=== PATIENT | male | born 2000 | race Two or more races ===

== ENCOUNTER 2024-02-06 09:24 | Emergency (ER) | payer MEDICAID, SELFPAY ==
--- NOTE | 2024-02-06 09:40 | PD.EDRME ---
Rapid Medical Screening Exam RME Arrival date/time: 02/06/24 09:24 Chief Complaint: Abdominal Pain Time Seen by Provider: 02/06/24 09:28 Vital signs: Vital Signs Temperature 98.2 F 02/06/24 09:46 Pulse Rate 97 02/06/24 09:46 Respiratory Rate 19 02/06/24 09:46 Blood Pressure 138/86 H 02/06/24 09:46 Pulse Oximetry (%) 100 02/06/24 09:46 Oxygen Delivery Method Room Air 02/06/24 09:46 E Narrative: n/v/d and epigastric pain initiated this morning
[2024-02-06 09:46] VITALS: BP 138/86; PULSE 97; RESP 19; TEMP 36.8; O2SAT 100; BMI 22.8
[2024-02-06 09:57] LABS: Basophils % (Auto) 0 % (0-2.5); Eosinophils # (Auto) 0.1 Thou/mm3 (0.0-0.5); Eosinophils % (Auto) 1 % (0-10); Hematocrit 33.8 % (41.0-53.0); Hemoglobin 10.2 g/dL (13.5-16.0); Immature Granulocytes % (Auto) 0 % (0-0); Immature Granulocytes Auto 0.02 Thou/mm3 (0.00-0.00); Lymphocytes # (Auto) 0.6 Thou/mm3 (1.0-4.8); Lymphocytes % (Auto) 7 % (10-50); Mean Corpuscular HGB Conc 30.2 g/dl (31.0-37.0); Mean Corpuscular Hemoglobin 22.6 pg (25.0-35.0); Mean Corpuscular Volume 75 fL (80-100); Monocytes # (Auto) 0.2 Thou/mm3 (0.0-0.8); Monocytes % (Auto) 2 % (0-12); Neutrophils # (Auto) 6.9 Thou/mm3 (1.8-7.7); Neutrophils % (Auto) 88 % (37-80); Nucleated Red Blood Cell % 0 /100 WBC (0); Platelet Count 131 Thou/mm3 (140-440); RDW Standard Deviation 46.9 fL (35.1-43.9); Red Blood Count 4.52 Miln/mm3 (4.50-5.90); White Blood Count 7.9 Thou/mm3 (3.8-10.6)
--- NOTE | 2024-02-06 10:00 | PD.EDABDPN ---
ED Abdominal Pain RME/HPI General Chief Complaint: Abdominal Pain Stated complaint: n/v 0600 today, ab pain Time seen by provider: 02/06/24 09:28 Arrival date/time: 02/06/24 09:24 RME / HPI RME / HPI narrative: n/v/d and epigastric pain initiated this morning This section includes all my notes and documentations, including HPI, PE, and ED course.? Mariano Hobson MD HPI: 23 year old male with history of unknown liver disease s/p stent placement, GI bleed, given blood transfusion, esophageal varices that were banded presents to the ED for complaint of epigastric and right upper quadrant abdominal pain beginning at 06:00 am today. Described as aching in sensation and rating 10/10 in severity. Accompanied by nausea and nonbloody vomiting. Reports history of abdominal pain but not to this severity. Denies fevers, chills, sweats, chest pain, cough, shortness of breath, diarrhea, constipation, or urinary symptoms. ROS: All negative except as documented in HPI. Physical Exam: General:? Alert and oriented.?Appears to be in severe pain Eyes:? Conjunctivae and lids clear.?? ENT:? No nasal congestion.?? Neck:? Supple.?? Lungs:? No respiratory distress.?? Abdomen:? Soft.? Tenderness diffusely, difficult to localize. Normal bowel sounds. No distention. No rebound or guarding. Skin:? Warm and dry.?? Neuro:? Alert and oriented X 3.?? I reviewed all diagnostic test results. My review of the abdominal CT report is?cirrhosis. My review of the GB ultrasound report is distended gallbladder. Blood tests and urine tests?unremarkable. At this point, diagnoses include?gastritis. Treatment here included?Zofran and Toradol and morphine and famotidine and Protonix and two Tylenol #3. Significant improvement noted. Recommended more outpatient workup. Based on my best medical judgment, made decision no further evaluation or treatment indicated at this time.? Patient understands and agrees to the discharge instructions customized and printed, see below. Discharge Instructions from Dr. Hobson printed for you: 1. After extensive evaluation, exact cause of your abdominal pain was not determined. But there is no emergency needing urgent surgery or other urgent intervention. 2. Possibilities include liver cirrhosis and chronic pancreatitis and gastritis (stomach ulcer). 3. Zofran for nausea/vomiting. 4. Take omeprazole every morning and famotidine every night for 7 days and as needed. For possible gastritis. 5. Clear liquid diet for 24 hours. Then advance slowly as tolerated. Avoid fatty and spicy and acidic food and beverages. 6. See a private doctor on 02/09/2024 for recheck and further care. Ask to review all test results and official radiology reports, to make sure you receive all necessary follow-ups and monitoring. To make sure there is no other serious intra-abdominal condition, ask for help with more investigation not available here in the ER. Such as EGD or scoping the stomach, colonoscopy or scoping the colon, and referral to see delicatessen store manager. Call [facility] where you had your previous care and let them know what happened and ask for an appointment. 7. Seek immediate medical care with worsening, fever, throwing up blood, or with any concerns. Mariano Hobson MD Related Data Previous Rx's ?Medication ?Instructions ?Recorded ferrous sulfate 325 mg (65 mg 325 mg PO QDAY #30 tabs 11/12/23 iron) tablet pantoprazole 40 mg tablet,delayed 40 mg PO QDAY #30 tabs 11/12/23 release famotidine 40 mg tablet 40 mg PO QDAY #30 tabs 02/06/24 omeprazole 40 mg capsule,delayed 40 mg PO QDAY #30 caps 02/06/24 release ondansetron 4 mg disintegrating 4 mg PO TID PRN nausea and 02/06/24 tablet vomiting 5 days #10 tabs Allergies Allergy/AdvReac Type Severity Reaction Status Date / Time No Known Allergies Allergy Verified 02/06/24 09:25 Review of Systems Review of Systems Systems Reviewed: All systems reviewed, normal except as documented Past Medical History Past Medical History GASTROINTESTINAL: Positive Gastrointestinal Disorders and Cirrhosis (reports hx of liver problems now resolved) GENITOURINARY: Positive Kidney Stones HEMATOLOGIC: Positive Anemia OTHER HISTORY: Positive Blood Transfusions Social History SMOKING STATUS: Never smoker ED Exam Narrative Physical exam: As noted in HPI Course Quality Measures none Orders Category Date Time Status CT abdomen pelvis wo con Stat Exams 02/06/24 10:08 Completed US gall bladder Stat Exams 02/06/24 10:09 Completed Amylase Stat Lab 02/06/24 09:48 Completed CBC Stat Lab 02/06/24 09:48 Completed CMP [Comprehensive Metabolic Panel] Stat Lab 02/06/24 09:48 Completed Drug Screen,Urine Stat Lab 02/06/24 11:00 Completed Lipase Stat Lab 02/06/24 09:48 Completed Magnesium Stat Lab 02/06/24 09:48 Completed UA [Urinalysis] Stat Lab 02/06/24 11:00 Completed ACETAMINOPHEN w/COD 300-30 [Tylenol w/Cod #3] Med 02/06/24 10:25 Discontinued 2 tab PO X1 ONE Famotidine [Pepcid] Med 02/06/24 10:25 Discontinued 20 mg PO X1 ONE Ketorolac Inj [Toradol Inj] Med 02/06/24 09:40 Discontinued 30 mg IM X1 ONE Morphine Inj Med 02/06/24 13:21 Discontinued 4 mg IM X1 ONE Ondansetron Odt [Zofran Odt] Med 02/06/24 09:40 Discontinued 4 mg PO X1 ONE Pantoprazole [Protonix] Med 02/06/24 10:25 Discontinued 40 mg PO X1 ONE Vital Signs Vital signs: Vital Signs Temperature 98.2 F 02/06/24 09:46 Pulse Rate 97 02/06/24 09:46 Respiratory Rate 19 02/06/24 09:46 Blood Pressure 138/86 H 02/06/24 09:46 Pulse Oximetry (%) 100 02/06/24 09:46 Oxygen Delivery Method Room Air 02/06/24 09:46 Pulse ox is 100% on room air which is adequate. Abdominal Pain MDM MDM Narrative MDM Narrative:: Aylin Mckeon am scribing for and in the presence of Dr. Hobson. Patient data External records reviewed:: [facility] previous records (I reviewed ED visit 11/19/2023 for abdominal pain ) Clinical information provided by:: patient Social determinants that could affect healthcare access:: none Patient has the following chronic illnesses:: History of liver cirrhosis s/p stent placement, GI bleed, esophageal varices How is presenting disease/condition affected by chronic disease/condition?: exacerbated by Evaluation data The following diagnostics were reviewed and interpreted by me:: lab results and radiology exam(s) Lab and/or radiology exams considered but not ordered:: None Interpretation Summary: Gastritis Medications / Prescriptions Medications or Prescriptions considered but not ordered:: None Medication administrations:: Medication Administration History Discontinued Medications Acetaminophen/Codeine Phosphate (Acetaminophen W/Cod 300-30 Tablet) 2 tab PO X1 ONE Stop: 02/06/24 10:26 Last Admin: 02/06/24 10:40 Dose: 2 tab Documented By: RAMIRO Famotidine (Famotidine 20 Mg Tablet) 20 mg PO X1 ONE Stop: 02/06/24 10:26 Last Admin: 02/06/24 10:39 Dose: 20 mg Documented By: RAMIRO Ketorolac Tromethamine (Ketorolac Inj 60 Mg/2 Ml Vial) 30 mg IM X1 ONE Stop: 02/06/24 09:41 Last Admin: 02/06/24 10:30 Dose: Not Given Documented By: RAMIRO Non-Admin Reason: Cancelled by Provider Morphine Sulfate (Morphine Sulf Inj 10 Mg/Ml Vial) 4 mg IM X1 ONE Stop: 02/06/24 13:22 Last Admin: 02/06/24 13:27 Dose: 4 mg Documented By: RAMIRO Ondansetron HCl (Ondansetron Odt 4 Mg Tabrap) 4 mg PO X1 ONE; Protocol Stop: 02/06/24 09:41 Last Admin: 02/06/24 10:39 Dose: 4 mg Documented By: RAMIRO Pantoprazole Sodium (Pantoprazole 40 Mg Tablet) 40 mg PO X1 ONE Stop: 02/06/24 10:26 Last Admin: 02/06/24 10:39 Dose: 40 mg Documented By: RAMIRO See chart Consultations Consultation(s) initiated? (list below): No Diagnosis Differential diagnosis abdominal pain: abdominal pain, acute appendicitis, calculus of kidney, constipation, diverticulitis, gastroenteritis, pancreatitis, small bowel obstruction and other (Gastritis) Most likely diagnosis given after review of the tests above:: Gastritis Admission Indicated Admission indicated?: not indicated Explain why admission is indicated or not indicated:: Admission criteria not met. Admission Request Was there a request for admission?: No Disposition Plan Disposition Plan: Discharge Discharge Attestation Discharge Attestation: The patient and all family members were given an opportunity to ask questions and understood the discharge instructions. Discharge instructions specifically effects, indications for sooner follow up or return to the emergency department, and the expected course of current diagnosis. Patient condition: Stable Discharge Plan Plan Patient Disposition: HOME (Self Care) Prescriptions/Referrals Prescriptions/Med Rec: New famotidine 40 mg tablet 40 mg PO QDAY Qty: 30 0RF omeprazole 40 mg capsule,delayed release(DR/EC) 40 mg PO QDAY Qty: 30 0RF ondansetron 4 mg tablet,disintegrating 4 mg PO TID PRN (Reason: nausea and vomiting) 5 Days Qty: 10 0RF No Action pantoprazole 40 mg tablet,delayed release (DR/EC) 40 mg PO QDAY Qty: 30 0RF ferrous sulfate 325 mg (65 mg iron) tablet 325 mg PO QDAY Qty: 30 0RF Referrals: No Primary/Family,Physician [Primary Care Provider] - In 1 week Problem List Clinical Impression: Abdominal pain Patient/Caregiver Discharge Instructions Discharge Activity: activity as tolerated Education Materials: ED Cirrhosis, ED Gastritis (Adult), ED Pancreatitis, ED Abdominal Pain Unknown Cause ... Additional Instructions: Discharge Instructions from Dr. Hobson printed for you: 1. After extensive evaluation, exact cause of your abdominal pain was not determined. But there is no emergency needing urgent surgery or other urgent intervention. 2. Possibilities include liver cirrhosis and chronic pancreatitis and gastritis (stomach ulcer). 3. Zofran for nausea/vomiting. 4. Take omeprazole every morning and famotidine every night for 7 days and as needed. For possible gastritis. 5. Clear liquid diet for 24 hours. Then advance slowly as tolerated. Avoid fatty and spicy and acidic food and beverages. 6. See a private doctor on 02/09/2024 for recheck and further care. Ask to review all test results and official radiology reports, to make sure you receive all necessary follow-ups and monitoring. To make sure there is no other serious intra-abdominal condition, ask for help with more investigation not available here in the ER. Such as EGD or scoping the stomach, colonoscopy or scoping the colon, and referral to see delicatessen store manager. Call [facility] where you had your previous care and let them know what happened and ask for an appointment. 7. Seek immediate medical care with worsening, fever, throwing up blood, or with any concerns. Print Language: Greenlandic Stand Alone Forms: [employer] Award Info., Patient Portal Info Letter
--- NOTE | 2024-02-06 10:08 | XR_ITS ---
Examination: CT abdomen and pelvis without contrast. Coronal 3-D reconstructions. Sagittal 2-D reconstructions. Date and time of exam:February 06, 2024 1017 hours Comparison 11/19/2023 INDICATIONS: Onset right-sided flank pain with nausea vomiting beginning 6:00 AM this morning CTDI: vol (mGy): 5.74 DLP: (mGycm): 339 Technique: Axial images of the abdomen have been obtained, 3 mm slice thickness Intravenous contrast material has not been administered. Low dose protocols were performed. One or more of the following dose reduction techniques were used; automated exposure control, adjustment of the mA and/or KV according to patient size, use of iterative reconstruction technique. Findings: Liver is irregular in contour with multiple low-density areas which may represent intrahepatic biliary tract dilatation Abnormal distention of the gallbladder with mild pericholecystic inflammatory change Marked splenomegaly Mild edema around the pancreas Portosystemic collateral vessels medial to the spleen Perigastric varices No hydronephrosis Normal appendix No bowel obstruction Contracted urinary bladder IMPRESSION: Cirrhosis Prominent splenomegaly Perigastric varices Abnormally distended gallbladder, suspicious for pancreatitis Recommend MRCP follow-up to confirm cholecystitis, assess the extrahepatic biliary tree and confirm pancreatitis
--- NOTE | 2024-02-06 10:09 | XR_ITS ---
Examination: Abdomen sonogram, Limited Date and time of exam: February 06, 2024 1130 hours INDICATIONS: Right upper abdominal pain with nausea vomiting beginning 6:00 AM this morning Technique: Real-time lr scale transabdominal sonographic images of the upper abdomen obtained. Findings: Distended gallbladder 16.4 cm No gallstones Gallbladder wall 0.2 cm Common bile duct is abnormally enlarged 0.7 cm Pancreatic head 3.1 cm Liver 16.4 cm lobular contour fatty infiltration no focal liver lesions Normal hepatopedal portal venous flow Patent IVC IMPRESSION: Distended gallbladder with abnormally enlarged common bile duct 0.7 cm Recommend MRCP follow-up to exclude impacted stones in the distal common bile duct
[2024-02-06 10:21] LABS: Alanine Aminotransferase 27 U/L (10-49); Albumin, Serum 5.4 gm/dL (3.5-5.0); Albumin/Globulin Ratio 1.4 (1.2-2.2); Alkaline Phosphatase 111 U/L (46-116); Anion Gap 11 (7-16); Aspartate Amino Transferase 27 U/L (0-34); BUN/Creatinine Ratio 15 Ratio (12-20); Bilirubin,Total 0.9 mg/dL (0.3-1.2); Blood Urea Nitrogen 12 mg/dL (9-23); Calcium 10.2 mg/dL (8.3-10.6); Calcium (Corrected) 10.2 mg/dL (8.5-10.1); Chloride 106 mMol/L (98-107); Creatinine (Component) 0.8 mg/dL (0.6-1.3); Estimated Creatinine Clearance 114.6 mL/min (>60); Globulin 3.8 gm/dL (2.3-3.5); Glucose 131 mg/dL (74-106); Lipase 34 U/L (12-53); Osmolality,Calculated 275 (275-295); Potassium 3.9 mMol/L (3.4-5.1); Sodium 137 mMol/L (136-145); Total Protein 9.2 gm/dL (5.7-8.2); eGFR > 60 See Note
[2024-02-06] MEDS: PANTOPRAZOLE 40 MG TABLET PO (10:39)
[2024-02-06] MEDS: FAMOTIDINE 20 MG TABLET PO (10:39)
[2024-02-06] MEDS: ONDANSETRON ODT 4 MG TABRAP PO (10:39)
[2024-02-06] MEDS: ACETAMINOPHEN w/COD 300-30 TABLET 2 TAB PO (10:40)
--- NOTE | 2024-02-06 10:45 | PC.NURSE ---
Patient presents to thr ER with complaint of abd pain, vomiting, diarrhea x 0600. States woke up feeling full and took two Pepto pink pills priorr to symptoms starting. States smoked marijuana last night with no prior medical hx. GCS 15
[2024-02-06 11:14] LABS: Collection Type, Urine Clean Catch
[2024-02-06 11:27] LABS: Amphetamine/Methamp Scrn,U Negative (Negative); Barbiturate Screen,Urine Negative (Negative); Benzodiazepines Screen,Urine Negative (Negative); Benzoylecgonine Screen, Ur Negative (Negative); Fentanyl Screen,Urine Negative (Negative); Opiate Screen,Urine Negative (Negative); THC Screen,Urine Positive (Negative)
[2024-02-06 11:28] LABS: Bacteria,Urine Rare; Bilirubin,Urine Negative (Negative); Blood,Urine Negative (Negative); Color,Urine Yellow (Lt Yel-Yel); Glucose, Urine Negative (Negative); Granular Casts,Urine < 1 /hpf (0-1); Hyaline Casts,Urine < 1 /hpf (0-1); Ketones,Urine Negative (Negative); Leukocyte Esterase,Urine Negative (Negative); Nitrite,Urine Negative (Negative); Protein,Urine 1+ (Neg - Trace); RBC,Urine 13 /hpf (0-3); Specific Gravity,Urine 1.026 (1.001-1.035); Squamous Epithelial Cell,Urine < 1 /hpf (0-5); Urobilinogen,Urine Negative mg/dL (0.0-1.0); WBC,Urine 2 /hpf (0-5)
[2024-02-06 11:33] LABS: Clarity,Urine Hazy (Clear/Hazy)
[2024-02-06 11:54] LABS: Amylase 130 U/L (30-118)
[2024-02-06 12:04] VITALS: BP 131/74; PULSE 67; RESP 18; TEMP 36.8; O2SAT 99
--- NOTE | 2024-02-06 13:20 | PC.NURSE ---
Patient states pain 9/10 and informed ER provider. Received verbal order for 4 mg morphine IM.
[2024-02-06] MEDS: MORPHINE SULF INJ 10 MG/ML VIAL 4 MG IM (13:27)
== END 2024-02-06 13:38 | disposition home or self-care (01) ==
PROVIDERS: Physician Assistant; Emergency Provider Emergency Medicine
DX: K29.70 Gastritis, unspecified, without bleeding (principal); K74.60 Unspecified cirrhosis of liver; K82.8 Other specified diseases of gallbladder
CPT/HCPCS: 36415; 74176; 76705; 80053; 80307; 81001; 82150; 83690; 83735; 85025; 96372; 99284; J2270; Q0162; A9270

== ENCOUNTER 2024-03-06 10:24 | Inpatient (IN) | payer MEDICAID, SELFPAY ==
[2024-03-06] VITALS (13 sets, daily range): BP systolic 97–123; BP diastolic 49–78; PULSE 59–87; RESP 7–18; TEMP 36.6–37.1; O2SAT 99–100; BMI 24.5; BMI 23.8
--- NOTE | 2024-03-06 | XR_ITS ---
MRI abdomen, without contrast. MRCP Date and time of exam: March 06, 2024 1518 hr Indications: Vomiting blood today nausea abdominal pain, distended gallbladder Technique: Multiple axial and coronal images of the abdomen have been obtained with the Siemens 1.5T MRI scanner. Images obtained included T1 weighted transverse images, T2-weighted transverse images, T2-weighted transverse images fat-suppressed, T2 weighted haste fat suppressed transverse images, T1 weighted images, in and out of phase images, T2-weighted coronal images, breath hold, T2 weighted haze coronal images as well as T2 weighted coronal thick slab images, MRCP. Findings: Intrahepatic biliary tract dilatation Markedly distended gallbladder with mild gallbladder wall thickening and mild edema Common hepatic duct 10 mm Fairly abrupt termination distal common bile duct, coronal image 13 Liver is irregular in contour with prominent splenomegaly There is minimal fluid around the pancreas No hydronephrosis No bowel obstruction Aorta normal size Impression: Markedly distended gallbladder with mild gallbladder wall thickening and mild edema around the gallbladder Extrahepatic biliary tract obstruction, common hepatic duct 10 mm, fairly abrupt termination of the distal common bile duct although no definite stones Recommend ERCP follow-up, also consider HIDA scan follow-up to confirm cystic duct obstruction Suspicious for mild pancreatitis
--- NOTE | 2024-03-06 10:36 | XR_ITS ---
Examination: CT abdomen and pelvis without contrast. Coronal 3-D reconstructions. Sagittal 2-D reconstructions. Date and time of exam:March 06, 2024 1113 hrs. Comparison February 06, 2024 Indications: Right upper abdominal pain beginning 3 days ago CTDI: vol (mGy): 5.55 DLP: (mGycm): 355 Technique: Axial images of the abdomen have been obtained, 3 mm slice thickness Intravenous contrast material has not been administered. Low dose protocols were performed. One or more of the following dose reduction techniques were used; automated exposure control, adjustment of the mA and/or KV according to patient size, use of iterative reconstruction technique. Findings: Liver irregular in contour with intrahepatic biliary tract dilatation Distended gallbladder Prominent splenomegaly No focal pancreatic lesion Common hepatic duct 8 mm Aorta normal size Portosystemic collateral vessels medial to the spleen No hydronephrosis No bowel obstruction Normal appendix Trace ascites No bladder mass No prostatomegaly Impression: Cirrhosis Prominent splenomegaly Markedly abnormal distended gallbladder with enlarged common bile duct 8 mm, recommend MRCP follow-up Trace ascites Normal appendix No bowel obstruction
[2024-03-06] MEDS: ACETAMINOPHEN w/COD 300-30 TABLET 2 TAB PO (10:54)
[2024-03-06] MEDS: ONDANSETRON ODT 4 MG TABRAP PO (10:54)
[2024-03-06 11:37] LABS: Basophils % (Auto) 1 % (0-2.5); Eosinophils # (Auto) 0.1 Thou/mm3 (0.0-0.5); Eosinophils % (Auto) 2 % (0-10); Immature Granulocytes % (Auto) 0 % (0-0); Immature Granulocytes Auto 0.02 Thou/mm3 (0.00-0.00); Lymphocytes # (Auto) 0.7 Thou/mm3 (1.0-4.8); Lymphocytes % (Auto) 16 % (10-50); Mean Corpuscular HGB Conc 29.6 g/dl (31.0-37.0); Mean Corpuscular Hemoglobin 20.1 pg (25.0-35.0); Mean Corpuscular Volume 68 fL (80-100); Monocytes # (Auto) 0.3 Thou/mm3 (0.0-0.8); Monocytes % (Auto) 6 % (0-12); Neutrophils # (Auto) 3.4 Thou/mm3 (1.8-7.7); Neutrophils % (Auto) 75 % (37-80); Nucleated Red Blood Cell % 0 /100 WBC (0); Platelet Count 125 Thou/mm3 (140-440); RDW Standard Deviation 43.1 fL (35.1-43.9); Red Blood Count 2.73 Miln/mm3 (4.50-5.90); White Blood Count 4.5 Thou/mm3 (3.8-10.6)
[2024-03-06 11:41] LABS: Alanine Aminotransferase 17 U/L (10-49); Albumin, Serum 4.4 gm/dL (3.5-5.0); Albumin/Globulin Ratio 1.5 (1.2-2.2); Alkaline Phosphatase 72 U/L (46-116); Amylase 81 U/L (30-118); Anion Gap 7 (7-16); Aspartate Amino Transferase 17 U/L (0-34); BUN/Creatinine Ratio 28 Ratio (12-20); Bilirubin,Total 0.9 mg/dL (0.3-1.2); Blood Urea Nitrogen 17 mg/dL (9-23); Carbon Dioxide 25.2 mMol/L (20.0-31.0); Chloride 107 mMol/L (98-107); Creatinine (Component) 0.6 mg/dL (0.6-1.3); Estimated Creatinine Clearance 146.6 mL/min (>60); Glucose 110 mg/dL (74-106); Lipase 41 U/L (12-53); Osmolality,Calculated 280 (275-295); Sodium 139 mMol/L (136-145); Total Protein 7.4 gm/dL (5.7-8.2); eGFR > 60 See Note
[2024-03-06 11:43] LABS: INR 1.4 (0.9-1.3); Partial Thromboplastin Time 26.5 Seconds (22.0-36.0); Prothrombin Time 15.1 Seconds (9.0-12.2)
[2024-03-06 11:45] LABS: Hematocrit 18.6 % (41.0-53.0); Hemoglobin 5.5 g/dL (13.5-16.0)
--- NOTE | 2024-03-06 12:45 | EDNOTE_ITS ---
ED GI Bleed RME/HPI General Chief complaint: Nausea/Vomiting/Diarrhea Stated complaint: VOMITING BLOOD SINCE YESTERDAY Time Seen by Provider: 03/06/24 10:28 Arrival date/time: 03/06/24 10:24 RME / HPI RME / HPI Narrative: This section includes all my notes and documentations, including HPI, PE, and ED course. Mariano Hobson MD HPI: 23-year-old male here with about 24-hour history of vomiting coffee-ground emesis and abdominal pain and tarry stools. No obvious fever. Reports fatigue and malaise. No chest pain or shortness of breath. No other complaints ROS: All negative except as documented in HPI. Physical Exam: General: Alert and oriented. In obvious pain. Eyes: Conjunctivae and lids clear. ENT: No nasal congestion. Neck: Supple. Heart: RRR. Lungs: No respiratory distress. Good air movement. No rhonchi, wheezing, rales. Abdomen: Soft with severe tenderness, difficult to localize. Decreased bowel sounds. No distension. No rebound or guarding. Back: No CVA tenderness. Skin: Warm and dry. Neuro: Alert and oriented X 3. I reviewed all diagnostic test results. My review of the abdominal CT report is Cirrhosis and Prominent splenomegaly and markedly abnormal distended gallbladder with enlarged common bile duct 8 mm, My review of the GB ultrasound report is markedly distended gallbladder and enlarged common bile duct 10 mm. My review of the MRCP is severely distended gallbladder with wall thickening and edema AND extrahepatic biliary tract obstruction with no obvious definite stones. Blood tests remarkable for Hgb 5.5, INR 1.4. At this point, diagnoses include GI bleeding and severe anemia and cholecystitis and biliary obstruction. Treatment here included blood transfusion and Zosyn and Zofran and famotidine and Protonix and octreotide and morphine. I discussed the case with our member of the legislative assembly, Dr. Johnson. About the presentation and exam and diagnostics and treatments here. And possible need of further care in the hospital. Recommended transfer because he needs ERCP. At 6 PM on 03/06/2024, the care of the patient was transferred to Dr Moses. Mariano Hobson MD Related Data Previous Rx's ?Medication ?Instructions ?Recorded ferrous sulfate 325 mg (65 mg 325 mg PO QDAY #30 tabs 11/12/23 iron) tablet pantoprazole 40 mg tablet,delayed 40 mg PO QDAY #30 tabs 11/12/23 release famotidine 40 mg tablet 40 mg PO QDAY #30 tabs 02/06/24 omeprazole 40 mg capsule,delayed 40 mg PO QDAY #30 caps 02/06/24 release Allergies Allergy/AdvReac Type Severity Reaction Status Date / Time No Known Allergies Allergy Verified 03/06/24 10:26 Course Quality Measures none Orders Category Date Time Status MRI Screening NOW Care 03/06/24 12:45 Active Saline [Insert IV] NOW Care 03/06/24 11:59 Active Transfuse,blood/blood products NOW Care 03/06/24 12:00 Active Referral - Manager Photography Stat Cons 03/06/24 16:[address] abdomen pelvis wo con Stat Exams 03/06/24 10:36 Completed MR MRCP Stat Exams 03/06/24 Completed US gall bladder Stat Exams 03/06/24 13:15 Completed Amylase Stat Lab 03/06/24 10:52 Completed CBC Stat Lab 03/06/24 10:52 Completed CMP [Comprehensive Metabolic Panel] Stat Lab 03/06/24 10:52 Completed Lipase Stat Lab 03/06/24 10:52 Completed Magnesium Stat Lab 03/06/24 10:52 Completed PT [Prothrombin Time with INR] Stat Lab 03/06/24 10:52 Completed PTT [Partial Thromboplastin Time] Stat Lab 03/06/24 10:52 [address]pleted Path Review Blood Smear Stat Lab 03/06/24 10:52 Completed Type and Screen Stat Lab 03/06/24 12:24 Results prbc [Red Blood Cells] Stat Lab 03/06/24 12:24 Results ACETAMINOPHEN w/COD 300-30 [Tylenol w/Cod #3] Med 03/06/24 10:36 Discontinued 2 tab PO X1 ONE Famotidine Inj [Pepcid Inj] Med 03/06/24 12:00 Discontinued 40 mg IVP X1 ONE Morphine Inj Med 03/06/24 12:00 Discontinued 4 mg IVP X1 ONE Octreotide Acet Inj [SandoSTATIN Inj] Med 03/06/24 12:01 Discontinued 50 mcg IV X1 ONE Ondansetron Inj [Zofran Inj] Med 03/06/24 12:00 Discontinued 4 mg IV X1 ONE Ondansetron Inj [Zofran Inj] Med 03/06/24 16:52 Discontinued 4 mg IV X1 ONE Ondansetron Odt [Zofran Odt] Med 03/06/24 10:36 Discontinued 4 mg PO X1 ONE Pantoprazole Inj [Protonix Inj] Med 03/06/24 12:00 Discontinued 80 mg IV X1 ONE Piper/Tazo Inj [Zosyn Inj] 3.375 gm Med 03/06/24 16:52 Discontinued Sodium Chloride 0.9% (P) [Ns 0.9% (P)] 50 ml IV X1 Sodium Chloride 0.9% [Ns] 100 ml Med 03/06/24 12:02 Pending Octreotide Acet Inj [SandoSTATIN Inj] 1,000 mcg IV 50 mcg/hr Sodium Chloride 0.9% [Ns] 100 ml Med 03/06/24 12:15 Active Octreotide Acet Inj [SandoSTATIN Inj] 1,000 mcg IV 50 mcg/hr Vital Signs Vital signs: Vital Signs Temperature 98.4 F 03/06/24 10:35 Pulse Rate 87 03/06/24 10:35 Respiratory Rate 18 03/06/24 10:35 Blood Pressure 122/77 03/06/24 10:35 Pulse Oximetry (%) 100 03/06/24 10:35 Oxygen Delivery Method Room Air 03/06/24 10:35 GI Bleed Patient data External records reviewed:: [facility] previous records Clinical information provided by:: patient Social determinants that could affect healthcare access:: none Patient has the following chronic illnesses:: Cirrhosis and history of extrahepatic biliary obstruction with stent How is presenting disease/condition affected by chronic disease/condition?: exacerbated by Evaluation data The following diagnostics were reviewed and interpreted by me:: lab results and radiology exam(s) Lab and/or radiology exams considered but not ordered:: None Interpretation Summary: GI bleeding and anemia and cholecystitis and biliary obstruction Medications / Prescriptions Medications or Prescriptions considered but not ordered:: None Medication administrations:: Medication Administration History Octreotide Acetate 1,000 mcg/ (Sodium Chloride) 102 mls @ 5.1 mls/hr IV .Q20H MAYTE; Protocol Stop: 03/11/24 12:02 Octreotide Acetate 1,000 mcg/ (Sodium Chloride) 102 mls @ 5.1 mls/hr IV .Q20H ONE; Protocol Stop: 03/07/24 08:14 Last Admin: 03/06/24 14:18 Dose: 50 mcg/hr, 5.1 mls/hr Documented By: DORINDA Discontinued Medications Acetaminophen/Codeine Phosphate (Acetaminophen W/Cod 300-30 Tablet) 2 tab PO X1 ONE Stop: 03/06/24 10:37 Last Admin: 03/06/24 10:54 Dose: 2 tab Documented By: RAMIRO Famotidine (Famotidine Inj 10 Mg/Ml Vial 2 Ml) 40 mg IVP X1 ONE Stop: 03/06/24 12:01 Last Admin: 03/06/24 14:15 Dose: 40 mg Documented By: DORINDA Piperacillin Sod/Tazobactam (Sod 3.375 gm/ Sodium Chloride) 50 mls @ 100 mls/hr IV X1 ONE Stop: 03/06/24 17:21 Morphine Sulfate (Morphine Sulf Inj 10 Mg/Ml Vial) 4 mg IVP X1 ONE Stop: 03/06/24 12:01 Last Admin: 03/06/24 14:03 Dose: 4 mg Documented By: DORINDA Octreotide Acetate (Octreotide Acet Inj 50 Mcg/Ml Vial) 50 mcg IV X1 ONE Stop: 03/06/24 12:02 Last Admin: 03/06/24 14:06 Dose: 50 mcg Documented By: DORINDA Ondansetron HCl (Ondansetron Odt 4 Mg Tabrap) 4 mg PO X1 ONE; Protocol Stop: 03/06/24 10:37 Last Admin: 03/06/24 10:54 Dose: 4 mg Documented By: RAMIRO Ondansetron HCl (Ondansetron Inj 2 Mg/Ml Inj 2 Ml) 4 mg IV X1 ONE; Protocol Stop: 03/06/24 12:01 Last Admin: 03/06/24 14:04 Dose: 4 mg Documented By: DORINDA Ondansetron HCl (Ondansetron Inj 2 Mg/Ml Inj 2 Ml) 4 mg IV X1 ONE; Protocol Stop: 03/06/24 16:53 Pantoprazole Sodium (Pantoprazole Inj 40 Mg Vial) 80 mg IV X1 ONE Stop: 03/06/24 12:01 Last Admin: 03/06/24 14:05 Dose: 80 mg Documented By: DORINDA See chart Consultations Consultation(s) initiated? (list below): Yes Consultation #1 (Physician, Specialty, Details): Gastroenterology, Dr. Johnson, recommended transfer because patient needs ERCP Diagnosis GI bleed differential diagnosis: esophageal varices, gastritis, Upper gastrointestinal hemorrhage, Lower gastrointestinal hemorrhage and other (Cholecystitis, cholangitis, biliary obstruction) Most likely diagnosis given after review of the tests above:: GI bleed and severe anemia and cholecystitis and biliary obstruction Admission Indicated Admission indicated?: not indicated Explain why admission is indicated or not indicated:: Patient needs ERCP which is not available here Admission Request Was there a request for admission?: No Disposition Plan Disposition Plan: Transfer Critical Care Time Critical Care Time Critical Care Time: Yes Total Critical Care Time (min.): 36 Attestation: Due to a high probability of clinically significant, life threatening deterioration, the patient required my highest level of preparedness to intervene emergently and I personally spent this critical care time directly and personally managing the patient. This critical care time included obtaining a history; examining the patient; ordering and review of studies; arranging urgent treatment with development of a management plan; evaluation of patient's response to treatment; frequent reassessment; and discussions with family and other providers. It was exclusive of separately billable procedures and treating other patients and teaching time. Mariano Hobson MD Discharge Plan Prescriptions/Referrals Prescriptions/Med Rec: No Action pantoprazole 40 mg tablet,delayed release (DR/EC) 40 mg PO QDAY Qty: 30 0RF ferrous sulfate 325 mg (65 mg iron) tablet 325 mg PO QDAY Qty: 30 0RF famotidine 40 mg tablet 40 mg PO QDAY Qty: 30 0RF omeprazole 40 mg capsule,delayed release(DR/EC) 40 mg PO QDAY Qty: 30 0RF Referrals: Jose Enrique Pena MD [Primary Care Provider] - In 1 week Problem List Clinical Impression: Acute GI bleeding, Biliary obstruction, Severe anemia, Acute cholecystitis Patient/Caregiver Discharge Instructions Print Language: Pakistani
[2024-03-06 12:55] LABS: Path Review Blood Smear Sent to Pathologist
--- NOTE | 2024-03-06 13:15 | XR_ITS ---
Examination: Abdomen sonogram, Limited Date and time of exam: March 06, 2024 at 1331 hrs. Indications: Right upper abdominal pain beginning 2 weeks ago, onset vomiting blood beginning 2 days ago, diagnosis cirrhosis, markedly distended gallbladder on CT abdomen study today Technique: Real-time lr scale transabdominal sonographic images of the upper abdomen obtained. Findings: Distended gallbladder No stones Gallbladder wall 0.3 cm no edema Common bile duct is enlarged 10 mm No definite stones in the common duct Pancreatic head 2.6 cm Liver 13.8 cm fatty infiltration no focal liver lesions Normal hepatopedal portal venous flow Patent IVC Impression: Markedly distended gallbladder Abnormally enlarged common bile duct 10 mm, recommend MRCP follow-up to exclude impacted stones in the common bile duct or stricture of the distal common bile duct
[2024-03-06] MEDS: MORPHINE SULF INJ 10 MG/ML VIAL 4 MG IVP (14:03)
[2024-03-06] MEDS: ONDANSETRON INJ 2 MG/ML INJ 2 ML 4 MG IV ×3 (14:04→22:59)
[2024-03-06] MEDS: PANTOPRAZOLE INJ 40 MG VIAL 80 MG IV (14:05)
[2024-03-06] MEDS: OCTREOTIDE ACET INJ 50 mCg/ML VIAL IV (14:06)
[2024-03-06] MEDS: FAMOTIDINE INJ 10 MG/ML VIAL 2 ML 40 MG IVP (14:15)
[2024-03-06] MEDS: OCTREOTIDE ACET INJ 1,000 MCG in SODIUM CHLORIDE 0.9% 100 ML 5.1 MCG IV (14:18)
--- NOTE | 2024-03-06 14:28 | PC.NURSE ---
Patient presents to ED with c/o nausea, vomiting blood and gen upper abd pain for past couple of days. Patient is alert, oriented and responsive. Patient ambulatory without assistance. Patient is pale and warm to touch. Per patient has hx of liver disease and vomiting blood. Patient updated with plan of care, placed on compliance monitor, call light placed within reach.
--- NOTE | 2024-03-06 14:44 | PC.NURSE ---
Patient is pending MRCP procedure will wait for procedure to be completed prior to initiation of blood transfusion with blood products
--- NOTE | 2024-03-06 15:45 | PD.HHCONS ---
HPI Consultation - Hospitalist Data of Consult Primary Care Provider: Jose Enrique Pena MD Consult Narrative Reason for consult: Common bile duct dilation History of present illness: Patient is a 23-year-old male with history of cirrhosis, reported due to an obstructive disease as per patient, who presented with a chief complaint of right upper quadrant pain, hematemesis and dark stools. Symptoms started on the day prior to presentation to the ED. His pain is right upper quadrant and radiates to the epigastric area and right flank/back. He also reported vomiting of bloody blood as well as dark stools. He denied any shortness of breath. Patient denied taking any medications or allergies. He denied any previous surgeries. He denied drinking alcohol. He smokes marijuana. Patient's vital signs upon presentation are within normal range. Labs are pertinent for acute anemia with hemoglobin at 5.5 which is a significant drop compared to 10.2 on 02/06/2024. He has no transaminitis however CT scan of the abdomen/pelvis as well as gallbladder ultrasound showed significant common bile duct dilation. Past medical history as above No past surgical history Reported no family history of liver disease Reported not being on medications No known drug allergies Reported no tobacco use or alcohol use but reported marijuana use cc:: cc: Meds Home Medications and Allergies Allergies Allergy/AdvReac Type Severity Reaction Status Date / Time No Known Allergies Allergy Verified 03/06/24 10:26 Exam Vital Signs Temp Pulse Resp BP Pulse Ox O2 Del Method 98.3 F 62 9 L 118/64 99 Room Air 03/06/24 14:36 03/06/24 14:36 03/06/24 14:36 03/06/24 14:36 03/06/24 14:36 03/06/24 14:36 Narrative General: Alert and oriented x3. In no acute distress. Eyes: Pupils are equal and reactive to light bilaterally. HEENT: Atraumatic, normocephalic. No JVD noted. Cardiovascular: Normal S1 and S2. Normal rate and regular rhythm. No murmurs appreciated. No peripheral pitting edema noted. No JVD noted. Respiratory: No respiratory distress. Lungs are clear to auscultation bilaterally. No wheezing or crackles heard. Abdomen: Soft, right upper quadrant/epigastric tenderness noted, nondistended. Skin: No rash. Warm to touch Musculoskeletal: No gross injuries. Able to move all 4 extremities. Neuro: Alert and oriented x3. Sensation is intact throughout. Strength is 5/5 and symmetric. No focal neuro deficits. Psych: Normal affect and mood. Results - Hospitalist Labs Diagrams: 03/06/24 10:52 03/06/24 10:52 Labs: Short CBC 03/06/24 Range/Units 10:52 WBC 4.5 (3.8-10.6) Thou/mm3 Hgb 5.5 L* (13.5-16.0) g/dL Hct 18.6 L* (41.0-53.0) % Plt Count 125 L (140-440) Thou/mm3 BMP 03/06/24 10:52 Sodium 139 Potassium 4.0 Chloride 107 Carbon Dioxide 25.2 BUN 17 Creatinine 0.6 Glucose 110 H Calcium 9.0 Liver Function 03/06/24 Range/Units 10:52 Total Bilirubin 0.9 (0.3-1.2) mg/dL AST 17 (0-34) U/L ALT 17 (10-49) U/L Alkaline Phosphatase 72 (46-116) U/L Albumin 4.4 (3.5-5.0) gm/dL Assessment & Plan -Hospitalist Additional Assessment 23-year-old male with history of liver cirrhosis who presented with right upper quadrant abdominal pain and hematemesis. Acute blood loss anemia Upper GI bleed He has significant blood loss with typical upper GI bleed symptoms Given the liver cirrhosis, concern for esophageal varices which were seen on CT scan Plan: Recommend starting the patient on Protonix IV twice daily and octreotide drip Patient will need urgent EGD Monitor PT/INR Monitor H&H Transfuse the patient at least 2 PRBC with need for more units in case of persistence of bleed, symptomatic anemia, and/or signs of hemodynamic instability Right upper quadrant abdominal pain Common bile duct dilation Seen on CT scan. Although the patient has no transaminitis however given the young age he may not develop any symptoms of cholangitis until very late. 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
--- NOTE | 2024-03-06 16:21 | PC.NURSE ---
Patient return from [facility] pending results, PRBC's started infusing at 75ml/hr, hx of previous transfusions and no reactions per patient.
--- NOTE | 2024-03-06 17:18 | PC.NURSE ---
CLINICALS FAXEF TO [facility], [facility] AND [facility] IN [place]. CALLED FOR XRAY DISC
--- NOTE | 2024-03-06 17:25 | PC.NURSE ---
CALLED [facility], SPOKE WITH CHARISSE WHO STATES WILL CALLED BACK WHEN HAS TIME (WORKING LN TRAUMA TRANSFER)
--- NOTE | 2024-03-06 17:30 | PC.NURSE ---
CALLED [facility] AND SPOKE WITH MILAD. WILL LOOK AT CLINICALS AND CALL BACK
--- NOTE | 2024-03-06 17:44 | PC.NURSE ---
CALLED [facility] [place], SPOKE WITH APRYL WHO STATES WILL PRESENT CASE TO NURSES AND HAVE SOMEONE CALL BACK TOI.
[2024-03-06] MEDS: PIPER/TAZO INJ 3.375 GM in SODIUM CHLORIDE 0.9% (P) 50 ML IV (17:50)
--- NOTE | 2024-03-06 17:55 | PC.NURSE ---
alessandra from [facility] called back and requested md noted and lab, and then wanted to speak to myles barroso. phone transferred. labs and MD notes faxxed to [facility]
--- NOTE | 2024-03-06 17:57 | PC.NURSE ---
TRANSFER CENTER FROM [facility] CALLED BACK AND STATES DECLINING PT DUE TO CAPACITY AND THAT THEY ARE ONLY TAKING STEMI, STROKE, AND TRAUMA TRANSFERS AT THIS TIME.
--- NOTE | 2024-03-06 18:32 | PC.NURSE ---
[facility] transfer center nurses that states patient need authorization from insurance to be transfer to their facility
--- NOTE | 2024-03-06 19:06 | PD.EDADDENDU ---
Emergency Room Addendum Addendum Narrative: 1800 care assumed by previous shift provider. Past medical, surgical, social and family history reviewed. Vitals and home medications reviewed. Results and treatment plan discussed. I will assume the care of the patient at this time and will follow the patient, pending final disposition. 23-year-old male with known liver cirrhosis, portal hypertension, esophageal varices diagnosed at the age of 16 at [facility]. He describes workup concerning for stones and blockages of his biliary system where he required ERCP and stent placement at that time. Stent was removed at an appropriate interval afterwards, however he was told that the damage was significant and was transferred to [facility] where he remained on the transplant list until the age of 19. During this time he was medically managed with evidence of improvement in his liver function therefore he was taken off the transplant list at the age of 19. They also advised him at that time to stop smoking marijuana. Since 19 he has been lost to follow-up with specialists. He reports last EGD was admission here 4 months ago during active hematemesis at that time where he required banding . He has not followed up with GI since, he was advised to reinitiate follow-up with [facility] as a told him that his liver function was getting worse. He has not followed up with [facility] since and returns to the emergency department today with active hematemesis and melena. On my exam patient has finished 2 units of blood, IV Sandostatin and Protonix has been infused, and he is resting well comfortable, without abnormal physical exam. 193: Consult, gastroenterology, Dr. Johnson, case discussed at length, including laboratory testing results significant for a hemoglobin of 5.5 with known esophageal varices. Feels needs admitted for definitive management and endoscopy as a primary issue today. Given he has normal liver function test, termination without obvious stone obstruction on his ERCP can be managed as an outpatient once bleeding is controlled. Patient does not require transfer can be admitted here in the emergency department for critical upper GI bleeding with a history of esophageal varices. 1999: Case discussed at length with hospitalist, Dr. Abarca, and agrees to admit.
--- NOTE | 2024-03-06 19:53 | PC.NURSE ---
FAXED INFORMATION AND CALLED [facility], AT THIS TIME THEY ONLY ACCEPTING [facility],STROKE, AND [place].
--- NOTE | 2024-03-06 20:07 | PD.EVENT ---
Documentation for date of: 03/06/24 Event Note Event Note: Per Dr. Moses, Dr. Johnson was consulted and identified the primary issue as a GI bleed. The patient's bilirubin levels are normal, so the ERCP can be scheduled as an outpatient procedure. Dr. Johnson plans to perform an endoscopy on the patient tomorrow.
--- NOTE | 2024-03-06 20:13 | PC.NURSE ---
Per Dr. Abarca, NPO but ice chips are okay.
[2024-03-06] MEDS: SODIUM CHLORIDE 0.9% 1000 ML 1,000 ML 75 ML IV (20:47)
[2024-03-06] MEDS: PANTOPRAZOLE/NS 80MG IV PREMIX 80 MG/100 ML BAG 10 MG IV (20:47)
--- NOTE | 2024-03-06 21:46 | ESHP_ITS ---
Documentation for date of: 03/06/24 HPI History of Present Illness Chief complaint: UGI bleed History of present illness: A 23-year-old male with past medical history of liver cirrhosis, biliary stones status post stenting, variceal bleed presented to the hospital with chief complaints of bloody emesis since 2 days. Patient was apparently normal 2 days ago, on the day before admission patient had 2 episodes of bloody vomitings, approximately 250 mL each but did not seek any medical care as he thought the vomitings would subside. But on the day of admission he again developed 2 episodes of vomiting, approximately having 50 - 100 mL of bloody emesis. Endorsed that he is having right upper quadrant abdominal pain only while he is vomiting, not associated with radiation, no pain present during rest of the time. Also noticed blackish discoloration of stools since yesterday. Denies fever, abdominal distention, yellowish discoloration of urine, burning micturition. Last episode of bloody emesis was in October 2023 where he underwent EGD and got blood transfusions. Patient was initially diagnosed with biliary calculi at the age of 16 when he presented to the hospital with a chief complaints of abdominal pain, later patient was transferred out and eventually ended up in [facility] where he got stone extraction and stent was placed at that time. Patient was diagnosed as having this problem since childhood and patient was kept on liver transplant list at the age of 17. Patient had continues follow-up till the age of 19 and as patient is doing well, they took him off the transplant list and after that patient stopped following with the [facility]. Also endorsed that he missed all the appointments since 2019 and eventually he got a message from [facility] stating that he no longer can follow-up with them. For almost 2 years patient did not have any complaints. Since patient started to have recurrent episodes of similar abdominal pain and bloody emesis for which patient used to blood transfusions and medications. Also endorsed that he started drinking alcohol at the age of 18 and drinks mostly on weekends, drinks beer/liquor and reported that he drinks a lot and does not track the number of drinks. Patient noticed that every time he is drinking more, he is having bloody emesis and last bloody emesis was in October 2023 during which he had last alcohol intake as it was his birthday constitution party and since then he stopped drinking alcohol ED Course: - Initial vitals were blood pressure 132/77 mmHg, pulse rate 87 bpm, respiratory rate 18/min, temperature 98.4, SpO2 100% with room air - Labs significant for Hb 5.5, MCV 68, MCH 20.1, MCHC 29.6, platelets 125, INR 1.4, renal function is within normal limits, liver functions is within normal limits. MRCP showed markedly distended gallbladder with mild gallbladder wall thickening and mild edema around the gallbladder. Extrahepatic biliary tract obstruction, common hepatic duct 10 mm, fairly abrupt termination of the distal common bile duct although no definite stones. - Abdomen/pelvis CT showed cirrhosis. Prominent splenomegaly. - Gallbladder ultrasound showed markedly abnormal distended gallbladder with enlarged common bile duct 8 mm, Markedly distended gallbladder. Abnormally enlarged common bile duct 10 mm - In the ED, patient was given morphine, octreotide, ondansetron, famotidine - Patient was admitted for upper GI bleed secondary to varices due to liver cirrhosis Past medical history: Liver cirrhosis, biliary stones status post stenting, variceal bleed Past surgical history: Biliary stenting Social history: Alcohol abuse since the age of 18 and stopped in October 2023, smokes marijuana 1-2 times in a day, denies smoking tobacco and other illicit drug abuse. Review of Systems Review of Systems Narrative Review of Systems: Constitutional: No Weight Change, No Fever, No Chills, No Night Sweats, No Fatigue, No Malaise ENT/Mouth: No Hearing Changes, No Ear Pain, No Nasal Congestion, No Sinus Pain, No Hoarseness, No sore throat, No Rhinorrhea, No Swallowing Difficulty Eyes: No Eye Pain, No Swelling, No Redness, No Foreign Body, No Discharge, No Vision Changes Cardiovascular: No Chest Pain, No SOB, No PND, No Dyspnea on Exertion, No Orthopnea, No Edema, No Palpitations Respiratory: No Cough, No Sputum, No Wheezing, No Dyspnea Gastrointestinal: No Nausea,Vomiting, Hematemesis, No Diarrhea, No Constipation, RUQ Pain, No Heartburn, No Anorexia, No Dysphagia, No Hematochezia, Melena, No Flatulence, No Jaundice Genitourinary: No Dysuria, No Urinary Frequency, No Hematuria, No Urinary Incontinence, No Urgency, No Flank Pain, No Urinary Flow Changes, No Hesitancy Musculoskeletal: No Arthralgias, No Myalgias, No Joint Swelling, No Joint Stiffness, No Back Pain, No Neck Pain, No Injury History Skin: No Skin Lesions, No Pruritis Neuro: No Weakness, No Numbness, No Paresthesias, No Loss of Consciousness, No Syncope, No Dizziness, No Headache, No Coordination Changes, No Recent Falls Exam Vital Signs Temp Pulse Resp BP Pulse Ox O2 Del Method 98.2 F 62 16 98/49 L 100 Room Air 03/06/24 20:46 03/06/24 20:46 03/06/24 20:46 03/06/24 20:46 03/06/24 20:46 03/06/24 20:46 Narrative Exam General: Awake. HEENT: Normocephalic, atraumatic, mucous membranes moist. Heart: Regular rate and rhythm, no murmurs. Lungs: Clear to auscultation with no wheezing or crackles. Abdomen: Soft, nondistended, nontender, positive bowel sounds. ?No guarding or rebound tenderness. Neurologic: Alert and oriented x3, no gross neurological deficit, and patient able to move all 4 extremities. Extremities: No edema. Skin: No rash or ecchymoses. Results: Labs 03/07/24 00:00 03/06/24 10:52 Labs: Short CBC 03/06/24 Range/Units 10:52 WBC 4.5 (3.8-10.6) Thou/mm3 Hgb 5.5 L* (13.5-16.0) g/dL Hct 18.6 L* (41.0-53.0) % Plt Count 125 L (140-440) Thou/mm3 BMP 03/06/24 10:52 Sodium 139 Potassium 4.0 Chloride 107 Carbon Dioxide 25.2 BUN 17 Creatinine 0.6 Glucose 110 H Calcium 9.0 Liver Function 03/06/24 Range/Units 10:52 Total Bilirubin 0.9 (0.3-1.2) mg/dL AST 17 (0-34) U/L ALT 17 (10-49) U/L Alkaline Phosphatase 72 (46-116) U/L Albumin 4.4 (3.5-5.0) gm/dL Quality Measures Quality Measures none Medications Home Medications and Allergies Allergies Allergy/AdvReac Type Severity Reaction Status Date / Time No Known Allergies Allergy Verified 03/06/24 10:26 Visit Medications Octreotide Acetate 1,000 mcg/ (Sodium Chloride) 102 mls @ 5.1 mls/hr IV .Q20H MAYTE; Protocol Stop: 04/06/24 08:14 Octreotide Acetate 1,000 mcg/ (Sodium Chloride) 102 mls @ 5.1 mls/hr IV .Q20H ONE; Protocol Stop: 03/07/24 08:14 Last Admin: 03/06/24 14:18 Dose: 50 mcg/hr, 5.1 mls/hr Pantoprazole Sodium (Protonix/Ns 80mg Iv Premix) 80 mg in 100 mls @ 10 mls/hr IV Q10H MAYTE Stop: 03/09/24 18:00 Last Admin: 03/06/24 20:47 Dose: 10 mls/hr Sodium Chloride (Ns) 1,000 mls @ 75 mls/hr IV .[id number] [facility] Stop: 04/05/24 20:14 Last Admin: 03/06/24 20:47 Dose: 75 mls/hr Discontinued Medications Acetaminophen/Codeine Phosphate (Acetaminophen W/Cod 300-30 Tablet) 2 tab PO X1 ONE Stop: 03/06/24 10:37 Last Admin: 03/06/24 10:54 Dose: 2 tab Famotidine (Famotidine Inj 10 Mg/Ml Vial 2 Ml) 40 mg IVP X1 ONE Stop: 03/06/24 12:01 Last Admin: 03/06/24 14:15 Dose: 40 mg Piperacillin Sod/Tazobactam (Sod 3.375 gm/ Sodium Chloride) 50 mls @ 100 mls/hr IV X1 ONE Stop: 03/06/24 17:21 Last Infusion: 03/06/24 18:20 Dose: Infused Morphine Sulfate (Morphine Sulf Inj 10 Mg/Ml Vial) 4 mg IVP X1 ONE Stop: 03/06/24 12:01 Last Admin: 03/06/24 14:03 Dose: 4 mg Octreotide Acetate (Octreotide Acet Inj 50 Mcg/Ml Vial) 50 mcg IV X1 ONE Stop: 03/06/24 12:02 Last Admin: 03/06/24 14:06 Dose: 50 mcg Ondansetron HCl (Ondansetron Odt 4 Mg Tabrap) 4 mg PO X1 ONE; Protocol Stop: 03/06/24 10:37 Last Admin: 03/06/24 10:54 Dose: 4 mg Ondansetron HCl (Ondansetron Inj 2 Mg/Ml Inj 2 Ml) 4 mg IV X1 ONE; Protocol Stop: 03/06/24 12:01 Last Admin: 03/06/24 14:04 Dose: 4 mg Ondansetron HCl (Ondansetron Inj 2 Mg/Ml Inj 2 Ml) 4 mg IV X1 ONE; Protocol Stop: 03/06/24 16:53 Last Admin: 03/06/24 17:50 Dose: 4 mg Pantoprazole Sodium (Pantoprazole Inj 40 Mg Vial) 80 mg IV X1 ONE Stop: 03/06/24 12:01 Last Admin: 03/06/24 14:05 Dose: 80 mg Assessment & Plan Plan A 23-year-old male with past medical history of liver cirrhosis, biliary stones status post stenting, variceal bleed presented to the hospital with chief complaints of bloody emesis since 2 days and UGI Bleed likely due to varices from liver cirrhosis # Hematemesis # Upper GI bleed # Variceal bleed # Liver cirrhosis # Secondary to biliary duct obstruction from stones, s/p stenting - Patient had a history of biliary duct obstruction from stones and stenting done at the age of 16 and diagnosed to have liver disease in [facility] at the time. - Patient had previous history of variceal bleed and underwent endoscopy for that in October 2023 - Patient presented with complaints of bloody emesis since 2 days. - Associated with right upper quadrant abdominal only at the time of emesis, denies fever, abdominal distention. - Last alcohol drink was in 2023 - Vitals are stable at the time of admission. Physical examination remains unremarkable except for pallor - Labs showed hemoglobin of 5.5, MCV 68, MCH 20.1, MCHC 29.6, platelets 125, INR 1.4. Liver functions are within normal limits - Gallbladder ultrasound and MRCP showed distended gallbladder with CBD of 10 mm without CBD stones. - Abdomen/pelvis CT showed cirrhosis and splenomegaly Plan - PRBC transfusion - N.p.o. - Dr. Johnson was consulted and recommended upper GI endoscopy tomorrow and ERCP later as patient does not have any elevation in bilirubin or does not show any signs of choledocholithiasis - Started on octreotide drip and pantoprazole drip - Iron profile is ordered Hospital Maintenance: Dispo: Tele DVT ppx: Admitted for bleeding, so not given GI ppx: Pantoprazole drip Diet: N.p.o for endoscopy IV lines: Peripheral Code status: Full Patient plan of care was discussed with the attending physician, Dr. Tevin Perez, PGY1 Attending Provider Attestation/Addendum Pt was evaluated and plan formulated together with the housestaff team. I have reviewed the residents note above and agree with most of its content. Please refer to the residents note for additional details.
[2024-03-07] VITALS (7 sets, daily range): BP systolic 97–132; BP diastolic 50–64; PULSE 42–74; RESP 12–18; TEMP 36.1–36.6; O2SAT 94–100; BMI 23.8
[2024-03-07 00:41] LABS: Hematocrit 26.3 % (41.0-53.0)
[2024-03-07 00:43] LABS: Hemoglobin 7.8 g/dL (13.5-16.0)
[2024-03-07 01:11] LABS: Ferritin 3 ng/mL (10.5-307.3); Total Iron Binding Capacity 365 mcg/dL (250-425)
[2024-03-07 01:21] LABS: Iron 16 mcg/dL (65-175); Percent Iron Saturation 4 % (20-55); Unsaturated Iron Binding 349 (225-295)
[2024-03-07] MEDS: PANTOPRAZOLE/NS 80MG IV PREMIX 80 MG/100 ML BAG 10 MG IV ×2 (04:44→16:04)
[2024-03-07 06:02] LABS: Basophils % (Auto) 1 % (0-2.5); Eosinophils # (Auto) 0.1 Thou/mm3 (0.0-0.5); Eosinophils % (Auto) 2 % (0-10); Hematocrit 24.8 % (41.0-53.0); Immature Granulocytes % (Auto) 1 % (0-0); Immature Granulocytes Auto 0.02 Thou/mm3 (0.00-0.00); Lymphocytes # (Auto) 0.9 Thou/mm3 (1.0-4.8); Lymphocytes % (Auto) 23 % (10-50); Mean Corpuscular HGB Conc 30.6 g/dl (31.0-37.0); Mean Corpuscular Hemoglobin 22.9 pg (25.0-35.0); Mean Corpuscular Volume 75 fL (80-100); Monocytes # (Auto) 0.2 Thou/mm3 (0.0-0.8); Monocytes % (Auto) 6 % (0-12); Neutrophils # (Auto) 2.6 Thou/mm3 (1.8-7.7); Neutrophils % (Auto) 68 % (37-80); Nucleated Red Blood Cell % 0 /100 WBC (0); Platelet Count 96 Thou/mm3 (140-440); RDW Standard Deviation 52.7 fL (35.1-43.9); Red Blood Count 3.32 Miln/mm3 (4.50-5.90); White Blood Count 3.9 Thou/mm3 (3.8-10.6)
[2024-03-07 06:08] LABS: Hemoglobin 7.6 g/dL (13.5-16.0)
[2024-03-07 06:17] LABS: Anion Gap 9 (7-16); BUN/Creatinine Ratio 23 Ratio (12-20); Blood Urea Nitrogen 18 mg/dL (9-23); Calcium 8.5 mg/dL (8.3-10.6); Carbon Dioxide 23.8 mMol/L (20.0-31.0); Chloride 107 mMol/L (98-107); Creatinine (Component) 0.8 mg/dL (0.6-1.3); Glucose 97 mg/dL (74-106); Osmolality,Calculated 281 (275-295); Potassium 3.8 mMol/L (3.4-5.1); Sodium 140 mMol/L (136-145); eGFR > 60 See Note
--- NOTE | 2024-03-07 07:23 | ESPR_ITS ---
Documentation for date of: 03/07/24 Subjective Subjective Interval history: No overnight events. Currently n.p.o. for EGD later today. No new complaints. Denies fever, chills, headaches, chest pain, sob, cough, GI or urinary symptoms. Exam Vital Signs Temp Pulse Resp BP Pulse Ox O2 Del Method 97.0 F 42 L 12 108/63 100 Room Air 03/07/24 04:00 03/07/24 05:30 03/07/24 04:00 03/07/24 04:00 03/07/24 04:00 03/07/24 04:00 Narrative Exam GENERAL * Normal-appearing adult male, no apparent distress. HEENT * NCAT.?YUE. Oral mucosa is moist. Patent Nares NECK * Supple, nontender, no thyromegaly, no meningismus, no JVD, no step offs CHEST * RRR, no m/g/r * CTAB, no w/r/r. Symmetrical chest rise. No intercostal subcostal retraction * Atraumatic, nontender, no crepitus, symmetrical expansion. ABDOMEN * Soft, flat, nontender. No guarding/rebound tenderness/masses. * Bowel sounds presents EXTREMITIES * Nontender, no cyanosis, no edema * No edema/cyanosis.? SKIN * Warm and dry, no jaundice/rashes. NEUROMUSCULAR * No lumbar or midline, no CVA, no paraspinal muscle spasm or tenderness. * Moves all 4 extremities well, with full ROM and good CSM. * No focal neurologic deficits. PSYCHIATRY * Normal mood and affect, cooperative, no SI or HI or hallucinations. Objective Labs 03/08/24 05:10 03/08/24 05:10 Labs: Laboratory Results - last 24 hr 03/06/24 03/06/24 03/06/24 10:52 12:24 23:55 WBC 4.5 RBC 2.73 L Hgb 5.5 L* Hct 18.6 L* MCV 68 L MCH 20.1 L MCHC 29.6 L RDW Std Deviation 43.1 Plt Count 125 L Neut % (Auto) 75 Lymph % (Auto) 16 Thayer % (Auto) 6 Eos % (Auto) 2 Baso % (Auto) 1 Neut # (Auto) 3.4 Lymph # (Auto) 0.7 L Thayer # (Auto) 0.3 Eos # (Auto) 0.1 Baso # (Auto) 0.0 Immature Gran # (Auto) 0.02 H Absolute Nucleated RBC 0.00 Immature Gran % 0 Nucleated RBC % 0 Smear Path Review Sent to Pathologist PT 15.1 H INR 1.4 H APTT 26.5 Sodium 139 Potassium 4.0 Chloride 107 Carbon Dioxide 25.2 Anion Gap 7 BUN 17 Creatinine 0.6 Estim Creat Clear Calc 146.6 eGFR > 60 BUN/Creatinine Ratio 28 H Glucose 110 H Calculated Osmolality 280 Calcium 9.0 Corrected Calcium 9.0 Magnesium 2.0 Iron 16 L TIBC 365 Iron Saturation 4 L Unsat Iron Binding 349 H Ferritin 3 L Total Bilirubin 0.9 AST 17 ALT 17 Alkaline Phosphatase 72 Total Protein 7.4 Albumin 4.4 Globulin 3.0 Albumin/Globulin Ratio 1.5 Amylase 81 Lipase 41 Blood Type O Positive Antibody Screen NEGATIVE Crossmatch See Detail Blood Bank Wristband ID Yes 03/07/24 03/07/24 00:00 04:53 WBC 3.9 RBC 3.32 L Hgb 7.8 L D 7.6 L Hct 26.3 L 24.8 L MCV 75 L MCH 22.9 L MCHC 30.6 L RDW Std Deviation 52.7 H Plt Count 96 L D Neut % (Auto) 68 Lymph % (Auto) 23 Thayer % (Auto) 6 Eos % (Auto) 2 Baso % (Auto) 1 Neut # (Auto) 2.6 Lymph # (Auto) 0.9 L Thayer # (Auto) 0.2 Eos # (Auto) 0.1 Baso # (Auto) 0.0 Immature Gran # (Auto) 0.02 H Absolute Nucleated RBC 0.00 Immature Gran % 1 H Nucleated RBC % 0 Smear Path Review PT INR APTT Sodium 140 Potassium 3.8 Chloride 107 Carbon Dioxide 23.8 Anion Gap 9 BUN 18 Creatinine 0.8 Estim Creat Clear Calc 110.0 eGFR > 60 BUN/Creatinine Ratio 23 H Glucose 97 Calculated Osmolality 281 Calcium 8.5 Corrected Calcium Magnesium Iron TIBC Iron Saturation Unsat Iron Binding Ferritin Total Bilirubin AST ALT Alkaline Phosphatase Total Protein Albumin Globulin Albumin/Globulin Ratio Amylase Lipase Blood Type Antibody Screen Crossmatch Blood Bank Wristband ID Quality Measures Quality Measures none Assessment & Plan Assessment Current Active Medications: Generic Name Dose Route Start Last Admin Trade Name Freq PRN Reason Stop Dose Admin Octreotide Acetate 1,000 mcg/ 102 mls @ 5.1 mls/hr 03/07/24 08:15 Sodium Chloride IV 04/06/24 08:14 .Q20H MAYTE Protocol 50 MCG/HR Octreotide Acetate 1,000 mcg/ 102 mls @ 5.1 mls/hr 03/06/24 12:15 03/06/24 14:18 Sodium Chloride IV 03/07/24 08:14 50 mcg/hr .Q20H ONE 5.1 mls/hr Administration Protocol 50 MCG/HR Pantoprazole Sodium 80 mg in 100 mls @ 10 mls/hr 03/06/24 20:01 03/07/24 04:44 Protonix/Ns 80mg Iv Premix IV 03/09/24 18:00 10 mls/hr Q10H MAYTE Administration Sodium Chloride 1,000 mls @ 75 mls/hr 03/06/24 20:15 03/06/24 20:47 Ns IV 04/05/24 20:14 75 mls/hr .[id number] MAYTE Administration Ondansetron HCl 4 mg 03/06/24 22:47 03/06/24 22:59 Ondansetron Inj 2 Mg/Ml Inj 2 Ml IV 04/05/24 22:46 4 mg Q6HR PRN Administration NAUSEA OR VOMITING Protocol Plan In summary: 23-year-old male with PMHx of liver cirrhosis, biliary stone at age 16 status post stenting, variceal bleed, presenting with emesis x 2 days. Admitted for upper GI bleed. N.p.o. for EGD today. Hematemesis Variceal bleed Liver cirrhosis Hx of biliary duct obstruction from stones, s/p stenting Presenting with ward hematemesis x 2 days and RUQ pain. He had gallstones leading to biliary obstruction at the age of 16 with stenting at [place]. Had variceal bleed in 2023 where underwent endoscopy done. Admission Hgb 5.5 then 7.8 > 7.6 after 2 units RBCs. Radiographical findings as described in next section, mainly showed cirrhosis, splenomegaly, and findings of acute cholecystitis. Last alcohol drink in October 2023. No hepatitis panel on file. INR 1.4. Normal T. bili, LFTs, ALBUMIN. Maddrey score 14.7 indicating good prognosis. Continued on OCTREOTIDE and PROTONIX. N.p.o. for EGD. ? Continue OCTREOTIDE (03/07 to [present]) ? Continue PROTONIX BID ? Continue CEFTRIAXONE 1 mg daily ? Pending hepatitis panel ? Pending EGD with GI A[facility]culus Choleycyst possibly chronic Presenting with right upper quadrant.. Has history of bili tract obstruction at the age of 16 with [address]ing. CT abdomen showed cirrhosis and splenomegaly. US ultrasound distended gallbladder and dilated CBD, MRCP showed distended gallbladder with gallbladder thickening, extrahepatic. True obstruction, dilated hepatic duct but no stones. No significant tenderness on exam. No jaundice or scleral icterus. LFTs normal. ? Pending GI recommendations Acute UGIB Anemia Iron Deficiency Anemia Low iron storage. On home IRON. Likely related to current UGIB. ? Transfuse for hemoglobin <7 ? Consider iron infusions Health maintenance Diet: NPO GI prophylaxis: PROTONIX DVT prophylaxis: SCD Antibiotics: CEFTRIAXONE CODE STATUS: Full code Disposition: Pending EGD Patient case was discussed with attending, Oswaldo Lemos MD and senior resident Dr. Burrell. Parveen Arias DO PGYI Attending Provider Attestation/Addendum I have examined the patient, reviewed labs and imaging findings, discussed the case with the resident(s), and reviewed entered orders. I agree with the plan of care as outlined in this note, with these additional summaries/recommendations: Patient seen at bedside. No acute overnight events. Patient denies any abdominal pain, nausea/vomiting, or diarrhea at this time. Patient admitted for symptomatic anemia secondary to GI bleed. Gastroenterology consulted. N.p.o., IV Rocephin, octreotide gtt, pantoprazole gtt, and IV maintenance fluids. Hemoglobin found to be 5.5 on admission and received 2 units PRBCs with improvement of hemoglobin to 7.8. Thrombocytopenia also present. Iron panel obtained which revealed severe iron deficiency anemia with iron 16 and ferritin 3. We will start patient on iron supplementation pending EGD. MRCP on admission showed markedly distended gallbladder relatively unchanged from MRCP on 03/14/2022. CT scan of abdomen showed cirrhosis and prominent splenomegaly. Patient reportedly was diagnosed with cirrhosis secondary to gallstones although interestingly patient has not had a cholecystectomy. Patient was encouraged to reestablish care with his liver specialist once medically cleared for discharge. 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 Acute hepatitis panel ordered. Continue to monitor hemoglobin. Repeat hematology and chemistry panel in AM. Dr. Lemos
[2024-03-07] MEDS: OCTREOTIDE ACET INJ 1,000 MCG in SODIUM CHLORIDE 0.9% 100 ML 5.1 MCG IV (09:28)
[2024-03-07] MEDS: SODIUM CHLORIDE 0.9% 1000 ML 1,000 ML 75 ML IV ×2 (09:43→23:19)
[2024-03-07] MEDS: cefTRIAXone/D5w 1gm IV premix 50 ML IV (09:56)
--- NOTE | 2024-03-07 10:23 | EKG_ITS ---
[facility] Test Date: 2024-03-07 Pat Name: CESAR OLIVEIRA Department: Room: S265A Gender: Male Lard [employer]her: GINNY : 2000 Requested By: Lorrie Burrell Order Number: [id number] Reading MD: Lorrie Burrell Measurements Intervals [place] Rate: 49 P: 6 MT: 155 QRS: 94 QRSD: 117 T: 47 QT: 482 QTc: 436 Interpretive Statements SINUS BRADYCARDIA WITH SINUS ARRHYTHMIA BORDERLINE RIGHT AXIS DEVIATION MODERATE INTRAVENTRICULAR CONDUCTION DELAY Compared to ECG 11/07/2023 23:52:30 Intraventricular conduction delay now present Supraventricular rhythm no longer present Myocardial infarct finding no longer present /store/S0/[id number].pdf
--- NOTE | 2024-03-07 10:51 | ESCONSULT_ITS ---
HPI Data of Consult Requesting Physician: Jose Angel Abarca MD Primary Care Provider: Jose Enrique Pena MD Consult Narrative Reason for consult: Hematemesis History of present illness: 43 years old male who was diagnosed at age 16 with cirrhosis of the liver with biliary duct obstruction requiring ERCP possible sphincterotomy and placement of a biliary stent It was followed at that time at [facility] and had been a patient at [facility] on the liver transplant list and he was taken off the list I believe at age 18 or 19 Age 19 he started drinking heavily he drinks beer and heavy liquor on the weekends he cannot return home and she drinks I did see him 4 months ago open hematemesis requiring dilatation of the esophageal varices Patient presented with hematemesis and was subsequently admitted and currently on octreotide and Protonix cc:: cc: Jose Angel Abarca MD Review of Systems Review of Systems Systems Reviewed: All systems reviewed, normal except as documented Meds Home Medications and Allergies Allergies Allergy/AdvReac Type Severity Reaction Status Date / Time No Known Allergies Allergy Verified 03/06/24 10:26 Exam Vital Signs Temp Pulse Resp BP Pulse Ox O2 Del Method 97.9 F 52 L 18 97/61 94 L Room Air 03/07/24 08:00 03/07/24 08:00 03/07/24 08:00 03/07/24 08:00 03/07/24 08:00 03/07/24 08:00 Constitutional Comments: Alert oriented Routine Respiratory Exam Comments: Normal to auscultation Routine Abdominal Exam Comments: Soft nontender Results Labs 03/08/24 05:10 03/08/24 05:10 Labs: Short CBC 03/06/24 03/07/24 03/07/24 Range/Units 10:52 00:00 04:53 WBC 4.5 3.9 (3.8-10.6) Thou/mm3 Hgb 5.5 L* 7.8 L D 7.6 L (13.5-16.0) g/dL Hct 18.6 L* 26.3 L 24.8 L (41.0-53.0) % Plt Count 125 L 96 L D (140-440) Thou/mm3 BMP 03/06/24 03/07/24 10:52 04:53 Sodium 139 140 Potassium 4.0 3.8 Chloride 107 107 Carbon Dioxide 25.2 23.8 BUN 17 18 Creatinine 0.6 0.8 Glucose 110 H 97 Calcium 9.0 8.5 Liver Function 03/06/24 Range/Units 10:52 Total Bilirubin 0.9 (0.3-1.2) mg/dL AST 17 (0-34) U/L ALT 17 (10-49) U/L Alkaline Phosphatase 72 (46-116) U/L Albumin 4.4 (3.5-5.0) gm/dL Assessment and Plan Additional Assessment & Plan Additional Plan: # Hematemesis most likely esophageal variceal bleeding or 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 # Cirrhotic liver disease currently due to alcohol and previous history of biliary duct obstruction etiology of that time is uncertain as I do not have the records # Acute posthemorrhagic anemia Plan Octreotide 50 mcg/h to continue IV Protonix Serial CBC Transfuse as necessary Consent obtained for fiberoptic esophagogastroduodenoscopy with possible band ligation possible therapeutic intervention under intravenous moderate sedation Counseled the patient about absolute abstinence from alcohol if he wants to get back on the liver transplant list Thank you for the opportunity to participate in the care of this patient
[2024-03-08] VITALS (16 sets, daily range): BP systolic 99–159; BP diastolic 50–104; PULSE 5–79; RESP 10–20; TEMP 36.1–36.6; O2SAT 95–100; BMI 23.8
[2024-03-08] MEDS: PANTOPRAZOLE/NS 80MG IV PREMIX 80 MG/100 ML BAG 10 MG IV ×3 (02:37→23:19)
[2024-03-08 06:09] LABS: Basophils % (Auto) 1 % (0-2.5); Eosinophils # (Auto) 0.1 Thou/mm3 (0.0-0.5); Eosinophils % (Auto) 2 % (0-10); Immature Granulocytes % (Auto) 0 % (0-0); Lymphocytes % (Auto) 30 % (10-50); Mean Corpuscular HGB Conc 30.8 g/dl (31.0-37.0); Mean Corpuscular Hemoglobin 22.6 pg (25.0-35.0); Mean Corpuscular Volume 73 fL (80-100); Monocytes # (Auto) 0.2 Thou/mm3 (0.0-0.8); Monocytes % (Auto) 7 % (0-12); Neutrophils % (Auto) 60 % (37-80); Nucleated Red Blood Cell % 0 /100 WBC (0); Platelet Count 78 Thou/mm3 (140-440); RDW Standard Deviation 51.5 fL (35.1-43.9); Red Blood Count 3.27 Miln/mm3 (4.50-5.90); White Blood Count 3.3 Thou/mm3 (3.8-10.6)
[2024-03-08 06:11] LABS: Hemoglobin 7.4 g/dL (13.5-16.0); Slide Review Platelets confirmed
[2024-03-08 06:36] LABS: Anion Gap 8 (7-16); BUN/Creatinine Ratio 20 Ratio (12-20); Blood Urea Nitrogen 14 mg/dL (9-23); Calcium 8.2 mg/dL (8.3-10.6); Carbon Dioxide 23.6 mMol/L (20.0-31.0); Chloride 109 mMol/L (98-107); Creatinine (Component) 0.7 mg/dL (0.6-1.3); Estimated Creatinine Clearance 125.7 mL/min (>60); Glucose 102 mg/dL (74-106); Osmolality,Calculated 281 (275-295); Potassium 3.9 mMol/L (3.4-5.1); Sodium 141 mMol/L (136-145); eGFR > 60 See Note
--- NOTE | 2024-03-08 07:22 | ESPR_ITS ---
Documentation for date of: 03/08/24 Subjective Subjective Interval history: No overnight events. Patient was NPO yesterday but EGD didnt get done. He was given meal at 10PM. Continued NPO for EGD today. Doing well this morning. No new complaints. Denies fever, chills, headaches, chest pain, sob, cough, GI or urinary symptoms. Exam Vital Signs Temp Pulse Resp BP Pulse Ox O2 Del Method 97.6 F 5 L 14 111/56 L 99 Room Air 03/08/24 04:00 03/08/24 04:00 03/08/24 04:00 03/08/24 04:00 03/08/24 04:00 03/08/24 04:00 Narrative Exam GENERAL * Normal-appearing adult male, no apparent distress. HEENT * NCAT.?YUE. Oral mucosa is moist. Patent Nares NECK * Supple, nontender, no thyromegaly, no meningismus, no JVD, no step offs CHEST * RRR, no m/g/r * CTAB, no w/r/r. Symmetrical chest rise. No intercostal subcostal retraction * Atraumatic, nontender, no crepitus, symmetrical expansion. ABDOMEN * Soft, flat, nontender. No guarding/rebound tenderness/masses. * Bowel sounds presents EXTREMITIES * Nontender, no cyanosis, no edema * No edema/cyanosis.? SKIN * Warm and dry, no jaundice/rashes. NEUROMUSCULAR * No lumbar or midline, no CVA, no paraspinal muscle spasm or tenderness. * Moves all 4 extremities well, with full ROM and good CSM. * No focal neurologic deficits. PSYCHIATRY * Normal mood and affect, cooperative, no SI or HI or hallucinations. Objective Labs 03/09/24 05:12 03/09/24 05:12 Labs: Laboratory Results - last 24 hr 03/08/24 05:10 WBC 3.3 L RBC 3.27 L Hgb 7.4 L Hct 24.0 L MCV 73 L MCH 22.6 L MCHC 30.8 L RDW Std Deviation 51.5 H Plt Count 78 L Neut % (Auto) 60 Lymph % (Auto) 30 [place] % (Auto) 7 Eos % (Auto) 2 Baso % (Auto) 1 Neut # (Auto) 2.0 Lymph # (Auto) 1.0 [place] # (Auto) 0.2 Eos # (Auto) 0.1 Baso # (Auto) 0.0 Immature Gran # (Auto) 0.00 Absolute Nucleated RBC 0.00 Immature Gran % 0 Nucleated RBC % 0 Sodium 141 Potassium 3.9 Chloride 109 H Carbon Dioxide 23.6 Anion Gap 8 BUN 14 Creatinine 0.7 Estim Creat Clear Calc 125.7 eGFR > 60 BUN/Creatinine Ratio 20 Glucose 102 Calculated Osmolality 281 Calcium 8.2 L Misc Test Result Platelets confirmed Quality Measures Quality Measures none Assessment & Plan Assessment Current Active Medications: Generic Name Dose Route Start Last Admin Trade Name Freq PRN Reason Stop Dose Admin Pantoprazole Sodium 80 mg in 100 mls @ 10 mls/hr 03/06/24 20:01 03/08/24 02:37 Protonix/Ns 80mg Iv Premix IV 03/09/24 18:00 10 mls/hr Q10H MAYTE Administration Sodium Chloride 1,000 mls @ 75 mls/hr 03/06/24 20:15 03/07/24 23:19 Ns IV 04/05/24 20:14 75 mls/hr .[id number] MAYTE Administration Octreotide Acetate 1,000 mcg/ 102 mls @ 5.1 mls/hr 03/07/24 08:23 03/07/24 09:28 Sodium Chloride IV 03/12/24 08:23 50 mcg/hr .Q20H MAYTE 5.1 mls/hr Administration Protocol 50 MCG/HR Ceftriaxone Sodium/Dextrose 50 mls @ 100 mls/hr 03/07/24 09:41 03/07/24 09:56 Rocephin/D5w 1gm Iv Premix IV 03/14/24 09:40 100 mls/hr QDAY MAYTE Administration Ondansetron HCl 4 mg 03/06/24 22:47 03/06/24 22:59 Ondansetron Inj 2 Mg/Ml Inj 2 Ml IV 04/05/24 22:46 4 mg Q6HR PRN Administration NAUSEA OR VOMITING Protocol Plan In summary: 23-year-old male with PMHx of liver cirrhosis, biliary stone at age 16 status post stenting, variceal bleed, presenting with emesis x 2 days. Admitted for upper GI bleed. N.p.o. for EGD today. Vitals okay, pulse in 50s Hgb down 7.4, PLT 78 down WBC down to 3.3, likely dilutional EGD today Hematemesis Variceal bleed Liver cirrhosis Hx of biliary duct obstruction from stones, s/p stenting Presenting with ward hematemesis x 2 days and RUQ pain. He had gallstones leading to biliary obstruction at the age of 16 with stenting at [place]. Had variceal bleed in 2023 where underwent endoscopy done. Admission Hgb 5.5 then 7.8 > 7.6 after 2 units RBCs. Radiographical findings as described in next section, mainly showed cirrhosis, splenomegaly, and findings of acute cholecystitis. Last alcohol drink in October 2023. No hepatitis panel on file. INR 1.4. Normal T. bili, LFTs, ALBUMIN. Maddrey score 14.7 indicating good prognosis. Hgb 7.4 today. ? Continue OCTREOTIDE (03/07 to [present]) ? Continue PROTONIX BID ? Continue CEFTRIAXONE 1 mg daily ? Pending hepatitis panel ? Pending EGD with GI Acute UGIB Anemia Iron Deficiency Anemia Low iron storage. On home IRON. Likely related to current UGIB. ? Transfuse for hemoglobin <7 ? Consider iron infusions if HEP panel negative Incidental finding: CT abdomen showed cirrhosis and splenomegaly. US ultrasound distended gallbladder and dilated CBD, MRCP showed distended gallbladder with gallbladder thickening, extrahepatic. True obstruction, dilated hepatic duct but no stones. No significant tenderness on exam. No jaundice or scleral icterus. LFTs normal. Likely related to history of biliary obstruction. ? Recommended outpatient follow-up. Health maintenance Diet: NPO GI prophylaxis: PROTONIX DVT prophylaxis: SCD Antibiotics: CEFTRIAXONE CODE STATUS: Full code Disposition: Pending EGD Patient case was discussed with attending, Oswaldo Lemos MD and senior resident Dr. Burrell. Parveen Arias, PGYI Senior Resident Attestation: The patient was interviewed and examined out of bed. He denied any fever or chills, nausea or vomiting, any lightheadedness, sore throat or chest pain. He is supposed to undergo. Depending upon that. We are also awaiting hepatitis panel he will be started on IV iron for iron deficiency anemia. Will continue with the current medical management. I discussed with and supervised the engineer internship physician involved in the care of this patient. I personally saw and examined the patient and discussed the assessment and plan with the entire medicine team, including my attending. I agree with the assessment and plan as documented above. Carlos Alberto Rojo MD PGY2 Internal Medicine Attending Provider Attestation/Addendum I have examined the patient, reviewed labs and imaging findings, discussed the case with the resident(s), and reviewed entered orders. I agree with the plan of care as outlined in this note, with these additional summaries/recommendations: Patient seen at bedside. No acute overnight events. Patient denies any abdominal pain, nausea/vomiting, or diarrhea at this time. Patient admitted for symptomatic anemia secondary to GI bleed. Gastroenterology consulted. N.p.o., IV Rocephin, octreotide gtt, pantoprazole gtt, and IV maintenance fluids. Hemoglobin found to be 5.5 on admission and received 2 units PRBCs with improvement of hemoglobin to 7.8. Today hemoglobin down to 7.4. Thrombocytopenia also present. Iron panel obtained which revealed severe iron deficiency anemia with iron 16 and ferritin 3. We will start patient on iron supplementation pending EGD. MRCP on admission showed markedly distended gallbladder relatively unchanged from MRCP on 03/14/2022. CT scan of abdomen showed cirrhosis and prominent splenomegaly. Patient reportedly was diagnosed with cirrhosis secondary to gallstones although interestingly patient has not had a cholecystectomy. Patient was encouraged to reestablish care with his liver specialist once medically cleared for discharge. 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 Acute hepatitis panel pending. Continue to monitor hemoglobin. Repeat hematology and chemistry panel in AM. Dr. Lemos
[2024-03-08] MEDS: OCTREOTIDE ACET INJ 1,000 MCG in SODIUM CHLORIDE 0.9% 100 ML 5.1 MCG IV (07:58)
[2024-03-08] MEDS: cefTRIAXone/D5w 1gm IV premix 50 ML IV (08:38)
[2024-03-08] MEDS: SODIUM CHLORIDE 0.9% 1000 ML 1,000 ML 75 ML IV (12:23)
--- NOTE | 2024-03-08 14:33 | SUR.PHASEI ---
1438 Patient arrived to recovery, report received from Sarah DAVIS
--- NOTE | 2024-03-08 15:04 | SUR.PHASEI ---
1500 Report given to Zain DAVIS, patient meets discharge criteria from recovery, awake and talking with staff, breathing unlabored, vital signs stable, states his stomach is sore, Dr. Johnson made aware, MD came beside and assessed patient told patient he need to burp, patient drinking water; denies nausea. 1504 Patient transported via rney to room 265, patient sitting up in [facility] burping, patient able to ambulate from gurney to bed with standby assist patient sitting on his bed with EBD SPECIAL EDUCATION TEACHER present when this publications writer left patients room
[2024-03-08] MEDS: ONDANSETRON INJ 2 MG/ML INJ 2 ML 4 MG IV (16:46)
[2024-03-08] MEDS: HYDROmorphone INJ 2 MG/ML VIAL 0.5 MG IVP (16:55)
[2024-03-08 18:56] LABS: Hepatitis A Antibody IgM Non Reactive (Non React); Hepatitis B Core Antibody IgM Non Reactive (Non React); Hepatitis B Surface Antigen Non Reactive (Non React); Hepatitis C Antibody Non Reactive (Non React)
[2024-03-08] MEDS: MG HYD/AL HYD/SIME (Maalox Reg) SUSP 30 ML UDC PO (20:12)
--- NOTE | 2024-03-08 21:52 | XR_ITS ---
Examination: Abdomen AP single view Technique: AP portable supine abdomen, single view Exam date and time: March 08, 2024 2153 hrs. Indications: Onset abdominal pain today. Findings: Administered is air distended small bowel loops in the central pelvis Mild to moderate air in the colon including rectum No free air Impression: Small bowel ileus pattern If pain persists, consider 3 way abdominal series follow-up
[2024-03-08] MEDS: DICYCLOMINE 10 MG CAPSULE PO (23:23)
[2024-03-09] VITALS: BP 130/76; PULSE 49; PULSE 70; RESP 16; TEMP 36.3; O2SAT 98
[2024-03-09 04:00] VITALS: BP 126/59; PULSE 47; PULSE 52; RESP 14; TEMP 36.2; O2SAT 98
[2024-03-09] MEDS: OCTREOTIDE ACET INJ 1,000 MCG in SODIUM CHLORIDE 0.9% 100 ML 5.1 MCG IV (05:17)
[2024-03-09 05:47] LABS: Basophils % (Auto) 1 % (0-2.5); Eosinophils # (Auto) 0.1 Thou/mm3 (0.0-0.5); Eosinophils % (Auto) 2 % (0-10); Hematocrit 27.6 % (41.0-53.0); Immature Granulocytes % (Auto) 1 % (0-0); Immature Granulocytes Auto 0.02 Thou/mm3 (0.00-0.00); Lymphocytes # (Auto) 1.1 Thou/mm3 (1.0-4.8); Lymphocytes % (Auto) 29 % (10-50); Mean Corpuscular HGB Conc 30.1 g/dl (31.0-37.0); Mean Corpuscular Hemoglobin 22.1 pg (25.0-35.0); Mean Corpuscular Volume 73 fL (80-100); Monocytes # (Auto) 0.2 Thou/mm3 (0.0-0.8); Monocytes % (Auto) 5 % (0-12); Neutrophils # (Auto) 2.5 Thou/mm3 (1.8-7.7); Neutrophils % (Auto) 63 % (37-80); Nucleated Red Blood Cell % 0 /100 WBC (0); Platelet Count 90 Thou/mm3 (140-440); RDW Standard Deviation 52.2 fL (35.1-43.9); Red Blood Count 3.76 Miln/mm3 (4.50-5.90); White Blood Count 3.9 Thou/mm3 (3.8-10.6)
[2024-03-09 05:52] LABS: Hemoglobin 8.3 g/dL (13.5-16.0)
[2024-03-09 06:26] LABS: Alanine Aminotransferase 16 U/L (10-49); Albumin, Serum 4.4 gm/dL (3.5-5.0); Albumin/Globulin Ratio 1.5 (1.2-2.2); Alkaline Phosphatase 70 U/L (46-116); Anion Gap 10 (7-16); Aspartate Amino Transferase 16 U/L (0-34); BUN/Creatinine Ratio 13 Ratio (12-20); Blood Urea Nitrogen 10 mg/dL (9-23); Calcium 8.9 mg/dL (8.3-10.6); Calcium (Corrected) 8.9 mg/dL (8.5-10.1); Carbon Dioxide 26.5 mMol/L (20.0-31.0); Chloride 104 mMol/L (98-107); Creatinine (Component) 0.8 mg/dL (0.6-1.3); Globulin 2.9 gm/dL (2.3-3.5); Glucose 147 mg/dL (74-106); Osmolality,Calculated 281 (275-295); Phosphorous 3.8 mg/dL (2.4-5.1); Potassium 3.5 mMol/L (3.4-5.1); Sodium 140 mMol/L (136-145); Total Protein 7.3 gm/dL (5.7-8.2); eGFR > 60 See Note
--- NOTE | 2024-03-09 06:59 | ESPR_ITS ---
Documentation for date of: 03/09/24 Subjective Subjective Interval history: Overnight continued to have abdominal pain after EGD, improved with DILAUDID and CYCLOBENZOPRINE X1. Abdominal XR showed mild elius, had BM this morning, pain resolved. Tolerating clear liquid diet well. Denies fever, chills, headaches, chest pain, sob, cough, GI or urinary symptoms. Exam Vital Signs Temp Pulse Resp BP Pulse Ox O2 Del Method O2 Flow Rate 97.1 F 52 L 14 126/59 L 98 Room Air 3 03/09/24 04:00 03/09/24 04:00 03/09/24 04:00 03/09/24 04:00 03/09/24 04:00 03/09/24 04:00 03/08/24 14:20 Narrative Exam GENERAL * Normal-appearing adult male, no apparent distress. HEENT * NCAT.?YUE. Oral mucosa is moist. Patent Nares NECK * Supple, nontender, no thyromegaly, no meningismus, no JVD, no step offs CHEST * RRR, no m/g/r * CTAB, no w/r/r. Symmetrical chest rise. No intercostal subcostal retraction * Atraumatic, nontender, no crepitus, symmetrical expansion. ABDOMEN * Soft, flat, nontender. No guarding/rebound tenderness/masses. * Bowel sounds presents EXTREMITIES * Nontender, no cyanosis, no edema * No edema/cyanosis.? SKIN * Warm and dry, no jaundice/rashes. NEUROMUSCULAR * No lumbar or midline, no CVA, no paraspinal muscle spasm or tenderness. * Moves all 4 extremities well, with full ROM and good CSM. * No focal neurologic deficits. PSYCHIATRY * Normal mood and affect, cooperative, no SI or HI or hallucinations. Objective Labs 03/11/24 05:42 03/11/24 05:42 Labs: Laboratory Results - last 24 hr 03/07/24 03/09/24 04:53 05:12 WBC 3.9 RBC 3.76 L Hgb 8.3 L Hct 27.6 L MCV 73 L MCH 22.1 L MCHC 30.1 L RDW Std Deviation 52.2 H Plt Count 90 L Neut % (Auto) 63 Lymph % (Auto) 29 [place] % (Auto) 5 Eos % (Auto) 2 Baso % (Auto) 1 Neut # (Auto) 2.5 Lymph # (Auto) 1.1 [place] # (Auto) 0.2 Eos # (Auto) 0.1 Baso # (Auto) 0.0 Immature Gran # (Auto) 0.02 H Absolute Nucleated RBC 0.00 Immature Gran % 1 H Nucleated RBC % 0 Sodium 140 Potassium 3.5 Chloride 104 Carbon Dioxide 26.5 Anion Gap 10 BUN 10 Creatinine 0.8 Estim Creat Clear Calc 110.0 eGFR > 60 BUN/Creatinine Ratio 13 Glucose 147 H Calculated Osmolality 281 Calcium 8.9 Corrected Calcium 8.9 Phosphorus 3.8 Magnesium 2.0 Total Bilirubin 1.0 AST 16 ALT 16 Alkaline Phosphatase 70 Total Protein 7.3 Albumin 4.4 Globulin 2.9 Albumin/Globulin Ratio 1.5 Hepatitis A IgM Ab Non Reactive Hep Bs Antigen Non Reactive Hep B Core IgM Ab Non Reactive Hepatitis C Antibody Non Reactive Quality Measures Quality Measures none Assessment & Plan Assessment Current Active Medications: Generic Name Dose Route Start Last Admin Trade Name Freq PRN Reason Stop Dose Admin Pantoprazole Sodium 80 mg in 100 mls @ 10 mls/hr 03/06/24 20:01 03/08/24 23:19 Protonix/Ns 80mg Iv Premix IV 03/09/24 18:00 10 mls/hr Q10H MAYTE Administration Octreotide Acetate 1,000 mcg/ 102 mls @ 5.1 mls/hr 03/07/24 08:23 03/09/24 05:17 Sodium Chloride IV 03/12/24 08:23 50 mcg/hr .Q20H MAYTE 5.1 mls/hr Administration Protocol 50 MCG/HR Ceftriaxone Sodium/Dextrose 50 mls @ 100 mls/hr 03/07/24 09:41 03/08/24 08:38 Rocephin/D5w 1gm Iv Premix IV 03/14/24 09:40 100 mls/hr QDAY MAYTE Administration Ondansetron HCl 4 mg 03/06/24 22:47 03/08/24 16:46 Ondansetron Inj 2 Mg/Ml Inj 2 Ml IV 04/05/24 22:46 4 mg Q6HR PRN Administration NAUSEA OR VOMITING Protocol Plan In summary: 23-year-old male with PMHx of liver cirrhosis, biliary stone at age 16 status post stenting, variceal bleed, presenting with emesis x 2 days. Had EGD done with variceal bandings. Continue on tonics BID, and OCTREOTIDE until 03/12/2024. Hemoglobin stable. 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 He multiple interventions done at [place] for this. Patient has not been follow-up with [facility] since last intervention. 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 He had gallstones leading to biliary obstruction at the age of 16 with stenting at [place]. Had variceal bleed in 2023 where underwent endoscopy done. Admission Hgb 5.5 then 7.8 > 7.6 after 2 units RBCs. Radiographical findings as described in next section, mainly showed cirrhosis, splenomegaly, and findings of acute cholecystitis. Last alcohol drink in October 2023. Repeat hep panel negative this visit. Hgb stable and improving. Completed EGD with variceal banding x6, erosive gastritis with hemorrhage. IG reccommended 5 days OCTRIOTIDE and repeat banding in 4-6 weeks. Discontinue CEFTRIAXONE as patient afebrile, no leukocytosis. ? Continue OCTREOTIDE (03/07 to [present]) ? Continue PROTONIX BID Acute UGIB Anemia Iron Deficiency Anemia Low iron storage. On home IRON. Likely related to recurrent UGIB. ? Transfuse for hemoglobin <7 ? Given FERAHEME X1 Incidental finding: CT abdomen showed cirrhosis and splenomegaly. US ultrasound distended gallbladder and dilated CBD, MRCP showed distended gallbladder with gallbladder thickening, extrahepatic. True obstruction, dilated hepatic duct but no stones. No significant tenderness on exam. No jaundice or scleral icterus. LFTs normal. Likely related to history of biliary obstruction. ? Recommended outpatient follow-up. Health maintenance Diet: Clear liquids GI prophylaxis: PROTONIX DVT prophylaxis: SCD Antibiotics: None CODE STATUS: Full code Disposition: Pending OCTREOTIDE completion on 03/12 Patient case was discussed with attending, Oswaldo Lemos MD and senior resident Dr. Burrell. Parveen Arias, DO PGYI Senior Resident Attestation: The patient reported improvement in his abdominal pain this morning. He denied any hematemesis, nausea or vomiting, lightheadedness, dizziness, chest pain, SOB, any leg swelling, fever or chills. His vitals were stable, and heart rate ranging from 40s to 60s but asymptomatic. Labs revealed hemoglobin 8.3, mildly improved from yesterday, was given 1 dose of Feraheme 510 Mg IV x 1. Chemistry panel WNL. Will continue the patient on octreotide drip until 03/11/2023. I discussed with and supervised the legal summer intern physician involved in the care of this patient. I personally saw and examined the patient and discussed the assessment and plan with the entire medicine team, including my attending. I agree with the assessment and plan as documented above. Carlos Alberto Rojo MD PGY2 Internal Medicine Attending Provider Attestation/Addendum I have examined the patient, reviewed labs and imaging findings, discussed the case with the resident(s), and reviewed entered orders. I agree with the plan of care as outlined in this note, with these additional summaries/recommendations: Patient seen at bedside. No acute overnight events. Patient was endorsing severe abdominal pain yesterday that required IV diluadid and today he reports resolution of abdominal pain. Patient admitted for symptomatic anemia secondary to GI bleed. Patient is status post EGD that revealed grade 3 varices with 6 band ligator's put on although incompletely eradicated, erosive gastritis with hemorrhage, and normal second portion of duodenum. Per GI recommendations continue clear liquid diet and advance as tolerated, continue octreotide for total of 5 days, and will need repeat banding in 4 to 6 weeks. Hemoglobin stable at 8.3 today from 7.4 yesterday. Patient was also found to have severe iron deficiency anemia and will start oral ferrous sulfate in the coming days. On admission patient completed MRCP which showed markedly distended gallbladder relatively unchanged from MRCP on 03/14/2022. CT scan of abdomen showed cirrhosis and prominent splenomegaly. 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 Patient was encouraged to reestablish care with his liver specialist once medically cleared for discharge. 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 Acute hepatitis panel negative. Continue to monitor hemoglobin. Repeat hematology and chemistry panel in AM. Dr. Lemos
[2024-03-09] MEDS: PANTOPRAZOLE/NS 80MG IV PREMIX 80 MG/100 ML BAG 10 MG IV (07:05)
[2024-03-09 08:00] VITALS: BP 124/84; PULSE 57; PULSE 65; RESP 21; TEMP 36.2; O2SAT 99
[2024-03-09] MEDS: ferumoxytoL (NON-ESRD) 510 MG in SODIUM CHLORIDE 0.9% 100 ML 234 MG IV (09:29)
[2024-03-09] MEDS: cefTRIAXone/D5w 1gm IV premix 50 ML IV (09:34)
[2024-03-09] MEDS: PANTOPRAZOLE INJ 40 MG VIAL IV ×2 (09:34→20:12)
[2024-03-09 12:00] VITALS: BP 124/81; PULSE 56; PULSE 60; RESP 15; TEMP 36.4; O2SAT 98
[2024-03-09 16:00] VITALS: BP 115/69; PULSE 53; PULSE 67; RESP 15; TEMP 36.7; O2SAT 100
[2024-03-09 16:05] VITALS: BMI 24.1
[2024-03-09] MEDS: SUCRALFATE SUSP 1 GM/10 ML UDC PO ×2 (16:58→20:12)
[2024-03-09 19:55] VITALS: BP 125/77; PULSE 63; RESP 17; TEMP 36.6; O2SAT 100
--- NOTE | 2024-03-09 21:31 | ESPR_ITS ---
Documentation for date of: 03/09/24 Subjective Subjective Interval history: Hemoglobin hematocrit 8.3 and 27.6 On octreotide infusion Exam Vital Signs Temp Pulse Resp BP Pulse Ox O2 Del Method O2 Flow Rate 97.9 F 63 17 125/77 100 Room Air 3 03/09/24 19:55 03/09/24 19:55 03/09/24 19:55 03/09/24 19:55 03/09/24 19:55 03/09/24 19:55 03/08/24 14:20 Objective Labs 03/09/24 05:12 03/09/24 05:12 Labs: Laboratory Results - last 24 hr 03/09/24 05:12 WBC 3.9 RBC 3.76 L Hgb 8.3 L Hct 27.6 L MCV 73 L MCH 22.1 L MCHC 30.1 L RDW Std Deviation 52.2 H Plt Count 90 L Neut % (Auto) 63 Lymph % (Auto) 29 [place] % (Auto) 5 Eos % (Auto) 2 Baso % (Auto) 1 Neut # (Auto) 2.5 Lymph # (Auto) 1.1 [place] # (Auto) 0.2 Eos # (Auto) 0.1 Baso # (Auto) 0.0 Immature Gran # (Auto) 0.02 H Absolute Nucleated RBC 0.00 Immature Gran % 1 H Nucleated RBC % 0 Sodium 140 Potassium 3.5 Chloride 104 Carbon Dioxide 26.5 Anion Gap 10 BUN 10 Creatinine 0.8 Estim Creat Clear Calc 110.0 eGFR > 60 BUN/Creatinine Ratio 13 Glucose 147 H Calculated Osmolality 281 Calcium 8.9 Corrected Calcium 8.9 Phosphorus 3.8 Magnesium 2.0 Total Bilirubin 1.0 AST 16 ALT 16 Alkaline Phosphatase 70 Total Protein 7.3 Albumin 4.4 Globulin 2.9 Albumin/Globulin Ratio 1.5 Impressions Impression: # Esophageal variceal bleeding status post band ligation 6 band ligator's were put on Continue current management Assessment & Plan A&P Narrative # Hematemesis most likely esophageal variceal bleeding or 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 # Cirrhotic liver disease currently due to alcohol and previous history of biliary duct obstruction etiology of that time is uncertain as I do not have the records # Acute posthemorrhagic anemia Plan Octreotide 50 mcg/h to continue IV Protonix Serial CBC Transfuse as necessary Consent obtained for fiberoptic esophagogastroduodenoscopy with possible band ligation possible therapeutic intervention under intravenous moderate sedation Counseled the patient about absolute abstinence from alcohol if he wants to get back on the liver transplant list Thank you for the opportunity to participate in the care of this patient Time Spent With Patient Time: Total time spent is greater than 50% in coordination of care (as documented) at patient's floor/unit and/or counseling patient:
[2024-03-10] VITALS (7 sets, daily range): BP systolic 98–119; BP diastolic 49–66; PULSE 54–64; RESP 10–18; TEMP 36.2–36.9; O2SAT 97–100
[2024-03-10] MEDS: OCTREOTIDE ACET INJ 1,000 MCG in SODIUM CHLORIDE 0.9% 100 ML 5.1 MCG IV (05:16)
[2024-03-10] MEDS: SUCRALFATE SUSP 1 GM/10 ML UDC PO ×4 (05:17→20:15)
[2024-03-10 06:23] LABS: Basophils % (Auto) 1 % (0-2.5); Eosinophils # (Auto) 0.1 Thou/mm3 (0.0-0.5); Eosinophils % (Auto) 2 % (0-10); Hematocrit 24.4 % (41.0-53.0); Immature Granulocytes % (Auto) 1 % (0-0); Immature Granulocytes Auto 0.02 Thou/mm3 (0.00-0.00); Lymphocytes # (Auto) 0.7 Thou/mm3 (1.0-4.8); Lymphocytes % (Auto) 17 % (10-50); Mean Corpuscular HGB Conc 31.6 g/dl (31.0-37.0); Mean Corpuscular Hemoglobin 22.5 pg (25.0-35.0); Mean Corpuscular Volume 71 fL (80-100); Monocytes # (Auto) 0.3 Thou/mm3 (0.0-0.8); Monocytes % (Auto) 8 % (0-12); Neutrophils % (Auto) 72 % (37-80); Nucleated Red Blood Cell % 0 /100 WBC (0); Platelet Count 89 Thou/mm3 (140-440); RDW Standard Deviation 50.8 fL (35.1-43.9); Red Blood Count 3.42 Miln/mm3 (4.50-5.90); White Blood Count 4.1 Thou/mm3 (3.8-10.6)
[2024-03-10 06:31] LABS: Hemoglobin 7.7 g/dL (13.5-16.0)
[2024-03-10 06:49] LABS: Alanine Aminotransferase 15 U/L (10-49); Albumin, Serum 4.1 gm/dL (3.5-5.0); Albumin/Globulin Ratio 1.5 (1.2-2.2); Alkaline Phosphatase 75 U/L (46-116); Anion Gap 8 (7-16); Aspartate Amino Transferase 11 U/L (0-34); BUN/Creatinine Ratio 10 Ratio (12-20); Bilirubin,Total 0.7 mg/dL (0.3-1.2); Blood Urea Nitrogen 8 mg/dL (9-23); Carbon Dioxide 27.5 mMol/L (20.0-31.0); Chloride 105 mMol/L (98-107); Creatinine (Component) 0.8 mg/dL (0.6-1.3); Estimated Creatinine Clearance 105.3 mL/min (>60); Globulin 2.8 gm/dL (2.3-3.5); Glucose 103 mg/dL (74-106); Osmolality,Calculated 277 (275-295); Phosphorous 3.1 mg/dL (2.4-5.1); Potassium 3.8 mMol/L (3.4-5.1); Sodium 140 mMol/L (136-145); Total Protein 6.9 gm/dL (5.7-8.2); eGFR > 60 See Note
[2024-03-10] MEDS: PANTOPRAZOLE INJ 40 MG VIAL IV ×2 (08:21→20:16)
--- NOTE | 2024-03-10 15:34 | ESPR_ITS ---
Documentation for date of: 03/10/24 Subjective Subjective Interval history: Downward trending hemoglobin dropping to 7.7 and hematocrit 24.4 Patient on octreotide infusion Patient has not drank alcohol according to him in the last 3 to 4 months ever since his last drink which was about 3 months ago He needs a liver cancer evaluation that can be done as an outpatient He must complete 5 days of octreotide therapy And he should be given a small dose of propranolol if the blood pressure at home Exam Vital Signs Temp Pulse Resp BP Pulse Ox O2 Del Method O2 Flow Rate 97.7 F 56 L 11 L 112/49 L 99 Room Air 3 03/10/24 12:00 03/10/24 12:00 03/10/24 12:00 03/10/24 12:00 03/10/24 12:00 03/10/24 12:00 03/08/24 14:20 Constitutional Comments: Chronically ill-appearing Routine Abdominal Exam Comments: Soft nontender Objective Labs 03/10/24 05:16 03/10/24 05:16 Labs: Laboratory Results - last 24 hr 03/10/24 05:16 WBC 4.1 RBC 3.42 L Hgb 7.7 L Hct 24.4 L MCV 71 L MCH 22.5 L MCHC 31.6 RDW Std Deviation 50.8 H Plt Count 89 L Neut % (Auto) 72 Lymph % (Auto) 17 [place] % (Auto) 8 Eos % (Auto) 2 Baso % (Auto) 1 Neut # (Auto) 3.0 Lymph # (Auto) 0.7 L [place] # (Auto) 0.3 Eos # (Auto) 0.1 Baso # (Auto) 0.0 Immature Gran # (Auto) 0.02 H Absolute Nucleated RBC 0.00 Immature Gran % 1 H Nucleated RBC % 0 Sodium 140 Potassium 3.8 Chloride 105 Carbon Dioxide 27.5 Anion Gap 8 BUN 8 L Creatinine 0.8 Estim Creat Clear Calc 105.3 eGFR > 60 BUN/Creatinine Ratio 10 L Glucose 103 Calculated Osmolality 277 Calcium 9.0 Corrected Calcium 9.0 Phosphorus 3.1 Magnesium 2.0 Total Bilirubin 0.7 AST 11 ALT 15 Alkaline Phosphatase 75 Total Protein 6.9 Albumin 4.1 Globulin 2.8 Albumin/Globulin Ratio 1.5 Impressions Impression: # Upper GI bleed secondary to esophageal variceal bleeding and hypertensive portal gastropathy Continue current treatment Assessment & Plan A&P Narrative # Hematemesis most likely esophageal variceal bleeding or 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 # Cirrhotic liver disease currently due to alcohol and previous history of biliary duct obstruction etiology of that time is uncertain as I do not have the records # Acute posthemorrhagic anemia Plan Octreotide 50 mcg/h to continue IV Protonix Serial CBC Transfuse as necessary Consent obtained for fiberoptic esophagogastroduodenoscopy with possible band ligation possible therapeutic intervention under intravenous moderate sedation Counseled the patient about absolute abstinence from alcohol if he wants to get back on the liver transplant list Thank you for the opportunity to participate in the care of this patient Time Spent With Patient Time: Total time spent is greater than 50% in coordination of care (as documented) at patient's floor/unit and/or counseling patient:
--- NOTE | 2024-03-10 16:47 | ESPR_ITS ---
<Statement entered by Alexia Mckay MD - 03/16/24 12:08> I reviewed above note and agree with findings and plans. I have also personally examined the patient with medicine team and went over assessment and plan with medical team including fashion intern and resident physician. Documentation for date of: 03/10/24 Subjective Subjective Interval history: No acute overnight events. Tolerating oral intake without nausea or vomiting. Has mild gastric pain with swallowing. Having regular bowel movements without blood in stool. Continued on OCTREOTIDE for 2 more days. Denies fever, chills, headaches, chest pain, sob, cough, GI or urinary symptoms. Exam Vital Signs Temp Pulse Resp BP Pulse Ox O2 Del Method O2 Flow Rate 97.7 F 56 L 11 L 112/49 L 99 Room Air 3 03/10/24 12:00 03/10/24 16:00 03/10/24 12:00 03/10/24 12:00 03/10/24 12:00 03/10/24 12:00 03/08/24 14:20 Narrative Exam GENERAL * Normal-appearing adult male, no apparent distress. HEENT * NCAT.?YUE. Oral mucosa is moist. Patent Nares NECK * Supple, nontender, no thyromegaly, no meningismus, no JVD, no step offs CHEST * RRR, no m/g/r * CTAB, no w/r/r. Symmetrical chest rise. No intercostal subcostal retraction * Atraumatic, nontender, no crepitus, symmetrical expansion. ABDOMEN * Soft, flat, nontender. No guarding/rebound tenderness/masses. * Bowel sounds presents EXTREMITIES * Nontender, no cyanosis, no edema * No edema/cyanosis.? SKIN * Warm and dry, no jaundice/rashes. NEUROMUSCULAR * No lumbar or midline, no CVA, no paraspinal muscle spasm or tenderness. * Moves all 4 extremities well, with full ROM and good CSM. * No focal neurologic deficits. PSYCHIATRY * Normal mood and affect, cooperative, no SI or HI or hallucinations. Objective Labs 03/10/24 05:16 03/10/24 05:16 Labs: Laboratory Results - last 24 hr 03/10/24 05:16 WBC 4.1 RBC 3.42 L Hgb 7.7 L Hct 24.4 L MCV 71 L MCH 22.5 L MCHC 31.6 RDW Std Deviation 50.8 H Plt Count 89 L Neut % (Auto) 72 Lymph % (Auto) 17 Randolph % (Auto) 8 Eos % (Auto) 2 Baso % (Auto) 1 Neut # (Auto) 3.0 Lymph # (Auto) 0.7 L Randolph # (Auto) 0.3 Eos # (Auto) 0.1 Baso # (Auto) 0.0 Immature Gran # (Auto) 0.02 H Absolute Nucleated RBC 0.00 Immature Gran % 1 H Nucleated RBC % 0 Sodium 140 Potassium 3.8 Chloride 105 Carbon Dioxide 27.5 Anion Gap 8 BUN 8 L Creatinine 0.8 Estim Creat Clear Calc 105.3 eGFR > 60 BUN/Creatinine Ratio 10 L Glucose 103 Calculated Osmolality 277 Calcium 9.0 Corrected Calcium 9.0 Phosphorus 3.1 Magnesium 2.0 Total Bilirubin 0.7 AST 11 ALT 15 Alkaline Phosphatase 75 Total Protein 6.9 Albumin 4.1 Globulin 2.8 Albumin/Globulin Ratio 1.5 Quality Measures Quality Measures none Assessment & Plan Assessment Current Active Medications: Generic Name Dose Route Start Last Admin Trade Name Freq PRN Reason Stop Dose Admin Octreotide Acetate 1,000 mcg/ 102 mls @ 5.1 mls/hr 03/07/24 08:23 03/10/24 05:16 Sodium Chloride IV 03/12/24 08:23 50 mcg/hr .Q20H MAYTE 5.1 mls/hr Administration Protocol 50 MCG/HR Ondansetron HCl 4 mg 03/06/24 22:47 03/08/24 16:46 Ondansetron Inj 2 Mg/Ml Inj 2 Ml IV 04/05/24 22:46 4 mg Q6HR PRN Administration NAUSEA OR VOMITING Protocol Pantoprazole Sodium 40 mg 03/09/24 09:00 03/10/24 08:21 Pantoprazole Inj 40 Mg Vial IV 04/08/24 08:59 40 mg BID MAYTE Administration Sucralfate 1 gm 03/09/24 17:00 03/10/24 11:11 Sucralfate Susp 1 Gm/10 Ml Udc PO 04/08/24 16:59 1 gm QID MAYTE Administration Plan In summary: 23-year-old male with PMHx of liver cirrhosis, biliary stone at age 16 status post stenting, variceal bleed, presenting with emesis x 2 days. Had EGD done with variceal bandings. Continue on tonics BID, and OCTREOTIDE until 03/12/2024. Hemoglobin stable. No changes in his symptoms. No new symptoms. Stable. Tolerating oral intake. 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 He multiple interventions done at [place] for this. Patient has not been follow-up with [facility] since last intervention. 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 He had gallstones leading to biliary obstruction at the age of 16 with stenting at [place]. Had variceal bleed in 2023 where underwent endoscopy done. Admission Hgb 5.5 then 7.8 > 7.6 after 2 units RBCs. Radiographical findings as described in next section, mainly showed cirrhosis, splenomegaly, and findings of acute cholecystitis. Last alcohol drink in October 2023. Repeat hep panel negative this visit. Hgb stable and improving. Completed EGD with variceal banding x6, erosive gastritis with hemorrhage. IG reccommended 5 days OCTRIOTIDE and repeat banding in 4-6 weeks. Discontinue CEFTRIAXONE as patient afebrile, no leukocytosis. ? Continue OCTREOTIDE (03/07 to 03/12) ? Continue PROTONIX BID Chronic iron Deficiency Anemia Low iron storage. On home IRON. Likely related to recurrent UGIB. ? Transfuse for hemoglobin <7 ? Given FERAHEME X1 Incidental finding: CT abdomen showed cirrhosis and splenomegaly. US ultrasound distended gallbladder and dilated CBD, MRCP showed distended gallbladder with gallbladder thickening, extrahepatic. True obstruction, dilated hepatic duct but no stones. No significant tenderness on exam. No jaundice or scleral icterus. LFTs normal. Likely related to history of biliary obstruction. ? Recommended outpatient follow-up. Health maintenance Diet: Clear liquids GI prophylaxis: PROTONIX DVT prophylaxis: SCD Antibiotics: None CODE STATUS: Full code Disposition: Pending OCTREOTIDE completion on 03/12 Patient case was discussed with attending, Dr. Alexia Mckay MD and senior residents Dr. Burrell and Dr. Rojo. Parveen Arias, DO [facility] Senior Resident Attestation: Patient reported doing well this morning. He denied any nausea or vomiting, any hematemesis or any black stool. Vitals were stable. Physical exam was unremarkable. Hemoglobin was stable and today it was 7.7. We will continue the patient on octreotide drip until tomorrow, 03/11/2024 for grade 3 esophageal varices with possible bleeding in the setting of Caroli's disease, and continue with pantoprazole 40 Mg IV twice daily for hemorrhagic gastritis. We will discharge patient tomorrow home after completion of octreotide drip. I discussed with and supervised the fashion intern physician involved in the care of this patient. I personally saw and examined the patient and discussed the assessment and plan with the entire medicine team, including my attending. I agree with the assessment and plan as documented above. Carlos Alberto Rojo MD PGY2 Internal Medicine
[2024-03-11] VITALS: BP 115/84; PULSE 59; PULSE 65; RESP 22; TEMP 36.7; O2SAT 100
[2024-03-11] MEDS: OCTREOTIDE ACET INJ 1,000 MCG in SODIUM CHLORIDE 0.9% 100 ML 5.1 MCG IV (00:36)
[2024-03-11 04:00] VITALS: BP 114/59; PULSE 55; PULSE 57; RESP 14; TEMP 36.5; O2SAT 100
[2024-03-11] MEDS: SUCRALFATE SUSP 1 GM/10 ML UDC PO (05:07)
[2024-03-11 06:00] VITALS: BMI 23.4
[2024-03-11 06:15] LABS: Basophils % (Auto) 1 % (0-2.5); Eosinophils # (Auto) 0.2 Thou/mm3 (0.0-0.5); Eosinophils % (Auto) 5 % (0-10); Hematocrit 26.2 % (41.0-53.0); Immature Granulocytes % (Auto) 0 % (0-0); Immature Granulocytes Auto 0.01 Thou/mm3 (0.00-0.00); Lymphocytes % (Auto) 26 % (10-50); Mean Corpuscular HGB Conc 29.8 g/dl (31.0-37.0); Mean Corpuscular Hemoglobin 22.3 pg (25.0-35.0); Mean Corpuscular Volume 75 fL (80-100); Monocytes # (Auto) 0.3 Thou/mm3 (0.0-0.8); Monocytes % (Auto) 7 % (0-12); Neutrophils # (Auto) 2.4 Thou/mm3 (1.8-7.7); Neutrophils % (Auto) 60 % (37-80); Nucleated Red Blood Cell % 0 /100 WBC (0); RDW Standard Deviation 53.1 fL (35.1-43.9); White Blood Count 3.9 Thou/mm3 (3.8-10.6)
[2024-03-11 06:25] LABS: Hemoglobin 7.8 g/dL (13.5-16.0); Platelet Count 74 Thou/mm3 (140-440)
[2024-03-11 06:41] LABS: Slide Review Platelets confirmed
[2024-03-11 06:50] LABS: Alanine Aminotransferase 14 U/L (10-49); Albumin, Serum 4.2 gm/dL (3.5-5.0); Albumin/Globulin Ratio 1.5 (1.2-2.2); Alkaline Phosphatase 76 U/L (46-116); Anion Gap 9 (7-16); Aspartate Amino Transferase 18 U/L (0-34); BUN/Creatinine Ratio 11 Ratio (12-20); Bilirubin,Total 0.6 mg/dL (0.3-1.2); Blood Urea Nitrogen 8 mg/dL (9-23); Carbon Dioxide 24.7 mMol/L (20.0-31.0); Chloride 106 mMol/L (98-107); Creatinine (Component) 0.7 mg/dL (0.6-1.3); Estimated Creatinine Clearance 120.4 mL/min (>60); Globulin 2.8 gm/dL (2.3-3.5); Glucose 92 mg/dL (74-106); Magnesium 1.8 mg/dL (1.6-2.6); Osmolality,Calculated 277 (275-295); Sodium 140 mMol/L (136-145); eGFR > 60 See Note
[2024-03-11 08:00] VITALS: BP 115/69; PULSE 53; PULSE 54; RESP 12; TEMP 36.1; O2SAT 96
[2024-03-11] MEDS: PANTOPRAZOLE INJ 40 MG VIAL IV (09:42)
[2024-03-11 12:00] VITALS: BP 111/54; PULSE 53; PULSE 58; RESP 13; TEMP 36.2; O2SAT 97
--- NOTE | 2024-03-11 12:18 | ESDS_ITS ---
<Statement entered by Alexia Mckay MD - 03/16/24 12:10> I reviewed above note and agree with findings and plans. I have also personally examined the patient with medicine team and went over assessment and plan with medical team including automotive internet sales consultant and resident physician. Planned Discharge Date 03/11/24 DS: Providers Provider Date of admission: 03/06/24 20:09 Primary care physician: Jose Enrique Pena MD Admitting Provider: Jose Angel Abarca MD Attending Provider on Admission: Alexia Mckay MD Consults: 03/06/24 16:53 Referral - Mobility Architect Manager Stat Service Needed for Transfer: Gastroenterology Addl Comments:: Patient needs ERCP due to cholecystitis and extrahepatic biliary obstruction 03/06/24 20:04 Consult to Gastroenterology Stat Comment: Consulting Provider: Herber Johnson Attending Provider on DC: Dr. Alexia Mckay MD Discharging Provider: Dr. Alexia Mckay MD DS: Diagnosis Problem List Completed Was Problem List Reviewed/Reconciled?: Yes Hospital Course Hospital Course Hospital course: This is a 23-year-old male with PMHx of liver cirrhosis (likely alcohol- induced), Caroli Disease leading to biliary stone at age 16 status post stenting, variceal bleed, presenting with hematemesis x 2 days and acute anemia of blood clots with hemoglobin 5.5 for which he received 2 units RBCs. He was started on CEFTRIAXONE, OCTREOTIDE and PROTONIX. Underwent EGD with variceal banding x 6. EGD also erosive gastritis. He completed OCTREOTIDE therapy. Hemoglobin was stable at discharge. No signs of active bleeding including GI bleed at the time of discharge. He was tolerating oral intake without nausea, vomiting or constipation or diarrhea. Patient has been previously treated for Caroli disease at the age of 18 with [facility]. He had surgical of graphical findings of extrahepatic biliary obstruction and gallbladder distention. Although he was asymptomatic at this time. We highly recommended follow-up with hepatology at [facility] to continue management of Caroli disease. Radiographical findings: * MRCP: Close distended gallbladder, mild gallbladder wall thickening, mild edema around gallbladder. Extrahepatic biliary tract obstruction, common hepatic duct 10 mm, fairly abrupt termination of the distal common bile duct although no definite stones, and suspicious for mild pancreatitis (normal lipase, asymptomatic) * CT abdominal pelvis: Cirrhosis, prominent splenomegaly, distended gallbladder, enlarged common bile duct, trace ascites, normal appendix, normal bowel obstruction. * Bowel bladder ultrasounds: Recently gallbladder, abnormal common bile duct 10 mm. * Abdominal x-ray post-EGD showed small bowel ileus pattern which have resolved with conservative treatment. PATIENT INSTRUCTIONS: Please follow-up with your PCP within 1 week of discharge. Please follow-up with GI Dr. Johnson in 2 week of discharge. Please follow-up with GI Dr. Johnson within 4-6 week of discharge for repeat esophageal variceal banding. Please follow-up with your stenciler at [place]. Continue taking the following medications as prescribed: - Pantoprazole 40 Mg twice daily - Lactulose 15ml daily as needed to maintain 2-3 bowel movement per day - Sucralfate 1 g 3 times daily 15 to 30 minutes before meals High recommended and advised against alcohol consumption given your underlying liver disease. Alcohol will cause further liver damage along with other organs, and potentially . Please ask your PCP for help on alcohol sessation. Avoid spicy foods, acidic drinks, NSAID and carbonated beverages which can worsen gastritis. Recommended to return back to emergency department if your symptoms persist or does not improve. ADMISSION DIAGNOSES: Acute blood loss anemia 2/2 Esophageal varices Erosive gastritis Variceal bleed Liver cirrhosis Hx of biliary duct obstruction from stones, s/p stenting 2/2 Caroli's disease Chronic iron Deficiency Anemia Incidental finding: CT abdomen showed cirrhosis and splenomegaly. US ultrasound distended gallbladder and dilated CBD, MRCP showed distended gallbladder with gallbladder thickening, extrahepatic. True obstruction, dilated hepatic duct but no stones. No significant tenderness on exam. No jaundice or scleral icterus. LFTs normal. Likely related to history of biliary obstruction. ? Recommended outpatient follow-up Patient case was discussed with attending, Dr. Alexia Mckay MD and senior residents Dr. Burrell and Dr. Rojo. Parveen Arias, DO PGYI Senior Resident Attestation: I discussed with and supervised the automotive internet sales consultant physician involved in the care of this patient. I personally saw and examined the patient and discussed the assessment and plan with the entire medicine team, including my attending. I agree with the discharge plan as documented above. Carlos Alberto Rojo MD PGY2 Internal Medicine Time Spent with Patient Time attestation: Total time spent providing and/or coordinating discharge services: Greater than 35 minutes. Exam Vital Signs Temp Pulse Resp BP Pulse Ox O2 Del Method O2 Flow Rate 97.0 F 53 L 12 115/69 96 Room Air 3 03/11/24 08:00 03/11/24 08:00 03/11/24 08:00 03/11/24 08:00 03/11/24 08:00 03/11/24 08:00 03/10/24 16:00 Narrative Exam GENERAL * Normal-appearing adult male, no apparent distress. HEENT * NCAT.?YUE. Oral mucosa is moist. Patent Nares NECK * Supple, nontender, no thyromegaly, no meningismus, no JVD, no step offs CHEST * RRR, no m/g/r * CTAB, no w/r/r. Symmetrical chest rise. No intercostal subcostal retraction * Atraumatic, nontender, no crepitus, symmetrical expansion. ABDOMEN * Soft, flat, nontender. No guarding/rebound tenderness/masses. * Bowel sounds presents EXTREMITIES * Nontender, no cyanosis, no edema * No edema/cyanosis.? SKIN * Warm and dry, no jaundice/rashes. NEUROMUSCULAR * No lumbar or midline, no CVA, no paraspinal muscle spasm or tenderness. * Moves all 4 extremities well, with full ROM and good CSM. * No focal neurologic deficits. PSYCHIATRY * Normal mood and affect, cooperative, no SI or HI or hallucinations. Discharge Plan Plan Patient Disposition: HOME (Self Care) Care Plan Goals: Please follow-up with your PCP within 1 week of discharge. Please follow-up with GI Dr. Johnson within 4-6 week of discharge for repeat esophageal variceal banding. Please follow-up with your stenciler at [place]. Continue taking the following medications as prescribed: - Pantoprazole 40 Mg twice daily - Lactulose 15ml daily as needed to maintain 2-3 bowel movement per day - Sucralfate 1 g 3 times daily 15 to 30 minutes before meals High recommended and advised against alcohol consumption given your underlying liver disease. Alcohol will cause further liver damage along with other organs, and potentially . Please ask your PCP for help on alcohol sessation. Avoid spicy foods, acidic drinks, NSAID and carbonated beverages which can worsen gastritis. Recommended to return back to emergency department if your symptoms persist or does not improve. Prescriptions/Referrals Prescriptions/Med Rec: New sucralfate 1 gram tablet 1 g PO TID Qty: 90 0RF pantoprazole 40 mg tablet,delayed release (DR/EC) 40 mg PO BID 30 Days Qty: 60 0RF lactulose 10 gram/15 mL solution 10 g PO QDAY PRN (Reason: constipation) Qty: 473 2RF Discontinued pantoprazole 40 mg tablet,delayed release (DR/EC) 40 mg PO QDAY Qty: 30 0RF ferrous sulfate 325 mg (65 mg iron) tablet 325 mg PO QDAY Qty: 30 0RF famotidine 40 mg tablet 40 mg PO QDAY Qty: 30 0RF omeprazole 40 mg capsule,delayed release(DR/EC) 40 mg PO QDAY Qty: 30 0RF Referrals: Jose Enrique Pean MD [Primary Care Provider] - Herber Johnson MD [Physician] - Patient/Caregiver Discharge Instructions Discharge Activity: activity as tolerated Other Discharge Activity Instructions:: Follow up with PCP within 1 week of discharge. Follow up with GI, Dr. Johnson within 1 weeks of discharge. It's important that you follow-up with [facility], Dr. Johnson within 4-6 weeks for repeat EGD and variceal banding. AVOID drinking alcohol, spicy food, NSAID including aspiring/ibuprofen, as it can worsen your GI bleed and liver cirrhosis. Return to ED if symptoms persist, worsen, or new symptoms develop. Continue taking medications as prescribed below: Education Materials: Bleeding Gastrointestinal, Iron Supplements Print Language: Vincentian Stand Alone Forms: Анна Award Info., Patient Portal Info Letter Discharge Order Discharge Orders: Discharge (Routine); Ordered 03/11/24 Ordered By: Parveen Arias Quality Discharge Quality Measures VTE prophylaxis
== END 2024-03-11 14:04 | disposition home or self-care (01) | DRG 241 ==
LOC: SERX 19:03 → SERHOLD 20:19 → S2NX 22:01
PROVIDERS: Emergency Medicine; Specialist; Admitting Provider Internal Medicine; Emergency Provider Emergency Medicine; PCP Family Medicine; Visit Provider Internal Medicine
PROC: 06L38CZ Occlusion of Esophageal Vein with Extraluminal Device, Via Natural or Artificial Opening Endoscopic (ICD-10-PCS; CPT 43239; principal; 2024-03-08 14:30)
DX: K29.61 Other gastritis with bleeding (principal); K70.30 Alcoholic cirrhosis of liver without ascites; D62 Acute posthemorrhagic anemia; K82.8 Other specified diseases of gallbladder; I85.11 Secondary esophageal varices with bleeding; R16.1 Splenomegaly, not elsewhere classified; D68.9 Coagulation defect, unspecified; D69.6 Thrombocytopenia, unspecified; F10.11 Alcohol abuse, in remission
CPT/HCPCS: 36415; 36430; 74018; 74176; 76705; 80048; 80053; 80074; 82150; 82728; 83540; 83550; 83690; 83735; 84100; 85014; 85018; 85025; 85610; 85730; 86850; 86900; 86901; 86923; 93005; 96365; 96375; 99291; A4649; J0696; J1200; J2175; J2250; J2270; J2354; J2405; J2470; J2543; J3010; J3490; J7030; J7050; P9016; Q0138; Q0162; S8037; 74181; A9270

== ENCOUNTER 2024-05-26 14:07 | Inpatient (IN) | payer MEDICAID, SELFPAY ==
[2024-05-26 14:07] VITALS: BP 114/81; PULSE 109; RESP 18; TEMP 36.6; O2SAT 99
[2024-05-26 14:20] VITALS: BMI 24.1
--- NOTE | 2024-05-26 14:50 | EKG_ITS ---
[facility] Test Date: 2024-05-26 Pat Name: CESAR OLIVEIRA Department: Room: - Gender: Male Polysomnography Technologist: : 2000 Requested By: Jono Omalley Order Number: [id number] Reading MD: Jono Omalley Measurements Intervals [place] Rate: 101 P: 29 OR: 129 QRS: 104 QRSD: 101 T: 50 QT: 368 QTc: 478 Interpretive Statements SINUS TACHYCARDIA RIGHT AXIS DEVIATION [QRS AXIS > 100] Compared to ECG 03/07/2024 10:30:31 Sinus bradycardia no longer present Sinus arrhythmia no longer present Intraventricular conduction delay no longer present /store/S0/[id number]
--- NOTE | 2024-05-26 14:52 | PD.EDADULT ---
ED General RME/HPI General Chief complaint: Abdominal Pain Stated complaint: ABD PAIN AFTER GOING TO COURT Time Seen by Provider: 05/26/24 14:50 Arrival date/time: 05/26/24 14:07 CC: Vomiting blood pooping blood HPI onset 1 AM this morning. Patient presents to the ER via officer from the senior care. Patient is handcuffed. Patient is pale, diaphoretic. Complaining of abdominal pain. Patient states last alcohol drink was October 2023 used to smoke marijuana no longer does not take any street drugs. Reassessment of this patient at 1558, the patient had a very large black tarry stool with ward blood. Related Data Previous Rx's ?Medication ?Instructions ?Recorded sucralfate 1 gram tablet 1 g PO TID #90 tabs 03/08/24 lactulose 10 gram/15 mL oral 10 g (15 mL) PO QDAY PRN 03/11/24 solution constipation #473 mL Allergies Allergy/AdvReac Type Severity Reaction Status Date / Time No Known Allergies Allergy Verified 03/06/24 10:26 Review of Systems Review of Systems Narrative Review of Systems: GEN: No fever, no chills, no weight loss EYES: No discharge, no visual changes, no pain HEENT: No ear pain, no congestion, no sore throat PULM: No shortness of breath, no cough, no congestion CV: No chest pain, no dyspnea on exertion, no palpitations GI: No nausea, no vomiting, no diarrhea, no pain, no constipation : No frequency, no urgency, no dysuria MUSC/SKEL: No joint pain, no back pain SKIN: No rash PSYCH: No hallucinations, no depression HEME/LYMPH: No easy bleeding or bruising tendencies NEURO: No weakness, no headache ED Exam Narrative Physical exam: [General: Pale and significantly cut discomfort not in any acute distress Head normocephalic HEENT: Within acceptable limits Neck is supple nontender Chest equal chest rise nontender to palpation Respiratory: Clear to auscultation no wheezes crackles or rubs CV: Rate rhythm is regular, tachycardic, no murmurs rubs or clicks Abdomen is soft nontender no masses positive bowel sounds all 4 quadrants Back: No CVA tenderness no spinous process tenderness from cervical spine thoracic and lumbar spine Skin: Pale intact no petechiae rash induration ulceration or crepitus Extremities: Moving all extremity against resistance cap refill less than 2 seconds neurosensory intact Neuro: Awake alert oriented x3 Glascow coma 15 no focal deficits] Course Course Course Narrative: Was advised by Dr. Manuel, Dr Gonzáles is requesting a CT of the abdomen as well as a gallbladder ultrasound as there is some question as to whether the patient has a history of choledocholithiasis Quality Measures none Orders Category Date Time Status Admit to Inpatient Status Routine Admission 05/26/24 20:03 Active Patient Condition Routine Admission 05/26/24 20:02 Ordered EKG (ED ONLY) *Do not use* NOW Care 05/26/24 14:50 Completed Miscellaneous Nursing Order NOW Care 05/26/24 20:08 Active Miscellaneous Nursing Order NOW Care 05/26/24 20:08 Active NPO NOW Care 05/26/24 20:03 Active NPO after Midnight ONCE Care 05/26/24 16:03 Active Notify provider NEEDED Care 05/26/24 20:02 Active Obtain weight daily Care 05/26/24 20:03 Active Saline [Insert IV] NOW Care 05/26/24 16:02 Active Sequential Compression Device QSHIFT Care 05/26/24 20:02 Active Consult to Gastroenterology Stat Cons 05/26/24 20:11 Ordered Diet NPO (NOW) Diet 05/26/24 20:[address] abdomen pelvis wo con Stat Exams 05/26/24 16:12 Completed EKG (ED Only) Stat Exams 05/26/24 14:50 Draft US gall bladder Stat Exams 05/26/24 16:48 Completed Alcohol, Blood Medical Stat Lab 05/26/24 15:28 Completed B-Type Natriuretic Peptide Stat Lab 05/26/24 15:28 Completed CBC AM DRAW Lab 05/27/24 04:38 Completed CBC AM DRAW Lab 05/28/24 04:42 Completed CBC AM DRAW Lab 05/29/24 05:00 Ordered CBC Stat Lab 05/26/24 15:28 Completed Comprehensive Metabolic Panel AM DRAW Lab 05/27/24 04:38 Completed Comprehensive Metabolic Panel AM DRAW Lab 05/28/24 04:42 Completed Comprehensive Metabolic Panel AM DRAW Lab 05/29/24 05:00 Ordered Comprehensive Metabolic Panel Stat Lab 05/26/24 15:28 Completed Drug Screen,Urine Stat Lab 05/27/24 03:52 Completed Lipase Stat Lab 05/26/24 15:28 Completed Lipid Panel AM DRAW Lab 05/27/24 04:38 Completed Magnesium AM DRAW Lab 05/27/24 04:38 Completed Magnesium AM DRAW Lab 05/28/24 04:42 Completed Magnesium AM DRAW Lab 05/29/24 05:00 Ordered Magnesium Stat Lab 05/26/24 15:28 Completed Partial Thromboplastin Time Stat Lab 05/26/24 15:28 Completed Phosphorous AM DRAW Lab 05/27/24 04:38 Completed Phosphorous AM DRAW Lab 05/28/24 04:42 Completed Phosphorous AM DRAW Lab 05/29/24 05:00 Ordered Prothrombin Time with INR AM DRAW Lab 05/27/24 04:38 Completed Prothrombin Time with INR AM DRAW Lab 05/28/24 04:42 Completed Prothrombin Time with INR AM DRAW Lab 05/29/24 05:00 Ordered Prothrombin Time with INR Stat Lab 05/26/24 15:28 Completed Thyroid Stimulating Hormone AM DRAW Lab 05/27/24 04:38 Completed Type and Screen Stat Lab 05/26/24 15:28 Completed Urinalysis Stat Lab 05/27/24 03:52 Completed Acetaminophen Tab [Tylenol Tab] Med 05/26/24 20:02 Active 650 mg PO Q6H PRN HYDROmorphone INJ [Dilaudid Inj] Med 05/26/24 20:02 Discontinued 0.25 mg IVP Q2H PRN Octreotide Acet Inj [SandoSTATIN Inj] Med 05/26/24 16:07 Discontinued 50 mcg IV X1 ONE Ondansetron Inj [Zofran Inj] Med 05/26/24 16:31 Discontinued 4 mg IV X1 ONE Pantoprazole Inj [Protonix Inj] Med 05/26/24 15:57 Discontinued 40 mg IVP X1 ONE Pantoprazole/Ns 80Mg IV Premix [Protonix/NS 80mg IV Med 05/26/24 15:57 Discontinued Premix] 80 mg in 100 ml IV Q10H Sodium Chloride 0.9% 1000 ml [Ns] 1,000 ml Med 05/26/24 16:03 Discontinued IV 999 mls/hr Sodium Chloride 0.9% [Ns] 100 ml Med 05/26/24 16:07 Discontinued Octreotide Acet Inj [SandoSTATIN Inj] 1,000 mcg IV 50 mcg/hr cefTRIAXone/D5w 1gm IV premix [Rocephin/D5w 1gm IV Med 05/26/24 21:00 Active premix] 1 gm in 50 ml IV HS Code Status Routine Oth 05/26/24 20:02 Ordered Oxygen Delivery NEEDED RT 05/26/24 20:04 Active Vital Signs Vital signs: Vital Signs Temperature 97.9 F 05/26/24 14:07 Pulse Rate 109 H 05/26/24 14:07 Respiratory Rate 18 05/26/24 14:07 Blood Pressure 114/81 05/26/24 14:07 Pulse Oximetry (%) 99 05/26/24 14:07 Oxygen Delivery Method Room Air 05/26/24 14:07 [facility] Patient data External records reviewed:: [facility] previous records Clinical information provided by:: patient and law enforcement Social determinants that could affect healthcare access:: none Patient has the following chronic illnesses:: None How is presenting disease/condition affected by chronic disease/condition?: uneffected by Evaluation data The following diagnostics were reviewed and interpreted by me:: lab results, radiology exam(s) and EKG tracing(s) Lab and/or radiology exams considered but not ordered:: CBC shows leukocytosis of 16.4 H&H of 8 and 25 respectively platelets at 307. Coags show PT of 16.9 INR 1.6 PTT of 27.1 CMP shows chloride of 108 BUN of 28 no other electrolyte imbalances no renal impairment glucose of 123. T. bili at 1.4 AST at 467 ALT of 111 BNP is negative Lipase is within acceptable limits Alcohol level is negative. Interpretation Summary: GI bleed patient's case discussed with Dr. Johnson who agrees to accept the patient for consultation and scope. He is wanting a octreotide drip in addition to Protonix. Patient's case presented to the resident for Dr. Garcia, who agrees to accept the patient for admission. Medications Medications considered but not ordered:: None Medication administrations:: Medication Administration History Acetaminophen (Acetaminophen 325 Mg Tablet) 650 mg PO Q6H PRN PRN Reason: TEMP > 100.4 Stop: 06/25/24 20:01 Hydromorphone HCl (Hydromorphone Inj 2 Mg/Ml Vial) 0.25 mg IVP Q6H PRN PRN Reason: Pain 4-10 Stop: 05/31/24 20:01 Last Admin: 05/28/24 20:27 Dose: 0.25 mg Documented By: Admin: 05/27/24 23:25 Dose: 0.25 mg Documented By: FREDA Ceftriaxone Sodium/Dextrose (Rocephin/D5w 1gm Iv Premix) 1 gm in 50 mls @ 100 mls/hr IV HS MAYTE Stop: 06/02/24 20:59 Last Admin: 05/28/24 20:21 Dose: 100 mls/hr Documented By: Infusion: 05/27/24 22:35 Dose: Infused Documented By: Admin: 05/27/24 22:05 Dose: 100 mls/hr Documented By: Infusion: 05/26/24 23:23 Dose: Infused Documented By: Admin: 05/26/24 22:53 Dose: 100 mls/hr Documented By: SASCHA Octreotide Acetate 1,000 mcg/ (Sodium Chloride) 102 mls @ 5.1 mls/hr IV .Q20H MAYTE; Protocol Stop: 06/27/24 08:14 Last Admin: 05/28/24 09:04 Dose: 50 mcg/hr, 5.1 mls/hr Documented By: BENJI Ondansetron HCl (Ondansetron Inj 2 Mg/Ml Inj 2 Ml) 4 mg IV Q6HR PRN; Protocol PRN Reason: NAUSEA OR VOMITING Stop: 06/25/24 22:53 Last Admin: 05/27/24 23:25 Dose: 4 mg Documented By: FREDA Pantoprazole Sodium (Pantoprazole Inj 40 Mg Vial) 40 mg IVP BID [facility] Stop: 06/27/24 10:29 Last Admin: 05/28/24 20:21 Dose: 40 mg Documented By: Admin: 05/28/24 11:37 Dose: 40 mg Documented By: BENJI Discontinued Medications Diphenhydramine HCl (Diphenhydramine Inj 50 Mg/Ml Vial) Confirm Administered Dose 50 mg .ROUTE .STK-MED ONE Stop: 05/27/24 20:31 Diphenhydramine HCl (Diphenhydramine Inj 50 Mg/Ml Vial) 25 mg IV [id number] PRN PRN Reason: MODERATE SEDATION Stop: 05/27/24 22:34 Fentanyl Citrate (Fentanyl Cit Inj 50 Mcg/Ml Amp 2ml) Confirm Administered Dose 100 mcg .ROUTE .STK-MED ONE Stop: 05/27/24 20:31 Fentanyl Citrate (Fentanyl Cit Inj 50 Mcg/Ml Amp 2ml) 50 mcg IV Q2M PRN PRN Reason: MODERATE SEDATION Stop: 05/27/24 22:34 Hydromorphone HCl (Hydromorphone Inj 2 Mg/Ml Vial) 0.25 mg IVP Q2H PRN PRN Reason: Pain 4-10 Stop: 05/31/24 20:01 Last Admin: 05/26/24 22:08 Dose: 0.25 mg Documented By: LEONARD Pantoprazole Sodium (Protonix/Ns 80mg Iv Premix) 80 mg in 100 mls @ 10 mls/hr IV Q10H [facility] Stop: 05/29/24 13:56 Last Admin: 05/28/24 09:18 Dose: Not Given Documented By: BENJI Non-Admin Reason: Discontinued Admin: 05/27/24 20:14 Dose: 10 mls/hr Documented By: Infusion: 05/27/24 19:58 Dose: Infused Documented By: Admin: 05/27/24 09:58 Dose: 10 mls/hr Documented By: Infusion: 05/27/24 08:53 Dose: Infused Documented By: Admin: 05/26/24 22:53 Dose: 10 mls/hr Documented By: Infusion: 05/26/24 22:53 Dose: Infused Documented By: Admin: 05/26/24 17:16 Dose: 10 mls/hr Documented By: LEONARD Sodium Chloride (Ns) 1,000 mls @ 999 mls/hr IV .Q1H1M ONE Stop: 05/26/24 17:03 Last Infusion: 05/26/24 19:37 Dose: Infused Documented By: Admin: 05/26/24 17:13 Dose: 999 mls/hr Documented By: LEONARD Octreotide Acetate 1,000 mcg/ (Sodium Chloride) 102 mls @ 5.1 mls/hr IV .Q20H ONE; Protocol Stop: 05/27/24 12:06 Last Admin: 05/27/24 09:58 Dose: 50 mcg/hr, 5.1 mls/hr Documented By: Infusion: 05/27/24 09:58 Dose: Infused Documented By: Admin: 05/26/24 17:13 Dose: 50 mcg/hr, 5.1 mls/hr Documented By: LEONARD Octreotide Acetate 1,000 mcg/ (Sodium Chloride) 102 mls @ 5.1 mls/hr IV .Q20H MAYTE; Protocol Stop: 06/02/24 00:00 Last Admin: 05/28/24 00:55 Dose: Not Given Documented By: FREDA Non-Admin Reason: using previous bag Meperidine HCl (Meperidine Inj 50 Mg/Ml Vial) 25 mg IV Q2M PRN PRN Reason: MODERATE SEDATION Stop: 05/27/24 22:34 Midazolam HCl (Midazolam Inj 1 Mg/Ml Vial 2 Ml) Confirm Administered Dose 6 mg .ROUTE .STK-MED ONE Stop: 05/27/24 20:31 Midazolam HCl (Midazolam Inj 1 Mg/Ml Vial 2 Ml) 2 mg IV Q2M PRN PRN Reason: Moderate Sedation Stop: 05/27/24 22:34 Octreotide Acetate (Octreotide Acet Inj 50 Mcg/Ml Vial) 50 mcg IV X1 ONE Stop: 05/26/24 16:08 Last Admin: 05/26/24 17:10 Dose: 50 mcg Documented By: LEONARD Ondansetron HCl (Ondansetron Inj 2 Mg/Ml Inj 2 Ml) 4 mg IV X1 ONE; Protocol Stop: 05/26/24 16:32 Last Admin: 05/26/24 17:10 Dose: 4 mg Documented By: LEONARD Pantoprazole Sodium (Pantoprazole Inj 40 Mg Vial) 40 mg IVP X1 ONE Stop: 05/26/24 15:58 Last Admin: 05/26/24 17:12 Dose: 40 mg Documented By: LEONARD Pantoprazole Sodium (Pantoprazole Inj 40 Mg Vial) 40 mg IVP QDAY MAYTE Stop: 06/28/24 08:59 None Consultations Consultation(s) initiated? (list below): Yes Consultation #1 (Physician, Specialty, Details): Alex Time: 16:05 Diagnosis Differential Diagnosis ED Complaint MDM: Upper GI bleed lower GI bleed hemorrhoids Most likely diagnosis given after review of the tests above:: GI bleed Admission Indicated Admission indicated?: indicated Explain why admission is indicated or not indicated:: Requires further medical management Admission Request Was there a request for admission?: No Disposition Plan Disposition Plan: Admit Medical Decision Making Differential Diagnosis Differential Diagnosis: Upper GI bleed lower GI bleed hemorrhoids Lab Data 05/28/24 04:42 05/28/24 04:42 Labs: Lab Results 05/26/24 Range/Units 15:28 WBC 16.4 H (3.8-10.6) Thou/mm3 RBC 3.84 L (4.50-5.90) Miln/mm3 Hgb 8.0 L (13.5-16.0) g/dL Hct 25.4 L (41.0-53.0) % MCV 66 L (80-100) fL MCH 20.8 L (25.0-35.0) pg MCHC 31.5 (31.0-37.0) g/dl RDW Std Deviation 42.5 (35.1-43.9) fL Plt Count 307 (140-440) Thou/mm3 Neut % (Auto) 82 H (37-80) % Lymph % (Auto) 11 (10-50) % [place] % (Auto) 5 (0-12) % Eos % (Auto) 0 (0-10) % Baso % (Auto) 1 (0-2.5) % Neut # (Auto) 13.5 H (1.8-7.7) Thou/mm3 Lymph # (Auto) 1.8 (1.0-4.8) Thou/mm3 [place] # (Auto) 0.9 H (0.0-0.8) Thou/mm3 Eos # (Auto) 0.0 (0.0-0.5) Thou/mm3 Baso # (Auto) 0.1 (0.0-0.2) Thou/mm3 Immature Gran # (Auto) 0.13 H (0.00-0.00) Thou/mm3 Absolute Nucleated RBC 0.00 (0.00-0.00) Thou/mm3 Immature Gran % 1 H (0-0) % Nucleated RBC % 0 (0) /100 WBC PT 16.9 H (9.0-12.2) Seconds INR 1.6 H (0.9-1.3) APTT 27.1 (22.0-36.0) Seconds Sodium 139 (136-145) mMol/L Potassium 3.8 (3.4-5.1) mMol/L Chloride 108 H (98-107) mMol/L Carbon Dioxide 20.4 (20.0-31.0) mMol/L Anion Gap 11 (7-16) BUN 28 H (9-23) mg/dL Creatinine 0.8 (0.6-1.3) mg/dL Estim Creat Clear Calc 105.3 (>60) mL/min eGFR > 60 (60 - ) See Note BUN/Creatinine Ratio 35 H (12-20) Ratio Glucose 123 H (74-106) mg/dL Calculated Osmolality 284 (275-295) Calcium 8.8 (8.3-10.6) mg/dL Corrected Calcium 8.8 (8.5-10.1) mg/dL Magnesium 1.9 (1.6-2.6) mg/dL Total Bilirubin 1.4 H (0.3-1.2) mg/dL AST 467 H (0-34) U/L ALT 111 H (10-49) U/L Alkaline Phosphatase 75 (46-116) U/L B-Natriuretic Peptide < 20 (0-100) pg/mL Total Protein 7.2 (5.7-8.2) gm/dL Albumin 4.1 (3.5-5.0) gm/dL Globulin 3.1 (2.3-3.5) gm/dL Albumin/Globulin Ratio 1.3 (1.2-2.2) Lipase 25 (12-53) U/L Ethyl Alcohol < 3.0 (0-10.0) mg/dL Blood Type O Positive Antibody Screen NEGATIVE Crossmatch See Detail Blood Bank Wristband ID Yes Discharge Plan Plan Patient Disposition: Admit Acute Care w/in Hospital Patient condition on transfer: Stable Problem List Clinical Impression: GI bleed, Anemia 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
[2024-05-26 15:42] LABS: Basophils # (Auto) 0.1 Thou/mm3 (0.0-0.2); Basophils % (Auto) 1 % (0-2.5); Eosinophils % (Auto) 0 % (0-10); Hematocrit 25.4 % (41.0-53.0); Immature Granulocytes % (Auto) 1 % (0-0); Immature Granulocytes Auto 0.13 Thou/mm3 (0.00-0.00); Lymphocytes # (Auto) 1.8 Thou/mm3 (1.0-4.8); Lymphocytes % (Auto) 11 % (10-50); Mean Corpuscular HGB Conc 31.5 g/dl (31.0-37.0); Mean Corpuscular Hemoglobin 20.8 pg (25.0-35.0); Mean Corpuscular Volume 66 fL (80-100); Monocytes # (Auto) 0.9 Thou/mm3 (0.0-0.8); Monocytes % (Auto) 5 % (0-12); Neutrophils # (Auto) 13.5 Thou/mm3 (1.8-7.7); Neutrophils % (Auto) 82 % (37-80); Nucleated Red Blood Cell % 0 /100 WBC (0); Platelet Count 307 Thou/mm3 (140-440); RDW Standard Deviation 42.5 fL (35.1-43.9); Red Blood Count 3.84 Miln/mm3 (4.50-5.90); White Blood Count 16.4 Thou/mm3 (3.8-10.6)
[2024-05-26 15:58] LABS: INR 1.6 (0.9-1.3); Partial Thromboplastin Time 27.1 Seconds (22.0-36.0); Prothrombin Time 16.9 Seconds (9.0-12.2)
[2024-05-26 16:12] LABS: Alanine Aminotransferase 111 U/L (10-49); Albumin, Serum 4.1 gm/dL (3.5-5.0); Albumin/Globulin Ratio 1.3 (1.2-2.2); Alcohol, Blood Medical < 3.0 mg/dL (0-10.0); Alkaline Phosphatase 75 U/L (46-116); Anion Gap 11 (7-16); Aspartate Amino Transferase 467 U/L (0-34); B-Type Natriuretic Peptide < 20 pg/mL (0-100); BUN/Creatinine Ratio 35 Ratio (12-20); Bilirubin,Total 1.4 mg/dL (0.3-1.2); Blood Urea Nitrogen 28 mg/dL (9-23); Calcium 8.8 mg/dL (8.3-10.6); Calcium (Corrected) 8.8 mg/dL (8.5-10.1); Carbon Dioxide 20.4 mMol/L (20.0-31.0); Chloride 108 mMol/L (98-107); Creatinine (Component) 0.8 mg/dL (0.6-1.3); Estimated Creatinine Clearance 105.3 mL/min (>60); Globulin 3.1 gm/dL (2.3-3.5); Glucose 123 mg/dL (74-106); Lipase 25 U/L (12-53); Magnesium 1.9 mg/dL (1.6-2.6); Osmolality,Calculated 284 (275-295); Potassium 3.8 mMol/L (3.4-5.1); Sodium 139 mMol/L (136-145); Total Protein 7.2 gm/dL (5.7-8.2); eGFR > 60 See Note
--- NOTE | 2024-05-26 16:12 | XR_ITS ---
Examination: CT abdomen and pelvis without contrast. Coronal 3-D reconstructions. Sagittal 2-D reconstructions. Date and time of exam:May 26, 2024 1659 hours Comparison March 06, 2024 INDICATIONS: Right-sided abdominal pain with bloody stools today CTDI: vol (mGy): 5.33 DLP: (mGycm): 311 Technique: Axial images of the abdomen have been obtained, 3 mm slice thickness Intravenous contrast material has not been administered. Low dose protocols were performed. One or more of the following dose reduction techniques were used; automated exposure control, adjustment of the mA and/or KV according to patient size, use of iterative reconstruction technique. Findings: Liver is irregular in contour with intrahepatic biliary tract dilatation stable compared to the prior study Markedly distended gallbladder No definite gallstones Splenomegaly 14.5 cm No renal or ureteral calculi No pancreatic mass Normal appendix No bowel obstruction Urinary bladder intact IMPRESSION: Cirrhosis Prominent splenomegaly Markedly distended gallbladder, recommend repeat MRCP to assess the cystic duct and extrahepatic biliary system
[2024-05-26 16:26] VITALS: BP 118/78; PULSE 104; RESP 18; TEMP 36.6; O2SAT 100
--- NOTE | 2024-05-26 16:40 | ESCONSULT_ITS ---
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 Patient is presenting from retirement and explains that around 1 AM on 05/26 he started developing some nausea associated with hematemesis, right upper quadrant pain followed by episode of melanotic stool. Patient has prior admission for upper GI bleed status post endoscopy on 03/08/24 with banding x6 of Grade III esophageal varices. History limited secondary to patient's knowledge regarding his medical conditions and the fact that the patient is actively in pain. Patient states that he has been treated in the past for his liver condition at [facility] [place] and [facility] (unknown at this time which one). Patient also seen at [facility] at the transplant center; however, was not put on the list as his condition apparently improved. Medical history: As listed above Surgical history: Biliary stent placement Allergies: NKDA Medications: Denies any prescribed medications, herbal supplements, vitamins Family history: Patient denies any family history of liver disease Social history: Patient is incarcerated, unknown reason at this time. Patient states that he has history of heavy alcohol use in the past; last drink was sometime in early October (around patient's birthday, 2024), patient apparently used to drink several cans of beer along with multiple shots of liquor but has been sober since being incarcerated. Patient also states that he smokes marijuana but denies any other illicit drug use and denies smoking tobacco. ROS: All 12 systems assessed and the patient denies unless otherwise stated in HPI cc:: cc: Exam Vital Signs Temp Pulse Resp BP Pulse Ox O2 Del Method 98 F 104 H 18 118/78 100 Room Air 05/26/24 16:26 05/26/24 16:26 05/26/24 16:26 05/26/24 16:26 05/26/24 16:05/26/24 16:26 Narrative Exam Physical Exam: GENERAL: Awake, answering questions appropriately, in mild/moderate discomfort secondary to abdominal pain, appears stated age HEENT: NC/AT. Moist mucosa. PERRLA/EOMI. no conjunctival pallor noted. CARDIO: Heart RRR, no obvious murmurs, no JVD. PULM: No coughing or visible SOB. Lungs CTA B/L. GI: Abdomen mildly rigid, tenderness to palpation especially in the right upper quadrant, guarding noted, no palpable masses noted. Negative for caput medusae SKIN/MSK/EXT: No spider angiomas noted. No wounds/discoloration/rashes/edema/amputations noted. +Pedal pulses present B/L. NEURO: Oriented x3, Moves extremities x4,, no focal neurologic deficits noted. Results Labs 05/28/24 04:42 05/28/24 04:42 Labs: Short CBC 05/26/24 Range/Units 15:28 WBC 16.4 H (3.8-10.6) Thou/mm3 Hgb 8.0 L (13.5-16.0) g/dL Hct 25.4 L (41.0-53.0) % Plt Count 307 (140-440) Thou/mm3 BMP 05/26/24 15:28 Sodium 139 Potassium 3.8 Chloride 108 H Carbon Dioxide 20.4 BUN 28 H Creatinine 0.8 Glucose 123 H Calcium 8.8 Liver Function 05/26/24 Range/Units 15:28 Total Bilirubin 1.4 H (0.3-1.2) mg/dL AST 467 H (0-34) U/L ALT 111 H (10-49) U/L Alkaline Phosphatase 75 (46-116) U/L Albumin 4.1 (3.5-5.0) gm/dL Quality Measures Quality Measures none Medications Home Medications and Allergies Allergies Allergy/AdvReac Type Severity Reaction Status Date / Time No Known Allergies Allergy Verified 03/06/24 10:26 Visit Medications Pantoprazole Sodium (Protonix/Ns 80mg Iv Premix) 80 mg in 100 mls @ 10 mls/hr IV Q10H MAYTE Stop: 05/29/24 13:56 Sodium Chloride (Ns) 1,000 mls @ 999 mls/hr IV .Q1H1M ONE Stop: 05/26/24 17:03 Octreotide Acetate 1,000 mcg/ (Sodium Chloride) 102 mls @ 5.1 mls/hr IV .Q20H ONE; Protocol Stop: 05/27/24 12:06 Discontinued Medications Octreotide Acetate (Octreotide Acet Inj 50 Mcg/Ml Vial) 50 mcg IV X1 ONE Stop: 05/26/24 16:08 Ondansetron HCl (Ondansetron Inj 2 Mg/Ml Inj 2 Ml) 4 mg IV X1 ONE; Protocol Stop: 05/26/24 16:32 Pantoprazole Sodium (Pantoprazole Inj 40 Mg Vial) 40 mg IVP X1 ONE Stop: 05/26/24 15:58 Assessment & Plan Assessment #Upper GI bleed #Acute blood loss anemia #Cirrhosis secondary to alcohol use disorder vs. other etiology #Esophageal varices Differentials for cirrhosis include: alcoholic hepatitis, autoimmune hepatitis, primary sclerosing cholangitis, primary biliary cholangitis, alpha-1 antitrypsin; less likely hereditary hemochromatosis, viral hepatitis Per HPI above, patient presenting from retirement with episode of hematemesis and melena which started sometime around 1 AM on 05/26/2024 Has history of excessive alcohol consumption but he's too young age to develop alcohol-induced hepatitis Patient has history of esophageal varices as noted from past EGD on 03/08 - grade 3 esophageal varices which were banded but incompletely eradicated Vitals stable with BP holding (systolic 110s/diastolic 70s) with tachycardia HR of low 100's - not in hemorrhagic shock at this time On rectal examination, patient has melanotic stool in the rectal vault without any ward blood noted Hemoglobin of 8.0 with MCV of 66, hematocrit 25.4% Hepatitis panel negative in the past; Iron panels are low from previous studies Plan: Octreotide 50 mcg/h to continue IV Protonix Serial CBC Transfuse as necessary Consent obtained for fiberoptic esophagogastroduodenoscopy with possible band ligation possible therapeutic intervention under intravenous moderate sedation Counseled the patient about absolute abstinence from alcohol if he wants to get back on the liver transplant list #Elevated liver enzymes #History of biliary duct obstruction AST:ALT ratio >2; AST 467 and ALT of 111, alk phosphatase 75, albumin 4.1, globulin 3.1, lipase 25 Coagulation panel shows PT of 16.9 seconds and INR 1.6 Per patient, last drink was sometime in October 2023 - denies any other source of alcohol recently On examination, patient has tenderness to palpation in the right upper quadrant with guarding and mild rigidity Plan: Ultrasound of the abdomen CT abdomen chest without contrast Monitor with serial LFTs #Erosive gastritis Plan: Protonix as above should provide adequate coverage All other medical problems to be managed by the primary team. Thank you for the opportunity to participate in the care of this patient. Attending Provider Attestation/Addendum Patient evaluated with the internal medicine resident Treatment plan ultralight I fully concur with the evaluation And we will proceed with fiberoptic esophagogastroduodenoscopy with possible therapeutic intervention under intravenous moderate sedation
--- NOTE | 2024-05-26 16:44 | PD.RESEVENT ---
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 Patient reported that he was apparently normal till yesterday and later this morning he had nausea and right upper quadrant pain following which he developed 5 episodes of hematemesis, each episode patient vomited approximately around 50 - 100 mL of blood and also complaining of blackish discoloration of stools since then. Patient had similar episodes in the past and last episode was in February during which he was found to have 6 large is a facial varices and underwent banding. Patient was diagnosed to have biliary calculi at the age of 16 and had stenting done at that time later the stent was extracted. At one point of time patient was scheduled to get a liver transplant but as patient became stable later and also not able to follow-up with the [place] appointments, he was taken off the transplant list. Last alcohol drink was in October 2023, per patient Vitals are stable except for mild tachycardia with heart rate 100-1 10. On physical examination, severe right upper quadrant tenderness noted. Labs at the time of admission showed hemoglobin 8, WBC 16.4, platelets 307, sodium 139, potassium 3.8, total bilirubin 1.4, AST 467, ALT 111, INR 1.6 Got a call from the ED regarding patient admission but initially CMP was not done later patient was found to have elevated bilirubin, liver enzymes could be due to CBD obstruction due to stones likely as patient had previous history of biliary stones. Recommended to do CT abdomen/pelvis, ultrasound to rule out CBD stones as patient may need transfer if patient has CBD stones as we do not have ERCP in our hospital as of now Patient plan of care was discussed with the attending physician, Dr. Gonzáles and senior resident Dr. Antonio Perez, PGY1
--- NOTE | 2024-05-26 16:48 | XR_ITS ---
Examination: Abdomen sonogram, Limited Date and time of exam: May 26, 2024 at 1736 hours Comparison March 06, 2024 INDICATIONS: Right upper abdominal pain today, history markedly distended gallbladder and abnormally enlarged common bile duct 10 mm on gallbladder sonogram March 06, 2024, extrahepatic biliary tract obstruction also an MR abdomen March 06, 2024 Technique: Real-time lr scale transabdominal sonographic images of the upper abdomen obtained. Findings: Significantly distended gallbladder No gallstones Gallbladder wall 0.29 cm no edema Common bile duct is abnormally enlarged, 11 mm, no definite stones Liver 14.3 cm fatty infiltration lobular contour Normal hepatopedal portal venous flow Patent IVC IMPRESSION: Abnormally distended gallbladder with extrahepatic biliary tract dilatation, suggest repeat MRCP to assess for stricture or stones in the distal common bile duct Primary hepatocellular disease
[2024-05-26] MEDS: ONDANSETRON INJ 2 MG/ML INJ 2 ML 4 MG IV (17:10)
[2024-05-26] MEDS: OCTREOTIDE ACET INJ 50 mCg/ML VIAL IV (17:10)
[2024-05-26] MEDS: PANTOPRAZOLE INJ 40 MG VIAL IVP (17:12)
[2024-05-26] MEDS: SODIUM CHLORIDE 0.9% 1000 ML 1,000 ML 999 ML IV (17:13)
[2024-05-26] MEDS: OCTREOTIDE ACET INJ 1,000 MCG in SODIUM CHLORIDE 0.9% 100 ML 5.1 MCG IV (17:13)
[2024-05-26] MEDS: PANTOPRAZOLE/NS 80MG IV PREMIX 80 MG/100 ML BAG 10 MG IV ×2 (17:16→22:53)
[2024-05-26 18:17] VITALS: BP 118/78; PULSE 103; RESP 18; TEMP 36.8; O2SAT 100
--- NOTE | 2024-05-26 20:36 | ESHP_ITS ---
Documentation for date of: 05/26/24 HPI History of Present Illness History of present illness: The patient is a 23-year-old male with significant past medical history of alcoholic liver cirrhosis, CBD stones, variceal bleed [facility] with chief complaint of hematemesis that started at 1 AM this morning. The patient's last vomiting episode was around 2 PM in the ED, his hematemesis was around 100 cc. The patient has been having melena for past couple of days, and in the ED at 1558 he had a large black tarry stool with ward blood. He denies any abdominal pain, headache, chest pain or SOB, any leg swelling, fever or chills. The patient was supposed to follow-up at [facility] for possible ERCP in his last admission on February 2024, but he has not been able to follow- up. GI Dr. Johnson was consulted, who reported that he knows the patient well, and due to low bilirubin of 1.4, it would be appropriate to admit the patient for further management of acute upper GI bleed which could be life-threatening, and also recommended not to proceed with MRCP as it would be not beneficial for this patient at the given time. Of note, patient was being considered for hepatic transplant in 2019 at [place] but was denied due to his high consumption of mariuana. Miscellaneous order placed for retrieving [place] documents. In the ED his vitals were stable with pulse rate of 109. White count 16.4, hemoglobin 8.0, hematocrit 25.4, MCV 66, PT 16.9, INR 1.6, BUN 28, blood sugar 123, total bilirubin 1.4, AST 467 and ALT 111. EKG revealed sinus tachycardia, abdomen/pelvis revealed cirrhosis, prominent splenomegaly, markedly distended gallbladder, recommended repeat MRCP, and US gallbladder revealed abnormally distended gallbladder with extrahepatic biliary tract dilation. PMH: As mentioned above Social Hx: Alcohol abuse since the age of 18 and stopped in October 2023, smokes marijuana 1-2 times in a day, denies smoking tobacco and other illicit drug abuse. Medications: None Allergies: NKA The patient was started on protonix drip, octreotide drip, NS 1L bolus and admitted to telemetry unit. Review of Systems Review of Systems Systems Reviewed: All systems reviewed, normal except as documented Exam Vital Signs Temp Pulse Resp BP Pulse Ox O2 Del Method 98.2 F 103 H 18 118/78 100 Room Air 05/26/24 18:17 05/26/24 18:17 05/26/24 18:17 05/26/24 18:17 05/26/24 18:17 05/26/24 18:17 Narrative Exam General: Young, cooperative gentleman, no acute distress, Alert and Oriented x 3 HEENT: Moist mucous membranes, oropharynx clear Neck: Supple, No masses, No JVD CVS: S1S2 Regular rate and rhythm, No murmurs, rubs or gallops Lungs: Clear to auscultation with no accessory use, no wheeze no rhonchi Abd: Soft, tenderness throughout the abdomen, more over right upper quadrant/no distention, +BS, no organomegaly Ext: No edema, warm and well perfused Skin: No rash Psych: Appropriate mood and affect Results: Labs 05/26/24 15:28 05/26/24 15:28 Labs: Short CBC 05/26/24 Range/Units 15:28 WBC 16.4 H (3.8-10.6) Thou/mm3 Hgb 8.0 L (13.5-16.0) g/dL Hct 25.4 L (41.0-53.0) % Plt Count 307 (140-440) Thou/mm3 BMP 05/26/24 15:28 Sodium 139 Potassium 3.8 Chloride 108 H Carbon Dioxide 20.4 BUN 28 H Creatinine 0.8 Glucose 123 H Calcium 8.8 Liver Function 05/26/24 Range/Units 15:28 Total Bilirubin 1.4 H (0.3-1.2) mg/dL AST 467 H (0-34) U/L ALT 111 H (10-49) U/L Alkaline Phosphatase 75 (46-116) U/L Albumin 4.1 (3.5-5.0) gm/dL Quality Measures Quality Measures none Medications Home Medications and Allergies Allergies Allergy/AdvReac Type Severity Reaction Status Date / Time No Known Allergies Allergy Verified 03/06/24 10:26 Visit Medications Acetaminophen (Acetaminophen 325 Mg Tablet) 650 mg PO Q6H PRN PRN Reason: TEMP > 100.4 Stop: 06/25/24 20:01 Hydromorphone HCl (Hydromorphone Inj 2 Mg/Ml Vial) 0.25 mg IVP Q2H PRN PRN Reason: Pain 4-10 Stop: 05/31/24 20:01 Pantoprazole Sodium (Protonix/Ns 80mg Iv Premix) 80 mg in 100 mls @ 10 mls/hr IV Q10H MAYTE Stop: 05/29/24 13:56 Last Admin: 05/26/24 17:16 Dose: 10 mls/hr Octreotide Acetate 1,000 mcg/ (Sodium Chloride) 102 mls @ 5.1 mls/hr IV .Q20H ONE; Protocol Stop: 05/27/24 12:06 Last Admin: 05/26/24 17:13 Dose: 50 mcg/hr, 5.1 mls/hr Ceftriaxone Sodium/Dextrose (Rocephin/D5w 1gm Iv Premix) 1 gm in 50 mls @ 100 mls/hr IV HS MAYTE Stop: 06/02/24 20:59 Discontinued Medications Sodium Chloride (Ns) 1,000 mls @ 999 mls/hr IV .Q1H1M ONE Stop: 05/26/24 17:03 Last Infusion: 05/26/24 19:37 Dose: Infused Octreotide Acetate (Octreotide Acet Inj 50 Mcg/Ml Vial) 50 mcg IV X1 ONE Stop: 05/26/24 16:08 Last Admin: 05/26/24 17:10 Dose: 50 mcg Ondansetron HCl (Ondansetron Inj 2 Mg/Ml Inj 2 Ml) 4 mg IV X1 ONE; Protocol Stop: 05/26/24 16:32 Last Admin: 05/26/24 17:10 Dose: 4 mg Pantoprazole Sodium (Pantoprazole Inj 40 Mg Vial) 40 mg IVP X1 ONE Stop: 05/26/24 15:58 Last Admin: 05/26/24 17:12 Dose: 40 mg Assessment & Plan Plan The patient is a 23-year-old male with significant past medical history of alcoholic liver cirrhosis, CBD stones, variceal bleed [facility] with chief complaint of hematemesis that started at 1 AM this morning is is admitted to telemetry unit for further management of acute GI bleed likely secondary to variceal bleed in the setting of known case of alcoholic cirrhosis. #Acute blood loss anemia 2/2 #Upper GI bleed More likely secondary to variceal bleed in the setting of known liver cirrhosis Case Pulse rate of 109 during presentation, globin 8.0, hematocrit 25.4, MCV 66, PT 16.9, INR 1.6 CT abdomen/pelvis revealed cirrhosis, prominent splenomegaly, markedly distended gallbladder, recommended repeat MRCP, and US gallbladder revealed abnormally distended gallbladder with extrahepatic biliary tract dilation. -Continue on octreotide and pantoprazole drip -GI Dr. Johnson consulted, will possibly proceed with EGD and possible band ligation tomorrow morning -N.p.o. -Zofran 4mg IV prn for nausea or vomiting -Monitor H&H and transfuse if hemoglobin less than 7 -Ceftriaxone IV 1 g daily at night -Daily a.m. labs for CBC, CMP and electrolytes #Hyperbilirubinemia Likely secondary to choledocholithiasis, CT abdomen/pelvis and US gallbladder findings mentioned above -Dr. Johnson recommended that the patient should be admitted, as choledocholithiasis is not an acute finding, has been going on for a while, and patient needs to get treatment for upper GI bleed. He recommended that MRCP would not be beneficial at this point of time -Continue to monitor liver function test #Mild transaminitis #Alcoholic cirrhosis Presented with AST 467 and ALT 111, PT 16.9 and INR 1.6 -Continue to monitor liver function test #Leucocytosis Likely reactive, with level of 16.4 -Continue to monitor daily am labs for CBC Health maintenance: Dispo: Patient admitted to telemetry unit for further management of acute upper GI bleed likely secondary to variceal bleed in the setting of known cirrhosis Diet: N.p.o. for now DVT prophylaxis: SCDs CODE STATUS: Full code The patient's management plan was discussed with my attending physician MD Carlos Alberto Abraham MD, PGY2 Attending Provider Attestation/Addendum I attest that I was physically present for the evaluation, physical examination, lab and imaging review of the patient with the residents. I discussed the case with the residents and agree with the findings and plans of care as documented above. Patient is a 23 years old male with past medical history of alcoholic liver cirrhosis, CBD stones and variceal bleed who presented from prison with complaint of hematemesis. He is also having melena along with hematemesis since yesterday. Denies any abdominal pain, fever or chills. On his last visit, patient was discharged with advised to get ERCP, which he has not been able to follow-up with. In the ED, he was noted to have pulse of 109, WBC 16.4, hemoglobin/hematocrit 8.0/25.4, PT/INR 16.9/1.6, total bilirubin 1.4, AST 467, ALT 111. Abdomen/pelvis CT was done, which showed cirrhosis, prominent splenomegaly, marked distended gallbladder. Ultrasound gallbladder also revealed abnormally distended gallbladder with extrahepatic biliary tract dilation. Discussed with GI, stated that patient is well-known to him and his biliary problems are chronic, recommended admission in the hospital for management of acute blood loss anemia secondary to GI bleeding. We will admit the patient for management of acute blood loss anemia secondary to upper GI bleeding, start him on octreotide, Protonix, antiemetics, Rocephin, bowel rest. Gastroenterology following, appreciate recommendations. Magali Esteves MD
[2024-05-26 20:58] VITALS: BP 159/89; PULSE 90; RESP 18; O2SAT 100
[2024-05-26 21:21] VITALS: PULSE 83; RESP 18; RESP 99
[2024-05-26] MEDS: HYDROmorphone INJ 2 MG/ML VIAL 0.25 MG IVP (22:08)
[2024-05-26] MEDS: cefTRIAXone/D5w 1gm IV premix 1 GM/50 ML BAG IV (22:53)
[2024-05-26 23:56] VITALS: BP 146/83; PULSE 90; RESP 18; TEMP 36.6; O2SAT 100
[2024-05-27] VITALS (30 sets, daily range): BP systolic 99–152; BP diastolic 55–104; PULSE 56–91; RESP 12–100; TEMP 36.2–37.1; O2SAT 94–100; BMI 24.2
[2024-05-27 05:26] LABS: Collection Type, Urine Clean Catch; RBC,Urine 0 /hpf (0-3); Squamous Epithelial Cell,Urine 0 /hpf (0-5)
[2024-05-27 05:55] LABS: Basophils % (Auto) 0 % (0-2.5); Eosinophils # (Auto) 0.1 Thou/mm3 (0.0-0.5); Eosinophils % (Auto) 2 % (0-10); Immature Granulocytes % (Auto) 0 % (0-0); Immature Granulocytes Auto 0.03 Thou/mm3 (0.00-0.00); Lymphocytes # (Auto) 1.9 Thou/mm3 (1.0-4.8); Lymphocytes % (Auto) 27 % (10-50); Mean Corpuscular HGB Conc 31.3 g/dl (31.0-37.0); Mean Corpuscular Hemoglobin 20.7 pg (25.0-35.0); Mean Corpuscular Volume 66 fL (80-100); Monocytes # (Auto) 0.6 Thou/mm3 (0.0-0.8); Monocytes % (Auto) 8 % (0-12); Neutrophils # (Auto) 4.6 Thou/mm3 (1.8-7.7); Neutrophils % (Auto) 63 % (37-80); Nucleated Red Blood Cell % 0 /100 WBC (0); Platelet Count 91 Thou/mm3 (140-440); RDW Standard Deviation 41.8 fL (35.1-43.9); Red Blood Count 3.05 Miln/mm3 (4.50-5.90); White Blood Count 7.2 Thou/mm3 (3.8-10.6)
[2024-05-27 05:58] LABS: Bilirubin,Urine Negative (Negative); Blood,Urine 3+ (Negative); Clarity,Urine Clear (Clear/Hazy); Color,Urine Yellow (Lt Yel-Yel); Glucose, Urine Negative (Negative); Ketones,Urine 1+ (Negative); Leukocyte Esterase,Urine Negative (Negative); Nitrite,Urine Negative (Negative); Protein,Urine 1+ (Neg - Trace); Specific Gravity,Urine 1.031 (1.001-1.035); Urobilinogen,Urine Negative mg/dL (0.0-1.0); WBC,Urine 1 /hpf (0-5)
[2024-05-27 06:03] LABS: Hematocrit 20.1 % (41.0-53.0); Hemoglobin 6.3 g/dL (13.5-16.0)
[2024-05-27 06:04] LABS: INR 1.4 (0.9-1.3); Prothrombin Time 14.9 Seconds (9.0-12.2)
[2024-05-27 06:36] LABS: Alanine Aminotransferase 117 U/L (10-49); Albumin, Serum 3.7 gm/dL (3.5-5.0); Albumin/Globulin Ratio 1.4 (1.2-2.2); Alkaline Phosphatase 63 U/L (46-116); Anion Gap 7 (7-16); Aspartate Amino Transferase 420 U/L (0-34); BUN/Creatinine Ratio 29 Ratio (12-20); Bilirubin,Total 0.8 mg/dL (0.3-1.2); Blood Urea Nitrogen 23 mg/dL (9-23); Calcium 8.1 mg/dL (8.3-10.6); Calcium (Corrected) 8.3 mg/dL (8.5-10.1); Chloride 109 mMol/L (98-107); Cholesterol 64 mg/dL (132-200); Creatinine (Component) 0.8 mg/dL (0.6-1.3); Estimated Creatinine Clearance 105.3 mL/min (>60); Globulin 2.7 gm/dL (2.3-3.5); Glucose 116 mg/dL (74-106); HDL Cholesterol 21 mg/dL (40-60); LDL Cholesterol,Calculated 28 mg/dL (0-130); Osmolality,Calculated 280 (275-295); Phosphorous 4.5 mg/dL (2.4-5.1); Sodium 138 mMol/L (136-145); Thyroid Stimulating Hormone 0.31 uIU/mL (0.55-4.78); Total Protein 6.4 gm/dL (5.7-8.2); Triglycerides 75 mg/dL (30-150); eGFR > 60 See Note
[2024-05-27 06:36] LABS: Amphetamine/Methamp Scrn,U Negative (Negative); Barbiturate Screen,Urine Negative (Negative); Benzodiazepines Screen,Urine Negative (Negative); Benzoylecgonine Screen, Ur Negative (Negative); Fentanyl Screen,Urine Negative (Negative); Opiate Screen,Urine Positive (Negative); THC Screen,Urine Positive (Negative)
[2024-05-27 08:33] LABS: Free T4 (Free Thyroxine) 1.17 ng/dL (0.89-1.76)
[2024-05-27 08:44] LABS: Hematocrit 20.5 % (41.0-53.0)
[2024-05-27 08:55] LABS: Hemoglobin 6.5 g/dL (13.5-16.0)
[2024-05-27] MEDS: OCTREOTIDE ACET INJ 1,000 MCG in SODIUM CHLORIDE 0.9% 100 ML 5.1 MCG IV (09:58)
[2024-05-27] MEDS: PANTOPRAZOLE/NS 80MG IV PREMIX 80 MG/100 ML BAG 10 MG IV ×2 (09:58→20:14)
--- NOTE | 2024-05-27 14:56 | ESPR_ITS ---
<Statement entered by Benjamín Alvarez MD - 05/28/24 09:10> Senior Resident Attestation: I supervised/discussed management plan with improvement intern physician Dr. Perez, and was involved in the care of this patient. I personally saw and examined the patient and discussed the assessment and plan with the entire medicine team, including my attending. I agree with the assessment and plan as documented. Patient's care was discussed with attending physician, Dr. Lama. Benjamín Alvarez MD PGY-2. Documentation for date of: 05/27/24 Subjective Subjective Interval history: Patient is seen and examined at bedside No acute overnight events. Reported that his abdominal pain subsided and no further episodes of bloody vomitings Patient is kept n.p.o. since midnight as he is pending for upper GI endoscopy today by Dr. Johnson Vitals are stable. Physical examination remains unremarkable Labs showed WBCs 1.2, Hb 6.5, platelets 91, INR 1.4, AST 420, ALT 117 will continue octreotide infusions and pantoprazole Exam Vital Signs Temp Pulse Resp BP Pulse Ox O2 Del Method 98.8 F 62 16 118/71 98 Room Air 05/27/24 14:08 05/27/24 14:08 05/27/24 14:08 05/27/24 14:08 05/27/24 14:08 05/27/24 11:20 Narrative Exam General: Awake. HEENT: Normocephalic, atraumatic, mucous membranes moist. Heart: Regular rate and rhythm, no murmurs. Lungs: Clear to auscultation with no wheezing or crackles. Abdomen: Soft, nondistended, minimal tenderness in the right upper quadrant, positive bowel sounds. ?No guarding or rebound tenderness. Neurologic: Alert and oriented x3, no gross neurological deficit, and patient able to move all 4 extremities. Extremities: No edema. Skin: No rash or ecchymoses. Objective Labs 05/29/24 04:10 05/29/24 04:10 Labs: Laboratory Results - last 24 hr 05/26/24 05/27/24 05/27/24 15:28 03:52 04:38 WBC 16.4 H 7.2 D RBC 3.84 L 3.05 L Hgb 8.0 L 6.3 L* D Hct 25.4 L 20.1 L* MCV 66 L 66 L MCH 20.8 L 20.7 L MCHC 31.5 31.3 RDW Std Deviation 42.5 41.8 Plt Count 307 91 L D Neut % (Auto) 82 H 63 Lymph % (Auto) 11 27 [place] % (Auto) 5 8 Eos % (Auto) 0 2 Baso % (Auto) 1 0 Neut # (Auto) 13.5 H 4.6 Lymph # (Auto) 1.8 1.9 [place] # (Auto) 0.9 H 0.6 Eos # (Auto) 0.0 0.1 Baso # (Auto) 0.1 0.0 Immature Gran # (Auto) 0.13 H 0.03 H Absolute Nucleated RBC 0.00 0.00 Immature Gran % 1 H 0 Nucleated RBC % 0 0 PT 16.9 H 14.9 H INR 1.6 H 1.4 H APTT 27.1 Sodium 139 138 Potassium 3.8 4.0 Chloride 108 H 109 H Carbon Dioxide 20.4 22.0 Anion Gap 11 7 BUN 28 H 23 Creatinine 0.8 0.8 Estim Creat Clear Calc 105.3 105.3 eGFR > 60 > 60 BUN/Creatinine Ratio 35 H 29 H Glucose 123 H 116 H Calculated Osmolality 284 280 Calcium 8.8 8.1 L Corrected Calcium 8.8 8.3 L Phosphorus 4.5 Magnesium 1.9 2.0 Total Bilirubin 1.4 H 0.8 D AST 467 H 420 H ALT 111 H 117 H Alkaline Phosphatase 75 63 B-Natriuretic Peptide < 20 Total Protein 7.2 6.4 Albumin 4.1 3.7 Globulin 3.1 2.7 Albumin/Globulin Ratio 1.3 1.4 Triglycerides 75 Cholesterol 64 L LDL Cholesterol, Calc 28 HDL Cholesterol 21 L Cholesterol/HDL Ratio 3.0 L Lipase 25 TSH 0.31 L Free T4 1.17 Ur Collection Type Clean Catch Urine Color Yellow Urine Clarity Clear Urine pH 6.0 Ur Specific [place] 1.031 Urine Protein 1+ A Urine Glucose (UA) Negative Urine Ketones 1+ A Urine Blood 3+ A Urine Nitrite Negative Urine Bilirubin Negative Urine Urobilinogen (Auto) Negative Ur Leukocyte Esterase Negative Urine RBC 0 Urine WBC 1 Ur Squamous Epith Cells 0 Urine Bacteria None Urine Opiates Screen Positive A Urine Fentanyl Screen Negative Ur Barbiturates Screen Negative U Amphetamin/Meth Scrn Negative U Benzodiazepines Scrn Negative U Cocaine Metab Screen Negative U Marijuana (THC) Screen Positive A Ethyl Alcohol < 3.0 Blood Type O Positive Antibody Screen NEGATIVE Crossmatch See Detail Blood Bank Wristband ID Yes 05/27/24 08:30 WBC RBC Hgb 6.5 L* Hct 20.5 L* MCV MCH MCHC RDW Std Deviation Plt Count Neut % (Auto) Lymph % (Auto) [place] % (Auto) Eos % (Auto) Baso % (Auto) Neut # (Auto) Lymph # (Auto) [place] # (Auto) Eos # (Auto) Baso # (Auto) Immature Gran # (Auto) Absolute Nucleated RBC Immature Gran % Nucleated RBC % PT INR APTT Sodium Potassium Chloride Carbon Dioxide Anion Gap BUN Creatinine Estim Creat Clear Calc eGFR BUN/Creatinine Ratio Glucose Calculated Osmolality Calcium Corrected Calcium Phosphorus Magnesium Total Bilirubin AST ALT Alkaline Phosphatase B-Natriuretic Peptide Total Protein Albumin Globulin Albumin/Globulin Ratio Triglycerides Cholesterol LDL Cholesterol, Calc HDL Cholesterol Cholesterol/HDL Ratio Lipase TSH Free T4 Ur Collection Type Urine Color Urine Clarity Urine pH Ur Specific [place] Urine Protein Urine Glucose (UA) Urine Ketones Urine Blood Urine Nitrite Urine Bilirubin Urine Urobilinogen (Auto) Ur Leukocyte Esterase Urine RBC Urine WBC Ur Squamous Epith Cells Urine Bacteria Urine Opiates Screen Urine Fentanyl Screen Ur Barbiturates Screen U Amphetamin/Meth Scrn U Benzodiazepines Scrn U Cocaine Metab Screen U Marijuana (THC) Screen Ethyl Alcohol Blood Type Antibody Screen Crossmatch Blood Bank Wristband ID Quality Measures Quality Measures none Assessment & Plan Assessment Current Active Medications: Generic Name Dose Route Start Last Admin Trade Name Freq PRN Reason Stop Dose Admin Acetaminophen 650 mg 05/26/24 20:02 Acetaminophen 325 Mg Tablet PO 06/25/24 20:01 Q6H PRN TEMP > 100.4 Hydromorphone HCl 0.25 mg 05/26/24 22:31 Hydromorphone Inj 2 Mg/Ml Vial IVP 05/31/24 20:01 Q6H PRN Pain 4-10 Pantoprazole Sodium 80 mg in 100 mls @ 10 mls/hr 05/26/24 15:57 05/27/24 09:58 Protonix/Ns 80mg Iv Premix IV 05/29/24 13:56 10 mls/hr Q10H MAYTE Administration Ceftriaxone Sodium/Dextrose 1 gm in 50 mls @ 100 mls/hr 05/26/24 21:00 05/26/24 22:53 Rocephin/D5w 1gm Iv Premix IV 06/02/24 20:59 100 mls/hr HS MAYTE Administration Ondansetron HCl 4 mg 05/26/24 22:54 Ondansetron Inj 2 Mg/Ml Inj 2 Ml IV 06/25/24 22:53 Q6HR PRN NAUSEA OR VOMITING Protocol Plan A 23-year-old male with past medical history of liver cirrhosis, biliary stones status post stenting, variceal bleed presented to the hospital with chief complaints of bloody emesis since 2 days and UGI Bleed likely due to varices from liver cirrhosis # Hematemesis # Upper GI bleed # Variceal bleed 2/ Liver cirrhosis # Secondary to biliary duct obstruction from stones, s/p stenting - Patient had a history of biliary duct obstruction from stones and stenting done at the age of 16 and diagnosed to have liver disease in [place] at the time. - Patient had previous history of variceal bleed and underwent endoscopy for that in October 2023, February 2024 and underwent variceal ligation - Patient presented with complaints of bloody emesis since 1 day - Associated with right upper quadrant abdominal pain. - Last alcohol drink was in 2023 - Vitals are stable at the time of admission. On physical examination, tenderness in right upper quadrant noted - Abdomen/pelvis CT showed cirrhosis and splenomegaly Plan - PRBC transfusion done today in view of hemoglobin of 6.5, will repeat posttransfusion H&H - N.p.o. - Dr. Johnson was consulted and recommended upper GI endoscopy today - Started on octreotide drip and pantoprazole drip -Ceftriaxone 1 g IV daily for prophylaxis in view of GI bleed #Hyperbilirubinemia #Mild transaminitis # Secondary to liver cirrhosis Presented with T. bili 1.4, AST 467 and ALT 111, PT 16.9 and INR 1.6 -Will monitor transaminase levels #Leucocytosis, resolved WBC count is 16.4 at the time of admission -WBC count on 05/27/2024 is 7.2 -Will follow-up with [facility] Hospital Maintenance: Dispo: Tele DVT ppx: Admitted for bleeding, so not given GI ppx: Pantoprazole drip Diet: N.p.o for endoscopy IV lines: Peripheral Code status: Full Patient plan of care was discussed with the attending physician, Dr. Lama and senior resident Dr. Antonio Perez, PGY1 Attending Provider Attestation/Addendum Face to face evaluation was performed by me. I have personally seen and examined the patient. I discussed the assessment and plan with the entire medicine team. I reviewed available medical records, imaging studies, laboratory results. I agree with the above subjective data, objective findings, assessment and plan except as corrected by me or noted below Acute blood loss anemia requiring PRBC transfusion Upper GI bleed Hx of alcohol abuse Hyperbilirubinemia - Continue with octreotide drip, pantoprazole IV, GI consult, NPO. Monitor hemoglobin and transfuse to keep hemoglobin above 7 from medicine standpoint More than > 30 minutes spent on the encounter
--- NOTE | 2024-05-27 15:33 | PC.SS ---
Addendum entered by Leonor Valdez 05/27/24 15:36: SS rounding note: Patient staying 5 days for octreotide. Original Note: SS met with patient at bedside to complete initial assessment, verbal consent provided by patient to allow his girlfriend Yin to be present. Patient confirmed demographic information. Patient stated he was released from longterm and resides with his parents. Patient confirmed his mother Arielle Rascon [phone] is the primary medical surrogate decision maker. Patient stated he requires assistance with ADL completion due to pain. [facility]acy: [facility]. PCP: None, declined [facility]. Discharge plan: Home, Girlfriend Yin to transport Next of kin: Parent Arielle Rascon [phone]
[2024-05-27 17:55] LABS: Hematocrit 28.9 % (41.0-53.0); Hemoglobin 9.3 g/dL (13.5-16.0)
--- NOTE | 2024-05-27 21:04 | SUR.PHASEI ---
Pt. arrived to recovery via [facility] l[facility], no c/o pain or nausea at this time, pt. is resting with eyes closed, responds to verbal commands, report received from Karissa DAVIS.
--- NOTE | 2024-05-27 21:28 | SUR.PHASEI ---
Called and gave report on pt. s/p procedure to Cindy DAVIS on M/S unit.
--- NOTE | 2024-05-27 21:35 | SUR.PHASEI ---
Addendum entered by Sissy Akbar RN 05/27/24 21:58: Viri DAVIS not Tatyana DAVIS Original Note: Pt. transferred to room 379 via gurney, VSS, no c/o pain or nausea, pt. allowed to rest, IVs flushed and patent, Tatyana DAVIS assumed care of pt.
[2024-05-27] MEDS: cefTRIAXone/D5w 1gm IV premix 1 GM/50 ML BAG IV (22:05)
[2024-05-27] MEDS: ONDANSETRON INJ 2 MG/ML INJ 2 ML 4 MG IV (23:25)
[2024-05-27] MEDS: HYDROmorphone INJ 2 MG/ML VIAL 0.25 MG IVP (23:25)
[2024-05-28] VITALS (12 sets, daily range): BP systolic 118–139; BP diastolic 68–92; PULSE 47–88; RESP 16–98; TEMP 36.1–36.9; O2SAT 93–100; BMI 25.2
[2024-05-28 05:33] LABS: Basophils % (Auto) 1 % (0-2.5); Eosinophils # (Auto) 0.1 Thou/mm3 (0.0-0.5); Eosinophils % (Auto) 3 % (0-10); Hematocrit 28.9 % (41.0-53.0); Hemoglobin 9.1 g/dL (13.5-16.0); Immature Granulocytes % (Auto) 1 % (0-0); Immature Granulocytes Auto 0.02 Thou/mm3 (0.00-0.00); Lymphocytes # (Auto) 1.1 Thou/mm3 (1.0-4.8); Lymphocytes % (Auto) 26 % (10-50); Mean Corpuscular HGB Conc 31.5 g/dl (31.0-37.0); Mean Corpuscular Hemoglobin 23.2 pg (25.0-35.0); Mean Corpuscular Volume 74 fL (80-100); Monocytes # (Auto) 0.4 Thou/mm3 (0.0-0.8); Monocytes % (Auto) 8 % (0-12); Neutrophils # (Auto) 2.7 Thou/mm3 (1.8-7.7); Neutrophils % (Auto) 62 % (37-80); Nucleated Red Blood Cell % 0 /100 WBC (0); RDW Standard Deviation 49.8 fL (35.1-43.9); Red Blood Count 3.92 Miln/mm3 (4.50-5.90); White Blood Count 4.3 Thou/mm3 (3.8-10.6)
[2024-05-28 05:36] LABS: Platelet Count 67 Thou/mm3 (140-440)
[2024-05-28 05:43] LABS: Slide Review Platelets confirmed
[2024-05-28 05:51] LABS: INR 1.3 (0.9-1.3); Prothrombin Time 14.4 Seconds (9.0-12.2)
[2024-05-28 06:25] LABS: Alanine Aminotransferase 159 U/L (10-49); Albumin, Serum 3.7 gm/dL (3.5-5.0); Albumin/Globulin Ratio 1.3 (1.2-2.2); Alkaline Phosphatase 65 U/L (46-116); Anion Gap 10 (7-16); Aspartate Amino Transferase 520 U/L (0-34); BUN/Creatinine Ratio 26 Ratio (12-20); Blood Urea Nitrogen 21 mg/dL (9-23); Calcium 8.5 mg/dL (8.3-10.6); Calcium (Corrected) 8.7 mg/dL (8.5-10.1); Carbon Dioxide 23.1 mMol/L (20.0-31.0); Chloride 107 mMol/L (98-107); Creatinine (Component) 0.8 mg/dL (0.6-1.3); Estimated Creatinine Clearance 116.7 mL/min (>60); Globulin 2.9 gm/dL (2.3-3.5); Glucose 136 mg/dL (74-106); Osmolality,Calculated 284 (275-295); Phosphorous 4.8 mg/dL (2.4-5.1); Potassium 4.2 mMol/L (3.4-5.1); Sodium 140 mMol/L (136-145); Total Protein 6.6 gm/dL (5.7-8.2); eGFR > 60 See Note
[2024-05-28 08:15] LABS: Glucose Estimated Average 97 mg/dL (80-131)
[2024-05-28] MEDS: OCTREOTIDE ACET INJ 1,000 MCG in SODIUM CHLORIDE 0.9% 100 ML 5.1 MCG IV (09:04)
[2024-05-28] MEDS: PANTOPRAZOLE INJ 40 MG VIAL IVP ×2 (11:37→20:21)
--- NOTE | 2024-05-28 13:53 | PC.SS ---
SS follow up note; Patient will discharge home within 2-3 days.
--- NOTE | 2024-05-28 14:59 | ESPR_ITS ---
<Statement entered by Benjamín Alvarez MD - 05/29/24 07:18> Senior Resident Attestation: I supervised/discussed management plan with internal combustion engine inspector physician Dr. Perez, and was involved in the care of this patient. I personally saw and examined the patient and discussed the assessment and plan with the entire medicine team, including my attending. I agree with the assessment and plan as documented. Patient's care was discussed with attending physician, Dr. Lama. Benjamín Alvarez MD PGY-2. Documentation for date of: 05/28/24 Subjective Subjective Interval history: Patient is seen and examined at the bedside No acute overnight events. Denies any other complaints and no further episodes of bleeding or blackish discoloration of stools noted Tolerating liquid diet well. Yesterday, patient was noted to have esophageal varices which were ligated Will continue octreotide 05/31/2024 at 4:10 PM Exam Vital Signs Temp Pulse Resp BP Pulse Ox O2 Del Method O2 Flow Rate 97.3 F 56 L 16 128/74 99 Room Air 3 05/28/24 11:52 05/28/24 12:00 05/28/24 11:52 05/28/24 11:52 05/28/24 11:52 05/28/24 11:52 05/27/24 20:55 Narrative Exam General: Awake. HEENT: Normocephalic, atraumatic, mucous membranes moist. Heart: Regular rate and rhythm, no murmurs. Lungs: Clear to auscultation with no wheezing or crackles. Abdomen: Soft, nondistended, minimal tenderness in the right upper quadrant, positive bowel sounds. ?No guarding or rebound tenderness. Neurologic: Alert and oriented x3, no gross neurological deficit, and patient able to move all 4 extremities. Extremities: No edema. Skin: No rash or ecchymoses. Objective Labs 05/29/24 04:10 05/29/24 04:10 Labs: Laboratory Results - last 24 hr 05/26/24 05/27/24 05/28/24 15:28 17:38 04:42 WBC 4.3 D RBC 3.92 L Hgb 9.3 L D 9.1 L Hct 28.9 L 28.9 L MCV 74 L MCH 23.2 L MCHC 31.5 RDW Std Deviation 49.8 H Plt Count 67 L D Neut % (Auto) 62 Lymph % (Auto) 26 [place] % (Auto) 8 Eos % (Auto) 3 Baso % (Auto) 1 Neut # (Auto) 2.7 Lymph # (Auto) 1.1 [place] # (Auto) 0.4 Eos # (Auto) 0.1 Baso # (Auto) 0.0 Immature Gran # (Auto) 0.02 H Absolute Nucleated RBC 0.00 Immature Gran % 1 H Nucleated RBC % 0 PT 14.4 H INR 1.3 Sodium 140 Potassium 4.2 Chloride 107 Carbon Dioxide 23.1 Anion Gap 10 BUN 21 Creatinine 0.8 Estim Creat Clear Calc 116.7 eGFR > 60 BUN/Creatinine Ratio 26 H Glucose [address] Glu mg/dL 97 Hemoglobin A1c 5.0 Calculated Osmolality 284 Calcium 8.5 Corrected Calcium 8.7 Phosphorus 4.8 Magnesium 2.0 Total Bilirubin 1.0 AST 520 H* ALT 159 H Alkaline Phosphatase 65 Total Protein 6.6 Albumin 3.7 Globulin 2.9 Albumin/Globulin Ratio 1.3 Misc Test Result Platelets confirmed Crossmatch See Detail Quality Measures Quality Measures none Assessment & Plan Assessment Current Active Medications: Generic Name Dose Route Start Last Admin Trade Name Freq PRN Reason Stop Dose Admin Acetaminophen 650 mg 05/26/24 20:02 Acetaminophen 325 Mg Tablet PO 06/25/24 20:01 Q6H PRN TEMP > 100.4 Hydromorphone HCl 0.25 mg 05/26/24 22:31 05/27/24 23:25 Hydromorphone Inj 2 Mg/Ml Vial IVP 05/31/24 20:01 0.25 mg Q6H PRN Administration Pain 4-10 Ceftriaxone Sodium/Dextrose 1 gm in 50 mls @ 100 mls/hr 05/26/24 21:00 05/27/24 22:05 Rocephin/D5w 1gm Iv Premix IV 06/02/24 20:59 100 mls/hr HS MAYTE Administration Octreotide Acetate 1,000 mcg/ 102 mls @ 5.1 mls/hr 05/28/24 08:15 05/28/24 09:04 Sodium Chloride IV 06/27/24 08:14 50 mcg/hr .Q20H MAYTE 5.1 mls/hr Administration Protocol 50 MCG/HR Ondansetron HCl 4 mg 05/26/24 22:54 05/27/24 23:25 Ondansetron Inj 2 Mg/Ml Inj 2 Ml IV 06/25/24 22:53 4 mg Q6HR PRN Administration NAUSEA OR VOMITING Protocol Pantoprazole Sodium 40 mg 05/28/24 10:30 05/28/24 11:37 Pantoprazole Inj 40 Mg Vial IVP 06/27/24 10:29 40 mg BID MAYTE Administration Plan A 23-year-old male with past medical history of liver cirrhosis, biliary stones status post stenting, variceal bleed presented to the hospital with chief complaints of bloody emesis since 2 days and UGI Bleed likely due to varices from liver cirrhosis # Hematemesis # Upper GI bleed # Variceal bleed 03/28 Liver cirrhosis # Secondary to biliary duct obstruction from stones, s/p stenting - Patient had a history of biliary duct obstruction from stones and stenting done at the age of 16 and diagnosed to have liver disease in [place] at the time. - Patient had previous history of variceal bleed and underwent endoscopy for that in October 2023, February 2024 and underwent variceal ligation - Patient presented with complaints of bloody emesis since 1 day - Associated with right upper quadrant abdominal pain. - Last alcohol drink was in 2023 - Vitals are stable at the time of admission. On physical examination, tenderness in right upper quadrant noted - Abdomen/pelvis CT showed cirrhosis and splenomegaly - Child-Vanegas class A and MELD-Na score 9 Plan - PRBC transfusion done today in view of hemoglobin of 6.5, and later hb improved to 9.1 - Dr. Johnson was consulted and underwent upper GI endoscopy - Found to have esophageal varices on endoscopy - Banding done - Continue on octreotide drip and pantoprazole IV push - Ceftriaxone 1 g IV daily for prophylaxis in view of GI bleed #Hyperbilirubinemia, resolved #Mild transaminitis # Secondary to liver cirrhosis Presented with T. bili 1.4, AST 467 and ALT 111, PT 16.9 and INR 1.6 -Will monitor transaminase levels #Leucocytosis, resolved WBC count is 16.4 at the time of admission -WBC count on 05/27/2024 is 7.2 -Will follow-up with [facility] Hospital Maintenance: Dispo: Tele DVT ppx: Admitted for bleeding, so not given GI ppx: Pantoprazole Diet: Clear liquid diet IV lines: Peripheral Code status: Full Patient plan of care was discussed with the attending physician, Dr. Lama and senior resident Dr. Antonio Perez, PGY1 Attending Provider Attestation/Addendum Face to face evaluation was performed by me. I have personally seen and examined the patient. I discussed the assessment and plan with the entire medicine team. I reviewed available medical records, imaging studies, laboratory results. I agree with the above subjective data, objective findings, assessment and plan except as corrected by me or noted below Acute blood loss anemia requiring PRBC transfusion Upper GI bleed Hx of alcohol abuse Hyperbilirubinemia - Status post EGD?continue Total of 5 days, IV PPI. GI was consulted?EGD done appreciate recommendations. Status post 1 unit PRBC transfusion on 05/27/2024. Monitor hemoglobin and transfuse to keep hemoglobin above 7 from medicine standpoint More than > 30 minutes spent on the encounter
--- NOTE | 2024-05-28 19:19 | PD.IMPROG ---
Documentation for date of: 05/28/24 Subjective Subjective Interval history: Patient evaluated hemoglobin hematocrit 9.1 and 28.9 Patient on octreotide Exam Vital Signs Temp Pulse Resp BP Pulse Ox O2 Del Method O2 Flow Rate 97.8 F 65 17 118/68 100 Room Air 3 05/28/24 15:56 05/28/24 16:00 05/28/24 15:56 05/28/24 15:56 05/28/24 15:56 05/28/24 11:52 05/27/24 20:55 Objective Labs 05/28/24 04:42 05/28/24 04:42 Labs: Laboratory Results - last 24 hr 05/28/24 04:42 WBC 4.3 D RBC 3.92 L Hgb 9.1 L Hct 28.9 L MCV 74 L MCH 23.2 L MCHC 31.5 RDW Std Deviation 49.8 H Plt Count 67 L D Neut % (Auto) 62 Lymph % (Auto) 26 [place] % (Auto) 8 Eos % (Auto) 3 Baso % (Auto) 1 Neut # (Auto) 2.7 Lymph # (Auto) 1.1 [place] # (Auto) 0.4 Eos # (Auto) 0.1 Baso # (Auto) 0.0 Immature Gran # (Auto) 0.02 H Absolute Nucleated RBC 0.00 Immature Gran % 1 H Nucleated RBC % 0 PT 14.4 H INR 1.3 Sodium 140 Potassium 4.2 Chloride 107 Carbon Dioxide 23.1 Anion Gap 10 BUN 21 Creatinine 0.8 Estim Creat Clear Calc 116.7 eGFR > 60 BUN/Creatinine Ratio 26 H Glucose [address] Glu mg/dL 97 Hemoglobin A1c 5.0 Calculated Osmolality 284 Calcium 8.5 Corrected Calcium 8.7 Phosphorus 4.8 Magnesium 2.0 Total Bilirubin 1.0 AST 520 H* ALT 159 H Alkaline Phosphatase 65 Total Protein 6.6 Albumin 3.7 Globulin 2.9 Albumin/Globulin Ratio 1.3 Misc Test Result Platelets confirmed Impressions Impression: Upper GI bleeding secondary to esophageal variceal bleeding and hypertensive portal gastropathy Continue present treatment Assessment & Plan Time Spent With Patient Time: Total time spent is greater than 50% in coordination of care (as documented) at patient's floor/unit and/or counseling patient:
[2024-05-28] MEDS: cefTRIAXone/D5w 1gm IV premix 1 GM/50 ML BAG IV (20:21)
[2024-05-28] MEDS: HYDROmorphone INJ 2 MG/ML VIAL 0.25 MG IVP (20:27)
[2024-05-29] VITALS (11 sets, daily range): BP systolic 108–130; BP diastolic 61–80; PULSE 60–82; RESP 9–99; TEMP 36.2–37.2; O2SAT 97–100; BMI 25.7
[2024-05-29] MEDS: OCTREOTIDE ACET INJ 1,000 MCG in SODIUM CHLORIDE 0.9% 100 ML 5.1 MCG IV (03:52)
[2024-05-29 05:27] LABS: Basophils % (Auto) 0 % (0-2.5); Eosinophils # (Auto) 0.2 Thou/mm3 (0.0-0.5); Eosinophils % (Auto) 4 % (0-10); Hematocrit 28.5 % (41.0-53.0); Immature Granulocytes % (Auto) 1 % (0-0); Immature Granulocytes Auto 0.02 Thou/mm3 (0.00-0.00); Lymphocytes # (Auto) 0.9 Thou/mm3 (1.0-4.8); Lymphocytes % (Auto) 23 % (10-50); Mean Corpuscular HGB Conc 31.6 g/dl (31.0-37.0); Mean Corpuscular Hemoglobin 23.3 pg (25.0-35.0); Mean Corpuscular Volume 74 fL (80-100); Monocytes # (Auto) 0.3 Thou/mm3 (0.0-0.8); Monocytes % (Auto) 8 % (0-12); Neutrophils # (Auto) 2.6 Thou/mm3 (1.8-7.7); Neutrophils % (Auto) 64 % (37-80); Nucleated Red Blood Cell % 0 /100 WBC (0); RDW Standard Deviation 50.3 fL (35.1-43.9); Red Blood Count 3.87 Miln/mm3 (4.50-5.90); White Blood Count 4.1 Thou/mm3 (3.8-10.6)
[2024-05-29 05:28] LABS: Platelet Count 70 Thou/mm3 (140-440)
[2024-05-29 05:37] LABS: Slide Review Platelets confirmed
[2024-05-29 05:40] LABS: INR 1.4 (0.9-1.3); Prothrombin Time 14.5 Seconds (9.0-12.2)
[2024-05-29 05:57] LABS: Alanine Aminotransferase 167 U/L (10-49); Albumin, Serum 3.5 gm/dL (3.5-5.0); Albumin/Globulin Ratio 1.3 (1.2-2.2); Alkaline Phosphatase 63 U/L (46-116); Anion Gap 9 (7-16); Aspartate Amino Transferase 476 U/L (0-34); BUN/Creatinine Ratio 20 Ratio (12-20); Bilirubin,Total 0.6 mg/dL (0.3-1.2); Blood Urea Nitrogen 12 mg/dL (9-23); Calcium 8.1 mg/dL (8.3-10.6); Calcium (Corrected) 8.5 mg/dL (8.5-10.1); Carbon Dioxide 23.9 mMol/L (20.0-31.0); Chloride 105 mMol/L (98-107); Creatinine (Component) 0.6 mg/dL (0.6-1.3); Estimated Creatinine Clearance 140.4 mL/min (>60); Globulin 2.8 gm/dL (2.3-3.5); Glucose 104 mg/dL (74-106); Magnesium 1.9 mg/dL (1.6-2.6); Osmolality,Calculated 275 (275-295); Sodium 138 mMol/L (136-145); Total Protein 6.3 gm/dL (5.7-8.2); eGFR > 60 See Note
[2024-05-29] MEDS: PANTOPRAZOLE INJ 40 MG VIAL IVP ×2 (08:08→20:22)
--- NOTE | 2024-05-29 12:01 | ESPR_ITS ---
Documentation for date of: 05/29/24 Subjective Subjective Interval history: Patient was seen and examined at bedside. No acute overnight events. He does not have any complaints. He denies any bloody bowel movements or melena. Will continue current management to complete octreotide drip for 5 days total. Exam Vital Signs Temp Pulse Resp BP Pulse Ox O2 Del Method O2 Flow Rate 97.2 F 82 18 108/61 97 Room Air 3 05/29/24 07:30 05/29/24 08:00 05/29/24 07:30 05/29/24 07:30 05/29/24 07:30 05/29/24 07:30 05/27/24 20:55 Narrative Exam Gen: Well-developed and well-nourished. HEENT: NCAT, PERRLA, EOMI, MMM, anicteric conjunctivae. CVS: normal S1 and S2. RRR. No M/R/G. Resp: CTA B/L. No rhonchi, rales, crackles or wheezing. Abd: soft, non-tender, non-distended. BS+ in all 4 quadrants. MSK: Good ROM in BUE & BLE. No edema or rash. Neuro: CN II-XII grossly intact. Strength 5/5 in BUE & BLE. Alert and oriented x3. Psych: appropriate mood and affect. Objective Labs 05/29/24 04:10 05/29/24 04:10 Labs: Laboratory Results - last 24 hr 05/29/24 04:10 WBC 4.1 RBC 3.87 L Hgb 9.0 L Hct 28.5 L MCV 74 L MCH 23.3 L MCHC 31.6 RDW Std Deviation 50.3 H Plt Count 70 L Neut % (Auto) 64 Lymph % (Auto) 23 [place] % (Auto) 8 Eos % (Auto) 4 Baso % (Auto) 0 Neut # (Auto) 2.6 Lymph # (Auto) 0.9 L [place] # (Auto) 0.3 Eos # (Auto) 0.2 Baso # (Auto) 0.0 Immature Gran # (Auto) 0.02 H Absolute Nucleated RBC 0.00 Immature Gran % 1 H Nucleated RBC % 0 PT 14.5 H INR 1.4 H Sodium 138 Potassium 4.0 Chloride 105 Carbon Dioxide 23.9 Anion Gap 9 BUN 12 Creatinine 0.6 Estim Creat Clear Calc 140.4 eGFR > 60 BUN/Creatinine Ratio 20 Glucose 104 Calculated Osmolality 275 Calcium 8.1 L Corrected Calcium 8.5 Phosphorus 4.0 Magnesium 1.9 Total Bilirubin 0.6 AST 476 H ALT 167 H Alkaline Phosphatase 63 Total Protein 6.3 Albumin 3.5 Globulin 2.8 Albumin/Globulin Ratio 1.3 Misc Test Result Platelets confirmed Quality Measures Quality Measures none Assessment & Plan Assessment Current Active Medications: Generic Name Dose Route Start Last Admin Trade Name Freq PRN Reason Stop Dose Admin Acetaminophen 650 mg 05/26/24 20:02 Acetaminophen 325 Mg Tablet PO 06/25/24 20:01 Q6H PRN TEMP > 100.4 Hydromorphone HCl 0.25 mg 05/26/24 22:31 05/28/24 20:27 Hydromorphone Inj 2 Mg/Ml Vial IVP 05/31/24 20:01 0.25 mg Q6H PRN Administration Pain 4-10 Ceftriaxone Sodium/Dextrose 1 gm in 50 mls @ 100 mls/hr 05/26/24 21:00 05/28/24 20:21 Rocephin/D5w 1gm Iv Premix IV 06/02/24 20:59 100 mls/hr HS MAYTE Administration Octreotide Acetate 1,000 mcg/ 102 mls @ 5.1 mls/hr 05/28/24 08:15 05/29/24 03:52 Sodium Chloride IV 06/27/24 08:14 50 mcg/hr .Q20H MYATE 5.1 mls/hr Administration Protocol 50 MCG/HR Ondansetron HCl 4 mg 05/26/24 22:54 05/27/24 23:25 Ondansetron Inj 2 Mg/Ml Inj 2 Ml IV 06/25/24 22:53 4 mg Q6HR PRN Administration NAUSEA OR VOMITING Protocol Pantoprazole Sodium 40 mg 05/28/24 10:30 05/29/24 08:08 Pantoprazole Inj 40 Mg Vial IVP 06/27/24 10:29 40 mg BID MAYTE Administration Plan A 23-year-old male with past medical history of liver cirrhosis, biliary stones status post stenting, variceal bleed presented to the hospital with chief complaints of bloody emesis since 2 days and UGI Bleed likely due to varices from liver cirrhosis. #Melena, resolved. #Hematemesis, resolved. #Upper GI bleed, resolved. #Acute on chronic blood loss anemia, improved. #Variceal bleed 2/2 Liver cirrhosis. - Patient had previous history of variceal bleed and underwent endoscopy for that in October 2023, February 2024 and underwent variceal ligation. - Patient presented with complaints of bloody emesis since 1 day. - Associated with right upper quadrant abdominal pain. - Last alcohol drink was in 2023. - Vitals are stable at the time of admission. On physical examination, tenderness in right upper quadrant noted. - Abdomen/pelvis CT showed cirrhosis and splenomegaly. - Child-Vanegas class A and MELD-Na score 9. - Dr. Johnson was consulted and underwent upper GI endoscopy. - Found to have esophageal varices on endoscopy - Banding done. - PRBC transfusion done on admission in view of hemoglobin of 6.5, and later hb improved to 9.1 after 2 units. Plan: - Continue on octreotide drip and pantoprazole IV push. - Ceftriaxone 1 g IV daily for prophylaxis in view of GI bleed. - monitor for GI bleeding. - transfuse if Hgb below 7. #Hyperbilirubinemia, resolved. #Transaminitis. #Liver cirrhosis. #Biliary duct obstruction from stones, s/p stenting. Patient had a history of biliary duct obstruction from stones and stenting done at the age of 16 and diagnosed to have liver disease in [place] at the time. Presented with T. bili 1.4, AST 467 and ALT 111, PT 16.9 and INR 1.6. Abdomen/pelvis CT showed cirrhosis and splenomegaly. Plan: -Will monitor LFTs. -will need to follow up with hepatology for liver transplant. #Leucocytosis, resolved. WBC count is 16.4 at the time of admission. -WBC count on 05/27/2024 is 7.2. Hospital Maintenance: Dispo: Tele. DVT ppx: Admitted for bleeding, so not given/not required. GI ppx: Pantoprazole. Diet: Clear liquid diet. IV lines: Peripheral. Code status: Full. Plan of care discussed with attending Dr. Lama. Benjamín Alvarez MD, PGY 2. Disclaimer: This note was dictated by speech recognition. Minor errors in rn military may be present due to voice recognition software. Attending Provider Attestation/Addendum Face to face evaluation was performed by me. I have personally seen and examined the patient. I discussed the assessment and plan with the entire medicine team. I reviewed available medical records, imaging studies, laboratory results. I agree with the above subjective data, objective findings, assessment and plan except as corrected by me or noted below Acute blood loss anemia requiring PRBC transfusion Upper GI bleed Hx of alcohol abuse Hyperbilirubinemia - Patient stable in bed. Status post EGD/3, continue octreotide drip for total of 5 days. Continue IV PPI twice daily, GI was consulted appreciate help. Hemoglobin seems to be stable. Continue to avoid blood thinners. Monitor mental status and liver panel closely More than > 30 minutes spent on the encounter
--- NOTE | 2024-05-29 13:58 | ESPR_ITS ---
Documentation for date of: 05/29/24 Subjective Subjective Interval history: Patient evaluated Hemoglobin hematocrit 9.0 28.6 Exam Vital Signs Temp Pulse Resp BP Pulse Ox O2 Del Method O2 Flow Rate 97.2 F 67 18 128/73 97 Room Air 3 05/29/24 12:00 05/29/24 13:34 05/29/24 13:34 05/29/24 12:00 05/29/24 12:00 05/29/24 12:00 05/27/24 20:55 Objective Labs 05/29/24 04:10 05/29/24 04:10 Labs: Laboratory Results - last 24 hr 05/29/24 04:10 WBC 4.1 RBC 3.87 L Hgb 9.0 L Hct 28.5 L MCV 74 L MCH 23.3 L MCHC 31.6 RDW Std Deviation 50.3 H Plt Count 70 L Neut % (Auto) 64 Lymph % (Auto) 23 [place] % (Auto) 8 Eos % (Auto) 4 Baso % (Auto) 0 Neut # (Auto) 2.6 Lymph # (Auto) 0.9 L [place] # (Auto) 0.3 Eos # (Auto) 0.2 Baso # (Auto) 0.0 Immature Gran # (Auto) 0.02 H Absolute Nucleated RBC 0.00 Immature Gran % 1 H Nucleated RBC % 0 PT 14.5 H INR 1.4 H Sodium 138 Potassium 4.0 Chloride 105 Carbon Dioxide 23.9 Anion Gap 9 BUN 12 Creatinine 0.6 Estim Creat Clear Calc 140.4 eGFR > 60 BUN/Creatinine Ratio 20 Glucose 104 Calculated Osmolality 275 Calcium 8.1 L Corrected Calcium 8.5 Phosphorus 4.0 Magnesium 1.9 Total Bilirubin 0.6 AST 476 H ALT 167 H Alkaline Phosphatase 63 Total Protein 6.3 Albumin 3.5 Globulin 2.8 Albumin/Globulin Ratio 1.3 Misc Test Result Platelets confirmed Impressions Impression: # Esophageal variceal bleeding requiring band ligation # gastric mucosal bleeding Continue octreotide Diet advance to 2 g sodium diet Assessment & Plan Time Spent With Patient Time: Total time spent is greater than 50% in coordination of care (as documented) at patient's floor/unit and/or counseling patient:
[2024-05-29] MEDS: cefTRIAXone/D5w 1gm IV premix 1 GM/50 ML BAG IV (20:23)
[2024-05-29] MEDS: HYDROmorphone INJ 2 MG/ML VIAL 0.25 MG IVP (21:04)
[2024-05-30] VITALS (8 sets, daily range): BP systolic 97–132; BP diastolic 56–78; PULSE 56–87; RESP 16–20; TEMP 36.2–36.6; O2SAT 99–100; BMI 25.5
[2024-05-30] MEDS: OCTREOTIDE ACET INJ 1,000 MCG in SODIUM CHLORIDE 0.9% 100 ML 5.1 MCG IV ×2 (00:15→19:21)
[2024-05-30 05:23] LABS: Basophils % (Auto) 0 % (0-2.5); Eosinophils # (Auto) 0.2 Thou/mm3 (0.0-0.5); Eosinophils % (Auto) 4 % (0-10); Hematocrit 26.7 % (41.0-53.0); Immature Granulocytes % (Auto) 0 % (0-0); Immature Granulocytes Auto 0.01 Thou/mm3 (0.00-0.00); Lymphocytes # (Auto) 0.9 Thou/mm3 (1.0-4.8); Lymphocytes % (Auto) 25 % (10-50); Mean Corpuscular HGB Conc 31.8 g/dl (31.0-37.0); Mean Corpuscular Volume 72 fL (80-100); Monocytes # (Auto) 0.3 Thou/mm3 (0.0-0.8); Monocytes % (Auto) 8 % (0-12); Neutrophils # (Auto) 2.3 Thou/mm3 (1.8-7.7); Neutrophils % (Auto) 62 % (37-80); Nucleated Red Blood Cell % 0 /100 WBC (0); RDW Standard Deviation 50.1 fL (35.1-43.9); Red Blood Count 3.69 Miln/mm3 (4.50-5.90); White Blood Count 3.6 Thou/mm3 (3.8-10.6)
[2024-05-30 05:27] LABS: Hemoglobin 8.5 g/dL (13.5-16.0); Platelet Count 67 Thou/mm3 (140-440); Slide Review Platelets confirmed
[2024-05-30 06:06] LABS: Alanine Aminotransferase 162 U/L (10-49); Albumin, Serum 3.5 gm/dL (3.5-5.0); Albumin/Globulin Ratio 1.3 (1.2-2.2); Alkaline Phosphatase 69 U/L (46-116); Anion Gap 8 (7-16); Aspartate Amino Transferase 373 U/L (0-34); BUN/Creatinine Ratio 16 Ratio (12-20); Bilirubin,Total 0.6 mg/dL (0.3-1.2); Blood Urea Nitrogen 11 mg/dL (9-23); Calcium 8.1 mg/dL (8.3-10.6); Calcium (Corrected) 8.5 mg/dL (8.5-10.1); Carbon Dioxide 25.4 mMol/L (20.0-31.0); Chloride 105 mMol/L (98-107); Creatinine (Component) 0.7 mg/dL (0.6-1.3); Estimated Creatinine Clearance 120.4 mL/min (>60); Globulin 2.7 gm/dL (2.3-3.5); Glucose 119 mg/dL (74-106); Osmolality,Calculated 276 (275-295); Potassium 3.8 mMol/L (3.4-5.1); Sodium 138 mMol/L (136-145); Total Protein 6.2 gm/dL (5.7-8.2); eGFR > 60 See Note
[2024-05-30] MEDS: PANTOPRAZOLE INJ 40 MG VIAL IVP ×2 (08:04→21:37)
--- NOTE | 2024-05-30 15:11 | PC.SS ---
Rounding: One more day of Octreotide, DC tomorrow 05/31
--- NOTE | 2024-05-30 15:19 | ESPR_ITS ---
<Statement entered by Benjamín Alvarez MD - 05/31/24 07:29> Senior Resident Attestation: I supervised/discussed management plan with video editing intern physician Dr. Perez, and was involved in the care of this patient. I personally saw and examined the patient and discussed the assessment and plan with the entire medicine team, including my attending. I agree with the assessment and plan as documented. Patient's care was discussed with attending physician, Dr. Carcamo. Benjamín Alvarez MD PGY-2. Documentation for date of: 05/30/24 Subjective Subjective Interval history: Patient is seen and examined at bedside. No acute overnight events. Denies any other complaints Last bowel movement is yesterday and denies any blackish discoloration or blood in the stools Vitals are stable. Physical examination remains unremarkable Labs showed WBC 3.6, Hb 8.5, platelets 67. AST 373, ALT 162 Will continue octreotide drip till tomorrow. Will discharge patient and recommended to follow-up on the outpatient basis for the liver cirrhosis Exam Vital Signs Temp Pulse Resp BP Pulse Ox O2 Del Method O2 Flow Rate 97.2 F 74 16 101/58 L 99 Room Air 3 05/30/24 11:47 05/30/24 11:47 05/30/24 11:47 05/30/24 11:47 05/30/24 11:47 05/30/24 11:47 05/29/24 15:33 Narrative Exam General: Awake. HEENT: Normocephalic, atraumatic, mucous membranes moist. Heart: Regular rate and rhythm, no murmurs. Lungs: Clear to auscultation with no wheezing or crackles. Abdomen: Soft, nondistended, nontender, positive bowel sounds. ?No guarding or rebound tenderness. Neurologic: Alert and oriented x3, no gross neurological deficit, and patient able to move all 4 extremities. Extremities: No edema. Skin: No rash or ecchymoses. Objective Labs 05/31/24 04:10 05/31/24 04:10 Labs: Laboratory Results - last 24 hr 05/30/24 04:55 WBC 3.6 L RBC 3.69 L Hgb 8.5 L Hct 26.7 L MCV 72 L MCH 23.0 L MCHC 31.8 RDW Std Deviation 50.1 H Plt Count 67 L Neut % (Auto) 62 Lymph % (Auto) 25 [place] % (Auto) 8 Eos % (Auto) 4 Baso % (Auto) 0 Neut # (Auto) 2.3 Lymph # (Auto) 0.9 L [place] # (Auto) 0.3 Eos # (Auto) 0.2 Baso # (Auto) 0.0 Immature Gran # (Auto) 0.01 H Absolute Nucleated RBC 0.00 Immature Gran % 0 Nucleated RBC % 0 Sodium 138 Potassium 3.8 Chloride 105 Carbon Dioxide 25.4 Anion Gap 8 BUN 11 Creatinine 0.7 Estim Creat Clear Calc 120.4 eGFR > 60 BUN/Creatinine Ratio 16 Glucose 119 H Calculated Osmolality 276 Calcium 8.1 L Corrected Calcium 8.5 Total Bilirubin 0.6 AST 373 H ALT 162 H Alkaline Phosphatase 69 Total Protein 6.2 Albumin 3.5 Globulin 2.7 Albumin/Globulin Ratio 1.3 Misc Test Result Platelets confirmed Quality Measures Quality Measures none Assessment & Plan Assessment Current Active Medications: Generic Name Dose Route Start Last Admin Trade Name Freq PRN Reason Stop Dose Admin Acetaminophen 650 mg 05/26/24 20:02 Acetaminophen 325 Mg Tablet PO 06/25/24 20:01 Q6H PRN TEMP > 100.4 Hydromorphone HCl 0.25 mg 05/26/24 22:31 05/29/24 21:04 Hydromorphone Inj 2 Mg/Ml Vial IVP 05/31/24 20:01 0.25 mg Q6H PRN Administration Pain 4-10 Ceftriaxone Sodium/Dextrose 1 gm in 50 mls @ 100 mls/hr 05/26/24 21:00 05/29/24 20:53 Rocephin/D5w 1gm Iv Premix IV 06/02/24 20:59 Infused HS MAYTE Infusion Octreotide Acetate 1,000 mcg/ 102 mls @ 5.1 mls/hr 05/28/24 08:15 05/30/24 00:15 Sodium Chloride IV 06/27/24 08:14 50 mcg/hr .Q20H MAYTE 5.1 mls/hr Administration Protocol 50 MCG/HR Ondansetron HCl 4 mg 05/26/24 22:54 05/27/24 23:25 Ondansetron Inj 2 Mg/Ml Inj 2 Ml IV 06/25/24 22:53 4 mg Q6HR PRN Administration NAUSEA OR VOMITING Protocol Pantoprazole Sodium 40 mg 04/04/25 10:30 05/30/24 08:04 Pantoprazole Inj 40 Mg Vial IVP 06/27/24 10:29 40 mg BID MAYTE Administration Plan A 23-year-old male with past medical history of liver cirrhosis, biliary stones status post stenting, variceal bleed presented to the hospital with chief complaints of bloody emesis since 2 days and UGI Bleed likely due to varices from liver cirrhosis # Hematemesis # Upper GI bleed # Variceal bleed 2/ Liver cirrhosis # Secondary to biliary duct obstruction from stones, s/p stenting - Patient had a history of biliary duct obstruction from stones and stenting done at the age of 16 and diagnosed to have liver disease in [place] at the time. - Patient had previous history of variceal bleed and underwent endoscopy for that in October 2023, February 2024 and underwent variceal ligation - Patient presented with complaints of bloody emesis since 1 day - Associated with right upper quadrant abdominal pain. - Last alcohol drink was in 2023 - Vitals are stable at the time of admission. On physical examination, tenderness in right upper quadrant noted - Abdomen/pelvis CT showed cirrhosis and splenomegaly - Child-Vanegas class A and MELD-Na score 9 Plan - PRBC transfusion done on 05/28/2024 in view of hemoglobin of 6.5, and later hb improved to 9.1 - Dr. Johnson was consulted and underwent upper GI endoscopy - Found to have esophageal varices on endoscopy - Banding done - Continue on octreotide drip till 05/31/2024 and pantoprazole IV push - Ceftriaxone 1 g IV daily for prophylaxis in view of GI bleed #Hyperbilirubinemia, resolved #Mild transaminitis # Secondary to liver cirrhosis Presented with T. bili 1.4, AST 467 and ALT 111, PT 16.9 and INR 1.6 -Will monitor transaminase levels #Leucocytosis, resolved WBC count is 16.4 at the time of admission -WBC count on 05/27/2024 is 7.2 -Will follow-up with [facility] Hospital Maintenance: Dispo: Tele DVT ppx: Admitted for bleeding, so not given GI ppx: Pantoprazole Diet: Regular IV lines: Peripheral Code status: Full Patient plan of care was discussed with the attending physician, Dr. Carcamo and senior resident Dr. Antnoio Perez, PGY1 Attending Provider Attestation/Addendum Patient seen and examined at bedside with resident. I have reviewed all relevant imaging, labs, medications and agree with assessment and plan as dictated above. Patient still on octreotide drip otherwise stable. Anticipate discharge in next 48 hours, on completion of octreotide. Jose Angel Carcamo MD
[2024-05-30] MEDS: HYDROmorphone INJ 2 MG/ML VIAL 0.25 MG IVP ×2 (16:46→23:40)
--- NOTE | 2024-05-30 20:27 | PD.IMPROG ---
Documentation for date of: 05/30/24 Subjective Subjective Interval history: Patient evaluated Hemoglobin hematocrit 8.5 and 26.7 On octreotide infusion Exam Vital Signs Temp Pulse Resp BP Pulse Ox O2 Del Method O2 Flow Rate 97.2 F 84 16 121/76 99 Room Air 3 05/30/24 16:00 05/30/24 16:00 05/30/24 16:00 05/30/24 16:00 05/30/24 16:00 05/30/24 16:00 05/29/24 15:33 Objective Labs 05/30/24 04:55 05/30/24 04:55 Labs: Laboratory Results - last 24 hr 05/30/24 04:55 WBC 3.6 L RBC 3.69 L Hgb 8.5 L Hct 26.7 L MCV 72 L MCH 23.0 L MCHC 31.8 RDW Std Deviation 50.1 H Plt Count 67 L Neut % (Auto) 62 Lymph % (Auto) 25 [place] % (Auto) 8 Eos % (Auto) 4 Baso % (Auto) 0 Neut # (Auto) 2.3 Lymph # (Auto) 0.9 L [place] # (Auto) 0.3 Eos # (Auto) 0.2 Baso # (Auto) 0.0 Immature Gran # (Auto) 0.01 H Absolute Nucleated RBC 0.00 Immature Gran % 0 Nucleated RBC % 0 Sodium 138 Potassium 3.8 Chloride 105 Carbon Dioxide 25.4 Anion Gap 8 BUN 11 Creatinine 0.7 Estim Creat Clear Calc 120.4 eGFR > 60 BUN/Creatinine Ratio 16 Glucose 119 H Calculated Osmolality 276 Calcium 8.1 L Corrected Calcium 8.5 Total Bilirubin 0.6 AST 373 H ALT 162 H Alkaline Phosphatase 69 Total Protein 6.2 Albumin 3.5 Globulin 2.7 Albumin/Globulin Ratio 1.3 Misc Test Result Platelets confirmed Impressions Impression: Esophageal variceal bleeding requiring band ligation Hypertensive portal gastropathy with mucosal oozing of blood Continue octreotide infusion Assessment & Plan Time Spent With Patient Time: Total time spent is greater than 50% in coordination of care (as documented) at patient's floor/unit and/or counseling patient:
[2024-05-30] MEDS: cefTRIAXone/D5w 1gm IV premix 1 GM/50 ML BAG IV (21:37)
[2024-05-31] VITALS (8 sets, daily range): BP systolic 107–132; BP diastolic 58–73; PULSE 57–67; RESP 14–18; TEMP 36.1–37; O2SAT 98–100; BMI 25.4
[2024-05-31 05:52] LABS: Basophils % (Auto) 0 % (0-2.5); Eosinophils # (Auto) 0.1 Thou/mm3 (0.0-0.5); Eosinophils % (Auto) 3 % (0-10); Hematocrit 25.9 % (41.0-53.0); Immature Granulocytes % (Auto) 0 % (0-0); Immature Granulocytes Auto 0.01 Thou/mm3 (0.00-0.00); Lymphocytes % (Auto) 26 % (10-50); Mean Corpuscular HGB Conc 31.7 g/dl (31.0-37.0); Mean Corpuscular Hemoglobin 23.2 pg (25.0-35.0); Mean Corpuscular Volume 73 fL (80-100); Monocytes # (Auto) 0.2 Thou/mm3 (0.0-0.8); Monocytes % (Auto) 6 % (0-12); Neutrophils # (Auto) 2.4 Thou/mm3 (1.8-7.7); Neutrophils % (Auto) 64 % (37-80); Nucleated Red Blood Cell % 0 /100 WBC (0); RDW Standard Deviation 51.7 fL (35.1-43.9); Red Blood Count 3.53 Miln/mm3 (4.50-5.90); White Blood Count 3.7 Thou/mm3 (3.8-10.6)
[2024-05-31 06:10] LABS: Alanine Aminotransferase 149 U/L (10-49); Albumin, Serum 3.4 gm/dL (3.5-5.0); Albumin/Globulin Ratio 1.2 (1.2-2.2); Alkaline Phosphatase 70 U/L (46-116); Anion Gap 5 (7-16); Aspartate Amino Transferase 268 U/L (0-34); BUN/Creatinine Ratio 18 Ratio (12-20); Bilirubin,Total 0.6 mg/dL (0.3-1.2); Blood Urea Nitrogen 11 mg/dL (9-23); Calcium (Corrected) 8.5 mg/dL (8.5-10.1); Carbon Dioxide 26.6 mMol/L (20.0-31.0); Chloride 106 mMol/L (98-107); Creatinine (Component) 0.6 mg/dL (0.6-1.3); Estimated Creatinine Clearance 140.4 mL/min (>60); Globulin 2.8 gm/dL (2.3-3.5); Glucose 104 mg/dL (74-106); Osmolality,Calculated 275 (275-295); Potassium 3.9 mMol/L (3.4-5.1); Sodium 138 mMol/L (136-145); Total Protein 6.2 gm/dL (5.7-8.2); eGFR > 60 See Note
[2024-05-31 06:15] LABS: Hemoglobin 8.2 g/dL (13.5-16.0); Platelet Count 71 Thou/mm3 (140-440)
[2024-05-31 08:10] LABS: Slide Review Platelets confirmed
[2024-05-31] MEDS: PANTOPRAZOLE INJ 40 MG VIAL IVP (08:29)
--- NOTE | 2024-05-31 09:53 | PC.SS ---
SS follow up note; Patient will discharge home today.
[2024-05-31] MEDS: HYDROmorphone INJ 2 MG/ML VIAL 0.25 MG IVP (14:09)
--- NOTE | 2024-05-31 16:12 | ESDS_ITS ---
Planned Discharge Date 05/31/24 DS: Providers Provider Date of admission: 05/26/24 20:18 Primary care physician: Physician No Primary/Family Admitting Provider: Magali Esteves MD Attending Provider on Admission: Magali Esteves MD Consults: 05/26/24 20:11 Consult to Gastroenterology Stat Comment: UGI bleed Consulting Provider: Herber Johnson Attending Provider on DC: Rome Perez MD Discharging Provider: Rome Perez MD DS: Diagnosis Problem List Completed Was Problem List Reviewed/Reconciled?: Yes Hospital Course Hospital Course Hospital course: A 23-year-old male with significant past medical history of alcoholic liver cirrhosis, CBD stones, variceal bleed presented to the hospital with chief complaints of hematemesis and admitted for variceal bleed secondary to liver cirrhosis. Labs at the time of admission showed WBC 16.4, hemoglobin 8.0, hematocrit 25.4, MCV 66, PT 16.9, INR 1.6, BUN 28, blood sugar 123, total bilirubin 1.4, AST 467 and ALT 111. EKG revealed sinus tachycardia, abdomen/pelvis revealed cirrhosis, prominent splenomegaly, markedly distended gallbladder, recommended repeat MRCP, and US gallbladder revealed abnormally distended gallbladder with extrahepatic biliary tract dilation. Dr. Johnson was consulted. Upper GI endoscopy done during this admission showed grade 3 esophageal varices in the lower third of the esophagus. 4 bands were successfully placed. Continued octreotide drip for 5 days. Patient was given 1 unit of PRBC transfusion on in view of low hemoglobin 6.5 Patient is discharged to home with following medications and recommendations -Follow-up with PCP within 1 week of discharge. If you do not have appointment, please follow-up with the [facility] with Dr. Perez. Call [phone] to make an appointment. -Start propranolol 10mg p.o. BID -Take lactulose as needed -Return to ED if symptoms persist or return # Hematemesis # Upper GI bleed # Variceal bleed 2/2 Liver cirrhosis # Secondary to biliary duct obstruction from stones, s/p stenting #Hyperbilirubinemia, resolved #Mild transaminitis # Secondary to liver cirrhosis #Leucocytosis, resolved Patient plan of care was discussed with the attending physician, Dr. Esteves and senior resident Dr. Antonio Perez, PGY1 Time Spent with Patient Time attestation: Total time spent providing and/or coordinating discharge services: Time spent: Less than 30 minutes Exam Vital Signs Temp Pulse Resp BP Pulse Ox O2 Del Method O2 Flow Rate 97.8 F 63 17 132/73 H 98 Room Air 3 05/31/24 12:00 05/31/24 15:25 05/31/24 12:00 05/31/24 12:00 05/31/24 12:00 05/31/24 12:00 05/29/24 15:33 Narrative Exam General: Awake. HEENT: Normocephalic, atraumatic, mucous membranes moist. Heart: Regular rate and rhythm, no murmurs. Lungs: Clear to auscultation with no wheezing or crackles. Abdomen: Soft, nondistended, nontender, positive bowel sounds. ?No guarding or rebound tenderness. Neurologic: Alert and oriented x3, no gross neurological deficit, and patient able to move all 4 extremities. Extremities: No edema. Skin: No rash or ecchymoses. Discharge Plan Plan Patient Disposition: HOME (Self Care) Patient condition on transfer: Stable Care Plan Goals: -Follow-up with PCP within 1 week of discharge. If you do not have appointment, please follow-up with the [facility] with Dr. Perez. Call [phone] to make an appointment. -Start propranolol 10mg p.o. BID -Take lactulose as needed -Return to ED if symptoms persist or return Prescriptions/Referrals Prescriptions/Med Rec: New propranolol 10 mg tablet 10 mg PO BID Qty: 60 2RF Continued lactulose 10 gram/15 mL solution 10 g PO QDAY PRN (Reason: constipation) Qty: 473 2RF No Action sucralfate 1 gram tablet 1 g PO TID Qty: 90 0RF Referrals: No Primary/Family,Physician [Primary Care Provider] - Patient/Caregiver Discharge Instructions Education Materials: Bleeding Gastrointestinal, Upper GI Endoscopy Print Language: Kosovan Stand Alone Forms: Анна Award Info., Patient Portal Info Letter Discharge Order Discharge Orders: Discharge (Routine); Ordered 05/31/24 Ordered By: Rome Perez Quality Discharge Quality Measures none MD Attestestation MD Attestation I attest that I was physically present for the evaluation, physical examination, lab and imaging review of the patient with the residents. I discussed the case with the residents and agree with the findings and plans of care as documented above. Magali Esteves MD
--- NOTE | 2024-05-31 19:54 | PD.IMPROG ---
Documentation for date of: 05/31/24 Subjective Subjective Interval history: Late entry for the note . Case discussed with the internal medicine team hemoglobin hematocrit 8.2 and 25.9 Patient will be followed in the resident clinic Eventually will need a liver transplant evaluation Exam Vital Signs Temp Pulse Resp BP Pulse Ox O2 Del Method O2 Flow Rate 98.6 F 64 17 126/68 100 Room Air 3 05/31/24 16:00 05/31/24 16:00 05/31/24 16:00 05/31/24 16:00 05/31/24 16:00 05/31/24 16:00 05/29/24 15:33 Objective Labs 05/31/24 04:10 05/31/24 04:10 Labs: Laboratory Results - last 24 hr 05/31/24 04:10 WBC 3.7 L RBC 3.53 L Hgb 8.2 L Hct 25.9 L MCV 73 L MCH 23.2 L MCHC 31.7 RDW Std Deviation 51.7 H Plt Count 71 L Neut % (Auto) 64 Lymph % (Auto) 26 [place] % (Auto) 6 Eos % (Auto) 3 Baso % (Auto) 0 Neut # (Auto) 2.4 Lymph # (Auto) 1.0 [place] # (Auto) 0.2 Eos # (Auto) 0.1 Baso # (Auto) 0.0 Immature Gran # (Auto) 0.01 H Absolute Nucleated RBC 0.00 Immature Gran % 0 Nucleated RBC % 0 Sodium 138 Potassium 3.9 Chloride 106 Carbon Dioxide 26.6 Anion Gap 5 L BUN 11 Creatinine 0.6 Estim Creat Clear Calc 140.4 eGFR > 60 BUN/Creatinine Ratio 18 Glucose 104 Calculated Osmolality 275 Calcium 8.0 L Corrected Calcium 8.5 Total Bilirubin 0.6 AST 268 H ALT 149 H Alkaline Phosphatase 70 Total Protein 6.2 Albumin 3.4 L Globulin 2.8 Albumin/Globulin Ratio 1.2 Misc Test Result Platelets confirmed Impressions Impression: Esophageal variceal bleeding Stable after band ligation Outpatient follow-up at the resident clinic Outpatient liver transplant evaluation Assessment & Plan Time Spent With Patient Time: Total time spent is greater than 50% in coordination of care (as documented) at patient's floor/unit and/or counseling patient:
== END 2024-05-31 16:25 | disposition home or self-care (01) | DRG 280 ==
LOC: SERX 17:37 → SERHOLD 20:25 → S3NX 05-27 06:26
PROVIDERS: Registered Nurse General Practice; Specialist; Student in an Organized Health Care Education/Training Program; Admitting Provider Student in an Organized Health Care Education/Training Program; Emergency Provider Family Medicine; Visit Provider Student in an Organized Health Care Education/Training Program
PROC: 06L38CZ Occlusion of Esophageal Vein with Extraluminal Device, Via Natural or Artificial Opening Endoscopic (ICD-10-PCS; CPT 43239; principal; 2024-05-27 19:30)
DX: K70.30 Alcoholic cirrhosis of liver without ascites (principal); I85.11 Secondary esophageal varices with bleeding; R16.1 Splenomegaly, not elsewhere classified; K82.8 Other specified diseases of gallbladder; D62 Acute posthemorrhagic anemia; D72.829 Elevated white blood cell count, unspecified; F10.10 Alcohol abuse, uncomplicated; K31.89 Other diseases of stomach and duodenum; K80.50 Calculus of bile duct without cholangitis or cholecystitis without obstruction; K76.6 Portal hypertension; Z76.82 Awaiting organ transplant status
CPT/HCPCS: 36415; 74176; 76705; 80053; 80061; 80307; 80320; 81001; 83036; 83690; 83735; 83880; 84100; 84439; 84443; 85014; 85018; 85025; 85610; 85730; 86850; 86900; 86901; 86923; 87040; 93005; 93225; 96361; 96374; 96375; 99285; A4649; J0696; J1200; J2250; J2354; J2405; J2470; J3010; J3490; J7030; J7050; P9016; G0480

== ENCOUNTER 2024-06-11 14:19 | Outpatient (AMB) | payer MEDICAID, SELFPAY ==
[2024-06-11 14:42] VITALS: BP 119/69; PULSE 68; RESP 18; TEMP 36.8; O2SAT 100
--- NOTE | 2024-06-11 14:42 | ACNOTE_ITS ---
Vital Signs 06/11/24 14:42 Weight 62.142 kg Weight Measurement Method Standing Scale BP 119/69 Blood Pressure Source Automatic Cuff Blood Pressure Location Left Upper Arm Position Sitting Respiration 18 Pulse 68 Pulse Source Monitor Temp 98.3 F Temp Source Temporal Artery Scan Pulse Oximetry (%) 100 Oxygen Delivery Method Room Air Allergies/Meds Allergies & Medications Allergies No Known Allergies Allergy (Verified 06/11/24 14:47) Medication Reconciliation sucralfate 1 gram tablet 1 g PO TID #90 tabs 03/08/24 [Rx Confirmed 06/11/24] lactulose 10 gram/15 mL oral solution 10 g (15 mL) PO QDAY PRN constipation #473 mL 03/11/24 [Rx Confirmed 06/11/24] propranolol 10 mg tablet 10 mg PO BID #60 tabs 06/11/24 [Rx] MA Intake Visit Data Collection New Patient or Established: Established Patient (seen at [facility] within 3 years) Seen by Clinical Staff ONLY (RN/MA): No Pain Present Currently: No Pain scale:: 0 Pain Scale Used: Ng-[employer] Required: No PCP or OBGYN visit in last 3 months: No Hx Now: No Do You Feel Safe at Home: Yes Authorities Contacted: N/A Smoking Status Smoking Status: Never smoker Immunization / Flu Flu Vaccine in the Last 12 Months: No Flu Vaccine Exclusion Criteria: No Exclusion Criteria Past Medical History Past Medical History NEUROLOGIC: Negative Seizures CARDIAC: Negative Cardiac Disorders or Congestive Heart Failure RESPIRATORY: Negative Chronic Obstructive Pulmonary Disease (COPD) or Asthma GASTROINTESTINAL: Positive Gastrointestinal Disorders (varices with multiple banding), Cirrhosis and Gall Bladder Disease (biliary calculi with stents) GENITOURINARY: Positive Kidney Stones; Negative Renal Disease ENDOCRINE: Negative Diabetes Mellitus Type 1 or Diabetes Mellitus Type 2 HEMATOLOGIC: Positive Anemia; Negative Sickle Cell Disease OTHER HISTORY: Positive Blood Transfusions; Negative Blood Transfusion Reaction or Anesthesia Reactions Social History SMOKING STATUS: Smoking status: Never smoker ALCOHOL: Alcohol Intake: Former ALCOHOL FREQUENCY: Alcohol Intake Frequency: holidays/special occasions only HOUSING: Housing: [employer] LIVES WITH: Lives With: Family Patient Portal Questionaires Social History Living Situation History Housing: [employer] Tobacco History Smoking Status: Never smoker Alcohol History Alcohol Intake: Former Alcohol Intake Frequency: holidays/special occasions only Substance Use History Substance Use: marijauna use per pt Domestic Abuse History Do You Feel Safe at Home: Yes Review of Systems Report any current symptoms Only answer those that you have currently: Past Medical History Past Medical History Have you ever been diagnosed with any of the following: Neurological Problems Seizures: No Cardiology Problems Congestive Heart Failure: No Respiratory Problems Chronic Obstructive Pulmonary Disease (COPD): No Asthma: No Stomache/Intestinal Problems Cirrhosis: Yes Gall Bladder Disease: Yes (biliary calculi with stents) Genital/Urinary Problems Renal Disease: No Kidney Stones: Yes Endocrine Problems Diabetes Mellitus Type 1: No Diabetes Mellitus Type 2: No Blood Problems Anemia: Yes Sickle Cell Disease: No Other Problems Blood Transfusions: Yes Blood Transfusion Reaction: No Anesthesia Reactions: No History of Present Illness HPI Narrative A 23-year-old male with significant past medical history of alcoholic liver cirrhosis, CBD stones s/p stenting and removal later, Recurrent episodes of variceal bleed presented to the hospital with chief complaints of hematemesis and admitted on 05/26/2024 for variceal bleed secondary to liver cirrhosis. Labs at the time of admission showed hemoglobin 8.0, total bilirubin 1.4, AST 467 and ALT 111. EKG revealed sinus tachycardia. CT abdomen/pelvis revealed cirrhosis, prominent splenomegaly, markedly distended gallbladder. US gallbladder revealed abnormally distended gallbladder with extrahepatic biliary tract dilation. Dr. Johnson was consulted. Upper GI endoscopy done during that admission showed grade 3 esophageal varices in the lower third of the esophagus. 4 bands were successfully placed. Continued octreotide drip for 5 days. Patient was given 1 unit of PRBC transfusion on 05/28/2024 in view of low hemoglobin 6.5 06/11/2024 Patient came for folllow up visit from the hospital. Denies any other complaints. No further episodes of Abdominal pain, bloody emesis, blood in stools, blackish discoloration of stools, yeloowish discoloration of skin or urine. Last alcohol drink is in 10/2023. Denies further alcohol use. Smokes marijuana. Not following up with any [facility] as of now. Previously used to follow up with a doctor in [place] few years ago and at some point of time, patient is kept on the list for liver transplantation but later as the patient doing good and lost follow up with [facility], he was taken off of the list. Wants to get the disability benefits as patient is not able to go to work as of now in the view of recurrent variceal bleeding Review of Systems Review of Systems Systems Reviewed: All systems reviewed, normal except as documented Objective/Exam Narrative Physical exam: General: Awake. HEENT: Normocephalic, atraumatic, mucous membranes moist. Heart: Regular rate and rhythm, no murmurs. Lungs: Clear to auscultation with no wheezing or crackles. Abdomen: Soft, nondistended, nontender, positive bowel sounds. ?No guarding or rebound tenderness. Neurologic: Alert and oriented x3, no gross neurological deficit, and patient able to move all 4 extremities. Extremities: No edema. Skin: No rash or ecchymoses. Assessment & Plan Diagnosis / Problem List (1) Esophageal varices determined by endoscopy: Status: Acute Assessment & Plan: Patient is admitted in the [facility] in 11/17, 03/20, 06/18 for upper GI Bleed and found to esophageal varices Grade III during all the three admissions and underwent Banding done by Dr. Johnson, [facility]. Treated with octreotide drips and blood transfusions during the hospital admissions Plan: - Recommended to start on Propranolol 10mg BID, will titrate the dose during the follow up visits - Avoid alcohol and NSAID intake - Recommended to come to the ED if there is any bloody emesis or blackish discoloration of stools - Will refer to [facility] for futher management to evaluate the cause of cirrhosis (2) Cirrhosis, biliary: Status: Acute Assessment & Plan: Patient was initially diagnosed with biliary calculi at the age of 16 when he presented to the hospital with chief complaints of abdominal pain, later patient was transferred out to [facility] where he got stone extraction and stent was placed at that time and eventually ended up in [place]. Initially patient was placed on the liver transplant list but later as patient is non compliant with the visits, he fell off the transplant list and did not follow up with [facility] later from 2019 Patient had history of alcohol abuse almost for 2years but reported that all his symptoms started before that Last alcohol drink is in 10/2023 - MRCP in 2022 showed Liver sagittal dimension 16 cm, no focal liver lesions, Mild intrahepatic biliary tract dilatation, Distended gallbladder although no definite gallbladder wall thickening Common hepatic duct 8 mm, bile duct 4 mm, No extrahepatic biliary stones noted, Splenomegaly 14.4 cm - MRCP in 02/2024 showed Markedly distended gallbladder with mild gallbladder wall thickening and mild edema around the gallbladder. Extrahepatic biliary tract obstruction, common hepatic duct 10 mm, fairly abrupt termination of the distal common bile duct although no definite stones - ALP, Total bilirubin levels are within normal limits Plan: - Will order ASHISH, ANCA, Anti Mitochondrial antibody and Anti SMA - Will follow up with LFT (3) Anemia: Status: Acute Assessment & Plan: secondary to variceal bleed Last transfusion is on 05/28/2024 Plan: Recommended to watch for bleeding manifestations will do follow up on CBC Office Procedures [facility] Level of Care Nursing/Assessment Patient Status: Established Patient Nursing Assessment/Reassessment: Medication Reconciliation, Update PMH in EMR and Vital Signs Coordination of Care: Complex Care and Chronic Disease 1-5, Consent,records obtained, informed consent, Education Simp Pt/Fam and Lab and Imaging orders Established Patient Charge Established Patient Point Assignment: 90 Established Patient Point Charge: Level 3 (80-115)
== END 2024-06-11 15:09 | disposition home or self-care (01) ==
LOC: HODAHC 14:19
PROVIDERS: Supervising Provider Internal Medicine
DX: K70.30 Alcoholic cirrhosis of liver without ascites (principal); D63.8 Anemia in other chronic diseases classified elsewhere; I85.11 Secondary esophageal varices with bleeding; Z76.82 Awaiting organ transplant status
CPT/HCPCS: 99213; G0463

== ENCOUNTER 2024-07-01 09:48 | Inpatient (IN) | payer MEDICAID, SELFPAY ==
[2024-07-01] VITALS (12 sets, daily range): BP systolic 91–134; BP diastolic 44–91; PULSE 66–97; RESP 14–100; TEMP 35.9–37; O2SAT 97–100; BMI 24.5
--- NOTE | 2024-07-01 10:10 | XR_ITS ---
Examination: Abdomen sonogram, Limited Date and time of exam: July 01, 2024 1111 hours INDICATIONS: Vomiting blood with right upper abdominal pain this morning Technique: Real-time lr scale transabdominal sonographic images of the upper abdomen obtained. Findings: Negative for gallstones Gallbladder wall 0.5 cm with edema Common bile duct 0.6 cm Pancreatic head 3.2 cm Liver 16.5 cm no focal liver lesions Splenomegaly 17.3 cm Minimal pericardial fluid IMPRESSION: Recommend MRCP scan or HIDA scan follow-up to confirm acute cholecystitis
--- NOTE | 2024-07-01 10:10 | PD.EDRME ---
Rapid Medical Screening Exam RME Arrival date/time: 07/01/24 09:48 23-year-old male with a history of cirrhosis, GI bleeds, anemia presents to the emergency room with a chief complaint of right upper quadrant and epigastric 8 out of 10 abdominal pain and vomiting x 2 days I have greeted and performed a focused initial assessment of this patient. A comprehensive ED assessment and evaluation of the patient, analysis of all test results, and completion of the medical decision making process will be conducted by additional ED providers. Chief Complaint: Abdominal Pain Time Seen by Provider: 07/01/24 10:01 Vital signs: Vital Signs Temperature 98.6 F 07/01/24 10:07 Pulse Rate 87 07/01/24 10:07 Respiratory Rate 18 07/01/24 10:07 Blood Pressure 129/86 H 07/01/24 10:07 Pulse Oximetry (%) 100 07/01/24 10:07 Oxygen Delivery Method Room Air 07/01/24 10:07 Vital signs reviewed by provider: Yes
[2024-07-01] MEDS: ONDANSETRON ODT 4 MG TABRAP PO (10:26)
--- NOTE | 2024-07-01 10:31 | EDNOTE_ITS ---
ED Abdominal Pain RME/HPI General Chief Complaint: Abdominal Pain Stated complaint: ABD PAIN; VOMITING BLOOD X AM Time seen by provider: 07/01/24 10:01 Arrival date/time: 07/01/24 09:48 Limitations: no limitations RME / HPI RME / HPI narrative: 07/01/24 09:48 23-year-old male with a history of cirrhosis, GI bleeds, anemia presents to the emergency room with a chief complaint of right upper quadrant and epigastric 8 out of 10 abdominal pain and vomiting x 2 days I have greeted and performed a focused initial assessment of this patient. A comprehensive ED assessment and evaluation of the patient, analysis of all test results, and completion of the medical decision making process will be conducted by additional ED providers. DR. GRACIA MAIN ED EVALUATION: 23 year old male with a history of liver cirrhosis, esophageal varices (status post banding), and CBD stones presents to the ED with abdominal pain that began 2 days ago. He describes the pain as a constant, aching sensation localized to the right upper to mid-abdomen, without radiation. Rating 8/10. The pain is accompanied by nausea and two episodes of vomiting today. He reports experiencing similar episodes in the past, which he attributes to his liver disease. The patient was previously followed at [facility] for liver transplant evaluation but states he was removed from the transplant list due to marijuana use and has not taken his prescribed medications for the past 2 years. Currently, he reports only taking Inderal 10 mg twice daily. Denies fevers, chills, chest pain, cough, diarrhea, or urinary symptoms. Related Data Previous Rx's ?Medication ?Instructions ?Recorded sucralfate 1 gram tablet 1 g PO TID #90 tabs 03/08/24 lactulose 10 gram/15 mL oral 10 g (15 mL) PO QDAY PRN 03/11/24 solution constipation #473 mL propranolol 10 mg tablet 10 mg PO BID #60 tabs Allergies Allergy/AdvReac Type Severity Reaction Status Date / Time No Known Allergies Allergy Verified 07/01/24 09:50 Review of Systems Review of Systems Narrative Review of Systems: GEN: No fever, no chills, no weight loss EYES: No discharge, no visual changes, no pain HEENT: No ear pain, no congestion, no sore throat PULM: No shortness of breath, no cough, no congestion CV: No chest pain, no dyspnea on exertion, no palpitations GI: +N/V, +pain, no diarrhea, no constipation : No frequency, no urgency, no dysuria MUSC/SKEL: No joint pain, no back pain SKIN: No rash NEURO: No weakness, no headache Past Medical History Past Medical History GASTROINTESTINAL: Positive Gastrointestinal Disorders (varices with multiple banding), Cirrhosis and Gall Bladder Disease (biliary calculi with stents) GENITOURINARY: Positive Kidney Stones HEMATOLOGIC: Positive Anemia OTHER HISTORY: Positive Blood Transfusions Social History SMOKING STATUS: Never smoker ED Exam General Limitations: Present no limitations General appearance: Present alert and in no apparent distress Head Head exam: Present atraumatic Eye Eye exam: Present normal appearance, PERRL and EOMI ENT ENT exam: Present normal exam, normal oropharynx and mucous membranes moist Neck Neck exam: Present normal inspection, full ROM and trachea midline Chest Chest inspection: Present normal inspection and symmetric chest wall rise Respiratory Respiratory exam: Present normal lung sounds bilaterally Cardiovascular Cardiovascular exam: Present regular rate, normal rhythm and normal heart sounds Abdominal Exam Abdominal exam: Present soft, tenderness (RUQ tenderness ) and normal bowel sounds Extremities Exam Extremities exam: Present normal inspection and full ROM Back Exam Back exam: Present normal inspection and full ROM Neurological Exam Neurological exam: Present alert, oriented X3 and CN II-XII intact Psychiatric Psychiatric exam: Present normal affect and normal mood Skin Skin exam: Present warm, dry, intact and normal color Course Quality Measures none Orders Category Date Time Status COVID-19 Screening Questionnaire NOW Care 07/01/24 15:39 Active Decision to Admit X1 Care 07/01/24 15:38 Active Insert IV NOW Care 07/01/24 15:48 Active Consult to Gastroenterology Stat Cons 07/01/24 15:49 Ordered US gall bladder Stat Exams 07/01/24 10:10 Completed Amylase Stat Lab 07/01/24 10:37 Completed CBC Stat Lab 07/01/24 10:37 Completed CMP [Comprehensive Metabolic Panel] Stat Lab 07/01/24 10:37 Completed Lipase Stat Lab 07/01/24 10:37 Completed Path Review Blood Smear Stat Lab 07/01/24 10:37 Completed UA [Urinalysis] Stat Lab 07/01/24 11:00 Completed Urine Culture Stat Lab 07/01/24 11:00 Received Metoprolol Tartrate Inj [Lopressor Inj] Med 07/01/24 14:00 Active 2.5 mg IVP Q8HR Ondansetron Odt [Zofran Odt] Med 07/01/24 10:11 Discontinued 4 mg PO X1 ONE Pantoprazole Inj [Protonix Inj] Med 07/01/24 10:52 Discontinued 40 mg IV X1 ONE Sodium Chloride 0.9% 1000 ml [Ns] 1,000 ml Med 07/01/24 11:00 Active IV 75 mls/hr Sodium Chloride 0.9% [Ns] 100 ml Med 07/01/24 10:55 Active Octreotide Acet Inj [SandoSTATIN Inj] 1,000 mcg IV 50 mcg/hr cefTRIAXone/D5w 1gm IV premix [Rocephin/D5w 1gm IV Med 07/01/24 10:54 Discontinued premix] 1 gm in 50 ml IV X1 Vital Signs Vital signs: Vital Signs Temperature 98.6 F 07/01/24 10:07 Pulse Rate 87 07/01/24 10:07 Respiratory Rate 18 07/01/24 10:07 Blood Pressure 129/86 H 07/01/24 10:07 Pulse Oximetry (%) 100 07/01/24 10:07 Oxygen Delivery Method Room Air 07/01/24 10:07 Pulse ox is 100% on room air which is adequate. Abdominal Pain MDM MDM Narrative MDM Narrative:: Aylin Mckeon am scribing for and in the presence of Dr. Gracia. Patient data External records reviewed:: [facility] previous records (I reviewed admission from 05/26/2024 through 05/31/2024 for anemia ) Clinical information provided by:: patient Social determinants that could affect healthcare access:: substance use ( Marijuana ) Patient has the following chronic illnesses:: liver cirrhosis, CBD stones, variceal bleed How is presenting disease/condition affected by chronic disease/condition?: exacerbated by Evaluation data The following diagnostics were reviewed and interpreted by me:: lab results and radiology exam(s) Lab and/or radiology exams considered but not ordered:: None Interpretation Summary: Ordering Physician: Frankie Monteiro Date of Service: 07/01/24 Procedure(s): US gall bladder Accession Number(s): [id number] cc: Frankie Monteiro; Cooper Gould MD; NO [facility]/FAMILY,PHYSICIAN~ Examination: Abdomen sonogram, Limited Date and time of exam: July 01, 2024 1111 hours INDICATIONS: Vomiting blood with right upper abdominal pain this morning Technique: Real-time lr scale transabdominal sonographic images of the upper abdomen obtained. Findings: Negative for gallstones Gallbladder wall 0.5 cm with edema Common bile duct 0.6 cm Pancreatic head 3.2 cm Liver 16.5 cm no focal liver lesions Splenomegaly 17.3 cm Minimal pericardial fluid IMPRESSION: Recommend MRCP scan or HIDA scan follow-up to confirm acute cholecystitis Dictated By: Cooper Gould MD Signed By: <Electronically signed by Cooper Gould MD in OV> 07/01/24 1159 Medications / Prescriptions Medications or Prescriptions considered but not ordered:: None Medication administrations:: Medication Administration History Sodium Chloride (Ns) 1,000 mls @ 75 mls/hr IV .[id number] MAYTE Stop: 07/31/24 10:59 Octreotide Acetate 1,000 mcg/ (Sodium Chloride) 102 mls @ 5.1 mls/hr IV .Q20H MAYTE; Protocol Stop: 07/06/24 10:55 Metoprolol Tartrate (Metoprolol Tartrate Inj 1 Mg/Ml Amp 5 Ml) 2.5 mg IVP Q8HR MAYTE Stop: 07/31/24 13:59 Discontinued Medications Ceftriaxone Sodium/Dextrose (Rocephin/D5w 1gm Iv Premix) 1 gm in 50 mls @ 100 mls/hr IV X1 ONE Stop: 07/01/24 11:23 Ondansetron HCl (Ondansetron Odt 4 Mg Tabrap) 4 mg PO X1 ONE; Protocol Stop: 07/01/24 10:12 Last Admin: 07/01/24 10:26 Dose: 4 mg Documented By: OA Pantoprazole Sodium (Pantoprazole Inj 40 Mg Vial) 40 mg IV X1 ONE Stop: 07/01/24 10:53 See above Consultations Consultation(s) initiated? (list below): Yes Consultation #1 (Physician, Specialty, Details): I spoke with resident working with Dr. Abraham regarding admission. Discussed patients PMHx, HPI, ED course, exam findings, labs, and radiology results. The hospitalist will come evaluate the patient in the ED. Time: 15:45 Consultation #2 (Physician, Specialty, Details): I spoke with GI Dr. Johnson. He was made aware of the patient?s HPI, PMHx, lab and radiology results. Treatment plan was discussed. Agrees to consult. Time: 15:50 Diagnosis Differential diagnosis abdominal pain: abdominal pain, pancreatitis and other (GI bleed, esophageal varices, liver cirrhosis ) Most likely diagnosis given after review of the tests above:: Upper GI bleed Liver cirrhosis Right upper quadrant pain Anemia Admission Indicated Admission indicated?: indicated Admission Request Was there a request for admission?: Yes Admission Attestation Admission request attestation: Discussed case with [] from Hospitalist service regarding admission. Discussed patients ED course, exam findings, labs, and radiology results. The Hospitalist [agrees,declines] to accept the patient for admission. Disposition Plan Disposition Plan: Admit Discharge Plan Plan Patient Disposition: Admit Acute Care w/in Hospital Prescriptions/Referrals Prescriptions/Med Rec: No Action propranolol 10 mg tablet 10 mg PO BID Qty: 60 2RF sucralfate 1 gram tablet 1 g PO TID Qty: 90 0RF lactulose 10 gram/15 mL solution 10 g PO QDAY PRN (Reason: constipation) Qty: 473 2RF Referrals: No Primary/Family,Physician [Primary Care Provider] - In 1 week Problem List Clinical Impression: GI bleed, Liver cirrhosis, Anemia, Right upper quadrant abdominal pain Patient/Caregiver Discharge Instructions Print Language: Portuguese Stand Alone Forms: Анна Award Info., Patient Portal Info Letter
[2024-07-01 10:45] LABS: Basophils % (Auto) 1 % (0-2.5); Eosinophils # (Auto) 0.2 Thou/mm3 (0.0-0.5); Eosinophils % (Auto) 4 % (0-10); Hematocrit 25.6 % (41.0-53.0); Immature Granulocytes % (Auto) 0 % (0-0); Immature Granulocytes Auto 0.01 Thou/mm3 (0.00-0.00); Lymphocytes # (Auto) 0.8 Thou/mm3 (1.0-4.8); Lymphocytes % (Auto) 15 % (10-50); Mean Corpuscular HGB Conc 30.1 g/dl (31.0-37.0); Mean Corpuscular Hemoglobin 20.9 pg (25.0-35.0); Mean Corpuscular Volume 69 fL (80-100); Monocytes # (Auto) 0.3 Thou/mm3 (0.0-0.8); Monocytes % (Auto) 6 % (0-12); Neutrophils # (Auto) 3.9 Thou/mm3 (1.8-7.7); Neutrophils % (Auto) 74 % (37-80); Nucleated Red Blood Cell % 0 /100 WBC (0); Platelet Count 88 Thou/mm3 (140-440); RDW Standard Deviation 45.1 fL (35.1-43.9); Red Blood Count 3.69 Miln/mm3 (4.50-5.90); White Blood Count 5.2 Thou/mm3 (3.8-10.6)
[2024-07-01 11:33] LABS: Hemoglobin 7.7 g/dL (13.5-16.0)
[2024-07-01 11:34] LABS: Collection Type, Urine Clean Catch
[2024-07-01 11:47] LABS: Bilirubin,Urine Negative (Negative); Blood,Urine Negative (Negative); Clarity,Urine Clear (Clear/Hazy); Color,Urine Yellow (Lt Yel-Yel); Glucose, Urine Negative (Negative); Ketones,Urine Negative (Negative); Leukocyte Esterase,Urine Negative (Negative); Nitrite,Urine Negative (Negative); Protein,Urine Trace (Neg - Trace); RBC,Urine 5 /hpf (0-3); Specific Gravity,Urine 1.027 (1.001-1.035); Squamous Epithelial Cell,Urine < 1 /hpf (0-5); Urobilinogen,Urine Negative mg/dL (0.0-1.0); WBC,Urine 1 /hpf (0-5)
[2024-07-01 13:19] LABS: Path Review Blood Smear Sent to Pathologist
[2024-07-01 15:13] LABS: Alanine Aminotransferase 24 U/L (10-49); Albumin, Serum 4.3 gm/dL (3.5-5.0); Albumin/Globulin Ratio 1.3 (1.2-2.2); Alkaline Phosphatase 107 U/L (46-116); Anion Gap 5 (7-16); Aspartate Amino Transferase 29 U/L (0-34); BUN/Creatinine Ratio 23 Ratio (12-20); Bilirubin,Total 0.6 mg/dL (0.3-1.2); Blood Urea Nitrogen 14 mg/dL (9-23); Carbon Dioxide 26.2 mMol/L (20.0-31.0); Chloride 107 mMol/L (98-107); Creatinine (Component) 0.6 mg/dL (0.6-1.3); Estimated Creatinine Clearance 140.4 mL/min (>60); Globulin 3.2 gm/dL (2.3-3.5); Glucose 98 mg/dL (74-106); Lipase 43 U/L (12-53); Osmolality,Calculated 276 (275-295); Potassium 4.3 mMol/L (3.4-5.1); Sodium 138 mMol/L (136-145); Total Protein 7.5 gm/dL (5.7-8.2); eGFR > 60 See Note
[2024-07-01 15:25] LABS: Amylase 76 U/L (30-118)
--- NOTE | 2024-07-01 16:22 | XR_ITS ---
Examination: Nuclear medicine hepatobiliary scan, static HIDA scan Date of exam: July 02, 2024 0812 hours INDICATIONS: Right upper abdominal pain and hematemesis this week, history elevated total bilirubin with biliary stent placement Technique And Findings: 5.8 mCi 99m Hepatolite administered intravenously. Serial imaging obtained immediately through 60 minutes. Homogenous uptake in the liver. No common bile duct or small bowel activity noted Impression: No common bile duct or small bowel activity noted, consider repeat MRCP
[2024-07-01] MEDS: cefTRIAXone/D5w 1gm IV premix 1 GM/50 ML BAG IV (16:33)
--- NOTE | 2024-07-01 16:44 | EKG_ITS ---
[facility] Test Date: 2024-07-01 Pat Name: CESAR OLIVEIRA Department: Room: - Gender: Male [employer]: : 2000 Requested By: Zafar Pedraza Order Number: [id number] Reading MD: Zafar Pedraza Measurements Intervals [place] Rate: 76 P: 31 WV: 132 QRS: 90 QRSD: 100 T: 52 QT: 404 QTc: 457 Interpretive Statements SINUS RHYTHM Compared to ECG 05/26/2024 15:32:07 Sinus tachycardia no longer present Right-axis deviation no longer present /store/S0/[id number]/[id number].pdf
--- NOTE | 2024-07-01 16:45 | ESHP_ITS ---
Documentation for date of: 07/01/24 HPI History of Present Illness Chief complaint: Abdominal pain and bloody vomit History of present illness: 23-year-old male with past medical history of variceal bleeds status post banding (3 times), alcoholic liver cirrhosis, and choledocholithiasis s/p stent was admitted to the hospital on 07/01/2024 after coming to the ED with complaints of abdominal pain along with bloody vomiting. On assessment patient stated that he started feeling weak around 2 days ago, but that today he had severe abdominal pain mostly on his right upper quadrant and that he started having bloody vomiting episodes since this morning. He was at work during this time and stated that when he noticed the vomiting and the abdominal pain he decided to come to the ED as he had these symptoms before and wanted to make sure he did not lose too much blood. Patient stated that he has not drank alcohol since October 2023 and that has been cutting down on his marijuana use as well only smoking about twice in the evenings. He mentioned he has not done any other illicit drugs and that as of recently he has not had any other issues other than the ones mentioned from today. Patient rated his abdominal pain a 10 out of 10. He stated that he has not follow-up with liver specialist and that has been following up with his primary care physician at [facility]. He also mentioned that he has been compliant with his medications. In the ED patient said he filled around 3 bags of bloody vomiting. ED course Initially patient came in afebrile and normotensive. Initial labs were remarkable for low hemoglobin (7.7) and thrombocytopenia (88). Initial imaging included gallbladder ultrasound which showed some gallbladder wall edema which was not seen previously. In the ED patient received 8 milligrams of Zofran. PMH: As above Social Hx: Admits smoking marijuana, denies smoking cigarettes, denies any use of alcohol as in October 2023, denies any illicit drugs Allergies: NKDA Medications: Propranolol 10 mg twice daily Review of Systems Review of Systems Narrative Review of Systems: Constitutional: Denies sweats, Denies weight loss/gain, Denies fever, Denies chills, Admits feeling tired. HEENT: Denies hearing loss, Denies ear pain, Denies postnasal drip, Denies double vision, Denies blurry vision. Respiratory: Denies shortness of breath, Denies cough, Denies wheezing. Cardiovascular: Denies chest pain, Denies palpitations, Denies sudden loss of consciousness. GI: Denies blood in stool, Denies constipation, Admits abdominal pain, Denies difficulty swallowing, Admits nausea and bloody vomit. : Denies urinary incontinence, Denies pain while urinating, Denies increased urinary frequency. MSK: Denies joint pain, Denies joint swelling, Denies numbness. Skin: Denies rash, Denies itching, Denies easy bruising. Neuro: Denies headaches, Denies dizziness, Denies seizures. Past Medical History Past Medical History GASTROINTESTINAL: Positive Gastrointestinal Disorders (varices with multiple banding), Cirrhosis and Gall Bladder Disease (biliary calculi with stents) GENITOURINARY: Positive Kidney Stones HEMATOLOGIC: Positive Anemia OTHER HISTORY: Positive Blood Transfusions Social History SMOKING STATUS: Never smoker Exam Vital Signs Temp Pulse Resp BP Pulse Ox O2 Del Method 98.5 F 81 16 117/64 100 Room Air 07/01/24 16:06 07/01/24 16:06 07/01/24 16:06 07/01/24 16:06 07/01/24 16:06 07/01/24 16:06 Narrative Exam General: A/O x3, mild distress Eyes: PERRL, EOMI. Anicteric, vision grossly intact. Ears: No ear pain, no ear discharge, Hearing grossly intact. Nose: No nasal discharge. Mouth/Throat: Dry mucous membranes, no redness, no lesions. Neck: Neck supple, non-tender, no cervical lymphadenopathy. Lungs: Clear [place] to auscultation and percussion, No accessory muscle use. Cardio: Normal S1/S2, regular rhythm, no murmurs, no JVD Abdomen: Soft, tenderness in RUQ and epigastric region no palpable masses, peristalsis present, no guarding or rebound. Extremities: Symmetrical, no significant deformities, no peripheral edema , non-tender, peripheral pulses presents. Skin: No rashes, no lesions, warm to touch. Neuro: No focal neurological deficits. motor and sensory intact Psych: Cooperative, appropriate mood and effect. Results: Labs 07/02/24 06:05 07/02/24 06:05 Labs: Short CBC 07/01/24 Range/Units 10:37 WBC 5.2 (3.8-10.6) Thou/mm3 Hgb 7.7 L (13.5-16.0) g/dL Hct 25.6 L (41.0-53.0) % Plt Count 88 L D (140-440) Thou/mm3 BMP 07/01/24 10:37 Sodium 138 Potassium 4.3 Chloride 107 Carbon Dioxide 26.2 BUN 14 Creatinine 0.6 Glucose 98 Calcium 9.0 Liver Function 07/01/24 Range/Units 10:37 Total Bilirubin 0.6 (0.3-1.2) mg/dL AST 29 (0-34) U/L ALT 24 (10-49) U/L Alkaline Phosphatase 107 (46-116) U/L Albumin 4.3 (3.5-5.0) gm/dL Urine 07/01/24 Range/Units 11:00 Urine Color Yellow (Lt Yel-Yel) Urine Clarity Clear (Clear/Hazy) Urine pH 6.0 (5.0-7.0) Ur Specific [place] 1.027 (1.001-1.035) Urine Protein Trace (Neg - Trace) Urine Glucose (UA) Negative (Negative) Quality Measures Quality Measures none Medications Home Medications and Allergies Allergies Allergy/AdvReac Type Severity Reaction Status Date / Time No Known Allergies Allergy Verified 07/01/24 09:50 Visit Medications Acetaminophen (Acetaminophen 325 Mg Tablet) 650 mg PO Q6H PRN PRN Reason: pain and Fever >100.4 Stop: 07/31/24 16:40 Sodium Chloride (Ns) 1,000 mls @ 75 mls/hr IV .[id number] MAYTE Stop: 07/31/24 10:59 Octreotide Acetate 1,000 mcg/ (Sodium Chloride) 102 mls @ 5.1 mls/hr IV .Q20H [facility]; Protocol Stop: 07/02/24 12:14 Octreotide Acetate 1,000 mcg/ (Sodium Chloride) 102 mls @ 5.1 mls/hr IV .Q20H MAYTE; Protocol Stop: 07/06/24 10:55 Ceftriaxone Sodium/Dextrose (Rocephin/D5w 1gm Iv Premix) 1 gm in 50 mls @ 100 mls/hr IV QDAY MAYTE Stop: 07/09/24 08:59 Metoprolol Tartrate (Metoprolol Tartrate Inj 1 Mg/Ml Amp 5 Ml) 2.5 mg IVP Q8HR MAYTE Stop: 07/31/24 13:59 Last Admin: 07/01/24 16:36 Dose: Not Given Morphine Sulfate (Morphine Sulf Inj 10 Mg/Ml Vial) 1 mg IVP Q2H PRN PRN Reason: PAIN SCALE 4-10(Mod-Sev Stop: 07/06/24 16:40 Ondansetron HCl (Ondansetron Inj 2 Mg/Ml Inj 2 Ml) 4 mg IV Q4HR PRN; Protocol PRN Reason: Nausea Stop: 07/31/24 16:22 Pantoprazole Sodium (Pantoprazole Inj 40 Mg Vial) 40 mg IV BID MAYTE Stop: 07/31/24 20:59 Discontinued Medications Ceftriaxone Sodium/Dextrose (Rocephin/D5w 1gm Iv Premix) 1 gm in 50 mls @ 100 mls/hr IV X1 ONE Stop: 07/01/24 11:23 Last Admin: 07/01/24 16:33 Dose: 100 mls/hr Morphine Sulfate (Morphine Sulf Inj 10 Mg/Ml Vial) 4 mg IVP X1 ONE Stop: 07/01/24 16:13 Ondansetron HCl (Ondansetron Odt 4 Mg Tabrap) 4 mg PO X1 ONE; Protocol Stop: 07/01/24 10:12 Last Admin: 07/01/24 10:26 Dose: 4 mg Ondansetron HCl (Ondansetron Inj 2 Mg/Ml Inj 2 Ml) 4 mg IV X1 ONE; Protocol Stop: 07/01/24 16:13 Pantoprazole Sodium (Pantoprazole Inj 40 Mg Vial) 40 mg IV X1 ONE Stop: 07/01/24 10:53 Last Admin: 07/01/24 16:37 Dose: Not Given Assessment & Plan Plan 23-year-old male with past medical history of 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 #Acute blood loss anemia #Hematemesis #Intractable nausea and vomiting #Hx of variceal bleeding s/p bands (3 times) #Hx of liver cirrhosis Patient came in with complaints of abdominal pain and bloody vomiting since this morning Patient does have a history of esophageal variceal bleed with the most recent being on 05/2024 requiring 4 bands Patient's hemoglobin today was 7.7, but since then patient has been having multiple bouts of bloody emesis Patient stated that he has not drank any alcohol since October 2023 MELD-Na score of 13 points indicating less than 2% mortality in 90 days Child- Vanegas score of 5 points, Child A Plan: Ordered 2 units of PRBCs to be transfused type and screen ordered Started patient on ceftriaxone 1 g daily for SBP prophylaxis Start patient on octreotide drip Start patient on pantoprazole 40 twice daily Zofran 4 mg Q4 as needed EKG ordered to assess patient's QTc as he would likely require multiple doses of Zofran Repeat H&H N.p.o. for possible procedure today GI consulted, pursue recommendations #Abdominal pain #Possible acute cholecystitis #Hx of choledocholithiasis s/p stent Patient has been complaining of right upper quadrant pain and on his epigastric region as well Patient's gallbladder ultrasound today did show some gallbladder wall edema No LFT elevations or bilirubin Plan: HIDA scan ordered Morphine 1 mg every 2 as needed for pain Will follow-up on the results and decide if patient will require surgery or not. Disposition: Patient admitted to [facility] for possible variceal bleeding and acute cholecystitis. Diet: NPO GI prophylaxis: protonix DVT prophylaxis: SCDs Code: Full Case disclosed with Attending Dr. Leigh Pedraza PGY1 Attending Provider Attestation/Addendum I have discussed and was present for the essential components of the history, physical examination, diagnosis, and treatment plan with the resident. I agree with the patient's care as documented by the resident and amended herein by me. Mao Abraham DO. Although this document has been carefully reviewed, there may still be some phonetic and other typographical errors. These errors are purely grammatical due to imperfections in the software program and should not be construed in any way to compromise the substance of the patient's medical care during this visit.
[2024-07-01] MEDS: MORPHINE SULF INJ 10 MG/ML VIAL 4 MG IVP (16:51)
[2024-07-01] MEDS: ONDANSETRON INJ 2 MG/ML INJ 2 ML 4 MG IV (16:53)
[2024-07-01] MEDS: SODIUM CHLORIDE 0.9% 1000 ML 1,000 ML 75 ML IV (16:56)
[2024-07-01] MEDS: OCTREOTIDE ACET INJ 1,000 MCG in SODIUM CHLORIDE 0.9% 100 ML 5.1 MCG IV (17:00)
[2024-07-01] MEDS: PANTOPRAZOLE INJ 40 MG VIAL IVP (17:49)
[2024-07-01 17:57] LABS: Hematocrit 23.5 % (41.0-53.0)
[2024-07-01 18:08] LABS: Hemoglobin 7.1 g/dL (13.5-16.0)
[2024-07-01 18:14] LABS: INR 1.6 (0.9-1.3); Partial Thromboplastin Time 21.3 Seconds (22.0-36.0); Prothrombin Time 16.7 Seconds (9.0-12.2)
--- NOTE | 2024-07-01 22:42 | ESCONSULT_ITS ---
HPI Data of Consult Requesting Physician: Neil Abraham DO Primary Care Provider: Physician No Primary/Family Consult Narrative Reason for consult: Hematemesis, pain abdomen History of present illness: 23 years old male who presented to the hospital with right upper quadrant abdominal pain and hematemesis Presenting hemoglobin hematocrit 7.7 and 25.6 and went down to 7.1 and 23.5 Ultrasound abdomen shows no gallstones CBD 6 mm Patient does have a history of choledocholithiasis requiring placement of a biliary stent LFTs today are normal At 1 point he was evaluated at [place] for possible liver transplant as he has a history of cirrhotic liver disease due to alcohol but he was taken off the list because of drug screen showing THC Only medication was taking at home his propranolol cc:: cc: Neil Abraham DO Review of Systems Review of Systems Systems Reviewed: All systems reviewed, normal except as documented Past Medical History Surgical History OTHER SURGICAL HX: As in the history of present illness Meds Home Medications and Allergies Allergies Allergy/AdvReac Type Severity Reaction Status Date / Time No Known Allergies Allergy Verified 07/01/24 09:50 Exam Vital Signs Temp Pulse Resp BP Pulse Ox O2 Del Method 97.9 F 70 17 103/61 100 Room Air 07/01/24 21:28 07/01/24 21:28 07/01/24 21:28 07/01/24 21:28 07/01/24 21:28 07/01/24 18:06 Constitutional Comments: Chronically ill-appearing Routine Respiratory Exam Comments: Normal to auscultation Routine Abdominal Exam Comments: Midepigastric tenderness Results Labs 07/03/24 05:06 07/03/24 05:06 Labs: Short CBC 07/01/24 07/01/24 Range/Units 10:37 17:33 WBC 5.2 (3.8-10.6) Thou/mm3 Hgb 7.7 L 7.1 L (13.5-16.0) g/dL Hct 25.6 L 23.5 L (41.0-53.0) % Plt Count 88 L D (140-440) Thou/mm3 BMP 07/01/24 10:37 Sodium 138 Potassium 4.3 Chloride 107 Carbon Dioxide 26.2 BUN 14 Creatinine 0.6 Glucose 98 Calcium 9.0 Liver Function 07/01/24 Range/Units 10:37 Total Bilirubin 0.6 (0.3-1.2) mg/dL AST 29 (0-34) U/L ALT 24 (10-49) U/L Alkaline Phosphatase 107 (46-116) U/L Albumin 4.3 (3.5-5.0) gm/dL Urine 07/01/24 Range/Units 11:00 Urine Color Yellow (Lt Yel-Yel) Urine Clarity Clear (Clear/Hazy) Urine pH 6.0 (5.0-7.0) Ur Specific [place] 1.027 (1.001-1.035) Urine Protein Trace (Neg - Trace) Urine Glucose (UA) Negative (Negative) Assessment and Plan Additional Assessment & Plan Additional Plan: Hematemesis in the setting of cirrhotic liver disease due to alcohol Plan N.p.o. Octreotide infusion with 50 mcg IV push and then 50 mcg/h IV Protonix Serial CBC Transfuse if the hemoglobin drops below 7 g Consent obtained for fiberoptic esophagogastroduodenoscopy with possible therapeutic intervention possible biopsy under intravenous moderate sedation scheduled for a.m. N.p.o. Other medical problems include Chronic liver disease secondary to alcohol History of choledocholithiasis with placement of a CBD stent Right upper quadrant Jeffrey pain agree with obtaining CCK HIDA scan with ejection fraction Thank you for the opportunity to participate in the care of this patient
[2024-07-02] VITALS (25 sets, daily range): BP systolic 96–133; BP diastolic 50–92; PULSE 52–87; RESP 11–99; TEMP 35.9–37.1; O2SAT 96–100; BMI 23.8
[2024-07-02] MEDS: SODIUM CHLORIDE 0.9% 1000 ML 1,000 ML 75 ML IV ×2 (01:23→22:08)
[2024-07-02 06:24] LABS: Basophils % (Auto) 1 % (0-2.5); Eosinophils # (Auto) 0.2 Thou/mm3 (0.0-0.5); Eosinophils % (Auto) 4 % (0-10); Hematocrit 26.5 % (41.0-53.0); Immature Granulocytes % (Auto) 0 % (0-0); Immature Granulocytes Auto 0.01 Thou/mm3 (0.00-0.00); Lymphocytes % (Auto) 23 % (10-50); Mean Corpuscular HGB Conc 30.9 g/dl (31.0-37.0); Mean Corpuscular Volume 71 fL (80-100); Monocytes # (Auto) 0.3 Thou/mm3 (0.0-0.8); Monocytes % (Auto) 8 % (0-12); Neutrophils # (Auto) 2.7 Thou/mm3 (1.8-7.7); Neutrophils % (Auto) 65 % (37-80); Nucleated Red Blood Cell % 0 /100 WBC (0); Platelet Count 85 Thou/mm3 (140-440); RDW Standard Deviation 46.4 fL (35.1-43.9); Red Blood Count 3.72 Miln/mm3 (4.50-5.90); White Blood Count 4.2 Thou/mm3 (3.8-10.6)
[2024-07-02 06:32] LABS: Hemoglobin 8.2 g/dL (13.5-16.0)
[2024-07-02 06:54] LABS: Alanine Aminotransferase 19 U/L (10-49); Albumin, Serum 3.6 gm/dL (3.5-5.0); Albumin/Globulin Ratio 1.3 (1.2-2.2); Alkaline Phosphatase 80 U/L (46-116); Anion Gap 7 (7-16); Aspartate Amino Transferase 26 U/L (0-34); BUN/Creatinine Ratio 34 Ratio (12-20); Bilirubin,Total 1.8 mg/dL (0.3-1.2); Blood Urea Nitrogen 24 mg/dL (9-23); Calcium 7.9 mg/dL (8.3-10.6); Calcium (Corrected) 8.2 mg/dL (8.5-10.1); Carbon Dioxide 24.3 mMol/L (20.0-31.0); Chloride 111 mMol/L (98-107); Creatinine (Component) 0.7 mg/dL (0.6-1.3); Estimated Creatinine Clearance 120.4 mL/min (>60); Globulin 2.7 gm/dL (2.3-3.5); Glucose 113 mg/dL (74-106); Magnesium 1.9 mg/dL (1.6-2.6); Osmolality,Calculated 288 (275-295); Potassium 4.2 mMol/L (3.4-5.1); Sodium 142 mMol/L (136-145); Total Protein 6.3 gm/dL (5.7-8.2); eGFR > 60 See Note
--- NOTE | 2024-07-02 07:59 | ESPR_ITS ---
Documentation for date of: 07/02/24 Subjective - Hospitalist Subjective Interval history: No acute events overnight no acute events overnight, vital signs stable, patient afebrile, no specific complaints,. Blood pressure 105/50 mmHg, patient on room air, SpO2 99%. Significant labs include a hemoglobin of 8.2 which been stable., T. bili elevated to 1.8, INR 1.6. No significant signs of hemoptysis or any other bleeding this morning. Patient n.p.o. for EGD Exam Vital Signs Temp Pulse Resp BP Pulse Ox O2 Del Method 97.1 F 59 L 12 105/50 L 99 Room Air 07/02/24 04:00 07/02/24 07:20 07/02/24 04:00 07/02/24 07:20 07/02/24 04:00 07/02/24 04:00 Objective - Hospitalist Labs Diagram: 07/02/24 06:05 07/02/24 06:05 Labs: Laboratory Results - last 24 hr 07/01/24 07/01/24 07/01/24 10:37 11:00 17:33 WBC 5.2 RBC 3.69 L Hgb 7.7 L 7.1 L Hct 25.6 L 23.5 L MCV 69 L MCH 20.9 L MCHC 30.1 L RDW Std Deviation 45.1 H Plt Count 88 L D Neut % (Auto) 74 Lymph % (Auto) 15 [place] % (Auto) 6 Eos % (Auto) 4 Baso % (Auto) 1 Neut # (Auto) 3.9 Lymph # (Auto) 0.8 L [place] # (Auto) 0.3 Eos # (Auto) 0.2 Baso # (Auto) 0.0 Immature Gran # (Auto) 0.01 H Absolute Nucleated RBC 0.00 Immature Gran % 0 Nucleated RBC % 0 Smear Path Review Sent to Pathologist PT 16.7 H INR 1.6 H APTT 21.3 L Sodium 138 Potassium 4.3 Chloride 107 Carbon Dioxide 26.2 Anion Gap 5 L BUN 14 Creatinine 0.6 Estim Creat Clear Calc 140.4 eGFR > 60 BUN/Creatinine Ratio 23 H Glucose 98 Calculated Osmolality 276 Calcium 9.0 Corrected Calcium 9.0 Magnesium Total Bilirubin 0.6 AST 29 ALT 24 Alkaline Phosphatase 107 Total Protein 7.5 Albumin 4.3 Globulin 3.2 Albumin/Globulin Ratio 1.3 Amylase 76 Lipase 43 Ur Collection Type Clean Catch Urine Color Yellow Urine Clarity Clear Urine pH 6.0 Ur Specific [place] 1.027 Urine Protein Trace Urine Glucose (UA) Negative Urine Ketones Negative Urine Blood Negative Urine Nitrite Negative Urine Bilirubin Negative Urine Urobilinogen (Auto) Negative Ur Leukocyte Esterase Negative Urine RBC 5 H Urine WBC 1 Ur Squamous Epith Cells < 1 Urine Bacteria None Blood Type O Positive Antibody Screen NEGATIVE Crossmatch See Detail Blood Bank Wristband ID Yes 07/02/24 06:05 WBC 4.2 RBC 3.72 L Hgb 8.2 L Hct 26.5 L MCV 71 L MCH 22.0 L MCHC 30.9 L RDW Std Deviation 46.4 H Plt Count 85 L Neut % (Auto) 65 Lymph % (Auto) 23 [place] % (Auto) 8 Eos % (Auto) 4 Baso % (Auto) 1 Neut # (Auto) 2.7 Lymph # (Auto) 1.0 [place] # (Auto) 0.3 Eos # (Auto) 0.2 Baso # (Auto) 0.0 Immature Gran # (Auto) 0.01 H Absolute Nucleated RBC 0.00 Immature Gran % 0 Nucleated RBC % 0 Smear Path Review PT INR APTT Sodium 142 Potassium 4.2 Chloride 111 H Carbon Dioxide 24.3 Anion Gap 7 BUN 24 H Creatinine 0.7 Estim Creat Clear Calc 120.4 eGFR > 60 BUN/Creatinine Ratio 34 H Glucose 113 H Calculated Osmolality 288 Calcium 7.9 L Corrected Calcium 8.2 L Magnesium 1.9 Total Bilirubin 1.8 H D AST 26 ALT 19 Alkaline Phosphatase 80 D Total Protein 6.3 Albumin 3.6 D Globulin 2.7 Albumin/Globulin Ratio 1.3 Amylase Lipase Ur Collection Type Urine Color Urine Clarity Urine pH Ur Specific [place] Urine Protein Urine Glucose (UA) Urine Ketones Urine Blood Urine Nitrite Urine Bilirubin Urine Urobilinogen (Auto) Ur Leukocyte Esterase Urine RBC Urine WBC Ur Squamous Epith Cells Urine Bacteria Blood Type Antibody Screen Crossmatch Blood Bank Wristband ID Assessment & Plan Plan: 23-year-old male with past medical history of 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 #Acute blood loss anemia likely secondary to GI bleed #Hematemesis #Intractable nausea and vomiting?improved #Hx of variceal bleeding s/p bands (3 times) #Hx of liver cirrhosis Patient came in with complaints of abdominal pain and bloody vomiting since this morning Patient does have a history of esophageal variceal bleed with the most recent being on 05/2024 requiring 4 bands Patient's hemoglobin today was 7.7, but since then patient has been having multiple bouts of bloody emesis Patient stated that he has not drank any alcohol since October 2023 MELD-Na score of 13 points indicating less than 2% mortality in 90 days Child- Vanegas score of 5 points, Child A Plan: Gastroenterology consulted, plan for EGD later today Transfuse for hemoglobin less than 7 Continue octreotide drip, likely will need 5 days pending GI recommendations Continue pantoprazole 40 mg IV twice daily Zofran 4 mg Q4 as needed Replete electrolytes as needed #Abdominal pain #?acute cholecystitis #Hx of choledocholithiasis s/p stent Patient has been complaining of right upper quadrant pain and on his epigastric region as well Patient's gallbladder ultrasound today did show some gallbladder wall edema No LFT elevations or bilirubin Plan: HIDA scan demonstrating no gallbladder activity, will consider MRCP before discharge Morphine 1 mg every 2 as needed for pain Will follow-up on the results and decide if patient will require surgery or not. Disposition: Patient admitted to [facility] for possible variceal bleeding and acute cholecystitis. Diet: NPO GI prophylaxis: protonix DVT prophylaxis: SCDs Code: Kindergarten Aide Spent with Patient Time: Total time spent is greater than 50% in coordination of care (as documented) at patient's floor/unit and/or counseling patient: Time with patient: 25 - 35 minutes Reason for Continued Stay Reason for continued stay: surgical intervention Quality Measures Quality Measures none
[2024-07-02] MEDS: PANTOPRAZOLE INJ 40 MG VIAL IV ×2 (08:00→20:12)
[2024-07-02] MEDS: cefTRIAXone/D5w 1gm IV premix 1 GM/50 ML BAG IV (08:00)
[2024-07-02] MEDS: OCTREOTIDE ACET INJ 1,000 MCG in SODIUM CHLORIDE 0.9% 100 ML 5.1 MCG IV (09:30)
--- NOTE | 2024-07-02 10:15 | CHAP ---
Patient was visited by the Spiritual Care Volunteer who prayed for them. (Volunteer was in the hospital from 09:15-10:15).
--- NOTE | 2024-07-02 13:27 | PC.SS ---
SS follow up note; Patient will need 5 days of Octreotide drip. Patient will discharge back home when medically cleared.
--- NOTE | 2024-07-02 13:52 | PC.SS ---
Patient Bari Tse is a 23 Year old female admitted for ABD Pain. Patient confirmed demographic information. and reprots he does not utilize any source of DME to assist with ambulation. Patient confirmed his father, Bertin Tse is the primary medical surrogate decision maker [phone]. Patient stated he is able to complete all ADL's independently. [facility]. Discharge plan: Home Next of kin: Parent, Father, Kingsley Tse [phone]
[2024-07-02] MEDS: MORPHINE SULF INJ 10 MG/ML VIAL IVP (22:15)
[2024-07-03] VITALS (10 sets, daily range): BP systolic 99–116; BP diastolic 56–68; PULSE 56–87; RESP 14–98; TEMP 36.1–36.6; O2SAT 97–100
--- NOTE | 2024-07-03 | XR_ITS ---
MRI abdomen, without contrast. MRCP Date and time of exam: July 03, 2024 1201 hours INDICATIONS: Elevated bilirubin this week with abdominal pain and vomiting Technique: Multiple axial and coronal images of the abdomen have been obtained with the Siemens 1.5T MRI scanner. Images obtained included T1 weighted transverse images, T2-weighted transverse images, T2-weighted transverse images fat-suppressed, T2 weighted haste fat suppressed transverse images, T1 weighted images, in and out of phase images, T2-weighted coronal images, breath hold, T2 weighted haze coronal images as well as T2 weighted coronal thick slab images, MRCP. Findings: 25 mm anterior right lobe liver lesion Marked intrahepatic biliary tract dilatation Liver is irregular in contour Prominent splenomegaly Distended gallbladder with gallbladder wall thickening and edema Common hepatic duct enlarged up to 12 mm 4 mm common hepatic duct stone axial image 20 Ascites No hydronephrosis IMPRESSION: Distended gallbladder with findings most consistent with acute cholecystitis Extra hepatic biliary tract dilatation with 4 mm common hepatic duct stone, recommend ERCP follow-up Recommend MRI abdomen liver post intravenous contrast follow-up to assess 25 mm anterior right lobe liver lesion
[2024-07-03] MEDS: OCTREOTIDE ACET INJ 1,000 MCG in SODIUM CHLORIDE 0.9% 100 ML 5.1 MCG IV (05:21)
[2024-07-03 06:10] LABS: Basophils % (Auto) 1 % (0-2.5); Eosinophils # (Auto) 0.2 Thou/mm3 (0.0-0.5); Eosinophils % (Auto) 5 % (0-10); Hematocrit 25.3 % (41.0-53.0); Immature Granulocytes % (Auto) 0 % (0-0); Immature Granulocytes Auto 0.01 Thou/mm3 (0.00-0.00); Lymphocytes % (Auto) 26 % (10-50); Mean Corpuscular HGB Conc 31.6 g/dl (31.0-37.0); Mean Corpuscular Hemoglobin 22.2 pg (25.0-35.0); Mean Corpuscular Volume 70 fL (80-100); Monocytes # (Auto) 0.2 Thou/mm3 (0.0-0.8); Monocytes % (Auto) 7 % (0-12); Neutrophils # (Auto) 2.3 Thou/mm3 (1.8-7.7); Neutrophils % (Auto) 62 % (37-80); Nucleated Red Blood Cell % 0 /100 WBC (0); Platelet Count 75 Thou/mm3 (140-440); Red Blood Count 3.61 Miln/mm3 (4.50-5.90); White Blood Count 3.7 Thou/mm3 (3.8-10.6)
[2024-07-03 06:12] LABS: Slide Review Platelets confirmed
[2024-07-03 06:35] LABS: Alanine Aminotransferase 18 U/L (10-49); Albumin, Serum 3.7 gm/dL (3.5-5.0); Albumin/Globulin Ratio 1.4 (1.2-2.2); Alkaline Phosphatase 75 U/L (46-116); Anion Gap 7 (7-16); Aspartate Amino Transferase 21 U/L (0-34); BUN/Creatinine Ratio 29 Ratio (12-20); Blood Urea Nitrogen 20 mg/dL (9-23); Calcium 7.9 mg/dL (8.3-10.6); Calcium (Corrected) 8.1 mg/dL (8.5-10.1); Carbon Dioxide 23.7 mMol/L (20.0-31.0); Chloride 111 mMol/L (98-107); Creatinine (Component) 0.7 mg/dL (0.6-1.3); Estimated Creatinine Clearance 120.4 mL/min (>60); Globulin 2.6 gm/dL (2.3-3.5); Glucose 84 mg/dL (74-106); Osmolality,Calculated 284 (275-295); Potassium 3.7 mMol/L (3.4-5.1); Sodium 142 mMol/L (136-145); Total Protein 6.3 gm/dL (5.7-8.2); eGFR > 60 See Note
--- NOTE | 2024-07-03 07:29 | PD.RESPRO ---
Documentation for date of: 07/03/24 Subjective Subjective Interval history: No acute events reported overnight. EGD last night showed grade 3 esophageal varices that were completely eradicated, banded, total of 3, erythematous mucosa in stomach, no collections or biopsy taken. Patient has to be up until tomorrow morning. Patient will continue with total of 5 days of octreotide, currently day 3. Current vital signs are 99/68, heart rate 57, afebrile overnight on room air. Labs significant for slightly decreased WBC and low potassium. Bilirubin has come down to 1 hemoglobin stable at 8. Pending MRCP and HIDA scan showed no gallbladder activity. Stopped metoprolol tartrate 2.5 mg IV Q8, patient is still n.p.o. Exam Vital Signs Temp Pulse Resp BP Pulse Ox O2 Del Method O2 Flow Rate 96.9 F 57 L 14 99/68 97 Room Air 3 07/03/24 04:00 07/03/24 05:44 07/03/24 04:00 07/03/24 05:44 07/03/24 04:00 07/03/24 04:00 07/02/24 16:37 Narrative Exam GENERAL APPEARANCE: NAD, resting comfortably HEENT: Normocephalic, atraumatic, extraocular movements intact. NECK: Supple CARDIOVASULAR: NSR, S1, S2 heard without S3-S4 or murmur no rubs or gallops. LUNGS/CHEST: CTA bilaterally, no wheezing, rhonchi or rales heard ABDOMEN: Soft, nontender, with normal bowel sounds. NEURO: Alert, awake and oriented x3. PSYCHIATRIC: Mood and affect normal Objective Labs 07/03/24 05:06 07/03/24 05:06 Labs: Laboratory Results - last 24 hr 07/01/24 07/03/24 17:33 05:06 WBC 3.7 L RBC 3.61 L Hgb 8.0 L Hct 25.3 L MCV 70 L MCH 22.2 L MCHC 31.6 RDW Std Deviation 47.0 H Plt Count 75 L Neut % (Auto) 62 Lymph % (Auto) 26 [place] % (Auto) 7 Eos % (Auto) 5 Baso % (Auto) 1 Neut # (Auto) 2.3 Lymph # (Auto) 1.0 [place] # (Auto) 0.2 Eos # (Auto) 0.2 Baso # (Auto) 0.0 Immature Gran # (Auto) 0.01 H Absolute Nucleated RBC 0.00 Immature Gran % 0 Nucleated RBC % 0 Sodium 142 Potassium 3.7 D Chloride 111 H Carbon Dioxide 23.7 Anion Gap 7 BUN 20 Creatinine 0.7 Estim Creat Clear Calc 120.4 eGFR > 60 BUN/Creatinine Ratio 29 H Glucose 84 Calculated Osmolality 284 Calcium 7.9 L Corrected Calcium 8.1 L Magnesium 2.0 Total Bilirubin 1.0 D AST 21 ALT 18 Alkaline Phosphatase 75 Total Protein 6.3 Albumin 3.7 Globulin 2.6 Albumin/Globulin Ratio 1.4 Misc Test Result Platelets confirmed Crossmatch See Detail Quality Measures Quality Measures none (Patient can ambulate) Assessment & Plan Assessment Current Active Medications: Generic Name Dose Route Start Last Admin Trade Name Freq PRN Reason Stop Dose Admin Acetaminophen 650 mg 07/01/24 16:41 Acetaminophen 325 Mg Tablet PO 07/31/24 16:40 Q6H PRN pain 1-3 and Fever >100.4 Sodium Chloride 1,000 mls @ 75 mls/hr 07/01/24 11:00 07/02/24 22:08 Ns IV 07/31/24 10:59 75 mls/hr .[id number] MAYTE Administration Octreotide Acetate 1,000 mcg/ 102 mls @ 5.1 mls/hr 07/02/24 09:12 07/03/24 05:21 Sodium Chloride IV 07/06/24 10:55 50 mcg/hr .Q20H MAYTE 5.1 mls/hr Administration Protocol 50 MCG/HR Ceftriaxone Sodium/Dextrose 1 gm in 50 mls @ 100 mls/hr 07/02/24 09:00 07/02/24 08:00 Rocephin/D5w 1gm Iv Premix IV 07/09/24 08:59 100 mls/hr QDAY MAYTE Administration Morphine Sulfate 1 mg 07/01/24 16:41 07/02/24 22:15 Morphine Sulf Inj 10 Mg/Ml Vial IVP 07/06/24 16:40 1 mg Q2H PRN Administration PAIN SCALE 4-10(Mod-Sev Ondansetron HCl 4 mg 07/01/24 16:23 Ondansetron Inj 2 Mg/Ml Inj 2 Ml IV 07/31/24 16:22 Q4HR PRN Nausea Protocol Pantoprazole Sodium 40 mg 07/01/24 21:00 07/02/24 20:12 Pantoprazole Inj 40 Mg Vial IV 07/31/24 20:59 40 mg BID MAYTE Administration Plan 23-year-old male with past medical history of 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 # Variceal bleed?resolved, patient has history of variceal bleeds in the past due to alcohol induced liver cirrhosis # Blood loss anemia secondary to above?improved #Intractable nausea and vomiting?improved #Hx of liver cirrhosis Patient came in with complaints of abdominal pain and bloody vomiting since this morning Patient does have a history of esophageal variceal bleed with the most recent being on 05/2024 requiring 4 bands Patient's hemoglobin today was 7.7, but since then patient has been having multiple bouts of bloody emesis Patient stated that he has not drank any alcohol since October 2023 MELD-Na score of 13 points indicating less than 2% mortality in 90 days Child- Vanegas score of 5 points, Child A Plan: Continue octreotide drip for 5 days per gastroenterology recommendations Continue pantoprazole 40 mg IV twice daily Zofran 4 mg Q4 as needed Replete electrolytes as needed #Abdominal pain #?acute cholecystitis #Hx of choledocholithiasis s/p stent Patient has been complaining of right upper quadrant pain and on his epigastric region as well Patient's gallbladder ultrasound today did show some gallbladder wall edema No LFT elevations or bilirubin Plan: HIDA scan demonstrating no gallbladder activity MRCP ordered, results pending Morphine 1 mg every 2 as needed for pain Will follow-up on the results and decide if patient will require surgery or not. Disposition: Will be discharged home after a total 5-day course of octreotide Diet: Regular diet GI prophylaxis: protonix DVT prophylaxis: Ambulation Code: Full
[2024-07-03] MEDS: PANTOPRAZOLE INJ 40 MG VIAL IV ×2 (08:09→20:08)
[2024-07-03] MEDS: cefTRIAXone/D5w 1gm IV premix 1 GM/50 ML BAG IV (08:09)
[2024-07-03] MEDS: SODIUM CHLORIDE 0.9% 1000 ML 1,000 ML 75 ML IV (10:48)
[2024-07-03] MEDS: MORPHINE SULF INJ 10 MG/ML VIAL IVP ×2 (12:47→23:58)
--- NOTE | 2024-07-03 15:04 | PD.IMPROG ---
Documentation for date of: 07/03/24 Subjective Subjective Interval history: Hemoglobin [place] at 8.1 and 25.3 Continue octreotide for 5 days Advance diet as tolerated Exam Vital Signs Temp Pulse Resp BP Pulse Ox O2 Del Method O2 Flow Rate 98 F 60 17 116/64 100 Room Air 3 07/03/24 08:00 07/03/24 08:03 07/03/24 08:03 07/03/24 08:00 07/03/24 08:00 07/03/24 04:00 07/02/24 16:37 Objective Labs 07/03/24 05:06 07/03/24 05:06 Labs: Laboratory Results - last 24 hr 07/03/24 05:06 WBC 3.7 L RBC 3.61 L Hgb 8.0 L Hct 25.3 L MCV 70 L MCH 22.2 L MCHC 31.6 RDW Std Deviation 47.0 H Plt Count 75 L Neut % (Auto) 62 Lymph % (Auto) 26 [place] % (Auto) 7 Eos % (Auto) 5 Baso % (Auto) 1 Neut # (Auto) 2.3 Lymph # (Auto) 1.0 [place] # (Auto) 0.2 Eos # (Auto) 0.2 Baso # (Auto) 0.0 Immature Gran # (Auto) 0.01 H Absolute Nucleated RBC 0.00 Immature Gran % 0 Nucleated RBC % 0 Sodium 142 Potassium 3.7 D Chloride 111 H Carbon Dioxide 23.7 Anion Gap 7 BUN 20 Creatinine 0.7 Estim Creat Clear Calc 120.4 eGFR > 60 BUN/Creatinine Ratio 29 H Glucose 84 Calculated Osmolality 284 Calcium 7.9 L Corrected Calcium 8.1 L Magnesium 2.0 Total Bilirubin 1.0 D AST 21 ALT 18 Alkaline Phosphatase 75 Total Protein 6.3 Albumin 3.7 Globulin 2.6 Albumin/Globulin Ratio 1.4 Misc Test Result Platelets confirmed Impressions Impression: Esophageal variceal bleeding requiring esophageal variceal band ligation Hypertensive portal gastropathy with mucosal oozing of blood Continue octreotide infusion for 5 days Assessment & Plan A&P Narrative Hematemesis in the setting of cirrhotic liver disease due to alcohol Plan N.p.o. Octreotide infusion with 50 mcg IV push and then 50 mcg/h IV Protonix Serial CBC Transfuse if the hemoglobin drops below 7 g Consent obtained for fiberoptic esophagogastroduodenoscopy with possible therapeutic intervention possible biopsy under intravenous moderate sedation scheduled for a.m. N.p.o. Other medical problems include Chronic liver disease secondary to alcohol History of choledocholithiasis with placement of a CBD stent Right upper quadrant Jeffrey pain agree with obtaining CCK HIDA scan with ejection fraction Thank you for the opportunity to participate in the care of this patient Time Spent With Patient Time: Total time spent is greater than 50% in coordination of care (as documented) at patient's floor/unit and/or counseling patient:
[2024-07-04] VITALS (8 sets, daily range): BP systolic 98–132; BP diastolic 50–81; PULSE 59–76; RESP 12–98; TEMP 36.1–36.9; O2SAT 97–99
[2024-07-04] MEDS: OCTREOTIDE ACET INJ 1,000 MCG in SODIUM CHLORIDE 0.9% 100 ML 5.1 MCG IV ×2 (01:50→22:11)
[2024-07-04] MEDS: SODIUM CHLORIDE 0.9% 1000 ML 1,000 ML 75 ML IV ×3 (01:54→15:06)
[2024-07-04 06:11] LABS: Basophils % (Auto) 1 % (0-2.5); Eosinophils # (Auto) 0.1 Thou/mm3 (0.0-0.5); Eosinophils % (Auto) 4 % (0-10); Hematocrit 24.9 % (41.0-53.0); Immature Granulocytes % (Auto) 0 % (0-0); Lymphocytes # (Auto) 0.7 Thou/mm3 (1.0-4.8); Lymphocytes % (Auto) 21 % (10-50); Mean Corpuscular HGB Conc 30.9 g/dl (31.0-37.0); Mean Corpuscular Volume 71 fL (80-100); Monocytes # (Auto) 0.3 Thou/mm3 (0.0-0.8); Monocytes % (Auto) 8 % (0-12); Neutrophils # (Auto) 2.3 Thou/mm3 (1.8-7.7); Neutrophils % (Auto) 67 % (37-80); Nucleated Red Blood Cell % 0 /100 WBC (0); RDW Standard Deviation 48.4 fL (35.1-43.9); White Blood Count 3.5 Thou/mm3 (3.8-10.6)
[2024-07-04 06:12] LABS: Hemoglobin 7.7 g/dL (13.5-16.0); Platelet Count 74 Thou/mm3 (140-440)
[2024-07-04 06:30] LABS: Alanine Aminotransferase 14 U/L (10-49); Albumin, Serum 3.4 gm/dL (3.5-5.0); Albumin/Globulin Ratio 1.3 (1.2-2.2); Alkaline Phosphatase 75 U/L (46-116); Anion Gap 7 (7-16); Aspartate Amino Transferase 15 U/L (0-34); BUN/Creatinine Ratio 14 Ratio (12-20); Bilirubin,Total 0.5 mg/dL (0.3-1.2); Blood Urea Nitrogen 10 mg/dL (9-23); Calcium 7.7 mg/dL (8.3-10.6); Calcium (Corrected) 8.2 mg/dL (8.5-10.1); Carbon Dioxide 22.9 mMol/L (20.0-31.0); Chloride 111 mMol/L (98-107); Creatinine (Component) 0.7 mg/dL (0.6-1.3); Estimated Creatinine Clearance 120.4 mL/min (>60); Globulin 2.7 gm/dL (2.3-3.5); Glucose 121 mg/dL (74-106); Magnesium 1.7 mg/dL (1.6-2.6); Osmolality,Calculated 281 (275-295); Potassium 3.8 mMol/L (3.4-5.1); Sodium 141 mMol/L (136-145); Total Protein 6.1 gm/dL (5.7-8.2); eGFR > 60 See Note
[2024-07-04 06:56] LABS: Slide Review Platelets confirmed
[2024-07-04] MEDS: metroNIDAZOLE 250 MG TABLET 500 MG PO ×3 (09:58→21:26)
[2024-07-04] MEDS: PANTOPRAZOLE INJ 40 MG VIAL IV ×2 (09:58→21:26)
[2024-07-04] MEDS: cefTRIAXone/D5w 1gm IV premix 1 GM/50 ML BAG IV (09:59)
--- NOTE | 2024-07-04 12:26 | PD.SURCONS ---
HPI Consult details Consult date: 07/04/24 Reason for consultation narrative: Patient was seen in consultation because of abdominal pain and a diagnosis of acute cholecystitis History of present illness: History of present illness revealed that the patient has been admitted with a history of GI bleeding for the past 3 days. The problem started last Friday when he vomited blood. Patient has had these episodes frequently in the past. His hemoglobin has been as low as 3.5 g in October of last. At the present time he noticed some pain in the right upper quadrant. He is also mention to me that he has had stones in the common bile duct for which a stent was placed in [facility]. There is a history of cirrhosis of the liver but the cause is not clear. But there are documented esophageal varices which have been bleeding and has been banded few times by the gastroenterology. Past Medical History Past Medical History NEUROLOGIC: Negative Seizures CARDIAC: Negative Cardiac Disorders or Congestive Heart Failure RESPIRATORY: Negative Respiratory Disorders, Chronic Obstructive Pulmonary Disease (COPD) or Asthma GASTROINTESTINAL: Positive Gastrointestinal Disorders, Cirrhosis, Gall Bladder Disease and Gastrointestinal Bleed GENITOURINARY: Positive Kidney Stones; Negative Renal Disease ENDOCRINE: Negative Diabetes Mellitus Type 1 or Diabetes Mellitus Type 2 HEMATOLOGIC: Positive Anemia; Negative Sickle Cell Disease OTHER HISTORY: Negative Blood Transfusions, Blood Transfusion Reaction or Anesthesia Reactions Surgical History OTHER SURGICAL HX: As in the history of present illness Social History SMOKING STATUS: Never smoker Meds Home Medications and Allergies Allergies Allergy/AdvReac Type Severity Reaction Status Date / Time No Known Allergies Allergy Verified 07/01/24 09:50 Exam Vital Signs Temp Pulse Resp BP Pulse Ox O2 Del Method O2 Flow Rate 98.1 F 63 19 132/81 H 99 Room Air 3 07/04/24 12:00 07/04/24 12:07/04/24 12:07/04/24 12:07/04/24 12:07/04/24 12:07/02/24 16:37 Narrative Exam Physical examination revealed a thin built male who is 5 feet 1 inch tall weighing 127 with BMI of 25.9. His vital signs are normal Routine Abdominal Exam Comments: Examination of the abdomen showed no significant tenderness in the right upper pole sounds are normoactive. Patient has been eating a regular diet without any problem Routine Rectal Exam Comments: Deferred Results Results: Laboratory Laboratory Narrative: Laboratory workup showed anemia with a hemoglobin of around 7 g. Patient has been given blood as well as octreotide. Results: Imaging Imaging narrative: Patient had an ultrasound which showed no stones. The HIDA scan showed no excretion of the contrast into the gallbladder or the liver probably due to parenchymal disease. MRCP showed some edema of the gallbladder wall suggesting possible acute cholecystitis. There is intrahepatic biliary duct dilatation as well as 4 mm stone in the hepatic duct Assessment & Plan Additional Assessment Additional comments: Impression: Cirrhosis of the liver with recurrent GI bleeding Anemia due to #1 Possible common hepatic duct stone Plan Plan: The patient clinically does not seem to have acute cholecystitis. He is not tender over the right upper quadrant on there are no stones. The MRCP findings may be suggestive of acute cholecystitis but based on that finding he does not require surgery patient is eating a regular diet without any pain and removal of the gallbladder is not indicated at this time. As far as the stone in the common hepatic duct we will ask our pharmacovigilance scientist to see anything can be done. Thank you very much
--- NOTE | 2024-07-04 13:32 | PD.IMPROG ---
Documentation for date of: 07/04/24 Subjective Subjective Interval history: Patient evaluated Hemoglobin hematocrit 7.7 and 24.9 Exam Vital Signs Temp Pulse Resp BP Pulse Ox O2 Del Method O2 Flow Rate 98.1 F 63 19 132/81 H 99 Room Air 3 07/04/24 12:00 07/04/24 12:00 07/04/24 12:00 07/04/24 12:00 07/04/24 12:00 07/04/24 12:00 07/02/24 16:37 Objective Labs 07/04/24 04:33 07/04/24 04:33 Labs: Laboratory Results - last 24 hr 07/04/24 04:33 WBC 3.5 L RBC 3.50 L Hgb 7.7 L Hct 24.9 L MCV 71 L MCH 22.0 L MCHC 30.9 L RDW Std Deviation 48.4 H Plt Count 74 L Neut % (Auto) 67 Lymph % (Auto) 21 [place] % (Auto) 8 Eos % (Auto) 4 Baso % (Auto) 1 Neut # (Auto) 2.3 Lymph # (Auto) 0.7 L [place] # (Auto) 0.3 Eos # (Auto) 0.1 Baso # (Auto) 0.0 Immature Gran # (Auto) 0.00 Absolute Nucleated RBC 0.00 Immature Gran % 0 Nucleated RBC % 0 Sodium 141 Potassium 3.8 Chloride 111 H Carbon Dioxide 22.9 Anion Gap 7 BUN 10 Creatinine 0.7 Estim Creat Clear Calc 120.4 eGFR > 60 BUN/Creatinine Ratio 14 Glucose 121 H Calculated Osmolality 281 Calcium 7.7 L Corrected Calcium 8.2 L Magnesium 1.7 Total Bilirubin 0.5 D AST 15 ALT 14 Alkaline Phosphatase 75 Total Protein 6.1 Albumin 3.4 L Globulin 2.7 Albumin/Globulin Ratio 1.3 Misc Test Result Platelets confirmed Impressions Impression: Acute upper GI bleed secondary to esophageal varices requiring band ligation Continue current management Assessment & Plan A&P Narrative Hematemesis in the setting of cirrhotic liver disease due to alcohol Plan N.p.o. Octreotide infusion with 50 mcg IV push and then 50 mcg/h IV Protonix Serial CBC Transfuse if the hemoglobin drops below 7 g Consent obtained for fiberoptic esophagogastroduodenoscopy with possible therapeutic intervention possible biopsy under intravenous moderate sedation scheduled for a.m. N.p.o. Other medical problems include Chronic liver disease secondary to alcohol History of choledocholithiasis with placement of a CBD stent Right upper quadrant Jeffrey pain agree with obtaining CCK HIDA scan with ejection fraction Thank you for the opportunity to participate in the care of this patient Time Spent With Patient Time: Total time spent is greater than 50% in coordination of care (as documented) at patient's floor/unit and/or counseling patient:
--- NOTE | 2024-07-04 15:25 | PC.SS ---
Rounding: Pt requiring 2 more days of octreotide, pending MRI and SX consult. DC plan remains home.
--- NOTE | 2024-07-04 16:41 | PD.HHPROG ---
Documentation for date of: 07/04/24 Subjective - Hospitalist Subjective Interval history: No acute events overnight, vital signs stable, patient afebrile, blood pressure on the soft side 98/57 mmHg. Patient had no real subjective complaints, with the exception of some mild right upper quadrant pain however he stated he is able to eat without issue and generally feels well. Significant labs included WBC of 3.5, hemoglobin stable 7.7, platelets 74. Liver enzymes to include T. bili completely normal. CMP unremarkable. Exam Vital Signs Temp Pulse Resp BP Pulse Ox O2 Del Method O2 Flow Rate 97.3 F 69 17 122/72 99 Room Air 3 07/04/24 15:44 07/04/24 15:44 07/04/24 15:44 07/04/24 15:44 07/04/24 15:44 07/04/24 15:44 07/02/24 16:37 Narrative GENERAL APPEARANCE: NAD, resting comfortably HEENT: Normocephalic, atraumatic, extraocular movements intact. NECK: Supple CARDIOVASULAR: NSR, S1, S2 heard without S3-S4 or murmur no rubs or gallops. LUNGS/CHEST: CTA bilaterally, no wheezing, rhonchi or rales heard ABDOMEN: Soft however some right upper quadrant tenderness with palpation. NABS x 4 quadrants EXTREMITIES: Normal inspection and palpation. No edema, clubbing or cyanosis. NEURO: No focal deficits PSYCHIATRIC: Mood and affect normal Objective - Hospitalist Labs Diagram: 07/04/24 04:33 07/04/24 04:33 Labs: Laboratory Results - last 24 hr 07/04/24 04:33 WBC 3.5 L RBC 3.50 L Hgb 7.7 L Hct 24.9 L MCV 71 L MCH 22.0 L MCHC 30.9 L RDW Std Deviation 48.4 H Plt Count 74 L Neut % (Auto) 67 Lymph % (Auto) 21 [place] % (Auto) 8 Eos % (Auto) 4 Baso % (Auto) 1 Neut # (Auto) 2.3 Lymph # (Auto) 0.7 L [place] # (Auto) 0.3 Eos # (Auto) 0.1 Baso # (Auto) 0.0 Immature Gran # (Auto) 0.00 Absolute Nucleated RBC 0.00 Immature Gran % 0 Nucleated RBC % 0 Sodium 141 Potassium 3.8 Chloride 111 H Carbon Dioxide 22.9 Anion Gap 7 BUN 10 Creatinine 0.7 Estim Creat Clear Calc 120.4 eGFR > 60 BUN/Creatinine Ratio 14 Glucose 121 H Calculated Osmolality 281 Calcium 7.7 L Corrected Calcium 8.2 L Magnesium 1.7 Total Bilirubin 0.5 D AST 15 ALT 14 Alkaline Phosphatase 75 Total Protein 6.1 Albumin 3.4 L Globulin 2.7 Albumin/Globulin Ratio 1.3 Misc Test Result Platelets confirmed Assessment & Plan Plan: 23-year-old male with past medical history of 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 #Cholecystitis? #Hepatic duct stone, 4 mm as demonstrated on MRCP, history of choledocholithiasis #Liver lesion, Rt Lobe 25mm MRCP performed on 07/03 which demonstrated distended gallbladder with findings consistent of acute cholecystitis, extrahepatic biliary tract dilation with 4 mm common hepatic duct stone and 25 mm anterior right lobe liver lesion Plan: Continue patient on ceftriaxone, Flagyl added for anaerobic coverage Tower Erector, Dr. Beckwith consulted for possible ERCP, will evaluate the patient tomorrow on 07/05 General Surgery consulted, no acute intervention at this time as the patient has minimal pain and is eating a regular diet without any pain #Variceal bleed?resolved, patient has history of variceal bleeds in the past due to alcohol induced liver cirrhosis #Blood loss anemia secondary to above?improved #Intractable nausea and vomiting?improved #Hx of liver cirrhosis MELD-Na score of 13 points indicating less than 2% mortality in 90 days Child- Vanegas score of 5 points, Child A Plan: Continue octreotide drip for 5 days total per gastroenterology recommendations Continue pantoprazole 40 mg IV twice daily Zofran 4 mg Q4 as needed Replete electrolytes as needed Disposition: Pending clinical course, specialist recommendations and course of octreotide drip Diet: Regular diet GI prophylaxis: protonix DVT prophylaxis: Ambulation Code: Shipping Clerk/Admin Spent with Patient Time: Total time spent is greater than 50% in coordination of care (as documented) at patient's floor/unit and/or counseling patient: Time with patient: 25 - 35 minutes Reason for Continued Stay Reason for continued stay: further monitoring, IV antibiotics and other (Specialist evaluation) Quality Measures Quality Measures none (Patient can ambulate)
[2024-07-04] MEDS: MORPHINE SULF INJ 10 MG/ML VIAL IVP ×2 (17:36→21:26)
[2024-07-05] VITALS: BP 104/53; PULSE 64; PULSE 68; RESP 19; TEMP 36.1; O2SAT 98
--- NOTE | 2024-07-05 | XR_ITS ---
Examination: MRI abdomen with intravenous contrast TECHNIQUE: Multiple axial MRI abdomen images post intravenous menstruation 20 cc gadolinium INDICATIONS: MRI abdomen without contrast July 03, 2024 25 mm anterior right liver lesion Exam date and time: July 05, 2024 1927 hours FINDINGS: Homogeneous enhancement anterior right lobe liver lesion, 29 x 26 mm Intrahepatic biliary tract dilatation Liver is irregular in contour Distended gallbladder with edema however the patient has ascites Massive splenomegaly Common hepatic duct 11 mm No common hepatic or common bile duct stones IMPRESSION: Homogeneously enhancing right lobe interpretation 29 x 26 mm, differential would include hemangioma, adenoma, recommend three-month follow-up hepatic sonography Primary hepatocellular disease Prominent splenomegaly Distended gallbladder with wall thickening and edema, however the patient has ascites Extrahepatic biliary duct dilatation, consider ERCP follow-up although no definite stones noted
[2024-07-05 04:00] VITALS: BP 95/58; PULSE 53; PULSE 63; RESP 20; TEMP 36.1; O2SAT 96
[2024-07-05] MEDS: metroNIDAZOLE 250 MG TABLET 500 MG PO ×3 (05:45→21:00)
[2024-07-05 06:09] LABS: Basophils % (Auto) 1 % (0-2.5); Eosinophils # (Auto) 0.1 Thou/mm3 (0.0-0.5); Eosinophils % (Auto) 4 % (0-10); Immature Granulocytes % (Auto) 0 % (0-0); Immature Granulocytes Auto 0.01 Thou/mm3 (0.00-0.00); Lymphocytes # (Auto) 0.6 Thou/mm3 (1.0-4.8); Lymphocytes % (Auto) 22 % (10-50); Mean Corpuscular HGB Conc 31.3 g/dl (31.0-37.0); Mean Corpuscular Hemoglobin 22.3 pg (25.0-35.0); Mean Corpuscular Volume 71 fL (80-100); Monocytes # (Auto) 0.2 Thou/mm3 (0.0-0.8); Monocytes % (Auto) 7 % (0-12); Neutrophils # (Auto) 1.9 Thou/mm3 (1.8-7.7); Neutrophils % (Auto) 66 % (37-80); Nucleated Red Blood Cell % 0 /100 WBC (0); RDW Standard Deviation 49.1 fL (35.1-43.9); Red Blood Count 3.23 Miln/mm3 (4.50-5.90)
[2024-07-05 06:31] LABS: Alanine Aminotransferase 19 U/L (10-49); Albumin, Serum 3.3 gm/dL (3.5-5.0); Albumin/Globulin Ratio 1.3 (1.2-2.2); Alkaline Phosphatase 74 U/L (46-116); Anion Gap 6 (7-16); Aspartate Amino Transferase 23 U/L (0-34); BUN/Creatinine Ratio 12 Ratio (12-20); Bilirubin,Total 0.6 mg/dL (0.3-1.2); Blood Urea Nitrogen 7 mg/dL (9-23); Calcium 7.6 mg/dL (8.3-10.6); Calcium (Corrected) 8.2 mg/dL (8.5-10.1); Carbon Dioxide 24.9 mMol/L (20.0-31.0); Chloride 110 mMol/L (98-107); Creatinine (Component) 0.6 mg/dL (0.6-1.3); Estimated Creatinine Clearance 140.4 mL/min (>60); Globulin 2.6 gm/dL (2.3-3.5); Glucose 122 mg/dL (74-106); Magnesium 1.6 mg/dL (1.6-2.6); Osmolality,Calculated 280 (275-295); Potassium 3.6 mMol/L (3.4-5.1); Sodium 141 mMol/L (136-145); Total Protein 5.9 gm/dL (5.7-8.2); eGFR > 60 See Note
[2024-07-05 06:46] LABS: Hemoglobin 7.2 g/dL (13.5-16.0); Platelet Count 69 Thou/mm3 (140-440); White Blood Count 2.9 Thou/mm3 (3.8-10.6)
[2024-07-05 07:39] LABS: Slide Review Platelets confirmed
[2024-07-05 08:00] VITALS: BP 109/65; PULSE 54; PULSE 67; RESP 18; TEMP 36.1; O2SAT 100
[2024-07-05] MEDS: cefTRIAXone/D5w 1gm IV premix 1 GM/50 ML BAG IV (08:12)
[2024-07-05] MEDS: PANTOPRAZOLE 40 MG TABLET PO ×2 (08:13→20:54)
[2024-07-05] MEDS: SODIUM CHLORIDE 0.9% 1000 ML 1,000 ML 75 ML IV (08:13)
[2024-07-05 08:23] VITALS: BMI 25.8
--- NOTE | 2024-07-05 09:56 | CHAP ---
Patient was sleeping. Said a silent prayer.
--- NOTE | 2024-07-05 10:23 | PC.SS ---
SS follow up note; Patient is on Octreotide drip, pending Dr. Belcher and Amena's consult. Patient will discharge back home when medically cleared.
[2024-07-05 12:00] VITALS: BP 115/66; PULSE 57; PULSE 60; RESP 19; TEMP 36.1; O2SAT 99
[2024-07-05 16:00] VITALS: BP 111/64; PULSE 61; PULSE 63; RESP 16; TEMP 36.1; O2SAT 100
--- NOTE | 2024-07-05 16:39 | PD.IMPROG ---
Documentation for date of: 07/05/24 Subjective Subjective Interval history: Downtrending hemoglobin to 7.2 But the stools have turned brownish and no melanotic stools Exam Vital Signs Temp Pulse Resp BP Pulse Ox O2 Del Method O2 Flow Rate 97.0 F 61 16 111/64 100 Room Air 3 07/05/24 16:00 07/05/24 16:00 07/05/24 16:00 07/05/24 16:00 07/05/24 16:00 07/05/24 16:00 07/02/24 16:37 Objective Labs 07/05/24 05:46 07/05/24 05:46 Labs: Laboratory Results - last 24 hr 07/05/24 05:46 WBC 2.9 L RBC 3.23 L Hgb 7.2 L Hct 23.0 L MCV 71 L MCH 22.3 L MCHC 31.3 RDW Std Deviation 49.1 H Plt Count 69 L Neut % (Auto) 66 Lymph % (Auto) 22 [place] % (Auto) 7 Eos % (Auto) 4 Baso % (Auto) 1 Neut # (Auto) 1.9 Lymph # (Auto) 0.6 L [place] # (Auto) 0.2 Eos # (Auto) 0.1 Baso # (Auto) 0.0 Immature Gran # (Auto) 0.01 H Absolute Nucleated RBC 0.00 Immature Gran % 0 Nucleated RBC % 0 Sodium 141 Potassium 3.6 Chloride 110 H Carbon Dioxide 24.9 Anion Gap 6 L BUN 7 L Creatinine 0.6 Estim Creat Clear Calc 140.4 eGFR > 60 BUN/Creatinine Ratio 12 Glucose 122 H Calculated Osmolality 280 Calcium 7.6 L Corrected Calcium 8.2 L Magnesium 1.6 Total Bilirubin 0.6 AST 23 ALT 19 Alkaline Phosphatase 74 Total Protein 5.9 Albumin 3.3 L Globulin 2.6 Albumin/Globulin Ratio 1.3 Misc Test Result Platelets confirmed Impressions Impression: Upper GI bleeding secondary to esophageal variceal bleed requiring band ligation Chronic liver disease etiology uncertain at the moment Plan continue current management Follow-up at [facility] can be arranged that is where his medical records are Assessment & Plan A&P Narrative Hematemesis in the setting of cirrhotic liver disease due to alcohol Plan N.p.o. Octreotide infusion with 50 mcg IV push and then 50 mcg/h IV Protonix Serial CBC Transfuse if the hemoglobin drops below 7 g Consent obtained for fiberoptic esophagogastroduodenoscopy with possible therapeutic intervention possible biopsy under intravenous moderate sedation scheduled for a.m. N.p.o. Other medical problems include Chronic liver disease secondary to alcohol History of choledocholithiasis with placement of a CBD stent Right upper quadrant Jeffrey pain agree with obtaining CCK HIDA scan with ejection fraction Thank you for the opportunity to participate in the care of this patient Time Spent With Patient Time: Total time spent is greater than 50% in coordination of care (as documented) at patient's floor/unit and/or counseling patient:
[2024-07-05] MEDS: ursodioL 300 MG CAPSULE PO ×2 (17:33→20:54)
[2024-07-05] MEDS: OCTREOTIDE ACET INJ 1,000 MCG in SODIUM CHLORIDE 0.9% 100 ML 5.1 MCG IV (17:43)
--- NOTE | 2024-07-05 19:18 | PC.NURSE ---
[place] per Dr. Abarca to stop sandostatin drip to send pt for MRI. personnel monitor removed, MT was made aware.
[2024-07-05 20:00] VITALS: BP 119/66; PULSE 58; RESP 17; TEMP 36.7; O2SAT 100
--- NOTE | 2024-07-05 22:31 | PD.HHPROG ---
Documentation for date of: 07/05/24 Subjective - Hospitalist Subjective Interval history: Patient seen and evaluated this AM. No acute events overnight, vital signs stable, patient afebrile, BP 98/58 mmHg, significant labs include a WBC of 2.9, hemoglobin 10.2 with stable, CMP largely unremarkable, liver enzymes normal. Exam Vital Signs Temp Pulse Resp BP Pulse Ox O2 Del Method O2 Flow Rate 98.1 F 58 L 17 119/66 100 Room Air 3 07/05/24 20:00 07/05/24 20:00 07/05/24 20:00 07/05/24 20:00 07/05/24 20:00 07/05/24 20:00 07/02/24 16:37 Narrative GENERAL APPEARANCE: NAD, resting comfortably HEENT: Normocephalic, atraumatic, extraocular movements intact. NECK: Supple CARDIOVASULAR: NSR, S1, S2 heard without S3-S4 or murmur no rubs or gallops. LUNGS/CHEST: CTA bilaterally, no wheezing, rhonchi or rales heard ABDOMEN: Soft however some right upper quadrant tenderness with palpation. NABS x 4 quadrants EXTREMITIES: Normal inspection and palpation. No edema, clubbing or cyanosis. NEURO: No focal deficits PSYCHIATRIC: Mood and affect normal Objective - Hospitalist Labs Diagram: 07/05/24 05:46 07/05/24 05:46 Labs: Laboratory Results - last 24 hr 07/05/24 05:46 WBC 2.9 L RBC 3.23 L Hgb 7.2 L Hct 23.0 L MCV 71 L MCH 22.3 L MCHC 31.3 RDW Std Deviation 49.1 H Plt Count 69 L Neut % (Auto) 66 Lymph % (Auto) 22 [place] % (Auto) 7 Eos % (Auto) 4 Baso % (Auto) 1 Neut # (Auto) 1.9 Lymph # (Auto) 0.6 L [place] # (Auto) 0.2 Eos # (Auto) 0.1 Baso # (Auto) 0.0 Immature Gran # (Auto) 0.01 H Absolute Nucleated RBC 0.00 Immature Gran % 0 Nucleated RBC % 0 Sodium 141 Potassium 3.6 Chloride 110 H Carbon Dioxide 24.9 Anion Gap 6 L BUN 7 L Creatinine 0.6 Estim Creat Clear Calc 140.4 eGFR > 60 BUN/Creatinine Ratio 12 Glucose 122 H Calculated Osmolality 280 Calcium 7.6 L Corrected Calcium 8.2 L Magnesium 1.6 Total Bilirubin 0.6 AST 23 ALT 19 Alkaline Phosphatase 74 Total Protein 5.9 Albumin 3.3 L Globulin 2.6 Albumin/Globulin Ratio 1.3 Misc Test Result Platelets confirmed Assessment & Plan Plan: 23-year-old male with past medical history of 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 #Cholecystitis? #Hepatic duct stone, 4 mm as demonstrated on MRCP, history of choledocholithiasis #Liver lesion, MRI of his abdomen demonstrated a homogeneously enhancing right lobe lesion at 29 x 26 mm possibly suggestive of hemangioma versus adenoma, 3-month follow-up ultrasound recommended. Other findings were primary hepatocellular disease, prominent splenomegaly and a distended gallbladder with wall edema thickening and edema however the patient does have ascites. Extrahepatic biliary duct dilation was again noted however no documented stones seen. Plan: -I did speak with auto electrical technician, Dr. Beckwith today and considering the patient was banded on this admission, performing an ERCP would be dangerous as advancing the scope down the esophagus may cause life-threatening breathing with the patient's varices at this time. He is recommending repeat EGD in approximately 2 weeks to reassess. Will continue ceftriaxone and Flagyl for now however will discontinue, patient can be discharged after course of octreotide which will end tomorrow afternoon. Will continue to monitor closely -Repeat Liver US in 3 months for re evaluation of liver lesion #Variceal bleed?resolved, patient has history of variceal bleeds in the past due to alcohol induced liver cirrhosis #Blood loss anemia secondary to above?improved #Intractable nausea and vomiting?improved #Hx of liver cirrhosis MELD-Na score of 13 points indicating less than 2% mortality in 90 days Child- Vanegas score of 5 points, Child A Plan: Continue octreotide drip for 5 days total per gastroenterology recommendations Continue pantoprazole 40 mg IV twice daily Zofran 4 mg Q4 as needed Replete electrolytes as needed Disposition: Discharge home after completion of octreotide drip Diet: Regular diet GI prophylaxis: protonix DVT prophylaxis: Ambulation Code: Nurse Care Manager Spent with Patient Time: Total time spent is greater than 50% in coordination of care (as documented) at patient's floor/unit and/or counseling patient: Time with patient: 25 - 35 minutes Reason for Continued Stay Reason for continued stay: further monitoring and other Quality Measures Quality Measures none (Patient can ambulate)
[2024-07-05] MEDS: MORPHINE SULF INJ 10 MG/ML VIAL IVP (23:47)
[2024-07-06] VITALS: BP 117/63; PULSE 53; PULSE 62; RESP 16; TEMP 36.6; O2SAT 99
[2024-07-06 04:00] VITALS: BP 110/55; PULSE 54; PULSE 60; RESP 18; TEMP 36.3; O2SAT 98
[2024-07-06] MEDS: ursodioL 300 MG CAPSULE PO ×3 (05:45→16:33)
[2024-07-06 05:51] VITALS: BMI 25.8
[2024-07-06 06:23] LABS: Basophils % (Auto) 1 % (0-2.5); Eosinophils # (Auto) 0.1 Thou/mm3 (0.0-0.5); Eosinophils % (Auto) 4 % (0-10); Hematocrit 23.9 % (41.0-53.0); Immature Granulocytes % (Auto) 0 % (0-0); Immature Granulocytes Auto 0.01 Thou/mm3 (0.00-0.00); Lymphocytes # (Auto) 0.9 Thou/mm3 (1.0-4.8); Lymphocytes % (Auto) 31 % (10-50); Mean Corpuscular Hemoglobin 22.4 pg (25.0-35.0); Mean Corpuscular Volume 72 fL (80-100); Monocytes # (Auto) 0.2 Thou/mm3 (0.0-0.8); Monocytes % (Auto) 7 % (0-12); Neutrophils # (Auto) 1.7 Thou/mm3 (1.8-7.7); Neutrophils % (Auto) 58 % (37-80); Nucleated Red Blood Cell % 0 /100 WBC (0); RDW Standard Deviation 50.8 fL (35.1-43.9)
[2024-07-06 06:54] LABS: Alanine Aminotransferase 18 U/L (10-49); Albumin, Serum 3.5 gm/dL (3.5-5.0); Albumin/Globulin Ratio 1.3 (1.2-2.2); Alkaline Phosphatase 72 U/L (46-116); Anion Gap 8 (7-16); Aspartate Amino Transferase 25 U/L (0-34); BUN/Creatinine Ratio 14 Ratio (12-20); Bilirubin,Total 0.8 mg/dL (0.3-1.2); Blood Urea Nitrogen 10 mg/dL (9-23); Calcium (Corrected) 8.4 mg/dL (8.5-10.1); Carbon Dioxide 27.2 mMol/L (20.0-31.0); Chloride 106 mMol/L (98-107); Creatinine (Component) 0.7 mg/dL (0.6-1.3); Estimated Creatinine Clearance 120.4 mL/min (>60); Globulin 2.6 gm/dL (2.3-3.5); Glucose 98 mg/dL (74-106); Osmolality,Calculated 280 (275-295); Potassium 4.1 mMol/L (3.4-5.1); Sodium 141 mMol/L (136-145); Total Protein 6.1 gm/dL (5.7-8.2); eGFR > 60 See Note
[2024-07-06 08:00] VITALS: BP 99/59; PULSE 52; PULSE 56; RESP 14; TEMP 36.1; O2SAT 99
[2024-07-06] MEDS: PANTOPRAZOLE 40 MG TABLET PO (08:57)
[2024-07-06 09:20] LABS: Hemoglobin 7.4 g/dL (13.5-16.0); Platelet Count 69 Thou/mm3 (140-440); White Blood Count 2.9 Thou/mm3 (3.8-10.6)
[2024-07-06 11:08] LABS: Slide Review Platelets confirmed
--- NOTE | 2024-07-06 11:21 | ESDS_ITS ---
<Statement entered by Farheen Peralta MD - 07/06/24 13:47> I discussed with and supervised the sales and marketing intern physician who took care of this patient. I personally saw and examined the patient and discussed the assessment and plan with the entire medicine team, including my attending Dr. Abraham, I agree with most of the assessment and plan as documented below Farheen Peralta M.D. PGY-2 Planned Discharge Date 07/06/24 DS: Providers Provider Date of admission: 07/01/24 16:41 Primary care physician: Physician No Primary/Family Admitting Provider: Neil Abraham DO Attending Provider on Admission: Neil Abraham DO Consults: 07/01/24 15:49 Consult to Gastroenterology Stat Comment: Consulting Provider: Herber Johnson 07/01/24 22:06 Referral [place] Stat Comment: Referral Respiratory Therapy Stat Comment: 07/04/24 08:26 Consult to General Surgery Stat Comment: choleycystitis Consulting Provider: Bijan Nuñez 07/04/24 08:27 Consult to Gastroenterology Stat Comment: hepatic duct stone Consulting Provider: Gerardo Acevedo Attending Provider on DC: Neil Abraham DO Discharging Provider: Neil Abraham DO DS: Diagnosis Problem List Completed Was Problem List Reviewed/Reconciled?: Yes Hospital Course Hospital Course Hospital course: 23-year-old male with past medical history of variceal bleeds status post banding (3 times), alcoholic liver cirrhosis, and choledocholithiasis s/p stent was admitted to the hospital on 07/01/2024 for acute blood loss anemia in the setting of hematemesis likely secondary to esophageal varices bleed. Initially patient came in afebrile and normotensive. Initial labs were remarkable for low hemoglobin (7.7) and thrombocytopenia (88). Initial imaging included gallbladder ultrasound which showed some gallbladder wall edema which was not seen previously. Patient had an EGD done in he was found to have grade 3 esophageal varices which required 3 bands. Patient also had a HIDA scan ordered that showed no gallbladder activity and MRCP was then done which showed distended gallbladder along with extrahepatic biliary tract dilation with a 4 mm common hepatic duct stone and a 25 mm anterior right lobe liver lesion. Abdominal MRI was done which again showed the extrahepatic biliary duct dilation, but this time no stone was noted and there was still a 29/26 mm right lobe lesion which could be hemangioma or adenoma. Throughout the hospital course patient did receive 2 units of PRBC and he was placed on octreotide for total 5 days. At the time of discharge patient was stable enough to be discharged home with close follow-up with GI specialist and primary care physician. Discharge plan: Please follow-up with your primary care physician within 1 week Follow-up with primary care physician for US liver in 3 months to follow-up on liver lesion noted on MRI and MRCP. Please follow up with GI specialist within 1-2 weeks to schedule follow-up EGD in 3 weeks upon discharge and for possible ERCP. You have been started on pantoprazole 40mg daily and ursodiol 300mg four times a day Please continue taking all other home medications as prescribed Please get in contact with [facility] to be placed back on transplant list. Please abstain from any illicit drug use Please come back to the ER if symptoms persist or worsen Problem list: #Variceal bleed s/p banding 3 #Blood loss anemia secondary to above #Intractable nausea and vomiting #Hx of liver cirrhosis #Cholecystitis #Hepatic duct stone, 4 mm as demonstrated on MRCP, history of ch oledocholithiasis #Liver lesion Case disclosed with Attending Dr. Abraham and my senior Dr. Peralta PGY2 Zafar Pedraza PGY1 Status at Discharge Overall status at discharge: patient is progressing back to baseline Time Spent with Patient Time attestation: Total time spent providing and/or coordinating discharge services:>35 min Time spent: Greater than 30 minutes Exam Vital Signs Temp Pulse Resp BP Pulse Ox O2 Del Method O2 Flow Rate 97.0 F 56 L 14 99/59 L 99 Room Air 3 07/06/24 08:00 07/06/24 08:00 07/06/24 08:00 07/06/24 08:00 07/06/24 08:00 07/06/24 08:00 07/02/24 16:37 Narrative Exam General: A/O x3, no acute distress Eyes: PERRL, EOMI. Anicteric, vision grossly intact. Ears: No ear pain, no ear discharge, Hearing grossly intact. Nose: No nasal discharge. Mouth/Throat: Moist mucous membranes, no redness, no lesions. Neck: Neck supple, non-tender, no cervical lymphadenopathy. Lungs: Clear [place] to auscultation and percussion, No accessory muscle use. Cardio: Normal S1/S2, regular rhythm, no murmurs, no JVD Abdomen: Soft, non tender, peristalsis present, no guarding or rebound. Extremities: Symmetrical, no significant deformities, no peripheral edema , non-tender, peripheral pulses presents. Skin: No rashes, no lesions, warm to touch. Neuro: No focal neurological deficits. motor and sensory intact Psych: Cooperative, appropriate mood and effect. Discharge Plan Plan Patient Disposition: HOME (Self Care) Care Plan Goals: Please follow-up with your primary care physician within 1 week Follow-up with primary care physician for US liver in 3 months to follow-up on liver lesion noted on MRI and MRCP. Please follow up with GI specialist within 1-2 weeks to schedule follow-up EGD in 3 weeks upon discharge and for possible ERCP. You have been started on pantoprazole 40mg daily and ursodiol 300mg four times a day Please continue taking all other home medications as prescribed Please get in contact with [facility] to be placed back on transplant list. Please abstain from any illicit drug use Please come back to the ER if symptoms persist or worsen Prescriptions/Referrals Prescriptions/Med Rec: New ursodiol 300 mg Capsule 300 mg PO QID 30 Days Qty: 120 0RF pantoprazole 40 mg tablet,delayed release (DR/EC) 40 mg PO QDAY Qty: 30 0RF Continued propranolol 10 mg tablet 10 mg PO BID Qty: 60 2RF Referrals: No Primary/Family,Physician [Primary Care Provider] - Gerardo Acevedo MD [Physician] - Patient/Caregiver Discharge Instructions Other Discharge Diet Instructions: Please follow-up with your primary care physician within 1 week Follow-up with primary care physician for US liver in 3 months to follow-up on liver lesion noted on MRI and MRCP. Please follow up with GI specialist within 1-2 weeks to schedule follow-up EGD in 3 weeks upon discharge and for possible ERCP. You have been started on pantoprazole 40mg daily and ursodiol 300mg four times a day Please continue taking all other home medications as prescribed Please get in contact with [facility] to be placed back on transplant list. Please abstain from any illicit drug use Please come back to the ER if symptoms persist or worsen Education Materials: Esophageal Varices, Discharge Instructions for ... Print Language: Persian Stand Alone Forms: Анна Award Info., Patient Portal Info Letter Discharge Order Discharge Orders: Discharge (Routine); Ordered 07/06/24 Ordered By: Mega Nieves [facility] Quality Discharge Quality Measures VTE prophylaxis Attestestation Attestation I have discussed and was present for the essential components of the discharge history, physical examination, diagnosis, and discharge treatment plan with the resident. I agree with the patient's discharge care as documented by the resident and amended herein by me. Mao Abraham, DO. The patient understood all discharge instructions, all questions were answered satisfactorily. The patient was instructed to return to the Emergency Department is symptoms worsened or persisted. Patient was unable to have ERCP evaluation due to the fact he had recent esophageal variceal banding during this admission. It is recommended by Dr. Beckwith, adjunct business instructor to have a repeat EGD in 2 weeks for evaluation of varices and then perhaps can proceed with ERCP if still necessary. Patient will be discharged on a course of ursodiol taking dissolution of the stone. Patient completely asymptomatic, liver enzymes to include T. bili completely normal. He will need close follow- up with PCP within 5 to 7 days of discharge at our [facility]. Patient was stable, afebrile, tolerating p.o. intake and ambulatory at time of discharge home. Although this document has been carefully reviewed, there may still be some phonetic and other typographical errors. These errors are purely grammatical due to imperfections in the software program and should not be construed in any way to compromise the substance of the patient's medical care during this visit.
[2024-07-06 12:00] VITALS: BP 94/53; PULSE 54; PULSE 67; RESP 18; TEMP 36.3; O2SAT 100
--- NOTE | 2024-07-06 13:48 | PD.IMCONS ---
HPI Data of Consult Requesting Physician: Neil Abraham DO Primary Care Provider: Physician No Primary/Family Consult Narrative History of present illness: 23 year old male with etoh cirrhosis with ev bleeding s/p banding with MRCP showed cbd stone, not cholangitic. cc:: cc: Neil Abraham DO Review of Systems Review of Systems Narrative Review of Systems: reviewed and neg Meds Home Medications and Allergies Allergies Allergy/AdvReac Type Severity Reaction Status Date / Time No Known Allergies Allergy Verified 07/01/24 09:50 Exam Vital Signs Temp Pulse Resp BP Pulse Ox O2 Del Method O2 Flow Rate 97.4 F 67 18 94/53 L 100 Room Air 3 07/06/24 12:00 07/06/24 12:00 07/06/24 12:00 07/06/24 12:00 07/06/24 12:00 07/06/24 12:00 07/02/24 16:37 Routine Abdominal Exam Comments: normal Results Labs 07/06/24 05:51 07/06/24 05:51 Labs: Short CBC 07/06/24 Range/Units 05:51 WBC 2.9 L (3.8-10.6) Thou/mm3 Hgb 7.4 L (13.5-16.0) g/dL Hct 23.9 L (41.0-53.0) % Plt Count 69 L (140-440) Thou/mm3 BMP 07/06/24 05:51 Sodium 141 Potassium 4.1 D Chloride 106 Carbon Dioxide 27.2 BUN 10 Creatinine 0.7 Glucose 98 Calcium 8.0 L Liver Function 07/06/24 Range/Units 05:51 Total Bilirubin 0.8 (0.3-1.2) mg/dL AST 25 (0-34) U/L ALT 18 (10-49) U/L Alkaline Phosphatase 72 (46-116) U/L Albumin 3.5 (3.5-5.0) gm/dL Assessment and Plan Additional Assessment & Plan Additional Plan: 23 year old male with etoh cirrhosis with ev bleeding s/p banding with MRCP showed cbd stone, not cholangitic. Do not recommend ERCP as there is a high riks of bleeding as we advance the scope through GEJ and dis lodge EV bands Needs repeated EGDs with banding and then ERCP Call GI with any questions
[2024-07-06 16:00] VITALS: BP 111/65; PULSE 54; PULSE 61; RESP 16; TEMP 36.1; O2SAT 97
[2024-07-06 18:00] VITALS: BP 119/81; PULSE 74; RESP 16; TEMP 36.4; O2SAT 96
--- NOTE | 2024-07-06 22:08 | PD.IMPROG ---
Documentation for date of: 07/06/24 Subjective Subjective Interval history: late entry for the note patient will need further endoscopic evaluation for further evaluation of the esophageal varices as an outpatient Case discussed with internal medicine team Exam Vital Signs Temp Pulse Resp BP Pulse Ox O2 Del Method O2 Flow Rate 97.6 F 74 16 119/81 96 Room Air 3 07/06/24 18:00 07/06/24 18:00 07/06/24 18:00 07/06/24 18:00 07/06/24 18:00 07/06/24 16:00 07/02/24 16:37 Objective Labs 07/06/24 05:51 07/06/24 05:51 Labs: Laboratory Results - last 24 hr 07/06/24 05:51 WBC 2.9 L RBC 3.30 L Hgb 7.4 L Hct 23.9 L MCV 72 L MCH 22.4 L MCHC 31.0 RDW Std Deviation 50.8 H Plt Count 69 L Neut % (Auto) 58 Lymph % (Auto) 31 [place] % (Auto) 7 Eos % (Auto) 4 Baso % (Auto) 1 Neut # (Auto) 1.7 L Lymph # (Auto) 0.9 L [place] # (Auto) 0.2 Eos # (Auto) 0.1 Baso # (Auto) 0.0 Immature Gran # (Auto) 0.01 H Absolute Nucleated RBC 0.00 Immature Gran % 0 Nucleated RBC % 0 Sodium 141 Potassium 4.1 D Chloride 106 Carbon Dioxide 27.2 Anion Gap 8 BUN 10 Creatinine 0.7 Estim Creat Clear Calc 120.4 eGFR > 60 BUN/Creatinine Ratio 14 Glucose 98 Calculated Osmolality 280 Calcium 8.0 L Corrected Calcium 8.4 L Total Bilirubin 0.8 AST 25 ALT 18 Alkaline Phosphatase 72 Total Protein 6.1 Albumin 3.5 Globulin 2.6 Albumin/Globulin Ratio 1.3 Misc Test Result Platelets confirmed Impressions Impression: Upper GI bleed secondary secondary to esophageal varices requiring band ligation Outpatient follow-up For a repeat endoscopy Assessment & Plan A&P Narrative 23 year old male with etoh cirrhosis with ev bleeding s/p banding with MRCP showed cbd stone, not cholangitic. Do not recommend ERCP as there is a high riks of bleeding as we advance the scope through GEJ and dis lodge EV bands Needs repeated EGDs with banding and then ERCP Call GI with any questions Time Spent With Patient Time: Total time spent is greater than 50% in coordination of care (as documented) at patient's floor/unit and/or counseling patient:
== END 2024-07-06 18:15 | disposition home or self-care (01) | DRG 280 ==
LOC: SERX 15:55 → SERHOLD 16:52 → S2NX 21:53
PROVIDERS: Nurse Practitioner Family; Specialist; Student in an Organized Health Care Education/Training Program; Admitting Provider Student in an Organized Health Care Education/Training Program; Emergency Provider Family Medicine; Visit Provider Student in an Organized Health Care Education/Training Program
PROC: 06L38CZ Occlusion of Esophageal Vein with Extraluminal Device, Via Natural or Artificial Opening Endoscopic (ICD-10-PCS; CPT 43239; principal; 2024-07-02 16:30)
DX: K70.31 Alcoholic cirrhosis of liver with ascites (principal); I85.11 Secondary esophageal varices with bleeding; D62 Acute posthemorrhagic anemia; D69.6 Thrombocytopenia, unspecified; F12.90 Cannabis use, unspecified, uncomplicated; K31.89 Other diseases of stomach and duodenum; K76.6 Portal hypertension; R16.1 Splenomegaly, not elsewhere classified; K82.8 Other specified diseases of gallbladder; K80.42 Calculus of bile duct with acute cholecystitis without obstruction
CPT/HCPCS: 36415; 36430; 74182; 76705; 78227; 80053; 81001; 82150; 83690; 83735; 85014; 85018; 85025; 85610; 85730; 86850; 86900; 86901; 86923; 87086; 93005; 96365; 96374; 96375; 99285; A4649; A9537; A9579; J0696; J1200; J2250; J2270; J2354; J2405; J2470; J3010; J7030; J7050; P9016; Q0162; S8037; 74181; A9270

== ENCOUNTER 2024-07-16 15:28 | Outpatient (AMB) | payer MEDICAID, SELFPAY ==
[2024-07-16 15:30] VITALS: BP 114/69; PULSE 70; RESP 18; TEMP 36.6; O2SAT 98; BMI 25.2
--- NOTE | 2024-07-16 15:30 | PD.RESCLINIC ---
Vital Signs 07/16/24 15:30 Height 1.55 m Height Method Stated Weight 60.498 kg Weight Measurement Method Standing Scale BMI 25.2 BP 114/69 Blood Pressure Source Automatic Cuff Blood Pressure Location Right Upper Arm Position Sitting Respiration 18 Pulse 70 Pulse Source Monitor Temp 97.8 F Temp Source Temporal Artery Scan Pulse Oximetry (%) 98 Oxygen Delivery Method Room Air Allergies/Meds Allergies & Medications Allergies No Known Allergies Allergy (Verified 07/16/24 15:42) Medication Reconciliation propranolol 10 mg tablet 10 mg PO BID #60 tabs 06/11/24 [Rx Confirmed 07/16/24] pantoprazole 40 mg tablet,delayed release 40 mg PO QDAY #30 tabs 07/06/24 [Rx Confirmed 07/16/24] ursodiol 300 mg capsule 300 mg PO QID 30 days #120 caps 07/06/24 [Rx Confirmed 07/16/24] MA Intake Visit Data Collection New Patient or Established: Established Patient (seen at [facility] within 3 years) Seen by Clinical Staff ONLY (RN/MA): No Reason for Visit:: follow up from the hospital Pain Present Currently: No Pain scale:: 0 Pain Scale Used: Ng-Pavon/Numerical Mgmt Consultant Required: No PCP or OBGYN visit in last 3 months: No Hx Now: No Do You Feel Safe at Home: Yes Authorities Contacted: N/A Smoking Status Smoking Status: Never smoker Immunization / Flu Flu Vaccine in the Last 12 Months: No Flu Vaccine Exclusion Criteria: No Exclusion Criteria Past Medical History Past Medical History NEUROLOGIC: Negative Seizures CARDIAC: Negative Cardiac Disorders or Congestive Heart Failure RESPIRATORY: Negative Chronic Obstructive Pulmonary Disease (COPD) or Asthma GASTROINTESTINAL: Positive Gastrointestinal Disorders, Cirrhosis, Gall Bladder Disease and Gastrointestinal Bleed GENITOURINARY: Positive Kidney Stones; Negative Renal Disease ENDOCRINE: Negative Diabetes Mellitus Type 1 or Diabetes Mellitus Type 2 HEMATOLOGIC: Positive Anemia; Negative Sickle Cell Disease OTHER HISTORY: Negative Blood Transfusions, Blood Transfusion Reaction or Anesthesia Reactions Social History SMOKING STATUS: Smoking status: Never smoker ALCOHOL: Alcohol Intake: Former ALCOHOL FREQUENCY: Alcohol Intake Frequency: holidays/special occasions only HOUSING: Housing: House LIVES WITH: Lives With: Family Patient Portal Questionaires PHQ-9 PHQ-2 Over the last 2 weeks, how often have you been bothered by any of the following problems? 1. Little interest or pleasure in doing things: not at all 2. Feeling down, depressed, or hopeless: not at all Total score: 0 PHQ-9 3. Trouble falling or staying asleep, or sleeping too much: Not at all 4. Feeling tired or having little energy: Not at all 5. Poor appetite or overeating: Not at all 6. Feeling bad about yourself - or that you are a failure or have let yourself or your family down: Not at all 7. Trouble concentrating on things, such as reading the newspaper or watching television: Not at all 8. Moving or speaking so slowly that other people could have noticed? - Or the opposite - being so fidgety or restless that you have been moving around a lot more than usual: not at all 9. Thoughts that you would be better off or of hurting yourself in some way: Not at all Total score: 0 Source: Developed by Drs. Gaibno Gutiérrez, Temi Peña, Davide Crum and colleagues, with an educational rosalba from [employer]. Social History Living Situation History Housing: House Tobacco History Smoking Status: Never smoker Alcohol History Alcohol Intake: Former Alcohol Intake Frequency: holidays/special occasions only Substance Use History Substance Use: THC Domestic Abuse History Do You Feel Safe at Home: Yes Review of Systems Report any current symptoms Only answer those that you have currently: Past Medical History Past Medical History Have you ever been diagnosed with any of the following: Neurological Problems Seizures: No Cardiology Problems Congestive Heart Failure: No Respiratory Problems Chronic Obstructive Pulmonary Disease (COPD): No Asthma: No Stomache/Intestinal Problems Cirrhosis: Yes Gall Bladder Disease: Yes Gastrointestinal Bleed: Yes Genital/Urinary Problems Renal Disease: No Kidney Stones: Yes Endocrine Problems Diabetes Mellitus Type 1: No Diabetes Mellitus Type 2: No Blood Problems Anemia: Yes Sickle Cell Disease: No Other Problems Blood Transfusions: No Blood Transfusion Reaction: No Anesthesia Reactions: No History of Present Illness HPI Narrative A 23-year-old male with significant past medical history of alcoholic liver cirrhosis, CBD stones s/p stenting and removal later, Recurrent episodes of variceal bleed presented to the hospital with chief complaints of hematemesis and admitted on 05/26/2024 for variceal bleed secondary to liver cirrhosis. Labs at the time of admission showed hemoglobin 8.0, total bilirubin 1.4, AST 467 and ALT 111. EKG revealed sinus tachycardia. CT abdomen/pelvis revealed cirrhosis, prominent splenomegaly, markedly distended gallbladder. US gallbladder revealed abnormally distended gallbladder with extrahepatic biliary tract dilation. Dr. Johnson was consulted. Upper GI endoscopy done during that admission showed grade 3 esophageal varices in the lower third of the esophagus. 4 bands were successfully placed. Continued octreotide drip for 5 days. Patient was given 1 unit of PRBC transfusion on 05/28/2024 in view of low hemoglobin 6.5 06/11/2024 Patient came for folllow up visit from the hospital. Denies any other complaints. No further episodes of Abdominal pain, bloody emesis, blood in stools, blackish discoloration of stools, yeloowish discoloration of skin or urine. Last alcohol drink is in 10/2023. Denies further alcohol use. Smokes marijuana. Not following up with any Marriage And Family Therapist as of now. Previously used to follow up with a doctor in [place] few years ago and at some point of time, patient is kept on the list for liver transplantation but later as the patient doing good and lost follow up with [place], he was taken off of the list. Wants to get the disability benefits as patient is not able to go to work as of now in the view of recurrent variceal bleeding 07/20/2024 Patient is recently admitted in the hopital on 07/01/2024 for upper GI bleed secondary to varices and got treated with octreotide, variceal banding and was discharged home on 07/06/2024. Came for follow-up. Denies any other complaints. Patient was supposed to get lab work done for the evaluation of cirrhosis and variceal bleed but unfortunately patient was not able to get the lab work done in view of some financial problems. Recommended to continue to take propranolol and titrate the dose to 10 Mg p.o. 3 times daily. Requested another disability form requesting for his assistance of living. Review of Systems Review of Systems Systems Reviewed: All systems reviewed, normal except as documented Objective/Exam Narrative Physical exam: General: Awake. HEENT: Normocephalic, atraumatic, mucous membranes moist. Heart: Regular rate and rhythm, no murmurs. Lungs: Clear to auscultation with no wheezing or crackles. Abdomen: Soft, nondistended, nontender, positive bowel sounds. ?No guarding or rebound tenderness. Neurologic: Alert and oriented x3, no gross neurological deficit, and patient able to move all 4 extremities. Extremities: No edema. Skin: No rash or ecchymoses. Assessment & Plan Diagnosis / Problem List (1) Esophageal varices determined by endoscopy: Status: Acute Assessment & Plan: Patient is recently admitted in the [facility] on 07/18 for upper GI Bleed and found to esophageal varices Grade III during this recent admissions and underwent Banding done by Dr. Johnson, Marriage And Family Therapist. Treated with octreotide drips and blood transfusions during the hospital admissions Plan: - Recommended to start on Propranolol 10mg BID, titrated the dose to 10mg TID?counseled - Avoid alcohol and NSAID intake - Recommended to come to the ED if there is any bloody emesis or blackish discoloration of stools - Will refer to Marriage And Family Therapist for futher management to evaluate the cause of cirrhosis (2) Cirrhosis, biliary: Status: Acute Assessment & Plan: Patient was initially diagnosed with biliary calculi at the age of 16 when he presented to the hospital with chief complaints of abdominal pain, later patient was transferred out to [facility] where he got stone extraction and stent was placed at that time and eventually ended up in [place]. Initially patient was placed on the liver transplant list but later as patient is non compliant with the visits, he fell off the transplant list and did not follow up with [place] later from 2019 Patient had history of alcohol abuse almost for 2years but reported that all his symptoms started before that Last alcohol drink is in 10/2023 - MRCP in 2022 showed Liver sagittal dimension 16 cm, no focal liver lesions, Mild intrahepatic biliary tract dilatation, Distended gallbladder although no definite gallbladder wall thickening Common hepatic duct 8 mm, bile duct 4 mm, No extrahepatic biliary stones noted, Splenomegaly 14.4 cm - MRCP in 02/2024 showed Markedly distended gallbladder with mild gallbladder wall thickening and mild edema around the gallbladder. Extrahepatic biliary tract obstruction, common hepatic duct 10 mm, fairly abrupt termination of the distal common bile duct although no definite stones - ALP, Total bilirubin levels are within normal limits Plan: - Ordered ASHISH, ANCA, Anti Mitochondrial antibody and Anti SMA, but couldnt get it done due to his insurance issues and recommended to do follow up on the tests (3) Anemia: Status: Acute Assessment & Plan: secondary to variceal bleed Last transfusion is 2 units on 06/2024 Plan: Recommended to watch for bleeding manifestations will do follow up on CBC Office Procedures [facility] Level of Care Nursing/Assessment Patient Status: Established Patient Nursing Assessment/Reassessment: Medication Reconciliation, Update PMH in EMR and Vital Signs Coordination of Care: Complex Care and Chronic Disease 1-5, Consent,records obtained, informed consent, Education Simp Pt/Fam and Staff clarify orders Established Patient Charge Established Patient Point Assignment: 85 Established Patient Point Charge: EP Level 3 (80-115)
== END 2024-07-16 15:56 | disposition home or self-care (01) ==
LOC: HODAHC 15:28
PROVIDERS: Supervising Provider Internal Medicine
DX: K70.30 Alcoholic cirrhosis of liver without ascites (principal); I85.11 Secondary esophageal varices with bleeding; D63.8 Anemia in other chronic diseases classified elsewhere
CPT/HCPCS: 99213; G0463

== ENCOUNTER 2024-07-28 23:27 | Inpatient (IN) | payer MEDICAID, SELFPAY ==
[2024-07-28 23:28] VITALS: BMI 24.5
[2024-07-29] VITALS (18 sets, daily range): BP systolic 96–136; BP diastolic 48–80; PULSE 58–84; RESP 10–100; TEMP 36.3–37.2; O2SAT 98–100
--- NOTE | 2024-07-29 02:17 | PD.EDRME ---
Rapid Medical Screening Exam [facility] Arrival date/time: 07/28/24 23:27 23M with history of alcoholic cirrhosis (recent admission for this) presents to ED with upper ab pain and bloody emesis today. Chief Complaint: Abdominal Pain Vital signs: Vital Signs Temperature 98.9 F 07/29/24 01:59 Pulse Rate 77 07/29/24 01:59 Respiratory Rate 17 07/29/24 01:59 Blood Pressure 114/80 07/29/24 01:59 Pulse Oximetry (%) 100 07/29/24 01:59 Oxygen Delivery Method Room Air 07/29/24 01:59
[2024-07-29 03:01] LABS: Basophils # (Auto) 0.1 Thou/mm3 (0.0-0.2); Basophils % (Auto) 1 % (0-2.5); Eosinophils # (Auto) 0.3 Thou/mm3 (0.0-0.5); Eosinophils % (Auto) 2 % (0-10); Hematocrit 23.3 % (41.0-53.0); Immature Granulocytes % (Auto) 1 % (0-0); Immature Granulocytes Auto 0.06 Thou/mm3 (0.00-0.00); Lymphocytes # (Auto) 1.4 Thou/mm3 (1.0-4.8); Lymphocytes % (Auto) 13 % (10-50); Mean Corpuscular Hemoglobin 20.3 pg (25.0-35.0); Mean Corpuscular Volume 68 fL (80-100); Monocytes # (Auto) 0.4 Thou/mm3 (0.0-0.8); Monocytes % (Auto) 4 % (0-12); Neutrophils % (Auto) 81 % (37-80); Nucleated Red Blood Cell % 0 /100 WBC (0); Platelet Count 197 Thou/mm3 (140-440); RDW Standard Deviation 43.9 fL (35.1-43.9); Red Blood Count 3.45 Miln/mm3 (4.50-5.90); White Blood Count 11.2 Thou/mm3 (3.8-10.6)
[2024-07-29 03:18] LABS: INR 1.4 (0.9-1.3); Partial Thromboplastin Time 27.8 Seconds (22.0-36.0); Prothrombin Time 15.4 Seconds (9.0-12.2)
[2024-07-29 03:25] LABS: Ammonia 27 uMol/L (11-32)
[2024-07-29 03:41] LABS: Alanine Aminotransferase 13 U/L (10-49); Albumin, Serum 3.9 gm/dL (3.5-5.0); Albumin/Globulin Ratio 1.4 (1.2-2.2); Alcohol, Blood Medical < 3.0 mg/dL (0-10.0); Alkaline Phosphatase 83 U/L (46-116); Anion Gap 9 (7-16); Aspartate Amino Transferase 15 U/L (0-34); BUN/Creatinine Ratio 39 Ratio (12-20); Bilirubin,Total 0.8 mg/dL (0.3-1.2); Blood Urea Nitrogen 27 mg/dL (9-23); Calcium 8.3 mg/dL (8.3-10.6); Calcium (Corrected) 8.4 mg/dL (8.5-10.1); Carbon Dioxide 27.1 mMol/L (20.0-31.0); Chloride 106 mMol/L (98-107); Creatinine (Component) 0.7 mg/dL (0.6-1.3); Estimated Creatinine Clearance 120.4 mL/min (>60); Globulin 2.7 gm/dL (2.3-3.5); Glucose 106 mg/dL (74-106); Lipase 28 U/L (12-53); Osmolality,Calculated 288 (275-295); Potassium 4.5 mMol/L (3.4-5.1); Sodium 142 mMol/L (136-145); Total Protein 6.6 gm/dL (5.7-8.2); eGFR > 60 See Note
[2024-07-29] MEDS: PANTOPRAZOLE INJ 40 MG VIAL 80 MG IVP (06:11)
[2024-07-29] MEDS: ONDANSETRON INJ 2 MG/ML INJ 2 ML 4 MG IV (06:12)
[2024-07-29] MEDS: OCTREOTIDE ACET INJ 50 mCg/ML VIAL IV (06:12)
[2024-07-29] MEDS: PANTOPRAZOLE/NS 80MG IV PREMIX 80 MG/100 ML BAG 10 MG IV ×2 (06:30→16:09)
[2024-07-29] MEDS: OCTREOTIDE ACET INJ 1,000 MCG in SODIUM CHLORIDE 0.9% 100 ML 5.1 MCG IV (06:31)
--- NOTE | 2024-07-29 06:32 | PD.EDADULT ---
ED General RME/HPI General Chief complaint: Abdominal Pain Stated complaint: ABD PAIN AND VOMITING BLOOD Time Seen by Provider: 07/29/24 06:41 Arrival date/time: 07/28/24 23:27 RME / HPI RME / HPI narrative: 07/28/24 23:27 23M with history of alcoholic cirrhosis (recent admission for this) presents to ED with upper ab pain and bloody emesis today. DR. MOSES MAIN ED EVALUATION: 23 year old male presents to the Emergency Department with complaint of hematemesis today. He states he had similar symptoms and was admitted for it, last endoscopy was 3 weeks ago and that was his forth one; He also mentions he has blood transfusions in the past. No other symptoms reported at this time. Reviewed last discharge summary from 07/06/24: Patient has history of variceal bleeds status post banding (3 times), alcoholic liver cirrhosis, and choledocholithiasis s/p stent was admitted to the hospital on 07/01/2024 for acute blood loss anemia in the setting of hematemesis likely secondary to esophageal varices bleed. Related Data Previous Rx's ?Medication ?Instructions ?Recorded propranolol 10 mg tablet 10 mg PO BID #60 tabs 06/11/24 pantoprazole 40 mg tablet,delayed 40 mg PO QDAY #30 tabs 07/06/24 release ursodiol 300 mg capsule 300 mg PO QID 30 days #120 caps 07/06/24 Allergies Allergy/AdvReac Type Severity Reaction Status Date / Time No Known Allergies Allergy Verified 07/28/24 23:28 Review of Systems Review of Systems Systems Reviewed: All systems reviewed, normal except as documented Narrative Review of Systems: GEN: No fever, no chills, no weight loss EYES: No discharge, no visual changes, no pain HEENT: No ear pain, no congestion, no sore throat PULM: No shortness of breath, no cough, no congestion CV: No chest pain, no dyspnea on exertion, no palpitations GI: No nausea, no vomiting, no diarrhea, no reported pain, no constipation; + hematemesis : No frequency, no urgency and no dysuria MUSC/SKEL: No joint pain, no back pain SKIN: No rash PSYCH: No hallucinations, no depression HEME/LYMPH: No easy bleeding or bruising tendencies NEURO: No weakness, no headache Past Medical History Past Medical History GASTROINTESTINAL: Positive Gastrointestinal Disorders, Cirrhosis, Gall Bladder Disease and Gastrointestinal Bleed GENITOURINARY: Positive Kidney Stones HEMATOLOGIC: Positive Anemia Social History SMOKING STATUS: Never smoker SUBSTANCE USE: does not use ED Exam Narrative Physical exam: GENERAL APPEARANCE: AxOx4, generally well-appearing, no acute distress, pale HEENT: NC, AT. MMM. EOMI, clear conjunctiva, oropharynx clear. NECK: Supple without lymphadenopathy. No stiffness or restricted ROM. HEART: Normal rate and regular rhythm, normal S1/S1, no m/r/g LUNGS: CTAB, moving air well. No crackles or wheezes are heard. ABDOMEN: Right upper quadrant tenderness; nondistended with good bowel sounds heard. BACK: No midline C/T/L spine pain or deformity, No CVAT, no obvious deformity. EXTREMITIES: Without cyanosis, clubbing or edema. MUSCULOSKELETAL: FROM of all major joints, no chest tenderness NEUROLOGICAL: Grossly nonfocal. Alert and oriented, moving all 4 extremities. CN not formally tested but appear grossly intact. Observed to ambulate with normal gait. Skin: Pale; otherwise warm and dry without any rash. Course Quality Measures none Orders Category Date Time Status Admit to Inpatient Status Routine Admission 07/29/24 08:18 Active Patient Condition Routine Admission 07/29/24 08:17 Ordered Patient Condition Routine Admission 07/29/24 08:25 Ordered COVID-19 Screening Questionnaire NOW Care 07/29/24 07:56 Active Continuous Pulse Oximetry NOW Care 07/29/24 08:25 Completed Decision to Admit X1 Care 07/29/24 07:56 Completed Insert IV NOW Care 07/29/24 02:16 Active Notify provider NEEDED Care 07/29/24 08:17 Active Notify provider NEEDED Care 07/29/24 08:25 Active Sequential Compression Device QSHIFT Care 07/29/24 08:25 Active Transfuse,blood/blood products NOW Care 07/29/24 05:27 Active Consult to Gastroenterology Routine Cons 07/29/24 08:29 Ordered Diet Clear Liquid Diet 07/29/24 Breakfast Active Alcohol, Blood Medical Stat Lab 07/29/24 02:41 Completed Ammonia Stat Lab 07/29/24 02:41 Completed CBC AM DRAW Lab 07/30/24 05:00 Ordered CBC AM DRAW Lab 07/31/24 05:00 Ordered CBC AM DRAW Lab 08/01/24 05:00 Ordered CBC Stat Lab 06/05/25 02:41 Completed CMP [Comprehensive Metabolic Panel] Stat Lab 07/29/24 02:41 Completed Comprehensive Metabolic Panel AM DRAW Lab 07/30/24 05:00 Ordered Comprehensive Metabolic Panel AM DRAW Lab 07/31/24 05:00 Ordered Comprehensive Metabolic Panel AM DRAW Lab 08/01/24 05:00 Ordered INR [Prothrombin Time with INR] Stat Lab 07/29/24 02:41 Completed Lipase Stat Lab 07/29/24 02:41 Completed Magnesium AM DRAW Lab 07/30/24 05:00 Ordered PTT [Partial Thromboplastin Time] Stat Lab 07/29/24 02:41 Completed Phosphorous AM DRAW Lab 07/30/24 05:00 Ordered Type and Screen Stat Lab 07/29/24 02:41 Completed prbc [Red Blood Cells] Stat Lab 07/29/24 02:41 Completed Acetaminophen Tab [Tylenol Tab] Med 07/29/24 08:25 Active 650 mg PO Q6H PRN Morphine Inj Med 07/29/24 08:02 Discontinued 4 mg IVP X1 ONE Octreotide Acet Inj [SandoSTATIN Inj] Med 07/29/24 02:16 Discontinued 50 mcg IV X1 ONE Ondansetron Inj [Zofran Inj] Med 07/29/24 02:16 Discontinued 4 mg IV X1 ONE Ondansetron Inj [Zofran Inj] Med 07/29/24 08:25 Active 4 mg IVP Q6H PRN Pantoprazole Inj [Protonix Inj] Med 07/29/24 09:00 Active 40 mg IVP Q12HR Pantoprazole Inj [Protonix Inj] Med 07/29/24 02:16 Discontinued 80 mg IVP X1 ONE Pantoprazole/Ns 80Mg IV Premix [Protonix/NS 80mg IV Med 07/29/24 05:45 Active Premix] 80 mg in 100 ml IV Q10H Pantoprazole/Ns 80Mg IV Premix [Protonix/NS 80mg IV Med 07/29/24 15:44 Pending Premix] 80 mg in 100 ml IV Q10H Piper/Tazo 3.375 gm Premix [Zosyn] Med 07/29/24 07:05 Discontinued 3.375 gm in 50 ml IV X1 Senna [Senokot] Med 07/29/24 08:25 Active 1 tab PO QDAY PRN Sodium Chloride 0.9% [Ns] 100 ml Med 07/29/24 05:45 Active Octreotide Acet Inj [SandoSTATIN Inj] 1,000 mcg IV 50 mcg/hr Sodium Chloride 0.9% [Ns] 100 ml Med 07/30/24 01:44 Pending Octreotide Acet Inj [SandoSTATIN Inj] 1,000 mcg IV 50 mcg/hr Code Status Routine Oth 07/29/24 08:17 Ordered Oxygen Delivery PRN RT 07/29/24 08:25 Active Vital Signs Vital signs: Vital Signs Temperature 98.9 F 07/29/24 01:59 Pulse Rate 77 07/29/24 01:59 Respiratory Rate 17 07/29/24 01:59 Blood Pressure 114/80 07/29/24 01:59 Pulse Oximetry (%) 100 07/29/24 01:59 Oxygen Delivery Method Room Air 07/29/24 01:59 Discharge Plan Plan Patient Disposition: Admit Acute Care w/in Hospital Problem List Clinical Impression: Upper gastrointestinal bleeding, Bleeding esophageal varices in alcoholic cirrhosis MDM Narrative MDM hospital course: IVira am scribing for and in the presence of Dr. Moses. Clinical Information Provided by patient Medical Records Reviewed [facility] Reviewed last discharge summary from 07/06/24: Patient has history of variceal bleeds status post banding (3 times), alcoholic liver cirrhosis, and choledocholithiasis s/p stent was admitted to the hospital on 07/01/2024 for acute blood loss anemia in the setting of hematemesis likely secondary to esophageal varices bleed. Meds/Rx Considered, not Ordered None Labs/Rad/Tests considered, not Ordered None Chronic Illness/Social Conditions Add or document further as needed: Variceal bleeds status post banding, alcoholic liver cirrhosis, and choledocholithiasis s/p stent, anemia with need for transfusion in past. Lab Interpretation Labs: interpreted by me Medication Administration(s) Medication Administration History Acetaminophen (Acetaminophen 325 Mg Tablet) 650 mg PO Q6H PRN PRN Reason: Fever >100.3 or pain Stop: 08/28/24 08:24 Pantoprazole Sodium (Protonix/Ns 80mg Iv Premix) 80 mg in 100 mls @ 10 mls/hr IV Q10H MAYTE Stop: 08/01/24 03:43 Octreotide Acetate 1,000 mcg/ (Sodium Chloride) 102 mls @ 5.1 mls/hr IV .Q20H MAYTE; Protocol Stop: 08/29/24 01:43 Pantoprazole Sodium (Protonix/Ns 80mg Iv Premix) 80 mg in 100 mls @ 10 mls/hr IV Q10H MAYTE Stop: 07/29/24 15:44 Last Admin: 07/29/24 06:30 Dose: 10 mls/hr Documented By: CG Comments: would not scan Octreotide Acetate 1,000 mcg/ (Sodium Chloride) 102 mls @ 5.1 mls/hr IV .Q20H MAYTE; Protocol Stop: 07/30/24 01:44 Last Admin: 07/29/24 06:31 Dose: 50 mcg/hr, 5.1 mls/hr Documented By: CG Comments: would not scan Ondansetron HCl (Ondansetron Inj 2 Mg/Ml Inj 2 Ml) 4 mg IVP Q6H PRN; Protocol PRN Reason: NAUSEA OR VOMITING Stop: 08/28/24 08:24 Pantoprazole Sodium (Pantoprazole Inj 40 Mg Vial) 40 mg IVP Q12HR MAYTE Stop: 08/28/24 08:59 Sennosides (Senna Tablet) 1 tab PO QDAY PRN; Protocol PRN Reason: constipation Stop: 08/28/24 08:24 Discontinued Medications Piperacillin/Tazobactam/Dextrose (Zosyn) 3.375 gm in 50 mls @ 100 mls/hr IV X1 ONE Stop: 07/29/24 07:34 Last Infusion: 07/29/24 08:23 Dose: Infused Documented By: Admin: 07/29/24 07:50 Dose: 100 mls/hr Documented By: GM Morphine Sulfate (Morphine Sulf Inj 10 Mg/Ml Vial) 4 mg IVP X1 ONE Stop: 07/29/24 08:03 Last Admin: 07/29/24 08:15 Dose: 4 mg Documented By: GM Octreotide Acetate (Octreotide Acet Inj 50 Mcg/Ml Vial) 50 mcg IV X1 ONE Stop: 07/29/24 02:17 Last Admin: 07/29/24 06:12 Dose: 50 mcg Documented By: CG Ondansetron HCl (Ondansetron Inj 2 Mg/Ml Inj 2 Ml) 4 mg IV X1 ONE; Protocol Stop: 07/29/24 02:17 Last Admin: 07/29/24 06:12 Dose: 4 mg Documented By: NICOLLE Pantoprazole Sodium (Pantoprazole Inj 40 Mg Vial) 80 mg IVP X1 ONE Stop: 07/29/24 02:17 Last Admin: 07/29/24 06:11 Dose: 80 mg Documented By: NICOLLE Consultations/Discussions re: Management Consult #1: Date/time: 07/29/24 7:06 am Physician, specialty, service, details: Discussed test HPI, PMHx, lab, radiology results and/or management with Dr. Johnson. Will consult an admission to the hospitalist. Consult #2: Date/time: 07/29/24 7:40 am Physician, specialty, service, details: Discussed test HPI, PMHx, lab, radiology results and/or management with hospitalist Dr. Mckay. He states he would like an ICU consult but if ICU refuses then he will admit. Accepts patient for admission. Diagnosis Differential diagnosis: Variceal bleeds, upper GI bleed, lower GI bleed Most likely dx, and/or detailed dx discussion: Upper GI bleed Bleeding esophageal varices in alcoholic cirrhosis Dispositon Disposition: Admit
[2024-07-29] MEDS: PIPER/TAZO 3.375 GM PREMIX 3.375 GM/50 ML BAG IV (07:50)
[2024-07-29] MEDS: MORPHINE SULF INJ 10 MG/ML VIAL 4 MG IVP (08:15)
--- NOTE | 2024-07-29 11:15 | PD.RESHP ---
Documentation for date of: 07/29/24 HPI History of Present Illness Chief complaint: hematemasis History of present illness: Bari Tse is 23 yr male with PMH of variceal bleeds status post banding (3 times), alcoholic liver cirrhosis, and choledocholithiasis s/p stent presenting to ED with cheif complaint of hematemesis since yesterday. Also endorses 1 episode of melena and nausea. Patient denies any change in diet, denies drinking alcohol since past 1 year. He was last discharged on 07/06/2024 Due to similar symptoms. EGD done at that time showed grade 3 esophageal varices and underwent banding. He has not followed up with GI outpatient. Per previous inpatient GI note, patient needs repeated EGDs with banding followed by ERCP. In ED, vitals stable, mild leukocytosis 11, hemoglobin 7.0, MCV 68, platelets 197, elevated PT 15.4, elevated INR 1.4, liver enzymes unremarkable. In ED he was started on IV pantoprazole and octreotide drip. GI Dr. Johnson was consulted. Will admit patient for management of upper GI bleed. PMH: As above Social Hx: quit smoking marijuana, denies smoking cigarettes, denies any use of alcohol as in October 2023, denies any illicit drugs Allergies: NKDA Medications: Propranolol 10 mg TID, pantoprazole daily, ursodiol 300mg daily Review of Systems Review of Systems Systems Reviewed: All systems reviewed, normal except as documented Exam Vital Signs Temp Pulse Resp BP Pulse Ox O2 Del Method 97.5 F 66 14 114/72 100 Room Air 07/29/24 11:08 07/29/24 11:08 07/29/24 11:08 07/29/24 11:08 07/29/24 11:08 07/29/24 11:08 Narrative Exam General: Young male, No acute distress, cooperative HEENT: NCAT, No JVD noted. Mucosa moist. Pupils are equal and reactive to light bilaterally Cardiovascular: Normal S1 and S2. Regular rate and rhythm. Respiratory: Lungs are clear to auscultation bilaterally. No wheezing or crackles heard. Abdomen: Soft, mild right abdomen tenderness, not distended, normal bowel sounds. Skin: Warm to touch, dry, no rashes noted Musculoskeletal: No gross injuries. Able to move all 4 extremities. No pitting edema Neuro: Alert and oriented x3. No focal neuro deficits. Psych: Normal affect and mood Results: Labs 08/01/24 05:24 08/01/24 05:24 Labs: Short CBC 07/29/24 Range/Units 02:41 WBC 11.2 H (3.8-10.6) Thou/mm3 Hgb 7.0 L (13.5-16.0) g/dL Hct 23.3 L (41.0-53.0) % Plt Count 197 D (140-440) Thou/mm3 BMP 07/29/24 02:41 Sodium 142 Potassium 4.5 Chloride 106 Carbon Dioxide 27.1 BUN 27 H Creatinine 0.7 Glucose 106 Calcium 8.3 Liver Function 07/29/24 Range/Units 02:41 Total Bilirubin 0.8 (0.3-1.2) mg/dL AST 15 (0-34) U/L ALT 13 (10-49) U/L Alkaline Phosphatase 83 (46-116) U/L Albumin 3.9 (3.5-5.0) gm/dL Quality Measures Quality Measures none Medications Home Medications and Allergies Allergies Allergy/AdvReac Type Severity Reaction Status Date / Time No Known Allergies Allergy Verified 07/28/24 23:28 Visit Medications Acetaminophen (Acetaminophen 325 Mg Tablet) 650 mg PO Q6H PRN PRN Reason: Fever >100.3 or pain Stop: 08/28/24 08:24 Pantoprazole Sodium (Protonix/Ns 80mg Iv Premix) 80 mg in 100 mls @ 10 mls/hr IV Q10H MAYTE Stop: 08/01/24 03:43 Octreotide Acetate 1,000 mcg/ (Sodium Chloride) 102 mls @ 5.1 mls/hr IV .Q20H MAYTE; Protocol Stop: 08/29/24 01:43 Pantoprazole Sodium (Protonix/Ns 80mg Iv Premix) 80 mg in 100 mls @ 10 mls/hr IV Q10H MAYTE Stop: 07/29/24 15:44 Last Admin: 07/29/24 06:30 Dose: 10 mls/hr Octreotide Acetate 1,000 mcg/ (Sodium Chloride) 102 mls @ 5.1 mls/hr IV .Q20H MAYTE; Protocol Stop: 07/30/24 01:44 Last Admin: 07/29/24 06:31 Dose: 50 mcg/hr, 5.1 mls/hr Ondansetron HCl (Ondansetron Inj 2 Mg/Ml Inj 2 Ml) 4 mg IVP Q6H PRN; Protocol PRN Reason: NAUSEA OR VOMITING Stop: 08/28/24 08:24 Pantoprazole Sodium (Pantoprazole Inj 40 Mg Vial) 40 mg IVP Q12HR MAYTE Stop: 08/28/24 08:59 Last Admin: 07/29/24 10:10 Dose: Not Given Sennosides (Senna Tablet) 1 tab PO QDAY PRN; Protocol PRN Reason: constipation Stop: 08/28/24 08:24 Discontinued Medications Piperacillin/Tazobactam/Dextrose (Zosyn) 3.375 gm in 50 mls @ 100 mls/hr IV X1 ONE Stop: 07/29/24 07:34 Last Infusion: 07/29/24 08:23 Dose: Infused Morphine Sulfate (Morphine Sulf Inj 10 Mg/Ml Vial) 4 mg IVP X1 ONE Stop: 07/29/24 08:03 Last Admin: 07/29/24 08:15 Dose: 4 mg Octreotide Acetate (Octreotide Acet Inj 50 Mcg/Ml Vial) 50 mcg IV X1 ONE Stop: 07/29/24 02:17 Last Admin: 07/29/24 06:12 Dose: 50 mcg Ondansetron HCl (Ondansetron Inj 2 Mg/Ml Inj 2 Ml) 4 mg IV X1 ONE; Protocol Stop: 07/29/24 02:17 Last Admin: 07/29/24 06:12 Dose: 4 mg Pantoprazole Sodium (Pantoprazole Inj 40 Mg Vial) 80 mg IVP X1 ONE Stop: 07/29/24 02:17 Last Admin: 07/29/24 06:11 Dose: 80 mg Assessment & Plan Plan Bari Tse is 23 yr male with PMH of variceal bleeds status post banding (3 times), alcoholic liver cirrhosis, and choledocholithiasis s/p stent presenting to ED with cheif complaint of hematemesis since yesterday. Also endorses 1 episode of melena and nausea. GI Dr. Johnson was consulted. Will admit patient for management of upper GI bleed. #upper GI bleed #Acute blood loss anemia Presenting chief complaint of hematemesis about 5 episodes since yesterday. Also 1 episode of melena. Patient has been compliant with propranolol, ursodiol, pantoprazole since last admission. Hemoglobin 7, MCV 68 on admission. -Dr. Johnson consulted, appreciate recs -NPO -Pantoprazole 40 mg BID - Hold NSAIDs, antiplatelets -octreotide infusion -daily CBC -will transfuse 1 unit prbc #Liver lesion MRI of his abdomen from 07/05/24 showed homogeneously enhancing right lobe lesion at 29 x 26 mm possibly suggestive of hemangioma versus adenoma. -Per last admission note, follow-up in 3 months outpatient with u/s #Hx of liver cirrhosis Patient has quit drinking. Labs improved since last admission. MELD-Na score of 10 points indicating 6% mortality in 90 days Child- Vanegas score of 5 points, Child A Maddrey score: 25.6--good prognosis -continue to monitor -follow up [facility] Health maintenance: Dispo: tele for GI bleed FEN: NPO for EGD DVT prophylaxis: SCDs CODE STATUS: Full code The patient's management plan was discussed with my attending physician Dr. Mckay. Estela Hernádnez, PGY-1 Attending Provider Attestation/Addendum 23-year-old with history of alcohol cirrhosis with end-stage liver disease with subsequent esophageal varices requiring multiple admissions in the past who presented yet again with hematemesis and melena and plan to admit the patient for acute blood loss anemia secondary to upper GI bleed likely esophageal in nature and decompensated liver disease.I reviewed above note and agree with findings and plans. I have also personally examined the patient with medicine team and went over assessment and plan with medical team including international logistics analyst and resident physician.
--- NOTE | 2024-07-29 11:32 | PC.CC ---
Patient is a 23 year-old male who presents to the hospital for a GI Bleed. Edda HOOPER made reru-on-olsw contact with patient. ASW introduced self, role, and reason for visit. Patient appeared alert and oriented to self, location, and situation. Patient was pleasant and engaged in initial assessment. Patient reports he lives with his father, Kingsley Tse . Per patient, in the event he is unable to make his own medical decisions his father would be his medical decision maker. Patient reports he ambulates independently and is able to complete his own ALDs. Patient does not require the use of any DME. Patient does not use oxygen and is not a dialysis patient. Patient receives primary care at [facility] and uses [facility] for prescription medications. Upon discharge the patient plans to return home. account services manager to follow up for any discharge needs.
[2024-07-29] MEDS: cefTRIAXone/D5w 1gm IV premix 1 GM/50 ML BAG IV (11:55)
[2024-07-29 14:00] LABS: Hematocrit 21.7 % (41.0-53.0)
[2024-07-29 14:14] LABS: Hemoglobin 6.9 g/dL (13.5-16.0)
--- NOTE | 2024-07-29 19:13 | PC.NURSE ---
180: tried to call Dr. Mckay regarding pt's H&H of 6.9/21.7, no answer. 1805: Talked to Dr. Lema: new orders received for 1 unit of PRBC.
--- NOTE | 2024-07-29 20:44 | PD.IMCONS ---
HPI Data of Consult Requesting Physician: Judith Troncoso MD Primary Care Provider: Physician No Primary/Family Consult Narrative Reason for consult: Hematemesis, acute posthemorrhagic anemia History of present illness: 23 years old male presented to the emergency room with hematemesis Initial hemoglobin hematocrit 7.4 and 23.9 which has gone down to 6.9 and 21.7 and patient currently getting blood transfusion BUN 27 and creatinine 0.7 Patient has alcohol induced liver cirrhosis however patient has not drank for few months He also has an underlying unresolved issue of some sort of liver disease other than the alcohol consumption and the workup done locally here has been totally negative His records are at [facility] which we have not been able to obtain Patient has had multiple admissions requiring pain location of the esophageal varices cc:: cc: Judith Troncoso MD Review of Systems Review of Systems Systems Reviewed: All systems reviewed, normal except as documented Meds Home Medications and Allergies Allergies Allergy/AdvReac Type Severity Reaction Status Date / Time No Known Allergies Allergy Verified 07/28/24 23:28 Exam Vital Signs Temp Pulse Resp BP Pulse Ox O2 Del Method 98.1 F 62 17 101/48 L 100 Room Air 07/29/24 19:40 07/29/24 19:40 07/29/24 19:40 07/29/24 19:40 07/29/24 19:40 07/29/24 16:00 Routine Respiratory Exam Comments: Normal to auscultation Routine Abdominal Exam Comments: Soft nontender Results Labs 07/29/24 13:35 07/29/24 02:41 Labs: Short CBC 07/29/24 07/29/24 Range/Units 02:41 13:35 WBC 11.2 H (3.8-10.6) Thou/mm3 Hgb 7.0 L 6.9 L* (13.5-16.0) g/dL Hct 23.3 L 21.7 L* (41.0-53.0) % Plt Count 197 D (140-440) Thou/mm3 BMP 07/29/24 02:41 Sodium 142 Potassium 4.5 Chloride 106 Carbon Dioxide 27.1 BUN 27 H Creatinine 0.7 Glucose 106 Calcium 8.3 Liver Function 07/29/24 Range/Units 02:41 Total Bilirubin 0.8 (0.3-1.2) mg/dL AST 15 (0-34) U/L ALT 13 (10-49) U/L Alkaline Phosphatase 83 (46-116) U/L Albumin 3.9 (3.5-5.0) gm/dL Assessment and Plan Additional Assessment & Plan Additional Plan: # Hematemesis in the setting of cirrhotic liver disease due to alcohol and other unspecified cause with a complete negative workup locally here Plan Octreotide infusion at 50 mcg/h IV Protonix agree with blood transfusion Serial CBC consent obtained for fiberoptic esophagogastroduodenoscopy with possible biopsy possible therapeutic intervention under intravenous moderate sedation I will work with the case management to get the patient to a tertiary center stand for another institution which is covered by his [facility] to evaluate for placement of a TIPS shunt to prevent this repeated hospitalizations and GI bleeds as well as the possibility of a liver transplant in the future provided 1 is sure that the patient will not drink again for which I am going to force him to join AA and have a record of clean alcohol and attending record of the AA for 6 months Thank you very much for the opportunity to participate in the care of this patient
[2024-07-29 23:23] LABS: Hematocrit 26.8 % (41.0-53.0)
[2024-07-29 23:33] LABS: Hemoglobin 8.7 g/dL (13.5-16.0)
[2024-07-30] VITALS (16 sets, daily range): BP systolic 100–131; BP diastolic 50–88; PULSE 48–97; RESP 11–27; TEMP 36–36.7; O2SAT 95–100; BMI 24.1
[2024-07-30] MEDS: PANTOPRAZOLE/NS 80MG IV PREMIX 80 MG/100 ML BAG 10 MG IV ×3 (02:20→21:39)
[2024-07-30] MEDS: ACETAMINOPHEN 325 MG TABLET 650 MG PO (02:21)
[2024-07-30] MEDS: OCTREOTIDE ACET INJ 1,000 MCG in SODIUM CHLORIDE 0.9% 100 ML 5.1 MCG IV ×2 (02:21→21:43)
[2024-07-30] MEDS: MORPHINE SULF INJ 10 MG/ML VIAL IVP (04:29)
[2024-07-30 05:29] LABS: Basophils % (Auto) 1 % (0-2.5); Eosinophils # (Auto) 0.2 Thou/mm3 (0.0-0.5); Eosinophils % (Auto) 5 % (0-10); Hematocrit 23.6 % (41.0-53.0); Immature Granulocytes % (Auto) 1 % (0-0); Immature Granulocytes Auto 0.02 Thou/mm3 (0.00-0.00); Lymphocytes % (Auto) 31 % (10-50); Mean Corpuscular HGB Conc 30.9 g/dl (31.0-37.0); Mean Corpuscular Hemoglobin 23.2 pg (25.0-35.0); Mean Corpuscular Volume 75 fL (80-100); Monocytes # (Auto) 0.2 Thou/mm3 (0.0-0.8); Monocytes % (Auto) 6 % (0-12); Neutrophils # (Auto) 1.9 Thou/mm3 (1.8-7.7); Neutrophils % (Auto) 56 % (37-80); Nucleated Red Blood Cell % 0 /100 WBC (0); Platelet Count 96 Thou/mm3 (140-440); RDW Standard Deviation 57.2 fL (35.1-43.9); Red Blood Count 3.15 Miln/mm3 (4.50-5.90); White Blood Count 3.3 Thou/mm3 (3.8-10.6)
[2024-07-30 05:33] LABS: Hemoglobin 7.3 g/dL (13.5-16.0)
[2024-07-30 05:54] LABS: Alanine Aminotransferase 13 U/L (10-49); Albumin, Serum 3.5 gm/dL (3.5-5.0); Albumin/Globulin Ratio 1.5 (1.2-2.2); Alkaline Phosphatase 68 U/L (46-116); Anion Gap 9 (7-16); Aspartate Amino Transferase 16 U/L (0-34); BUN/Creatinine Ratio 26 Ratio (12-20); Blood Urea Nitrogen 21 mg/dL (9-23); Calcium 7.8 mg/dL (8.3-10.6); Calcium (Corrected) 8.2 mg/dL (8.5-10.1); Carbon Dioxide 26.4 mMol/L (20.0-31.0); Chloride 108 mMol/L (98-107); Creatinine (Component) 0.8 mg/dL (0.6-1.3); Estimated Creatinine Clearance 105.3 mL/min (>60); Globulin 2.3 gm/dL (2.3-3.5); Glucose 88 mg/dL (74-106); Osmolality,Calculated 286 (275-295); Phosphorous 4.2 mg/dL (2.4-5.1); Potassium 4.2 mMol/L (3.4-5.1); Sodium 143 mMol/L (136-145); Total Protein 5.8 gm/dL (5.7-8.2); eGFR > 60 See Note
[2024-07-30] MEDS: cefTRIAXone/D5w 1gm IV premix 1 GM/50 ML BAG IV (08:29)
--- NOTE | 2024-07-30 14:12 | PC.SS ---
SS follow up note; Pending EGD today. Patient will discharge home once medically cleared.
--- NOTE | 2024-07-30 15:14 | PD.RESPRO ---
Documentation for date of: 07/30/24 Subjective Subjective Interval history: Patient examined at bedside. No events overnight. Vitals are stable. Patient denies any new episodes of melena or hematemesis. Hemoglobin down trended 7.3, WBC 3.3, platelets 96. Plan for EGD today. Exam Vital Signs Temp Pulse Resp BP Pulse Ox O2 Del Method 96.8 F 59 L 11 L 104/56 L 99 Room Air 07/30/24 12:00 07/30/24 12:00 07/30/24 12:00 07/30/24 12:00 07/30/24 12:00 07/30/24 12:00 Objective Labs 08/01/24 05:24 08/01/24 05:24 Labs: Laboratory Results - last 24 hr 07/29/24 07/29/24 07/30/24 02:41 23:05 05:01 WBC 3.3 L D RBC 3.15 L Hgb 8.7 L D 7.3 L Hct 26.8 L 23.6 L MCV 75 L MCH 23.2 L MCHC 30.9 L RDW Std Deviation 57.2 H Plt Count 96 L D Neut % (Auto) 56 Lymph % (Auto) 31 [place] % (Auto) 6 Eos % (Auto) 5 Baso % (Auto) 1 Neut # (Auto) 1.9 Lymph # (Auto) 1.0 [place] # (Auto) 0.2 Eos # (Auto) 0.2 Baso # (Auto) 0.0 Immature Gran # (Auto) 0.02 H Absolute Nucleated RBC 0.00 Immature Gran % 1 H Nucleated RBC % 0 Sodium 143 Potassium 4.2 Chloride 108 H Carbon Dioxide 26.4 Anion Gap 9 BUN 21 Creatinine 0.8 Estim Creat Clear Calc 105.3 eGFR > 60 BUN/Creatinine Ratio 26 H Glucose 88 Calculated Osmolality 286 Calcium 7.8 L Corrected Calcium 8.2 L Phosphorus 4.2 Magnesium 2.0 Total Bilirubin 1.0 AST 16 ALT 13 Alkaline Phosphatase 68 Total Protein 5.8 Albumin 3.5 Globulin 2.3 Albumin/Globulin Ratio 1.5 Blood Type O Positive Antibody Screen NEGATIVE Crossmatch See Detail Blood Bank Wristband ID Yes Quality Measures Quality Measures none Assessment & Plan Assessment Current Active Medications: Generic Name Dose Route Start Last Admin Trade Name Freq PRN Reason Stop Dose Admin Acetaminophen 650 mg 07/29/24 08:25 07/30/24 02:21 Acetaminophen 325 Mg Tablet PO 08/28/24 08:24 650 mg Q6H PRN Administration Fever >100.3 or pain Pantoprazole Sodium 80 mg in 100 mls @ 10 mls/hr 07/29/24 15:44 07/30/24 11:47 Protonix/Ns 80mg Iv Premix IV 08/01/24 03:43 10 mls/hr Q10H MAYTE Administration Octreotide Acetate 1,000 mcg/ 102 mls @ 5.1 mls/hr 07/30/24 01:44 07/30/24 02:21 Sodium Chloride IV 08/29/24 01:43 50 mcg/hr .Q20H MAYTE 5.1 mls/hr Administration Protocol 50 MCG/HR Ceftriaxone Sodium/Dextrose 1 gm in 50 mls @ 100 mls/hr 07/29/24 11:33 07/30/24 08:29 Rocephin/D5w 1gm Iv Premix IV 08/05/24 11:32 100 mls/hr QDAY MAYTE Administration Ondansetron HCl 4 mg 07/29/24 08:25 Ondansetron Inj 2 Mg/Ml Inj 2 Ml IVP 08/28/24 08:24 Q6H PRN NAUSEA OR VOMITING Protocol Sennosides 1 tab 07/29/24 08:25 Senna Tablet PO 08/28/24 08:24 QDAY PRN constipation Protocol Plan Bari Tse is 23 yr male with PMH of variceal bleeds status post banding (3 times), alcoholic liver cirrhosis, and choledocholithiasis s/p stent presenting to ED with cheif complaint of hematemesis since yesterday. Also endorses 1 episode of melena and nausea. GI Dr. Johnson was consulted. Will admit patient for management of upper GI bleed. #upper GI bleed #Acute blood loss anemia Presenting chief complaint of hematemesis about 5 episodes since yesterday. Also 1 episode of melena. Patient has been compliant with propranolol, ursodiol, pantoprazole since last admission. Hemoglobin 7, MCV 68 on admission. Per GI, he will work with the case management to get the patient to a tertiary center which is covered by his [facility] to evaluate for placement of a TIPS shunt to prevent this repeated hospitalizations and GI bleeds as well as the possibility of a liver transplant in the future. -Dr. Johnson consulted, appreciate recs -NPO for EGD -Pantoprazole 40 mg BID - Hold NSAIDs, antiplatelets -octreotide infusion -daily CBC #Liver lesion MRI of his abdomen from 07/05/24 showed homogeneously enhancing right lobe lesion at 29 x 26 mm possibly suggestive of hemangioma versus adenoma. -Per last admission note, follow-up in 3 months outpatient with u/s #Hx of liver cirrhosis Patient has quit drinking. Labs improved since last admission. MELD-Na score of 10 points indicating 6% mortality in 90 days Child- Vanegas score of 5 points, Child A Maddrey score: 25.6--good prognosis -continue to monitor [facility]: Dispo: tele for GI bleed FEN: NPO for EGD DVT prophylaxis: SCDs CODE STATUS: Full code The patient's management plan was discussed with my attending physician Dr. Mckay. Estela Hernández, PGY-1 Attending Provider Attestation/Addendum 23-year-old with history of alcohol cirrhosis with end-stage liver disease with subsequent esophageal varices requiring multiple admissions in the past who presented yet again with hematemesis and melena and plan to admit the patient for acute blood loss anemia secondary to upper GI bleed likely esophageal in nature and decompensated liver disease.I reviewed above note and agree with findings and plans. Overnight, continues to be on octreotide and protonix and plan for EGD. I have also personally examined the patient with medicine team and went over assessment and plan with medical team including internet merchant and resident physician.
--- NOTE | 2024-07-30 18:00 | SUR.PHASEI ---
received pt and report from SUSAN Medel, pt resting, no distress noted, vss, pt arousable to voice. IV X3 intact, no s/s of infiection or redness noted active bs to all abd quad.
--- NOTE | 2024-07-30 18:25 | SUR.PHASEI ---
pt continues to recover well, no distress noted, vss. IV x3 remain intact and free of infection or redness. Report given to SUSAN Jj.
[2024-07-30] MEDS: HYDROcodone/APAP 5/325 TABLET 1 TAB PO (21:52)
[2024-07-31] VITALS (10 sets, daily range): BP systolic 99–119; BP diastolic 54–69; PULSE 43–70; RESP 9–16; TEMP 35.9–36.2; O2SAT 96–100; BMI 24.0
[2024-07-31 06:04] LABS: Basophils % (Auto) 1 % (0-2.5); Eosinophils # (Auto) 0.1 Thou/mm3 (0.0-0.5); Eosinophils % (Auto) 3 % (0-10); Immature Granulocytes % (Auto) 0 % (0-0); Immature Granulocytes Auto 0.01 Thou/mm3 (0.00-0.00); Lymphocytes # (Auto) 0.8 Thou/mm3 (1.0-4.8); Lymphocytes % (Auto) 27 % (10-50); Mean Corpuscular HGB Conc 31.7 g/dl (31.0-37.0); Mean Corpuscular Hemoglobin 23.2 pg (25.0-35.0); Mean Corpuscular Volume 73 fL (80-100); Monocytes # (Auto) 0.2 Thou/mm3 (0.0-0.8); Monocytes % (Auto) 7 % (0-12); Neutrophils # (Auto) 1.8 Thou/mm3 (1.8-7.7); Neutrophils % (Auto) 62 % (37-80); Nucleated Red Blood Cell % 0 /100 WBC (0); Platelet Count 88 Thou/mm3 (140-440); RDW Standard Deviation 55.8 fL (35.1-43.9); Red Blood Count 3.27 Miln/mm3 (4.50-5.90)
[2024-07-31 06:07] LABS: Hemoglobin 7.6 g/dL (13.5-16.0); White Blood Count 2.9 Thou/mm3 (3.8-10.6)
[2024-07-31 06:22] LABS: Alanine Aminotransferase 8 U/L (10-49); Albumin, Serum 3.9 gm/dL (3.5-5.0); Albumin/Globulin Ratio 1.7 (1.2-2.2); Alkaline Phosphatase 70 U/L (46-116); Anion Gap 11 (7-16); BUN/Creatinine Ratio 29 Ratio (12-20); Bilirubin,Total 0.9 mg/dL (0.3-1.2); Blood Urea Nitrogen 23 mg/dL (9-23); Calcium 8.7 mg/dL (8.3-10.6); Calcium (Corrected) 8.8 mg/dL (8.5-10.1); Carbon Dioxide 24.9 mMol/L (20.0-31.0); Chloride 103 mMol/L (98-107); Creatinine (Component) 0.8 mg/dL (0.6-1.3); Estimated Creatinine Clearance 105.3 mL/min (>60); Globulin 2.3 gm/dL (2.3-3.5); Glucose 101 mg/dL (74-106); Osmolality,Calculated 281 (275-295); Potassium 3.8 mMol/L (3.4-5.1); Sodium 139 mMol/L (136-145); Total Protein 6.2 gm/dL (5.7-8.2); eGFR > 60 See Note
[2024-07-31] MEDS: PANTOPRAZOLE/NS 80MG IV PREMIX 80 MG/100 ML BAG 10 MG IV (07:09)
--- NOTE | 2024-07-31 08:41 | ESPR_ITS ---
<Statement entered by Marie Zimmerman MD - 07/31/24 14:37> I Marie Zimmerman MD reviewed the note and agree with the resident's assessment & plan with exceptions as below. I have personally reviewed labs, imaging, home meds/prior records, examined the patient, formulated and discussed management plan with the IM team. A 23-year-old with history of alcoholic liver cirrhosis presented with upper GI bleed had EGD revealing bleeding varices currently on octreotide and Protonix drip. Continue octreotide and fusion for 5 days, start on propranolol 10 mg 3 times daily for hepatic encephalopathy prophylaxis and continue Rocephin for SBP prophylaxis in the setting of GI bleed. GI also recommended transfer to tertiary care for TIPS for which field case manager is on board. Documentation for date of: 07/31/24 Subjective Subjective Interval history: Patient was examined bedside this morning, EGD was done yesterday. Showed grade 3 esophageal varices 2 band well-placed . Evidence of scarring ulceration in previous band location. . Mucosal oozing of blood in the setting of hypertensive portal gastropathy , no bioposies taken . Continue octeotride for total 5 days. Exam Vital Signs Temp Pulse Resp BP Pulse Ox O2 Del Method 97.0 F 53 L 9 L 116/69 99 Room Air 07/31/24 08:00 07/31/24 08:00 07/31/24 08:00 07/31/24 08:00 07/31/24 08:00 07/31/24 08:00 Narrative Exam General: Young male, No acute distress, cooperative HEENT: NCAT, No JVD noted. Mucosa moist. Pupils are equal and reactive to light bilaterally Cardiovascular: Normal S1 and S2. Regular rate and rhythm. Respiratory: Lungs are clear to auscultation bilaterally. No wheezing or crackles heard. Abdomen: Soft, mild right abdomen tenderness, not distended, normal bowel sounds. Skin: Warm to touch, dry, no rashes noted Musculoskeletal: No gross injuries. Able to move all 4 extremities. No pitting edema Neuro: Alert and oriented x3. No focal neuro deficits. Psych: Normal affect and mood Objective Labs 07/31/24 05:10 07/31/24 05:10 Labs: Laboratory Results - last 24 hr 07/31/24 05:10 WBC 2.9 L RBC 3.27 L Hgb 7.6 L Hct 24.0 L MCV 73 L MCH 23.2 L MCHC 31.7 RDW Std Deviation 55.8 H Plt Count 88 L Neut % (Auto) 62 Lymph % (Auto) 27 [place] % (Auto) 7 Eos % (Auto) 3 Baso % (Auto) 1 Neut # (Auto) 1.8 Lymph # (Auto) 0.8 L [place] # (Auto) 0.2 Eos # (Auto) 0.1 Baso # (Auto) 0.0 Immature Gran # (Auto) 0.01 H Absolute Nucleated RBC 0.00 Immature Gran % 0 Nucleated RBC % 0 Sodium 139 Potassium 3.8 Chloride 103 Carbon Dioxide 24.9 Anion Gap 11 BUN 23 Creatinine 0.8 Estim Creat Clear Calc 105.3 eGFR > 60 BUN/Creatinine Ratio 29 H Glucose 101 Calculated Osmolality 281 Calcium 8.7 Corrected Calcium 8.8 Total Bilirubin 0.9 ALT 8 L Alkaline Phosphatase 70 Total Protein 6.2 Albumin 3.9 Globulin 2.3 Albumin/Globulin Ratio 1.7 Quality Measures Quality Measures none Assessment & Plan Assessment Current Active Medications: Generic Name Dose Route Start Last Admin Trade Name Freq PRN Reason Stop Dose Admin Acetaminophen 650 mg 07/29/24 08:25 07/30/24 02:21 Acetaminophen 325 Mg Tablet PO 08/28/24 08:24 650 mg Q6H PRN Administration Fever >100.3 or pain Octreotide Acetate 1,000 mcg/ 102 mls @ 5.1 mls/hr 07/30/24 01:44 07/30/24 21:43 Sodium Chloride IV 08/29/24 01:43 50 mcg/hr .Q20H MAYTE 5.1 mls/hr Administration Protocol 50 MCG/HR Ceftriaxone Sodium/Dextrose 1 gm in 50 mls @ 100 mls/hr 07/29/24 11:33 07/30/24 08:29 Rocephin/D5w 1gm Iv Premix IV 08/05/24 11:32 100 mls/hr QDAY MAYTE Administration Ondansetron HCl 4 mg 07/29/24 08:25 Ondansetron Inj 2 Mg/Ml Inj 2 Ml IVP 08/28/24 08:24 Q6H PRN NAUSEA OR VOMITING Protocol Pantoprazole Sodium 40 mg 07/31/24 09:00 Pantoprazole Inj 40 Mg Vial IVP 08/30/24 08:59 BID MAYTE Propranolol HCl 10 mg 07/31/24 08:45 Propranolol 10 Mg Tablet PO 08/30/24 08:44 [facility] Sennosides 1 tab 07/29/24 08:25 Senna Tablet PO 08/28/24 08:24 QDAY PRN constipation Protocol Plan Bari Tse is 23 yr male with PMH of variceal bleeds status post banding (3 times), alcoholic liver cirrhosis, and choledocholithiasis s/p stent presenting to ED with cheif complaint of hematemesis since yesterday. Also endorses 1 episode of melena and nausea. GI Dr. Johnson was consulted. Will admit patient for management of upper GI bleed. #Grade 3 esophageal varices s/p banding #upper GI bleed #Acute blood loss anemia #Caroli disease Presenting chief complaint of hematemesis about 5 episodes since yesterday. Also 1 episode of melena. Patient has been compliant with propranolol, ursodiol, pantoprazole since last admission. Hemoglobin 7, MCV 68 on admission. Per GI, he will work with the case management to get the patient to a tertiary center which is covered by his [facility] to evaluate for placement of a TIPS shunt to prevent this repeated hospitalizations and GI bleeds as well as the possibility of a liver transplant in the future. -Dr. Johnson consulted, appreciate recs -NPO for EGD -Pantoprazole 40 mg BID - Hold NSAIDs, antiplatelets -octreotide infusion -daily CBC - 07/31/2024: EGD was done yesterday. Showed grade 3 esophageal varices 2 band well-placed . Evidence of scarring ulceration in previous band location.Mucosal oozing of blood in the setting of hypertensive portal gastropathy , no bioposies taken . Continue octeotride for total 5 days. Patient should be considered for TIPS procedure as he continues to bleed. And needs referral to transfer to tertiary center in the setting of Caroli's disease . #Liver lesion MRI of his abdomen from 07/05/24 showed homogeneously enhancing right lobe lesion at 29 x 26 mm possibly suggestive of hemangioma versus adenoma. -Per last admission note, follow-up in 3 months outpatient with u/s #Hx of liver cirrhosis Patient has quit drinking. Labs improved since last admission. MELD-Na score of 10 points indicating 6% mortality in 90 days Child- Vanegas score of 5 points, Child A Maddrey score: 25.6--good prognosis -continue to monitor -follow up [facility] Health maintenance: Dispo: tele for GI bleed , octreotide for total 5 days FEN: regular diet DVT prophylaxis: SCDs CODE STATUS: Full code The patient's management plan was discussed with my attending physician Dr Erasmo Burrell MD, PGY- 3
[2024-07-31] MEDS: cefTRIAXone/D5w 1gm IV premix 1 GM/50 ML BAG IV (08:54)
[2024-07-31] MEDS: PANTOPRAZOLE INJ 40 MG VIAL IVP ×2 (08:54→21:27)
[2024-07-31] MEDS: PROPRANOLOL 10 MG TABLET PO ×3 (08:55→21:27)
--- NOTE | 2024-07-31 16:35 | PD.IMPROG ---
Documentation for date of: 07/31/24 Subjective Subjective Interval history: Hemoglobin hematocrit 7.6 and 24.0 Exam Vital Signs Temp Pulse Resp BP Pulse Ox O2 Del Method 96.7 F L 70 13 115/60 100 Room Air 07/31/24 11:55 07/31/24 13:41 07/31/24 11:55 07/31/24 13:41 07/31/24 11:55 07/31/24 11:55 Objective Labs 07/31/24 05:10 07/31/24 05:10 Labs: Laboratory Results - last 24 hr 07/31/24 05:10 WBC 2.9 L RBC 3.27 L Hgb 7.6 L Hct 24.0 L MCV 73 L MCH 23.2 L MCHC 31.7 RDW Std Deviation 55.8 H Plt Count 88 L Neut % (Auto) 62 Lymph % (Auto) 27 [place] % (Auto) 7 Eos % (Auto) 3 Baso % (Auto) 1 Neut # (Auto) 1.8 Lymph # (Auto) 0.8 L [place] # (Auto) 0.2 Eos # (Auto) 0.1 Baso # (Auto) 0.0 Immature Gran # (Auto) 0.01 H Absolute Nucleated RBC 0.00 Immature Gran % 0 Nucleated RBC % 0 Sodium 139 Potassium 3.8 Chloride 103 Carbon Dioxide 24.9 Anion Gap 11 BUN 23 Creatinine 0.8 Estim Creat Clear Calc 105.3 eGFR > 60 BUN/Creatinine Ratio 29 H Glucose 101 Calculated Osmolality 281 Calcium 8.7 Corrected Calcium 8.8 Total Bilirubin 0.9 ALT 8 L Alkaline Phosphatase 70 Total Protein 6.2 Albumin 3.9 Globulin 2.3 Albumin/Globulin Ratio 1.7 Impressions Impression: Upper GI bleed requiring band ligation of esophageal varices Hypertensive portal gastropathy with mucosal oozing of blood 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 Plan Case discussed with internal medicine team I will approach case management to see what hospitals are under his insurance of [facility] so we can transfer him for a TIPS shunt and possible get the patient on a liver transplant list Assessment & Plan A&P Narrative # Hematemesis in the setting of cirrhotic liver disease due to alcohol and other unspecified cause with a complete negative workup locally here Plan Octreotide infusion at 50 mcg/h IV Protonix agree with blood transfusion Serial CBC consent obtained for fiberoptic esophagogastroduodenoscopy with possible biopsy possible therapeutic intervention under intravenous moderate sedation I will work with the case management to get the patient to a tertiary center stand for another institution which is covered by his [facility] to evaluate for placement of a TIPS shunt to prevent this repeated hospitalizations and GI bleeds as well as the possibility of a liver transplant in the future provided 1 is sure that the patient will not drink again for which I am going to force him to join AA and have a record of clean alcohol and attending record of the AA for 6 months Thank you very much for the opportunity to participate in the care of this patient Time Spent With Patient Time: Total time spent is greater than 50% in coordination of care (as documented) at patient's floor/unit and/or counseling patient:
[2024-07-31] MEDS: OCTREOTIDE ACET INJ 1,000 MCG in SODIUM CHLORIDE 0.9% 100 ML 5.1 MCG IV (19:27)
[2024-08-01] VITALS (10 sets, daily range): BP systolic 93–112; BP diastolic 45–64; PULSE 41–64; RESP 6–17; TEMP 36.2–36.9; O2SAT 97–100; BMI 23.8
[2024-08-01] MEDS: HYDROcodone/APAP 5/325 TABLET 1 TAB PO (04:09)
[2024-08-01] MEDS: PROPRANOLOL 10 MG TABLET PO ×3 (05:10→21:41)
[2024-08-01 06:26] LABS: Basophils % (Auto) 1 % (0-2.5); Eosinophils # (Auto) 0.2 Thou/mm3 (0.0-0.5); Eosinophils % (Auto) 4 % (0-10); Hematocrit 25.7 % (41.0-53.0); Immature Granulocytes % (Auto) 0 % (0-0); Immature Granulocytes Auto 0.01 Thou/mm3 (0.00-0.00); Lymphocytes # (Auto) 1.2 Thou/mm3 (1.0-4.8); Lymphocytes % (Auto) 32 % (10-50); Mean Corpuscular HGB Conc 31.1 g/dl (31.0-37.0); Mean Corpuscular Hemoglobin 23.2 pg (25.0-35.0); Mean Corpuscular Volume 75 fL (80-100); Monocytes # (Auto) 0.3 Thou/mm3 (0.0-0.8); Monocytes % (Auto) 7 % (0-12); Neutrophils % (Auto) 56 % (37-80); Nucleated Red Blood Cell % 0 /100 WBC (0); Platelet Count 84 Thou/mm3 (140-440); RDW Standard Deviation 55.5 fL (35.1-43.9); Red Blood Count 3.45 Miln/mm3 (4.50-5.90); White Blood Count 3.6 Thou/mm3 (3.8-10.6)
[2024-08-01 07:22] LABS: Alanine Aminotransferase 11 U/L (10-49); Albumin, Serum 3.5 gm/dL (3.5-5.0); Albumin/Globulin Ratio 1.3 (1.2-2.2); Alkaline Phosphatase 68 U/L (46-116); Anion Gap 11 (7-16); BUN/Creatinine Ratio 14 Ratio (12-20); Bilirubin,Total 0.6 mg/dL (0.3-1.2); Blood Urea Nitrogen 10 mg/dL (9-23); Calcium 8.2 mg/dL (8.3-10.6); Calcium (Corrected) 8.6 mg/dL (8.5-10.1); Carbon Dioxide 25.9 mMol/L (20.0-31.0); Chloride 107 mMol/L (98-107); Creatinine (Component) 0.7 mg/dL (0.6-1.3); Estimated Creatinine Clearance 120.4 mL/min (>60); Globulin 2.6 gm/dL (2.3-3.5); Glucose 96 mg/dL (74-106); Osmolality,Calculated 285 (275-295); Potassium 4.2 mMol/L (3.4-5.1); Sodium 144 mMol/L (136-145); Total Protein 6.1 gm/dL (5.7-8.2); eGFR > 60 See Note
[2024-08-01] MEDS: cefTRIAXone/D5w 1gm IV premix 1 GM/50 ML BAG IV (09:13)
[2024-08-01] MEDS: PANTOPRAZOLE INJ 40 MG VIAL IVP ×2 (09:13→21:41)
--- NOTE | 2024-08-01 10:43 | PC.SS ---
SS follow up note; Patient is currently on Octreotide drip, will discharge home tomorrow.
[2024-08-01] MEDS: OCTREOTIDE ACET INJ 1,000 MCG in SODIUM CHLORIDE 0.9% 100 ML 5.1 MCG IV (14:59)
--- NOTE | 2024-08-01 15:41 | ESPR_ITS ---
<Statement entered by Alexia Mckay MD - 08/13/24 14:04> I reviewed above note and agree with findings and plans. I have also personally examined the patient with medicine team and went over assessment and plan with medical team including dental internship and resident physician. Documentation for date of: 08/01/24 Subjective Subjective Interval history: Patient was examined bedside this morning, no overnight events. He denies any hematemesis or melena. EGD showed grade 3 esophageal varices 2 band well-placed . Evidence of scarring ulceration in previous band location. . Mucosal oozing of blood in the setting of hypertensive portal gastropathy, no bioposies taken. Continue octeotride for total 5 days. Hb today 8.0, platelets 84. Exam Vital Signs Temp Pulse Resp BP Pulse Ox O2 Del Method 97.1 F 50 L 11 L 105/52 L 99 Room Air 08/01/24 12:00 08/01/24 14:08/01/24 12:00 08/01/24 14:08/01/24 12:00 08/01/24 12:00 Narrative Exam General: Young male, No acute distress, cooperative HEENT: NCAT, No JVD noted. Mucosa moist. Pupils are equal and reactive to light bilaterally Cardiovascular: Normal S1 and S2. Regular rate and rhythm. Respiratory: Lungs are clear to auscultation bilaterally. No wheezing or crackles heard. Abdomen: Soft, mild right abdomen tenderness, not distended, normal bowel sounds. Skin: Warm to touch, dry, no rashes noted Musculoskeletal: No gross injuries. Able to move all 4 extremities. No pitting edema Neuro: Alert and oriented x3. No focal neuro deficits. Psych: Normal affect and mood Objective Labs 08/01/24 05:24 08/01/24 05:24 Labs: Laboratory Results - last 24 hr 07/29/24 08/01/24 02:41 05:24 WBC 3.6 L RBC 3.45 L Hgb 8.0 L Hct 25.7 L MCV 75 L MCH 23.2 L MCHC 31.1 RDW Std Deviation 55.5 H Plt Count 84 L Neut % (Auto) 56 Lymph % (Auto) 32 [place] % (Auto) 7 Eos % (Auto) 4 Baso % (Auto) 1 Neut # (Auto) 2.0 Lymph # (Auto) 1.2 [place] # (Auto) 0.3 Eos # (Auto) 0.2 Baso # (Auto) 0.0 Immature Gran # (Auto) 0.01 H Absolute Nucleated RBC 0.00 Immature Gran % 0 Nucleated RBC % 0 Sodium 144 Potassium 4.2 Chloride 107 Carbon Dioxide 25.9 Anion Gap 11 BUN 10 Creatinine 0.7 Estim Creat Clear Calc 120.4 eGFR > 60 BUN/Creatinine Ratio 14 Glucose 96 Calculated Osmolality 285 Calcium 8.2 L Corrected Calcium 8.6 Total Bilirubin 0.6 ALT 11 Alkaline Phosphatase 68 Total Protein 6.1 Albumin 3.5 Globulin 2.6 Albumin/Globulin Ratio 1.3 Crossmatch See Detail Quality Measures Quality Measures none Assessment & Plan Assessment Current Active Medications: Generic Name Dose Route Start Last Admin Trade Name Freq PRN Reason Stop Dose Admin Acetaminophen 650 mg 07/29/24 08:25 07/30/24 02:21 Acetaminophen 325 Mg Tablet PO 08/28/24 08:24 650 mg Q6H PRN Administration Fever >100.3 or pain Octreotide Acetate 1,000 mcg/ 102 mls @ 5.1 mls/hr 07/30/24 01:44 08/01/24 14:59 Sodium Chloride IV 08/29/24 01:43 50 mcg/hr .Q20H MAYTE 5.1 mls/hr Administration Protocol 50 MCG/HR Ceftriaxone Sodium/Dextrose 1 gm in 50 mls @ 100 mls/hr 07/29/24 11:33 08/01/24 09:13 Rocephin/D5w 1gm Iv Premix IV 08/05/24 11:32 100 mls/hr QDAY MAYTE Administration Ondansetron HCl 4 mg 07/29/24 08:25 Ondansetron Inj 2 Mg/Ml Inj 2 Ml IVP 08/28/24 08:24 Q6H PRN NAUSEA OR VOMITING Protocol Pantoprazole Sodium 40 mg 07/31/24 09:00 08/01/24 09:13 Pantoprazole Inj 40 Mg Vial IVP 08/30/24 08:59 40 mg BID MAYTE Administration Propranolol HCl 10 mg 07/31/24 08:45 08/01/24 14:07 Propranolol 10 Mg Tablet PO 08/30/24 08:44 10 mg TID MAYTE Administration Sennosides 1 tab 07/29/24 08:25 Senna Tablet PO 08/28/24 08:24 QDAY PRN constipation Protocol Plan Bari Tse is 23 yr male with PMH of variceal bleeds status post banding (3 times), alcoholic liver cirrhosis, and choledocholithiasis s/p stent presenting to ED with cheif complaint of hematemesis since yesterday. Also endorses 1 episode of melena and nausea. GI Dr. Johnson was consulted. Will admit patient for management of upper GI bleed. #Grade 3 esophageal varices s/p banding #upper GI bleed #Acute blood loss anemia #Caroli disease Presenting chief complaint of hematemesis about 5 episodes since yesterday. Also 1 episode of melena. Patient has been compliant with propranolol, ursodiol, pantoprazole since last admission. Hemoglobin 7, MCV 68 on admission. Per GI, he will work with the case management to get the patient to a tertiary center which is covered by his [facility] to evaluate for placement of a TIPS shunt to prevent this repeated hospitalizations and GI bleeds as well as the possibility of a liver transplant in the future. EGD on 07/30/24 Showed grade 3 esophageal varices 2 band well-placed . Evidence of scarring ulceration in previous band location.Mucosal oozing of blood in the setting of hypertensive portal gastropathy , no bioposies taken . -Dr. Johnson consulted, appreciate recs -NPO for EGD -Pantoprazole 40 mg BID - Hold NSAIDs, antiplatelets -octreotide infusion -daily CBC #Liver lesion MRI of his abdomen from 07/05/24 showed homogeneously enhancing right lobe lesion at 29 x 26 mm possibly suggestive of hemangioma versus adenoma. -Per last admission note, follow-up in 3 months outpatient with u/s #Hx of liver cirrhosis Patient has quit drinking. Labs improved since last admission. MELD-Na score of 10 points indicating 6% mortality in 90 days Child- Vanegas score of 5 points, Child A Maddrey score: 25.6--good prognosis -continue to monitor -follow up outpatinet Health maintenance: Dispo: tele for GI bleed , octreotide for total 5 days FEN: regular diet DVT prophylaxis: SCDs CODE STATUS: Full code The patient's management plan was discussed with my attending physician Dr. Mckay. Estela Hernández, PGY-1
--- NOTE | 2024-08-01 20:15 | PD.IMPROG ---
Documentation for date of: 08/01/24 Subjective Subjective Interval history: Hemoglobin hematocrit 8.0 and 25.7 Exam Vital Signs Temp Pulse Resp BP Pulse Ox O2 Del Method 97.6 F 58 L 16 107/64 100 Room Air 08/01/24 15:56 08/01/24 15:56 08/01/24 15:56 08/01/24 15:56 08/01/24 15:56 08/01/24 12:00 Objective Labs 08/01/24 05:24 08/01/24 05:24 Labs: Laboratory Results - last 24 hr 07/29/24 08/01/24 02:41 05:24 WBC 3.6 L RBC 3.45 L Hgb 8.0 L Hct 25.7 L MCV 75 L MCH 23.2 L MCHC 31.1 RDW Std Deviation 55.5 H Plt Count 84 L Neut % (Auto) 56 Lymph % (Auto) 32 [place] % (Auto) 7 Eos % (Auto) 4 Baso % (Auto) 1 Neut # (Auto) 2.0 Lymph # (Auto) 1.2 [place] # (Auto) 0.3 Eos # (Auto) 0.2 Baso # (Auto) 0.0 Immature Gran # (Auto) 0.01 H Absolute Nucleated RBC 0.00 Immature Gran % 0 Nucleated RBC % 0 Sodium 144 Potassium 4.2 Chloride 107 Carbon Dioxide 25.9 Anion Gap 11 BUN 10 Creatinine 0.7 Estim Creat Clear Calc 120.4 eGFR > 60 BUN/Creatinine Ratio 14 Glucose 96 Calculated Osmolality 285 Calcium 8.2 L Corrected Calcium 8.6 Total Bilirubin 0.6 ALT 11 Alkaline Phosphatase 68 Total Protein 6.1 Albumin 3.5 Globulin 2.6 Albumin/Globulin Ratio 1.3 Crossmatch See Detail Impressions Impression: Hematemesis Melena Status post band ligation of the esophageal varices Will speak with the transfer center and case management to see which institution I can transfer the patient to [facility] Assessment & Plan A&P Narrative # Hematemesis in the setting of cirrhotic liver disease due to alcohol and other unspecified cause with a complete negative workup locally here Plan Octreotide infusion at 50 mcg/h IV Protonix agree with blood transfusion Serial CBC consent obtained for fiberoptic esophagogastroduodenoscopy with possible biopsy possible therapeutic intervention under intravenous moderate sedation I will work with the case management to get the patient to a tertiary center stand for another institution which is covered by his [employer] to evaluate for placement of a TIPS shunt to prevent this repeated hospitalizations and GI bleeds as well as the possibility of a liver transplant in the future provided 1 is sure that the patient will not drink again for which I am going to force him to join AA and have a record of clean alcohol and attending record of the AA for 6 months Thank you very much for the opportunity to participate in the care of this patient Time Spent With Patient Time: Total time spent is greater than 50% in coordination of care (as documented) at patient's floor/unit and/or counseling patient:
[2024-08-02] VITALS (9 sets, daily range): BP systolic 97–114; BP diastolic 47–65; PULSE 44–58; RESP 14–18; TEMP 36.2–36.7; O2SAT 97–100; BMI 23.8
[2024-08-02 05:42] LABS: Basophils % (Auto) 1 % (0-2.5); Eosinophils # (Auto) 0.2 Thou/mm3 (0.0-0.5); Eosinophils % (Auto) 4 % (0-10); Hematocrit 25.9 % (41.0-53.0); Immature Granulocytes % (Auto) 0 % (0-0); Immature Granulocytes Auto 0.01 Thou/mm3 (0.00-0.00); Lymphocytes # (Auto) 1.3 Thou/mm3 (1.0-4.8); Lymphocytes % (Auto) 31 % (10-50); Mean Corpuscular HGB Conc 30.5 g/dl (31.0-37.0); Mean Corpuscular Hemoglobin 22.8 pg (25.0-35.0); Mean Corpuscular Volume 75 fL (80-100); Monocytes # (Auto) 0.3 Thou/mm3 (0.0-0.8); Monocytes % (Auto) 7 % (0-12); Neutrophils # (Auto) 2.4 Thou/mm3 (1.8-7.7); Neutrophils % (Auto) 58 % (37-80); Nucleated Red Blood Cell % 0 /100 WBC (0); Platelet Count 113 Thou/mm3 (140-440); RDW Standard Deviation 55.4 fL (35.1-43.9); Red Blood Count 3.46 Miln/mm3 (4.50-5.90); White Blood Count 4.1 Thou/mm3 (3.8-10.6)
[2024-08-02] MEDS: PROPRANOLOL 10 MG TABLET PO ×2 (05:43→21:21)
[2024-08-02 06:02] LABS: Hemoglobin 7.9 g/dL (13.5-16.0)
[2024-08-02 06:09] LABS: Alanine Aminotransferase 12 U/L (10-49); Albumin, Serum 3.8 gm/dL (3.5-5.0); Albumin/Globulin Ratio 1.5 (1.2-2.2); Alkaline Phosphatase 77 U/L (46-116); Anion Gap 9 (7-16); BUN/Creatinine Ratio 15 Ratio (12-20); Bilirubin,Total 0.6 mg/dL (0.3-1.2); Blood Urea Nitrogen 12 mg/dL (9-23); Calcium 8.4 mg/dL (8.3-10.6); Calcium (Corrected) 8.6 mg/dL (8.5-10.1); Carbon Dioxide 28.4 mMol/L (20.0-31.0); Chloride 105 mMol/L (98-107); Creatinine (Component) 0.8 mg/dL (0.6-1.3); Estimated Creatinine Clearance 105.3 mL/min (>60); Globulin 2.6 gm/dL (2.3-3.5); Glucose 99 mg/dL (74-106); Osmolality,Calculated 282 (275-295); Potassium 4.3 mMol/L (3.4-5.1); Sodium 142 mMol/L (136-145); Total Protein 6.4 gm/dL (5.7-8.2); eGFR > 60 See Note
[2024-08-02] MEDS: PANTOPRAZOLE INJ 40 MG VIAL IVP ×2 (08:55→21:20)
[2024-08-02] MEDS: cefTRIAXone/D5w 1gm IV premix 1 GM/50 ML BAG IV (08:55)
[2024-08-02 09:51] LABS: Ferritin 3 ng/mL (10.5-307.3); Iron 7 mcg/dL (65-175); Percent Iron Saturation 2 % (20-55); Total Iron Binding Capacity 341 mcg/dL (250-425); Unsaturated Iron Binding 334 (225-295)
--- NOTE | 2024-08-02 11:48 | PC.CC ---
Addendum entered by Brittny Quiros RN 08/02/24 14:40: 1440: clinicals faxed to [facility] for review for insurance auth Addendum entered by Brittyn Quiros RN 08/02/24 13:26: 1254: Received call from Billy at [facility], he had the upper trimmer Dr. Sonia Narayan on the phone requesting to speak to Dr. Allison. Conference call initiated. Call taken in the hospitalist charting room with Dr. Allison, Dr. Hernández, and Dr. Burrell were all on the call. Patient case was discussed, Dr. Davis accepted pt pending bed availability and insurance auth. 1248: Received call from Vanita at [employer], she stated that pt requires prior insurance authorization for the transfer. Addendum entered by Brittny Quiros RN 08/02/24 11:59: 1156: spoke to Tiffanie at [facility], She state she will review the clinicals once received, then call back. Original Note: 1145: sent clinicals to [facility]. 0944 received order to transfer for [facility] for hepatolgy services for liver transplant eval and TIPS.
[2024-08-02] MEDS: OCTREOTIDE ACET INJ 1,000 MCG in SODIUM CHLORIDE 0.9% 100 ML 5.1 MCG IV (13:19)
--- NOTE | 2024-08-02 14:35 | PC.SS ---
Rounding note: Octeotride drip to be completed 08/03/24. Patient is accepted to [place] and pending insurance auth.
--- NOTE | 2024-08-02 15:13 | ESPR_ITS ---
Documentation for date of: 08/02/24 Subjective Subjective Interval history: Patient was examined bedside this morning, no overnight events. He denies any hematemesis or melena. EGD showed grade 3 esophageal varices 2 band well-placed . Evidence of scarring ulceration in previous band location. . Mucosal oozing of blood in the setting of hypertensive portal gastropathy, no bioposies taken. Continue octeotride for one more day. Hb stable 7-8, platelets 113. Iron 7, ferritin 3. Will start patient on IV iron. Bpo Specialist Dr. Sonia Narayan from [facility] agreed to accept patient for TIPS pending bed and insurance auth. Exam Vital Signs Temp Pulse Resp BP Pulse Ox O2 Del Method 97.6 F 44 L 14 112/63 99 Room Air 08/02/24 12:00 08/02/24 13:37 08/02/24 12:00 08/02/24 13:37 08/02/24 12:00 08/02/24 12:00 Narrative Exam General: Young male, No acute distress, cooperative HEENT: NCAT, No JVD noted. Mucosa moist. Pupils are equal and reactive to light bilaterally Cardiovascular: Normal S1 and S2. Regular rate and rhythm. Respiratory: Lungs are clear to auscultation bilaterally. No wheezing or crackles heard. Abdomen: Soft, mild right abdomen tenderness, not distended, normal bowel sounds. Skin: Warm to touch, dry, no rashes noted Musculoskeletal: No gross injuries. Able to move all 4 extremities. No pitting edema Neuro: Alert and oriented x3. No focal neuro deficits. Psych: Normal affect and mood Objective Labs 08/03/24 04:39 08/03/24 04:39 Labs: Laboratory Results - last 24 hr 08/02/24 08/02/24 04:37 09:29 WBC 4.1 RBC 3.46 L Hgb 7.9 L Hct 25.9 L MCV 75 L MCH 22.8 L MCHC 30.5 L RDW Std Deviation 55.4 H Plt Count 113 L D Neut % (Auto) 58 Lymph % (Auto) 31 [place] % (Auto) 7 Eos % (Auto) 4 Baso % (Auto) 1 Neut # (Auto) 2.4 Lymph # (Auto) 1.3 [place] # (Auto) 0.3 Eos # (Auto) 0.2 Baso # (Auto) 0.0 Immature Gran # (Auto) 0.01 H Absolute Nucleated RBC 0.00 Immature Gran % 0 Nucleated RBC % 0 Sodium 142 Potassium 4.3 Chloride 105 Carbon Dioxide 28.4 Anion Gap 9 BUN 12 Creatinine 0.8 Estim Creat Clear Calc 105.3 eGFR > 60 BUN/Creatinine Ratio 15 Glucose 99 Calculated Osmolality 282 Calcium 8.4 Corrected Calcium 8.6 Iron 7 L TIBC 341 Iron Saturation 2 L Unsat Iron Binding 334 H Ferritin 3 L Total Bilirubin 0.6 ALT 12 Alkaline Phosphatase 77 Total Protein 6.4 Albumin 3.8 Globulin 2.6 Albumin/Globulin Ratio 1.5 Quality Measures Quality Measures none Assessment & Plan Assessment Current Active Medications: Generic Name Dose Route Start Last Admin Trade Name Freq PRN Reason Stop Dose Admin Acetaminophen 650 mg 07/29/24 08:25 07/30/24 02:21 Acetaminophen 325 Mg Tablet PO 08/28/24 08:24 650 mg Q6H PRN Administration Fever >100.3 or pain Octreotide Acetate 1,000 mcg/ 102 mls @ 5.1 mls/hr 07/30/24 01:44 08/02/24 13:19 Sodium Chloride IV 08/04/24 01:43 50 mcg/hr .Q20H MAYTE 5.1 mls/hr Administration Protocol 50 MCG/HR Ceftriaxone Sodium/Dextrose 1 gm in 50 mls @ 100 mls/hr 07/29/24 11:33 08/02/24 08:55 Rocephin/D5w 1gm Iv Premix IV 08/05/24 11:32 100 mls/hr QDAY MAYTE Administration Iron Sucrose 200 mg 08/02/24 15:00 Iron Sucrose Cplx Inj 20 Mg/Ml Vial 5 Ml IV 08/06/24 12:01 QDAY@1200 MAYTE Ondansetron HCl 4 mg 07/29/24 08:25 Ondansetron Inj 2 Mg/Ml Inj 2 Ml IVP 08/28/24 08:24 Q6H PRN NAUSEA OR VOMITING Protocol Pantoprazole Sodium 40 mg 07/31/24 09:00 08/02/24 08:55 Pantoprazole Inj 40 Mg Vial IVP 08/30/24 08:59 40 mg BID MAYTE Administration Propranolol HCl 10 mg 07/31/24 08:45 08/02/24 13:37 Propranolol 10 Mg Tablet PO 08/30/24 08:44 Not Given TID MAYTE Sennosides 1 tab 07/29/24 08:25 Senna Tablet PO 08/28/24 08:24 QDAY PRN constipation Protocol Plan Bari Tse is 23 yr male with PMH of variceal bleeds status post banding (3 times), alcoholic liver cirrhosis, and choledocholithiasis s/p stent presenting to ED with cheif complaint of hematemesis since yesterday. Also endorses 1 episode of melena and nausea. GI Dr. Johnson was consulted. Will admit patient for management of upper GI bleed. #Grade 3 esophageal varices s/p banding #upper GI bleed #Acute blood loss anemia #Caroli disease Presenting chief complaint of hematemesis about 5 episodes since yesterday. Also 1 episode of melena. Patient has been compliant with propranolol, ursodiol, pantoprazole since last admission. Hemoglobin 7, MCV 68 on admission. Per GI, he will work with the case management to get the patient to a tertiary center which is covered by his [facility] to evaluate for placement of a TIPS shunt to prevent this repeated hospitalizations and GI bleeds as well as the possibility of a liver transplant in the future. EGD on 07/30/24 Showed grade 3 esophageal varices 2 band well-placed . Evidence of scarring ulceration in previous band location.Mucosal oozing of blood in the setting of hypertensive portal gastropathy , no bioposies taken . Iron pannel: iron 7, ferritin 3 -Dr. Johnson consulted, appreciate recs -NPO for EGD -Pantoprazole 40 mg BID - Hold NSAIDs, antiplatelets -octreotide infusion one more day -start IV iron -daily CBC #Liver lesion MRI of his abdomen from 07/05/24 showed homogeneously enhancing right lobe lesion at 29 x 26 mm possibly suggestive of hemangioma versus adenoma. -Per last admission note, follow-up in 3 months outpatient with u/s #Hx of liver cirrhosis Patient has quit drinking. Labs improved since last admission. MELD-Na score of 10 points indicating 6% mortality in 90 days Child- Vanegas score of 5 points, Child A Maddrey score: 25.6--good prognosis -continue to monitor -follow up outpatinet --Bpo Specialist Dr. Sonia Narayan from [place] agreed to accept patient for TIPS pending bed and insurance auth. Health maintenance: Dispo: tele for GI bleed, octreotide for one more day FEN: regular diet DVT prophylaxis: SCDs CODE STATUS: Full code The patient's management plan was discussed with my attending physician Dr. Esteves. Estela Hernández, PGY-1 Attending Provider Attestation/Addendum I attest that I was physically present for the evaluation, physical examination, lab and imaging review of the patient with the residents. I discussed the case with the residents and agree with the findings and plans of care as documented above. Magali Esteves MD
[2024-08-02] MEDS: IRON SUCROSE CPLX INJ 20 MG/ML VIAL 5 ML 200 MG IV (15:28)
--- NOTE | 2024-08-02 21:15 | PD.IMPROG ---
Documentation for date of: 08/02/24 Subjective Subjective Interval history: Patient evaluated Hemoglobin hematocrit 7.9 and 25.9 Had lengthy discussion with the internal medicine team Patient has been accepted at [facility] and getting insurance clearance and I would like an preferred to have an inpatient transfer than an outpatient as patient continues to come back with multiple GI bleeds requiring multiple blood transfusions He also needs to be on the liver transplant list Exam Vital Signs Temp Pulse Resp BP Pulse Ox O2 Del Method 97.4 F 56 L 16 114/63 100 Room Air 08/02/24 20:00 08/02/24 20:00 08/02/24 20:00 08/02/24 20:00 08/02/24 20:00 08/02/24 20:00 Objective Labs 08/02/24 04:37 08/02/24 04:37 Labs: Laboratory Results - last 24 hr 08/02/24 08/02/24 04:37 09:29 WBC 4.1 RBC 3.46 L Hgb 7.9 L Hct 25.9 L MCV 75 L MCH 22.8 L MCHC 30.5 L RDW Std Deviation 55.4 H Plt Count 113 L D Neut % (Auto) 58 Lymph % (Auto) 31 [place] % (Auto) 7 Eos % (Auto) 4 Baso % (Auto) 1 Neut # (Auto) 2.4 Lymph # (Auto) 1.3 [place] # (Auto) 0.3 Eos # (Auto) 0.2 Baso # (Auto) 0.0 Immature Gran # (Auto) 0.01 H Absolute Nucleated RBC 0.00 Immature Gran % 0 Nucleated RBC % 0 Sodium 142 Potassium 4.3 Chloride 105 Carbon Dioxide 28.4 Anion Gap 9 BUN 12 Creatinine 0.8 Estim Creat Clear Calc 105.3 eGFR > 60 BUN/Creatinine Ratio 15 Glucose 99 Calculated Osmolality 282 Calcium 8.4 Corrected Calcium 8.6 Iron 7 L TIBC 341 Iron Saturation 2 L Unsat Iron Binding 334 H Ferritin 3 L Total Bilirubin 0.6 ALT 12 Alkaline Phosphatase 77 Total Protein 6.4 Albumin 3.8 Globulin 2.6 Albumin/Globulin Ratio 1.5 Impressions Impression: Recurrent GI bleed secondary to esophageal variceal bleeding in the setting of cirrhotic liver disease due to Caroli's disease Patient has been abstinent from alcohol for months Assessment & Plan A&P Narrative # Hematemesis in the setting of cirrhotic liver disease due to alcohol and other unspecified cause with a complete negative workup locally here Plan Octreotide infusion at 50 mcg/h IV Protonix agree with blood transfusion Serial CBC consent obtained for fiberoptic esophagogastroduodenoscopy with possible biopsy possible therapeutic intervention under intravenous moderate sedation I will work with the case management to get the patient to a tertiary center stand for another institution which is covered by his [employer] to evaluate for placement of a TIPS shunt to prevent this repeated hospitalizations and GI bleeds as well as the possibility of a liver transplant in the future provided 1 is sure that the patient will not drink again for which I am going to force him to join AA and have a record of clean alcohol and attending record of the AA for 6 months Thank you very much for the opportunity to participate in the care of this patient Time Spent With Patient Time: Total time spent is greater than 50% in coordination of care (as documented) at patient's floor/unit and/or counseling patient:
[2024-08-03] VITALS (9 sets, daily range): BP systolic 97–120; BP diastolic 48–65; PULSE 52–85; RESP 16–18; TEMP 36.3–36.6; O2SAT 96–100; BMI 24.5
[2024-08-03] MEDS: PROPRANOLOL 10 MG TABLET PO ×3 (05:17→21:22)
[2024-08-03 05:36] LABS: Basophils % (Auto) 1 % (0-2.5); Eosinophils # (Auto) 0.1 Thou/mm3 (0.0-0.5); Eosinophils % (Auto) 3 % (0-10); Hematocrit 26.1 % (41.0-53.0); Immature Granulocytes % (Auto) 0 % (0-0); Immature Granulocytes Auto 0.01 Thou/mm3 (0.00-0.00); Lymphocytes # (Auto) 0.7 Thou/mm3 (1.0-4.8); Lymphocytes % (Auto) 17 % (10-50); Mean Corpuscular HGB Conc 30.3 g/dl (31.0-37.0); Mean Corpuscular Hemoglobin 22.8 pg (25.0-35.0); Mean Corpuscular Volume 75 fL (80-100); Monocytes # (Auto) 0.2 Thou/mm3 (0.0-0.8); Monocytes % (Auto) 5 % (0-12); Neutrophils # (Auto) 2.9 Thou/mm3 (1.8-7.7); Neutrophils % (Auto) 74 % (37-80); Nucleated Red Blood Cell % 0 /100 WBC (0); Platelet Count 103 Thou/mm3 (140-440); RDW Standard Deviation 56.1 fL (35.1-43.9); Red Blood Count 3.47 Miln/mm3 (4.50-5.90)
[2024-08-03 05:39] LABS: Hemoglobin 7.9 g/dL (13.5-16.0)
[2024-08-03 05:46] LABS: Alanine Aminotransferase 13 U/L (10-49); Albumin, Serum 3.7 gm/dL (3.5-5.0); Albumin/Globulin Ratio 1.4 (1.2-2.2); Alkaline Phosphatase 86 U/L (46-116); Anion Gap 9 (7-16); BUN/Creatinine Ratio 14 Ratio (12-20); Bilirubin,Total 0.5 mg/dL (0.3-1.2); Blood Urea Nitrogen 11 mg/dL (9-23); Calcium 8.2 mg/dL (8.3-10.6); Calcium (Corrected) 8.4 mg/dL (8.5-10.1); Chloride 107 mMol/L (98-107); Creatinine (Component) 0.8 mg/dL (0.6-1.3); Estimated Creatinine Clearance 89.1 mL/min (>60); Globulin 2.6 gm/dL (2.3-3.5); Glucose 130 mg/dL (74-106); Osmolality,Calculated 284 (275-295); Potassium 3.9 mMol/L (3.4-5.1); Sodium 142 mMol/L (136-145); Total Protein 6.3 gm/dL (5.7-8.2); eGFR > 60 See Note
[2024-08-03] MEDS: PANTOPRAZOLE INJ 40 MG VIAL IVP (09:38)
[2024-08-03] MEDS: cefTRIAXone/D5w 1gm IV premix 1 GM/50 ML BAG IV (09:39)
[2024-08-03] MEDS: IRON SUCROSE CPLX INJ 20 MG/ML VIAL 5 ML 200 MG IV (12:26)
[2024-08-03] MEDS: OCTREOTIDE ACET INJ 1,000 MCG in SODIUM CHLORIDE 0.9% 100 ML 5.1 MCG IV (13:07)
--- NOTE | 2024-08-03 13:33 | PC.CC ---
Called [facility], gave updated information, they will start the auth process now.
--- NOTE | 2024-08-03 15:09 | ESPR_ITS ---
Documentation for date of: 08/03/24 Subjective Subjective Interval history: Patient was examined bedside this morning, no overnight events. He denies any hematemesis or melena. Today is last day of octeotride drip. Hb stable 7-8, platelets 103. Iron 7, ferritin 3. He was started on IV iron sucros for total of [address] Sonia Narayan from [facility] agreed to accept patient for TIPS pending bed and insurance auth. Continue ceftriaxone and propranol. Exam Vital Signs Temp Pulse Resp BP Pulse Ox O2 Del Method 97.9 F 52 L 16 110/65 100 Room Air 08/03/24 12:00 08/03/24 14:11 08/03/24 12:00 08/03/24 14:11 08/03/24 12:00 08/03/24 12:00 Narrative Exam General: Young male, No acute distress, cooperative HEENT: NCAT, No JVD noted. Mucosa moist. Pupils are equal and reactive to light bilaterally Cardiovascular: Normal S1 and S2. Regular rate and rhythm. Respiratory: Lungs are clear to auscultation bilaterally. No wheezing or crackles heard. Abdomen: Soft, mild right abdomen tenderness, not distended, normal bowel sounds. Skin: Warm to touch, dry, no rashes noted Musculoskeletal: No gross injuries. Able to move all 4 extremities. No pitting edema Neuro: Alert and oriented x3. No focal neuro deficits. Psych: Normal affect and mood Objective Labs 08/04/24 05:34 08/04/24 05:34 Labs: Laboratory Results - last 24 hr 08/03/24 04:39 WBC 4.0 RBC 3.47 L Hgb 7.9 L Hct 26.1 L MCV 75 L MCH 22.8 L MCHC 30.3 L RDW Std Deviation 56.1 H Plt Count 103 L Neut % (Auto) 74 Lymph % (Auto) 17 [place] % (Auto) 5 Eos % (Auto) 3 Baso % (Auto) 1 Neut # (Auto) 2.9 Lymph # (Auto) 0.7 L [place] # (Auto) 0.2 Eos # (Auto) 0.1 Baso # (Auto) 0.0 Immature Gran # (Auto) 0.01 H Absolute Nucleated RBC 0.00 Immature Gran % 0 Nucleated RBC % 0 Sodium 142 Potassium 3.9 Chloride 107 Carbon Dioxide 26.0 Anion Gap 9 BUN 11 Creatinine 0.8 Estim Creat Clear Calc 89.1 eGFR > 60 BUN/Creatinine Ratio 14 Glucose 130 H Calculated Osmolality 284 Calcium 8.2 L Corrected Calcium 8.4 L Total Bilirubin 0.5 ALT 13 Alkaline Phosphatase 86 Total Protein 6.3 Albumin 3.7 Globulin 2.6 Albumin/Globulin Ratio 1.4 Quality Measures Quality Measures none Assessment & Plan Assessment Current Active Medications: Generic Name Dose Route Start Last Admin Trade Name Freq PRN Reason Stop Dose Admin Acetaminophen 650 mg 07/29/24 08:25 07/30/24 02:21 Acetaminophen 325 Mg Tablet PO 08/28/24 08:24 650 mg Q6H PRN Administration Fever >100.3 or pain Octreotide Acetate 1,000 mcg/ 102 mls @ 5.1 mls/hr 07/30/24 01:44 08/03/24 13:07 Sodium Chloride IV 08/04/24 01:43 50 mcg/hr .Q20H MAYTE 5.1 mls/hr Administration Protocol 50 MCG/HR Ceftriaxone Sodium/Dextrose 1 gm in 50 mls @ 100 mls/hr 07/29/24 11:33 08/03/24 09:39 Rocephin/D5w 1gm Iv Premix IV 08/05/24 11:32 100 mls/hr QDAY MAYTE Administration Iron Sucrose 200 mg 08/02/24 15:00 08/03/24 12:26 Iron Sucrose Cplx Inj 20 Mg/Ml Vial 5 Ml IV 08/06/24 12:01 200 mg QDAY@1200 MAYTE Administration Ondansetron HCl 4 mg 07/29/24 08:25 Ondansetron Inj 2 Mg/Ml Inj 2 Ml IVP 08/28/24 08:24 Q6H PRN NAUSEA OR VOMITING Protocol Propranolol HCl 10 mg 07/31/24 08:45 08/03/24 14:11 Propranolol 10 Mg Tablet PO 08/30/24 08:44 10 mg TID MAYTE Administration Sennosides 1 tab 07/29/24 08:25 Senna Tablet PO 08/28/24 08:24 QDAY PRN constipation Protocol Plan Bari Tse is 23 yr male with PMH of variceal bleeds status post banding (3 times), alcoholic liver cirrhosis, and choledocholithiasis s/p stent presenting to ED with cheif complaint of hematemesis since yesterday. Also endorses 1 episode of melena and nausea. GI Dr. Johnson was consulted. Will admit patient for management of upper GI bleed. #Grade 3 esophageal varices s/p banding #upper GI bleed #Acute blood loss anemia #Caroli disease Presenting chief complaint of hematemesis about 5 episodes since yesterday. Also 1 episode of melena. Patient has been compliant with propranolol, ursodiol, pantoprazole since last admission. Hemoglobin 7, MCV 68 on admission. Per GI, he will work with the case management to get the patient to a tertiary center which is covered by his [facility] to evaluate for placement of a TIPS shunt to prevent this repeated hospitalizations and GI bleeds as well as the possibility of a liver transplant in the future. EGD on 07/30/24 Showed grade 3 esophageal varices 2 band well-placed . Evidence of scarring ulceration in previous band location.Mucosal oozing of blood in the setting of hypertensive portal gastropathy , no bioposies taken . Iron pannel: iron 7, ferritin 3 -Dr. Johnson consulted, appreciate recs -stopped Pantoprazole 40 mg BID - Hold NSAIDs, antiplatelets -last day octreotide infusion today -started IV iron (08/02-) for total of 5 doses -daily CBC #Liver lesion MRI of his abdomen from 07/05/24 showed homogeneously enhancing right lobe lesion at 29 x 26 mm possibly suggestive of hemangioma versus adenoma. -Per last admission note, follow-up in 3 months outpatient with u/s #Hx of liver cirrhosis Patient has quit drinking. Labs improved since last admission. MELD-Na score of 10 points indicating 6% mortality in 90 days Child- Vanegas score of 5 points, Child A Maddrey score: 25.6--good prognosis -continue to monitor -follow up outpatinet -Dust Collector Treater Dr. Sonia Narayan from [facility] agreed to accept patient for TIPS pending bed and insurance auth. Health maintenance: Dispo: tele for GI bleed, IV iron infusion FEN: regular diet DVT prophylaxis: SCDs CODE STATUS: Full code The patient's management plan was discussed with my attending physician Dr. Lemos. Estela Hernández, PGY-1 Attending Provider Attestation/Addendum I have examined the patient, reviewed labs and imaging findings, discussed the case with the resident(s), and reviewed entered orders. I agree with the plan of care as outlined in this note, with these additional summaries/recommendations: Patient seen at bedside. No acute overnight events. He reports his stool was brown this morning. He is status post EGD that revealed grade 3 esophageal varices which were banded. Hemoglobin stable at 7.9. Patient is pending transfer to [facility] for TIPS procedure. Continue octreotide and IV Rocephin. DC pantoprazole. Outpatient follow-up for liver lesion. Follow-up with collision center manager for liver cirrhosis. Patient updated on the plan and in agreement. All questions answered to satisfaction. Please see residents note for additional details of management. Dr. Canelo MD
--- NOTE | 2024-08-03 19:40 | ESPR_ITS ---
Documentation for date of: 08/03/24 Subjective Subjective Interval history: Waiting for a bed at [facility] for TIPS placement as well as getting the patient back on the liver transplant list Exam Vital Signs Temp Pulse Resp BP Pulse Ox O2 Del Method 97.9 F 80 16 106/54 L 100 Room Air 08/03/24 16:00 08/03/24 16:00 08/03/24 16:00 08/03/24 16:00 08/03/24 16:00 08/03/24 16:00 Objective Labs 08/03/24 04:39 08/03/24 04:39 Labs: Laboratory Results - last 24 hr 08/03/24 04:39 WBC 4.0 RBC 3.47 L Hgb 7.9 L Hct 26.1 L MCV 75 L MCH 22.8 L MCHC 30.3 L RDW Std Deviation 56.1 H Plt Count 103 L Neut % (Auto) 74 Lymph % (Auto) 17 [place] % (Auto) 5 Eos % (Auto) 3 Baso % (Auto) 1 Neut # (Auto) 2.9 Lymph # (Auto) 0.7 L [place] # (Auto) 0.2 Eos # (Auto) 0.1 Baso # (Auto) 0.0 Immature Gran # (Auto) 0.01 H Absolute Nucleated RBC 0.00 Immature Gran % 0 Nucleated RBC % 0 Sodium 142 Potassium 3.9 Chloride 107 Carbon Dioxide 26.0 Anion Gap 9 BUN 11 Creatinine 0.8 Estim Creat Clear Calc 89.1 eGFR > 60 BUN/Creatinine Ratio 14 Glucose 130 H Calculated Osmolality 284 Calcium 8.2 L Corrected Calcium 8.4 L Total Bilirubin 0.5 ALT 13 Alkaline Phosphatase 86 Total Protein 6.3 Albumin 3.7 Globulin 2.6 Albumin/Globulin Ratio 1.4 Impressions Impression: Upper GI bleed secondary to esophageal varices rectal bleeding requiring recurring band ligation Patient accepted in transfer for displacement at [place] as well as putting him on the liver transplant list because of his 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 Assessment & Plan A&P Narrative # Hematemesis in the setting of cirrhotic liver disease due to alcohol and other unspecified cause with a complete negative workup locally here Plan Octreotide infusion at 50 mcg/h IV Protonix agree with blood transfusion Serial CBC consent obtained for fiberoptic esophagogastroduodenoscopy with possible biopsy possible therapeutic intervention under intravenous moderate sedation I will work with the case management to get the patient to a tertiary center stand for another institution which is covered by his Medi[employer]Js to evaluate for placement of a TIPS shunt to prevent this repeated hospitalizations and GI bleeds as well as the possibility of a liver transplant in the future provided 1 is sure that the patient will not drink again for which I am going to force him to join AA and have a record of clean alcohol and attending record of the AA for 6 months Thank you very much for the opportunity to participate in the care of this patient Time Spent With Patient Time: Total time spent is greater than 50% in coordination of care (as documented) at patient's floor/unit and/or counseling patient:
[2024-08-04] VITALS (10 sets, daily range): BP systolic 90–116; BP diastolic 49–61; PULSE 43–65; RESP 17; TEMP 36.2–36.7; O2SAT 99–100; BMI 24.5
[2024-08-04 06:18] LABS: Basophils % (Auto) 1 % (0-2.5); Eosinophils # (Auto) 0.2 Thou/mm3 (0.0-0.5); Eosinophils % (Auto) 5 % (0-10); Hematocrit 23.9 % (41.0-53.0); Immature Granulocytes % (Auto) 1 % (0-0); Immature Granulocytes Auto 0.02 Thou/mm3 (0.00-0.00); Lymphocytes # (Auto) 1.2 Thou/mm3 (1.0-4.8); Lymphocytes % (Auto) 30 % (10-50); Mean Corpuscular HGB Conc 31.4 g/dl (31.0-37.0); Mean Corpuscular Hemoglobin 22.4 pg (25.0-35.0); Mean Corpuscular Volume 71 fL (80-100); Monocytes # (Auto) 0.3 Thou/mm3 (0.0-0.8); Monocytes % (Auto) 7 % (0-12); Neutrophils # (Auto) 2.4 Thou/mm3 (1.8-7.7); Neutrophils % (Auto) 58 % (37-80); Nucleated Red Blood Cell % 0 /100 WBC (0); Platelet Count 81 Thou/mm3 (140-440); RDW Standard Deviation 53.1 fL (35.1-43.9); Red Blood Count 3.35 Miln/mm3 (4.50-5.90); White Blood Count 4.2 Thou/mm3 (3.8-10.6)
[2024-08-04 06:24] LABS: Hemoglobin 7.5 g/dL (13.5-16.0)
[2024-08-04 06:33] LABS: Alanine Aminotransferase 18 U/L (10-49); Albumin, Serum 3.8 gm/dL (3.5-5.0); Albumin/Globulin Ratio 1.6 (1.2-2.2); Alkaline Phosphatase 80 U/L (46-116); Anion Gap 7 (7-16); BUN/Creatinine Ratio 17 Ratio (12-20); Bilirubin,Total 0.5 mg/dL (0.3-1.2); Blood Urea Nitrogen 10 mg/dL (9-23); Calcium 8.8 mg/dL (8.3-10.6); Carbon Dioxide 26.6 mMol/L (20.0-31.0); Chloride 107 mMol/L (98-107); Creatinine (Component) 0.6 mg/dL (0.6-1.3); Estimated Creatinine Clearance 140.4 mL/min (>60); Globulin 2.4 gm/dL (2.3-3.5); Glucose 99 mg/dL (74-106); Osmolality,Calculated 280 (275-295); Potassium 3.8 mMol/L (3.4-5.1); Sodium 141 mMol/L (136-145); Total Protein 6.2 gm/dL (5.7-8.2); eGFR > 60 See Note
[2024-08-04] MEDS: cefTRIAXone/D5w 1gm IV premix 1 GM/50 ML BAG IV (08:16)
--- NOTE | 2024-08-04 09:39 | PC.CC ---
Addendum entered by Brittny Quiros RN 08/04/24 16:52: 1651: faxed signed TBA to [facility]. 1421: TBA received from [facility]. Dr. Lemos and patient signed agreement. Addendum entered by Brittny Quiros RN 08/04/24 11:52: 1138: Called and spoke to Dr. Nuris connolly/ update below. He states they are rounding and will f/u with the patient 1130: received call from [facility] Charge nurse to inform me that she received a call from [facility] for clinical updates and was told transfer would probably be over the weekend. Addendum entered by Brittny Quiros RN 08/04/24 09:46: 0942: clinical updates faxed to [facility]. Original Note: 0934: received call from Tiffanie connolly/ [facility] stating pt is financially cleared and requested updated labs and progress notes be faxed to her.
--- NOTE | 2024-08-04 10:32 | ESPR_ITS ---
Documentation for date of: 08/04/24 Subjective Subjective Interval history: Hemoglobin hematocrit 7.5 and 23.9 Exam Vital Signs Temp Pulse Resp BP Pulse Ox O2 Del Method 97.2 F 62 17 90/51 L 100 Room Air 08/04/24 08:00 08/04/24 08:00 08/04/24 08:00 08/04/24 08:00 08/04/24 08:00 08/04/24 08:00 Objective Labs 08/05/24 05:14 08/04/24 05:34 Labs: Laboratory Results - last 24 hr 08/04/24 05:34 WBC 4.2 RBC 3.35 L Hgb 7.5 L Hct 23.9 L MCV 71 L MCH 22.4 L MCHC 31.4 RDW Std Deviation 53.1 H Plt Count 81 L D Neut % (Auto) 58 Lymph % (Auto) 30 [place] % (Auto) 7 Eos % (Auto) 5 Baso % (Auto) 1 Neut # (Auto) 2.4 Lymph # (Auto) 1.2 [place] # (Auto) 0.3 Eos # (Auto) 0.2 Baso # (Auto) 0.0 Immature Gran # (Auto) 0.02 H Absolute Nucleated RBC 0.00 Immature Gran % 1 H Nucleated RBC % 0 Sodium 141 Potassium 3.8 Chloride 107 Carbon Dioxide 26.6 Anion Gap 7 BUN 10 Creatinine 0.6 Estim Creat Clear Calc 140.4 eGFR > 60 BUN/Creatinine Ratio 17 Glucose 99 Calculated Osmolality 280 Calcium 8.8 Corrected Calcium 9.0 Total Bilirubin 0.5 ALT 18 Alkaline Phosphatase 80 Total Protein 6.2 Albumin 3.8 Globulin 2.4 Albumin/Globulin Ratio 1.6 Impressions Impression: Upper GI bleeding requiring band ligation of the esophageal varices 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 Continue current management Assessment & Plan A&P Narrative # Hematemesis in the setting of cirrhotic liver disease due to alcohol and other unspecified cause with a complete negative workup locally here Plan Octreotide infusion at 50 mcg/h IV Protonix agree with blood transfusion Serial CBC consent obtained for fiberoptic esophagogastroduodenoscopy with possible biopsy possible therapeutic intervention under intravenous moderate sedation I will work with the case management to get the patient to a tertiary center stand for another institution which is covered by his Medi[employer] to evaluate for placement of a TIPS shunt to prevent this repeated hospitalizations and GI bleeds as well as the possibility of a liver transplant in the future provided 1 is sure that the patient will not drink again for which I am going to force him to join AA and have a record of clean alcohol and attending record of the AA for 6 months Thank you very much for the opportunity to participate in the care of this patient Time Spent With Patient Time: Total time spent is greater than 50% in coordination of care (as documented) at patient's floor/unit and/or counseling patient:
--- NOTE | 2024-08-04 11:19 | PC.NURSE ---
Received call from [facility] regarding patient transfer, clinical report given, transfer center reported that due to high census patient may not get a bed till the weekend.
[2024-08-04] MEDS: IRON SUCROSE CPLX INJ 20 MG/ML VIAL 5 ML 200 MG IV (12:55)
[2024-08-04] MEDS: PROPRANOLOL 10 MG TABLET PO ×2 (14:54→22:24)
[2024-08-04] MEDS: MIDODRINE 5 MG TABLET PO (14:58)
--- NOTE | 2024-08-04 16:19 | PD.RESPRO ---
Documentation for date of: 08/04/24 Subjective Subjective Interval history: Patient was examined bedside this morning, no overnight events. He denies any hematemesis or melena. Eager to go home. Hb stable 7-8, platelets downtrended 81. Patient agrees for transfer to [place]. Iron 7, ferritin 3. He was started on IV iron sucrose for total of 5 doses. Per care coordination, transfer may happen over the weekend. Continue ceftriaxone and propranol. Started patient on midodrine 5mg if SBP <90. Would like to keep propranolol on board due to esophageal varicies. Exam Vital Signs Temp Pulse Resp BP Pulse Ox O2 Del Method 97.2 F 50 L 17 102/55 L 100 Room Air 08/04/24 16:00 08/04/24 16:00 08/04/24 16:00 08/04/24 16:00 08/04/24 16:08/04/24 16:00 Narrative Exam General: Young male, No acute distress, cooperative HEENT: NCAT, No JVD noted. Mucosa moist. Pupils are equal and reactive to light bilaterally Cardiovascular: Normal S1 and S2. Regular rate and rhythm. Respiratory: Lungs are clear to auscultation bilaterally. No wheezing or crackles heard. Abdomen: Soft, mild right abdomen tenderness, not distended, normal bowel sounds. Skin: Warm to touch, dry, no rashes noted Musculoskeletal: No gross injuries. Able to move all 4 extremities. No pitting edema Neuro: Alert and oriented x3. No focal neuro deficits. Psych: Normal affect and mood Objective Labs 08/05/24 05:14 08/04/24 05:34 Labs: Laboratory Results - last 24 hr 08/04/24 05:34 WBC 4.2 RBC 3.35 L Hgb 7.5 L Hct 23.9 L MCV 71 L MCH 22.4 L MCHC 31.4 RDW Std Deviation 53.1 H Plt Count 81 L D Neut % (Auto) 58 Lymph % (Auto) 30 [place] % (Auto) 7 Eos % (Auto) 5 Baso % (Auto) 1 Neut # (Auto) 2.4 Lymph # (Auto) 1.2 [place] # (Auto) 0.3 Eos # (Auto) 0.2 Baso # (Auto) 0.0 Immature Gran # (Auto) 0.02 H Absolute Nucleated RBC 0.00 Immature Gran % 1 H Nucleated RBC % 0 Sodium 141 Potassium 3.8 Chloride 107 Carbon Dioxide 26.6 Anion Gap 7 BUN 10 Creatinine 0.6 Estim Creat Clear Calc 140.4 eGFR > 60 BUN/Creatinine Ratio 17 Glucose 99 Calculated Osmolality 280 Calcium 8.8 Corrected Calcium 9.0 Total Bilirubin 0.5 ALT 18 Alkaline Phosphatase 80 Total Protein 6.2 Albumin 3.8 Globulin 2.4 Albumin/Globulin Ratio 1.6 Quality Measures Quality Measures none Assessment & Plan Assessment Current Active Medications: Generic Name Dose Route Start Last Admin Trade Name Freq PRN Reason Stop Dose Admin Acetaminophen 650 mg 07/29/24 08:25 07/30/24 02:21 Acetaminophen 325 Mg Tablet PO 08/28/24 08:24 650 mg Q6H PRN Administration Fever >100.3 or pain Ceftriaxone Sodium/Dextrose 1 gm in 50 mls @ 100 mls/hr 07/29/24 11:33 08/04/24 08:50 Rocephin/D5w 1gm Iv Premix IV 08/05/24 11:32 Infused QDAY MAYTE Infusion Iron Sucrose 200 mg 08/02/24 15:00 08/04/24 12:55 Iron Sucrose Cplx Inj 20 Mg/Ml Vial 5 Ml IV 08/06/24 12:01 200 mg QDAY@1200 MAYTE Administration Midodrine 5 mg 08/04/24 10:37 08/04/24 14:58 Midodrine 5 Mg Tablet PO 09/03/24 10:44 5 mg DAILY PRN Administration hypotension Ondansetron HCl 4 mg 07/29/24 08:25 Ondansetron Inj 2 Mg/Ml Inj 2 Ml IVP 08/28/24 08:24 Q6H PRN NAUSEA OR VOMITING Protocol Propranolol HCl 10 mg 07/31/24 08:45 08/04/24 14:54 Propranolol 10 Mg Tablet PO 08/30/24 08:44 10 mg TID MAYTE Administration Sennosides 1 tab 07/29/24 08:25 Senna Tablet PO 08/28/24 08:24 QDAY PRN constipation Protocol Plan Bari Tse is 23 yr male with PMH of variceal bleeds status post banding (3 times), alcoholic liver cirrhosis, and choledocholithiasis s/p stent presenting to ED with cheif complaint of hematemesis since yesterday. Also endorses 1 episode of melena and nausea. GI Dr. Johnson was consulted. Will admit patient for management of upper GI bleed. #Grade 3 esophageal varices s/p banding #upper GI bleed #Acute blood loss anemia #Iron deficiency anemia #Caroli disease Presenting chief complaint of hematemesis about 5 episodes since yesterday. Also 1 episode of melena. Patient has been compliant with propranolol, ursodiol, pantoprazole since last admission. Hemoglobin 7, MCV 68 on admission. Per GI, he will work with the case management to get the patient to a tertiary center which is covered by his Medi-[employer] to evaluate for placement of a TIPS shunt to prevent this repeated hospitalizations and GI bleeds as well as the possibility of a liver transplant in the future. EGD on 07/30/24 Showed grade 3 esophageal varices 2 band well-placed . Evidence of scarring ulceration in previous band location.Mucosal oozing of blood in the setting of hypertensive portal gastropathy , no bioposies taken . Iron pannel: iron 7, ferritin 3 -Dr. Johnson consulted, appreciate recs -stopped Pantoprazole 40 mg BID - Hold NSAIDs, antiplatelets -last day octreotide infusion today -started IV iron (08/02-) for total of 5 doses -daily CBC #Liver lesion MRI of his abdomen from 07/05/24 showed homogeneously enhancing right lobe lesion at 29 x 26 mm possibly suggestive of hemangioma versus adenoma. -Per last admission note, follow-up in 3 months outpatient with u/s #Hx of liver cirrhosis Patient has quit drinking. Labs improved since last admission. MELD-Na score of 10 points indicating 6% mortality in 90 days Child- Vanegas score of 5 points, Child A Maddrey score: 25.6--good prognosis -continue to monitor -follow up outpatinet -Presentation Designer Dr. Sonia Narayan from [place] agreed to accept patient for TIPS pending bed and insurance auth. Health maintenance: Dispo: tele for GI bleed, IV iron infusion, possible transfer this weekend FEN: regular diet DVT prophylaxis: SCDs CODE STATUS: Full code The patient's management plan was discussed with my attending physician Dr. Lemos. Estela Hernández, PGY-1 Attending Provider Attestation/Addendum I have examined the patient, reviewed labs and imaging findings, discussed the case with the resident(s), and reviewed entered orders. I agree with the plan of care as outlined in this note, with these additional summaries/recommendations: Patient seen at bedside. No acute overnight events. Patient has no symptoms to report today. Patient was admitted for GI bleed status post EGD which revealed grade 3 esophageal varices and 2 band ligator's were placed. Patient to complete octreotide drip today. Continue IV Rocephin for total 7 days. Hemoglobin originally peaked at 8.7 after blood transfusion and hemoglobin is down to 7.5 today. Will continue to monitor for any further bleeding and transfuse for hemoglobin less than 7. Patient is pending transfer to [place] for TIPS procedure and counseled patient to stay in the hospital until transfer. Mild hypotension present and will add as needed midodrine for hypotension. He will see clerical investigator for his cirrhosis at [facility] and hopefully will be a candidate for liver transplant list. Patient updated on the plan and agreement. All questions answered to satisfaction. Please see residents note for additional details and management. Dr. Canelo MD
[2024-08-05] VITALS (8 sets, daily range): BP systolic 106–125; BP diastolic 55–68; PULSE 48–71; RESP 15–18; TEMP 36.1–36.7; O2SAT 99–100; BMI 24.5
[2024-08-05] MEDS: PROPRANOLOL 10 MG TABLET PO ×2 (05:16→20:54)
[2024-08-05 05:58] LABS: Basophils % (Auto) 1 % (0-2.5); Eosinophils # (Auto) 0.2 Thou/mm3 (0.0-0.5); Eosinophils % (Auto) 4 % (0-10); Hematocrit 24.7 % (41.0-53.0); Immature Granulocytes % (Auto) 0 % (0-0); Immature Granulocytes Auto 0.02 Thou/mm3 (0.00-0.00); Lymphocytes # (Auto) 1.5 Thou/mm3 (1.0-4.8); Lymphocytes % (Auto) 29 % (10-50); Mean Corpuscular HGB Conc 30.4 g/dl (31.0-37.0); Mean Corpuscular Hemoglobin 22.1 pg (25.0-35.0); Mean Corpuscular Volume 73 fL (80-100); Monocytes # (Auto) 0.4 Thou/mm3 (0.0-0.8); Monocytes % (Auto) 7 % (0-12); Neutrophils % (Auto) 59 % (37-80); Nucleated Red Blood Cell % 0 /100 WBC (0); Platelet Count 101 Thou/mm3 (140-440); RDW Standard Deviation 55.3 fL (35.1-43.9); Red Blood Count 3.39 Miln/mm3 (4.50-5.90); White Blood Count 5.1 Thou/mm3 (3.8-10.6)
[2024-08-05 05:59] LABS: Hemoglobin 7.5 g/dL (13.5-16.0)
[2024-08-05] MEDS: cefTRIAXone/D5w 1gm IV premix 1 GM/50 ML BAG IV (08:49)
--- NOTE | 2024-08-05 09:46 | PC.CM ---
Addendum entered by Tonia Salgado RN 08/05/24 19:41: Patient has been accepted at [facility] and we are still pending an open bed. Dr. Sonia Alas has accepted patient and transfer back agreement has been sent back. Packet started and left on transfer nurse desk. Addendum entered by Tonia Salgado RN 08/05/24 15:14: 1600 Patient has been accepted at [facility] and we are still pending an open bed. Dr. Sonia Alas has accepted patient and transfer back agreement has been sent back. Original Note: 1000 I spoke to Angel at [facility] and he states they do not have any open beds at this time. 0800 Patient needs transferred for hepatology. Patient has been accepted at [facility] by Dr. Sonia Alas and transfer back agreement has been sent back.
[2024-08-05] MEDS: IRON SUCROSE CPLX INJ 20 MG/ML VIAL 5 ML 200 MG IV (12:16)
--- NOTE | 2024-08-05 13:01 | PC.SS ---
SS follow up note; Patient is pending HLOC at the time.
--- NOTE | 2024-08-05 15:01 | PD.RESPRO ---
Documentation for date of: 08/05/24 Subjective Subjective Interval history: Patient was examined bedside this morning, no overnight events. He denies any hematemesis or melena. Amenable to wait as we attempt to transfer to [place]. Per care coordination, transfer may happen over the weekend pending a bed. Hb stable 7-8, platelets downtrended 101. Continue IV iron. Titrate propranolol to BID due to low heart rate. Has been ranging 45-55, asymptomatic. Continue midodrine. Exam Vital Signs Temp Pulse Resp BP Pulse Ox O2 Del Method 97.0 F 55 L 16 112/55 L 99 Room Air 08/05/24 12:00 08/05/24 12:00 08/05/24 12:00 08/05/24 12:00 08/05/24 12:08/05/24 12:00 Narrative Exam General: Young male, No acute distress, cooperative HEENT: NCAT, No JVD noted. Mucosa moist. Pupils are equal and reactive to light bilaterally Cardiovascular: Normal S1 and S2. Regular rate and rhythm. Respiratory: Lungs are clear to auscultation bilaterally. No wheezing or crackles heard. Abdomen: Soft, mild right abdomen tenderness, not distended, normal bowel sounds. Skin: Warm to touch, dry, no rashes noted Musculoskeletal: No gross injuries. Able to move all 4 extremities. No pitting edema Neuro: Alert and oriented x3. No focal neuro deficits. Psych: Normal affect and mood Objective Labs 08/06/24 04:59 08/04/24 05:34 Labs: Laboratory Results - last 24 hr 08/05/24 05:14 WBC 5.1 RBC 3.39 L Hgb 7.5 L Hct 24.7 L MCV 73 L MCH 22.1 L MCHC 30.4 L RDW Std Deviation 55.3 H Plt Count 101 L D Neut % (Auto) 59 Lymph % (Auto) 29 [place] % (Auto) 7 Eos % (Auto) 4 Baso % (Auto) 1 Neut # (Auto) 3.0 Lymph # (Auto) 1.5 [place] # (Auto) 0.4 Eos # (Auto) 0.2 Baso # (Auto) 0.0 Immature Gran # (Auto) 0.02 H Absolute Nucleated RBC 0.00 Immature Gran % 0 Nucleated RBC % 0 Quality Measures Quality Measures none Assessment & Plan Assessment Current Active Medications: Generic Name Dose Route Start Last Admin Trade Name Freq PRN Reason Stop Dose Admin Acetaminophen 650 mg 07/29/24 08:25 07/30/24 02:21 Acetaminophen 325 Mg Tablet PO 08/28/24 08:24 650 mg Q6H PRN Administration Fever >100.3 or pain Iron Sucrose 200 mg 08/02/24 15:00 08/05/24 12:16 Iron Sucrose Cplx Inj 20 Mg/Ml Vial 5 Ml IV 08/06/24 12:01 200 mg QDAY@1200 MAYTE Administration Midodrine 5 mg 08/04/24 10:37 08/04/24 14:58 Midodrine 5 Mg Tablet PO 09/03/24 10:44 5 mg DAILY PRN Administration hypotension Ondansetron HCl 4 mg 07/29/24 08:25 Ondansetron Inj 2 Mg/Ml Inj 2 Ml IVP 08/28/24 08:24 Q6H PRN NAUSEA OR VOMITING Protocol Propranolol HCl 10 mg 08/05/24 21:00 Propranolol 10 Mg Tablet PO 09/04/24 20:59 BID MAYTE Sennosides 1 tab 07/29/24 08:25 Senna Tablet PO 08/28/24 08:24 QDAY PRN constipation Protocol Plan Bari Tse is 23 yr male with PMH of variceal bleeds status post banding (3 times), alcoholic liver cirrhosis, and choledocholithiasis s/p stent presenting to ED with cheif complaint of hematemesis since yesterday. Also endorses 1 episode of melena and nausea. GI Dr. Johnson was consulted. Will admit patient for management of upper GI bleed. #Grade 3 esophageal varices s/p banding #upper GI bleed #Acute blood loss anemia #Iron deficiency anemia #Caroli disease Presenting chief complaint of hematemesis about 5 episodes since yesterday. Also 1 episode of melena. Patient has been compliant with propranolol, ursodiol, pantoprazole since last admission. Hemoglobin 7, MCV 68 on admission. Per GI, he will work with the case management to get the patient to a tertiary center which is covered by his [facility] to evaluate for placement of a TIPS shunt to prevent this repeated hospitalizations and GI bleeds as well as the possibility of a liver transplant in the future. EGD on 07/30/24 Showed grade 3 esophageal varices 2 band well-placed . Evidence of scarring ulceration in previous band location.Mucosal oozing of blood in the setting of hypertensive portal gastropathy , no bioposies taken . Iron pannel: iron 7, ferritin 3 -Dr. Johnson consulted, appreciate recs -stopped Pantoprazole 40 mg BID - Hold NSAIDs, antiplatelets -last day octreotide infusion today -started IV iron (08/02-) for total of 5 doses -daily CBC #Decompensated liver cirrhosis #synthetic liver dysfunction Patient has quit drinking. Labs improved since last admission. MELD-Na score of 10 points indicating 6% mortality in 90 days Child- Vanegas score of 5 points, Child A Maddrey score: 25.6--good prognosis -continue to monitor -follow up outpatinet -Residential Solar Consultant Dr. Sonia Narayan from [place] agreed to accept patient for TIPS pending bed. #Liver lesion MRI of his abdomen from 07/05/24 showed homogeneously enhancing right lobe lesion at 29 x 26 mm possibly suggestive of hemangioma versus adenoma. -Per last admission note, follow-up in 3 months outpatient with u/s Health maintenance: Dispo: tele for GI bleed, IV iron infusion, possible transfer this weekend FEN: regular diet DVT prophylaxis: SCDs CODE STATUS: Full code The patient's management plan was discussed with my attending physician Dr. Lemos. Estela Hernández, PGY-1 Attending Provider Attestation/Addendum I have examined the patient, reviewed labs and imaging findings, discussed the case with the resident(s), and reviewed entered orders. I agree with the plan of care as outlined in this note, with these additional summaries/recommendations: Patient seen at bedside. No acute overnight events. Patient has no symptoms to report today. Patient is admitted for GI bleed status post EGD which revealed grade 3 esophageal varices and 2 band ligator's were placed. S/P octreotide gtt X 5 days. Continue IV Rocephin for total 7 days. Hemoglobin originally peaked at 8.7 after blood transfusion and hemoglobin is down to 7.5 today. Will continue to monitor for any further bleeding and transfuse for hemoglobin less than 7. Patient is pending transfer to [place] for TIPS procedure and counseled patient to stay in the hospital until transfer. Mild hypotension present and will add as needed midodrine for hypotension. He will see vault installer for his cirrhosis at [place] and hopefully will be a candidate for liver transplant list. Patient updated on the plan and agreement. All questions answered to satisfaction. Please see residents note for additional details and management. Dr. Canelo MD
--- NOTE | 2024-08-05 16:28 | ESDS_ITS ---
Planned Discharge Date 08/05/24 DS: Providers Provider Date of admission: 07/29/24 08:57 Primary care physician: Physician No Primary/Family Admitting Provider: Alexia Mckay MD Attending Provider on Admission: Oswaldo Lemos MD Consults: 07/29/24 08:29 Consult to Gastroenterology Routine Comment: Consulting Provider: Herber Johnson 08/02/24 09:54 Referral - Business Records Manager Stat Service Needed for Transfer: Hepatology Addl Comments:: For liver transplant and TIPS Attending Provider on DC: Oswaldo Lemos MD Discharging Provider: Oswaldo Lemos MD DS: Diagnosis Problem List Completed Was Problem List Reviewed/Reconciled?: Yes Hospital Course Hospital Course Hospital course: Reason for hospitalization: acute blood loss anemia 2/2 GI bleed Bari Tse is 23 yr male with PMH of of variceal bleeds status post banding (3 times), alcoholic liver cirrhosis, Caroli's disease, and choledocholithiasis s/p stent who presented to [facility] ED on 07/29/24 with chief complaint of hematemasis. Also had episode of melena. States that he has quit drinking since last December. Patient has had multiple admissions in past due to hematemsis 2/2 esophageal varicies requiring banding. Hb on admission was 7, MCV 68, platelets 197, PT 15.4, INR 1.4. GI DrJayshree Johnson was consulted and admitted patient for management of upper GI bleed. He was started in IV pantoprazole, ceftriaxone, octreotide infusion, given 2 untis prbc. EGD done on 07/30/24 showed grade 3 esophageal varices and 2 bands were placed. Evidence of scarring ulceration in previous band location.Mucosal oozing of blood in the setting of hypertensive portal gastropathy. GI recommended transfer to tertiary center for possible TIPS/eval for liver transplant as he has repeated hospitalizations due to same problem. I discussed his case with ship surveyor Dr. Sonia Narayan from [place] who agreed to accept patient for TIPS. During hospitalization, platelets fluctuated 80-110, hematemasis, and melena resolved. Iron pannel showed severe iron deficeincy anemia with iron 7 and ferritin 3. Started IV iron sucrose for total of 5 doses. Post EGD, Hb remained 7-8. Blood pressure was mildly hypotensive so titrated propranolol to 10mg BID and started midodrine 5mg PRN for SBP<100. The patient?s condition and treatment plan have been thoroughly discussed with the receiving provider. Discharge Recommendations: Continue propranolol 10mg BID if BP, HR permissible. Continue midodrine 5mg if SBP<100, DBP<70. Follow up with PCP. Repeat CBC in one week and again in one month. Continue alcohol abstinence. Hospital Diagnoses: #Grade 3 esophageal varices s/p banding #upper GI bleed #Acute blood loss anemia #Iron deficiency anemia #Caroli disease #Mild hypotension #Decompensated liver cirrhosis #synthetic liver dysfunction #Liver lesion The patient's management plan was discussed with my attending physician Dr. Lemos. Estela Hernández MD, PGY-1 Time Spent with Patient Time attestation: Total time spent providing and/or coordinating discharge services: Time spent: Greater than 30 minutes Exam Vital Signs Temp Pulse Resp BP Pulse Ox O2 Del Method 97.0 F 55 L 16 112/55 L 99 Room Air 08/05/24 12:08/05/24 12:08/05/24 12:08/05/24 12:08/05/24 12:08/05/24 12:00 Narrative Exam General: Young male, No acute distress, cooperative HEENT: NCAT, No JVD noted. Mucosa moist. Pupils are equal and reactive to light bilaterally Cardiovascular: Normal S1 and S2. Regular rate and rhythm. Respiratory: Lungs are clear to auscultation bilaterally. No wheezing or crackles heard. Abdomen: Soft, mild right abdomen tenderness, not distended, normal bowel sounds. Skin: Warm to touch, dry, no rashes noted Musculoskeletal: No gross injuries. Able to move all 4 extremities. No pitting edema Neuro: Alert and oriented x3. No focal neuro deficits. Psych: Normal affect and mood Discharge Plan Plan Patient Disposition: [facility] Pt Being Transferred to: [place] Prescriptions/Referrals Prescriptions/Med Rec: No Action propranolol 10 mg tablet 10 mg PO BID Qty: 60 2RF pantoprazole 40 mg tablet,delayed release (DR/EC) 40 mg PO QDAY Qty: 30 0RF Referrals: No Primary/Family,Physician [Primary Care Provider] - Patient/Caregiver Discharge Instructions Other Discharge Activity Instructions:: Continue propranolol 10mg BID if BP, HR permissible. Continue midodrine 5mg if SBP<100, DBP<70. Follow up with PCP. Repeat CBC in one week and again in one month. Continue alcohol abstinence. Print Language: Portuguese Quality Discharge Quality Measures VTE prophylaxis MD Attestestation MD Attestation I have examined the patient, reviewed labs and imaging findings, discussed the case with the resident(s), and reviewed entered orders. I agree with the plan of care as outlined in this note. Time Spent: [address] Canelo MD
--- NOTE | 2024-08-05 22:06 | ESPR_ITS ---
Documentation for date of: 08/05/24 Subjective Subjective Interval history: Hemoglobin hematocrit 7.5 and 23.9 Exam Vital Signs Temp Pulse Resp BP Pulse Ox O2 Del Method 97.9 F 71 18 118/61 100 Room Air 08/05/24 20:00 08/05/24 20:54 08/05/24 20:00 08/05/24 20:54 08/05/24 20:00 08/05/24 20:00 Objective Labs 08/06/24 04:59 08/04/24 05:34 Labs: Laboratory Results - last 24 hr 08/05/24 05:14 WBC 5.1 RBC 3.39 L Hgb 7.5 L Hct 24.7 L MCV 73 L MCH 22.1 L MCHC 30.4 L RDW Std Deviation 55.3 H Plt Count 101 L D Neut % (Auto) 59 Lymph % (Auto) 29 [place] % (Auto) 7 Eos % (Auto) 4 Baso % (Auto) 1 Neut # (Auto) 3.0 Lymph # (Auto) 1.5 [place] # (Auto) 0.4 Eos # (Auto) 0.2 Baso # (Auto) 0.0 Immature Gran # (Auto) 0.02 H Absolute Nucleated RBC 0.00 Immature Gran % 0 Nucleated RBC % 0 Impressions Impression: Upper GI bleed secondary to esophageal varices Chronic liver disease Waiting transfer to [place] Assessment & Plan A&P Narrative # Hematemesis in the setting of cirrhotic liver disease due to alcohol and other unspecified cause with a complete negative workup locally here Plan Octreotide infusion at 50 mcg/h IV Protonix agree with blood transfusion Serial CBC consent obtained for fiberoptic esophagogastroduodenoscopy with possible biopsy possible therapeutic intervention under intravenous moderate sedation I will work with the case management to get the patient to a tertiary center stand for another institution which is covered by his [facility] to evaluate for placement of a TIPS shunt to prevent this repeated hospitalizations and GI bleeds as well as the possibility of a liver transplant in the future provided 1 is sure that the patient will not drink again for which I am going to force him to join AA and have a record of clean alcohol and attending record of the AA for 6 months Thank you very much for the opportunity to participate in the care of this patient Time Spent With Patient Time: Total time spent is greater than 50% in coordination of care (as documented) at patient's floor/unit and/or counseling patient:
[2024-08-06] VITALS (8 sets, daily range): BP systolic 104–130; BP diastolic 52–74; PULSE 50–64; RESP 16–18; TEMP 36.2–36.7; O2SAT 99–100; BMI 24.5
--- NOTE | 2024-08-06 00:55 | PC.NURSE ---
Stephanie from [place] transfer center called and was updated on patient, there is still no open beds, pending transfer continues.
[2024-08-06 05:48] LABS: Basophils % (Auto) 1 % (0-2.5); Eosinophils # (Auto) 0.1 Thou/mm3 (0.0-0.5); Eosinophils % (Auto) 3 % (0-10); Hemoglobin 8.1 g/dL (13.5-16.0); Immature Granulocytes % (Auto) 1 % (0-0); Immature Granulocytes Auto 0.03 Thou/mm3 (0.00-0.00); Lymphocytes # (Auto) 1.2 Thou/mm3 (1.0-4.8); Lymphocytes % (Auto) 29 % (10-50); Mean Corpuscular HGB Conc 31.2 g/dl (31.0-37.0); Mean Corpuscular Hemoglobin 22.9 pg (25.0-35.0); Mean Corpuscular Volume 74 fL (80-100); Monocytes # (Auto) 0.3 Thou/mm3 (0.0-0.8); Monocytes % (Auto) 7 % (0-12); Neutrophils # (Auto) 2.5 Thou/mm3 (1.8-7.7); Neutrophils % (Auto) 60 % (37-80); Nucleated Red Blood Cell % 0 /100 WBC (0); Platelet Count 78 Thou/mm3 (140-440); RDW Standard Deviation 55.5 fL (35.1-43.9); Red Blood Count 3.53 Miln/mm3 (4.50-5.90); White Blood Count 4.1 Thou/mm3 (3.8-10.6)
[2024-08-06 06:53] LABS: Slide Review Platelets confirmed
--- NOTE | 2024-08-06 08:32 | PC.CC ---
Spoke to Lj at [facility] who states patient is still pending a bed and they do not have one available at this time
[2024-08-06] MEDS: PROPRANOLOL 10 MG TABLET PO ×2 (09:21→20:09)
--- NOTE | 2024-08-06 11:36 | PC.SS ---
SS follow up note; Patient will be a HLOC, pending bed availability.
[2024-08-06] MEDS: IRON SUCROSE CPLX INJ 20 MG/ML VIAL 5 ML 200 MG IV (12:22)
--- NOTE | 2024-08-06 14:49 | PD.RESPRO ---
Documentation for date of: 08/06/24 Subjective Subjective Interval history: Patient was examined bedside this morning, no overnight events. He denies any hematemesis or melena. Amenable to wait as we attempt to transfer to [place]. Per care coordination, transfer may happen over the weekend pending a bed. Hb improved to 8.1 today, platelets downtrended 78. Continue IV iron one more day, propranolol, midodrine for varicies and BP support. Pending transfer for TIPS. Exam Vital Signs Temp Pulse Resp BP Pulse Ox O2 Del Method 98.1 F 50 L 18 109/52 L 100 Room Air 08/06/24 12:00 08/06/24 12:00 08/06/24 12:00 08/06/24 12:00 08/06/24 12:08/06/24 12:00 Narrative Exam General: Young male, No acute distress, cooperative HEENT: NCAT, No JVD noted. Mucosa moist. Pupils are equal and reactive to light bilaterally Cardiovascular: Normal S1 and S2. Regular rate and rhythm. Respiratory: Lungs are clear to auscultation bilaterally. No wheezing or crackles heard. Abdomen: Soft, mild right abdomen tenderness, not distended, normal bowel sounds. Skin: Warm to touch, dry, no rashes noted Musculoskeletal: No gross injuries. Able to move all 4 extremities. No pitting edema Neuro: Alert and oriented x3. No focal neuro deficits. Psych: Normal affect and mood Objective Labs 08/07/24 05:26 08/07/24 05:26 Labs: Laboratory Results - last 24 hr 08/06/24 04:59 WBC 4.1 RBC 3.53 L Hgb 8.1 L Hct 26.0 L MCV 74 L MCH 22.9 L MCHC 31.2 RDW Std Deviation 55.5 H Plt Count 78 L D Neut % (Auto) 60 Lymph % (Auto) 29 [place] % (Auto) 7 Eos % (Auto) 3 Baso % (Auto) 1 Neut # (Auto) 2.5 Lymph # (Auto) 1.2 [place] # (Auto) 0.3 Eos # (Auto) 0.1 Baso # (Auto) 0.0 Immature Gran # (Auto) 0.03 H Absolute Nucleated RBC 0.00 Immature Gran % 1 H Nucleated RBC % 0 Misc Test Result Platelets confirmed Quality Measures Quality Measures none Assessment & Plan Assessment Current Active Medications: Generic Name Dose Route Start Last Admin Trade Name Freq PRN Reason Stop Dose Admin Acetaminophen 650 mg 08/06/24 09:55 Acetaminophen 325 Mg Tablet PO 08/28/24 08:24 Q6H PRN Fever >100.3 or pain(1-3) Midodrine 5 mg 08/04/24 10:37 08/04/24 14:58 Midodrine 5 Mg Tablet PO 09/03/24 10:44 5 mg DAILY PRN Administration hypotension Ondansetron HCl 4 mg 07/29/24 08:25 Ondansetron Inj 2 Mg/Ml Inj 2 Ml IVP 08/28/24 08:24 Q6H PRN NAUSEA OR VOMITING Protocol Propranolol HCl 10 mg 08/05/24 21:00 08/06/24 09:21 Propranolol 10 Mg Tablet PO 09/04/24 20:59 10 mg BID MAYTE Administration Sennosides 1 tab 07/29/24 08:25 Senna Tablet PO 08/28/24 08:24 QDAY PRN constipation Protocol Plan Bari Tse is 23 yr male with PMH of variceal bleeds status post banding (3 times), alcoholic liver cirrhosis, and choledocholithiasis s/p stent presenting to ED with cheif complaint of hematemesis since yesterday. Also endorses 1 episode of melena and nausea. GI Dr. Johnson was consulted. Will admit patient for management of upper GI bleed. #Grade 3 esophageal varices s/p banding #upper GI bleed #Acute blood loss anemia #Iron deficiency anemia #Caroli disease Presenting chief complaint of hematemesis about 5 episodes since yesterday. Also 1 episode of melena. Patient has been compliant with propranolol, ursodiol, pantoprazole since last admission. Hemoglobin 7, MCV 68 on admission. Per GI, he will work with the case management to get the patient to a tertiary center which is covered by his [facility] to evaluate for placement of a TIPS shunt to prevent this repeated hospitalizations and GI bleeds as well as the possibility of a liver transplant in the future. EGD on 07/30/24 Showed grade 3 esophageal varices 2 band well-placed . Evidence of scarring ulceration in previous band location.Mucosal oozing of blood in the setting of hypertensive portal gastropathy , no bioposies taken . Iron pannel: iron 7, ferritin 3. Completed octreotide drip. -Dr. Johnson consulted, appreciate recs - Hold NSAIDs, antiplatelets -started IV iron (08/02-) for total of 5 doses -daily CBC #Mild hypotension Likely due to propranolol, blood loss, liver cirrhosis vasodilatory effects. -midodrine 5mg if SBP<100 -decreased propranolol to 10BID -monitor BP #Decompensated liver cirrhosis #synthetic liver dysfunction Patient has quit drinking. Labs improved since last admission. MELD-Na score of 10 points indicating 6% mortality in 90 days Child- Vanegas score of 5 points, Child A Maddrey score: 25.6--good prognosis -continue to monitor -follow up outpatinet -Director Compliance Dr. Sonia Narayan from [place] agreed to accept patient for TIPS pending bed. #Liver lesion MRI of his abdomen from 07/05/24 showed homogeneously enhancing right lobe lesion at 29 x 26 mm possibly suggestive of hemangioma versus adenoma. -Per last admission note, follow-up in 3 months outpatient with u/s Health maintenance: Dispo: tele for GI bleed, IV iron infusion, pending transfer for TIPS FEN: regular diet DVT prophylaxis: SCDs CODE STATUS: Full code The patient's management plan was discussed with my attending physician Dr. Lemos. Estela Hernádnez, PGY-1 Attending Provider Attestation/Addendum I have examined the patient, reviewed labs and imaging findings, discussed the case with the resident(s), and reviewed entered orders. I agree with the plan of care as outlined in this note, with these additional summaries/recommendations: Patient seen at bedside. No acute overnight events. Patient has no symptoms to report today. Patient is admitted for GI bleed status post EGD which revealed grade 3 esophageal varices and 2 band ligator's were placed. S/P octreotide gtt X 5 days. S/P IV Rocephin for total 7 days. Hemoglobin originally peaked at 8.7 after blood transfusion and hemoglobin NOW 8.1. Will continue to monitor for any further bleeding and transfuse for hemoglobin less than 7. Patient is pending transfer to [place] for TIPS procedure and counseled patient to stay in the hospital until transfer. Mild hypotension present and continue as needed midodrine for hypotension. He will see commercial parts professional for his cirrhosis at [place] and hopefully will be a candidate for liver transplant list. Patient updated on the plan and agreement. All questions answered to satisfaction. Please see residents note for additional details and management. Dr. Canelo MD
--- NOTE | 2024-08-06 15:47 | PC.NURSE ---
Returned [facility] call at [facility] he did not answer. I left a message.
--- NOTE | 2024-08-06 20:12 | ESPR_ITS ---
Documentation for date of: 08/06/24 Subjective Subjective Interval history: 23 years old male evaluated Patient has finished octreotide infusion Hemoglobin 8.1 Platelet count 78,000 Waiting and pending transfer to [place] for 2 reasons placement of a TIPS shunt as well as getting the patient on a liver transplant list Exam Vital Signs Temp Pulse Resp BP Pulse Ox O2 Del Method 97.6 F 63 17 109/57 L 100 Room Air 08/06/24 16:00 08/06/24 20:09 08/06/24 16:00 08/06/24 20:09 08/06/24 16:00 08/06/24 16:00 Objective Labs 08/06/24 04:59 08/04/24 05:34 Labs: Laboratory Results - last 24 hr 08/06/24 04:59 WBC 4.1 RBC 3.53 L Hgb 8.1 L Hct 26.0 L MCV 74 L MCH 22.9 L MCHC 31.2 RDW Std Deviation 55.5 H Plt Count 78 L D Neut % (Auto) 60 Lymph % (Auto) 29 [place] % (Auto) 7 Eos % (Auto) 3 Baso % (Auto) 1 Neut # (Auto) 2.5 Lymph # (Auto) 1.2 [place] # (Auto) 0.3 Eos # (Auto) 0.1 Baso # (Auto) 0.0 Immature Gran # (Auto) 0.03 H Absolute Nucleated RBC 0.00 Immature Gran % 1 H Nucleated RBC % 0 Misc Test Result Platelets confirmed Impressions Impression: Multiple episodes of esophageal variceal bleeding Acute posthemorrhagic anemia Chronic liver disease secondary to Caroli's disease and previous consumption of alcohol Continue current management Assessment & Plan A&P Narrative # Hematemesis in the setting of cirrhotic liver disease due to alcohol and other unspecified cause with a complete negative workup locally here Plan Octreotide infusion at 50 mcg/h IV Protonix agree with blood transfusion Serial CBC consent obtained for fiberoptic esophagogastroduodenoscopy with possible biopsy possible therapeutic intervention under intravenous moderate sedation I will work with the case management to get the patient to a tertiary center stand for another institution which is covered by his [facility] to evaluate for placement of a TIPS shunt to prevent this repeated hospitalizations and GI bleeds as well as the possibility of a liver transplant in the future provided 1 is sure that the patient will not drink again for which I am going to force him to join AA and have a record of clean alcohol and attending record of the AA for 6 months Thank you very much for the opportunity to participate in the care of this patient Time Spent With Patient Time: Total time spent is greater than 50% in coordination of care (as documented) at patient's floor/unit and/or counseling patient:
[2024-08-07] VITALS: BP 113/58; PULSE 59; RESP 16; TEMP 36.7; O2SAT 100
[2024-08-07 04:00] VITALS: BP 111/52; PULSE 58; RESP 16; TEMP 36.2; O2SAT 99
[2024-08-07 06:00] VITALS: BMI 24.5
[2024-08-07 06:26] LABS: Basophils % (Auto) 1 % (0-2.5); Eosinophils # (Auto) 0.2 Thou/mm3 (0.0-0.5); Eosinophils % (Auto) 4 % (0-10); Hematocrit 26.7 % (41.0-53.0); Immature Granulocytes % (Auto) 1 % (0-0); Immature Granulocytes Auto 0.03 Thou/mm3 (0.00-0.00); Lymphocytes # (Auto) 1.3 Thou/mm3 (1.0-4.8); Lymphocytes % (Auto) 30 % (10-50); Mean Corpuscular HGB Conc 30.3 g/dl (31.0-37.0); Mean Corpuscular Hemoglobin 23.5 pg (25.0-35.0); Mean Corpuscular Volume 77 fL (80-100); Monocytes # (Auto) 0.3 Thou/mm3 (0.0-0.8); Monocytes % (Auto) 6 % (0-12); Neutrophils # (Auto) 2.6 Thou/mm3 (1.8-7.7); Neutrophils % (Auto) 60 % (37-80); Nucleated Red Blood Cell # 0.02 Thou/mm3 (0.00-0.00); Nucleated Red Blood Cell % 1 /100 WBC (0); Platelet Count 84 Thou/mm3 (140-440); RDW Standard Deviation 59.1 fL (35.1-43.9); Red Blood Count 3.45 Miln/mm3 (4.50-5.90); White Blood Count 4.4 Thou/mm3 (3.8-10.6)
[2024-08-07 06:27] LABS: Hemoglobin 8.1 g/dL (13.5-16.0)
[2024-08-07 06:37] LABS: Alanine Aminotransferase 20 U/L (10-49); Albumin, Serum 3.8 gm/dL (3.5-5.0); Albumin/Globulin Ratio 1.5 (1.2-2.2); Alkaline Phosphatase 87 U/L (46-116); Anion Gap 8 (7-16); Aspartate Amino Transferase 23 U/L (0-34); BUN/Creatinine Ratio 18 Ratio (12-20); Bilirubin,Total 0.4 mg/dL (0.3-1.2); Blood Urea Nitrogen 14 mg/dL (9-23); Calcium 8.4 mg/dL (8.3-10.6); Calcium (Corrected) 8.6 mg/dL (8.5-10.1); Carbon Dioxide 25.9 mMol/L (20.0-31.0); Chloride 110 mMol/L (98-107); Creatinine (Component) 0.8 mg/dL (0.6-1.3); Estimated Creatinine Clearance 105.3 mL/min (>60); Globulin 2.5 gm/dL (2.3-3.5); Glucose 103 mg/dL (74-106); Osmolality,Calculated 287 (275-295); Potassium 3.5 mMol/L (3.4-5.1); Sodium 144 mMol/L (136-145); Total Protein 6.3 gm/dL (5.7-8.2); eGFR > 60 See Note
[2024-08-07 07:45] VITALS: BP 108/54; PULSE 55; RESP 16; TEMP 36.2; O2SAT 99
[2024-08-07 08:20] VITALS: BP 108/54; PULSE 55
[2024-08-07] MEDS: PROPRANOLOL 10 MG TABLET PO (08:20)
--- NOTE | 2024-08-07 10:39 | ESPR_ITS ---
Documentation for date of: 08/07/24 Subjective Subjective Interval history: Patient was seen and examined at bedside. No acute overnight events. Labs and vitals were reviewed, hemoglobin is stable, no signs or symptoms of acute bleeding, patient completed 5 days of iron infusion, tolerates diet well, having adequate bowel movement, denies any blood thinner. Still pending transfer to [place] for TIPS procedure. 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 Will follow-up with updates. Exam Vital Signs Temp Pulse Resp BP Pulse Ox O2 Del Method 97.2 F 55 L 16 108/54 L 99 Room Air 08/07/24 07:45 08/07/24 08:20 08/07/24 07:45 08/07/24 08:20 08/07/24 07:45 08/07/24 07:45 Narrative Exam General: Young male, No acute distress, cooperative HEENT: NCAT, No JVD noted. Mucosa moist. Pupils are equal and reactive to light bilaterally Cardiovascular: Normal S1 and S2. Regular rate and rhythm. Respiratory: Lungs are clear to auscultation bilaterally. No wheezing or crackles heard. Abdomen: Soft, mild right abdomen tenderness, not distended, normal bowel sounds. Skin: Warm to touch, dry, no rashes noted Musculoskeletal: No gross injuries. Able to move all 4 extremities. No pitting edema Neuro: Alert and oriented x3. No focal neuro deficits. Psych: Normal affect and mood Objective Labs 08/07/24 05:26 08/07/24 05:26 Labs: Laboratory Results - last 24 hr 08/07/24 05:26 WBC 4.4 RBC 3.45 L Hgb 8.1 L Hct 26.7 L MCV 77 L MCH 23.5 L MCHC 30.3 L RDW Std Deviation 59.1 H Plt Count 84 L Neut % (Auto) 60 Lymph % (Auto) 30 [place] % (Auto) 6 Eos % (Auto) 4 Baso % (Auto) 1 Neut # (Auto) 2.6 Lymph # (Auto) 1.3 [place] # (Auto) 0.3 Eos # (Auto) 0.2 Baso # (Auto) 0.0 Immature Gran # (Auto) 0.03 H Absolute Nucleated RBC 0.02 H Immature Gran % 1 H Nucleated RBC % 1 H Sodium 144 Potassium 3.5 Chloride 110 H Carbon Dioxide 25.9 Anion Gap 8 BUN 14 Creatinine 0.8 Estim Creat Clear Calc 105.3 eGFR > 60 BUN/Creatinine Ratio 18 Glucose 103 Calculated Osmolality 287 Calcium 8.4 Corrected Calcium 8.6 Total Bilirubin 0.4 AST 23 ALT 20 Alkaline Phosphatase 87 Total Protein 6.3 Albumin 3.8 Globulin 2.5 Albumin/Globulin Ratio 1.5 Quality Measures Quality Measures none Assessment & Plan Assessment Current Active Medications: Generic Name Dose Route Start Last Admin Trade Name Freq PRN Reason Stop Dose Admin Acetaminophen 650 mg 08/06/24 09:55 Acetaminophen 325 Mg Tablet PO 08/28/24 08:24 Q6H PRN Fever >100.3 or pain(1-3) Midodrine 5 mg 08/04/24 10:37 08/04/24 14:58 Midodrine 5 Mg Tablet PO 09/03/24 10:44 5 mg DAILY PRN Administration hypotension Ondansetron HCl 4 mg 07/29/24 08:25 Ondansetron Inj 2 Mg/Ml Inj 2 Ml IVP 08/28/24 08:24 Q6H PRN NAUSEA OR VOMITING Protocol Propranolol HCl 10 mg 08/05/24 21:00 08/07/24 08:20 Propranolol 10 Mg Tablet PO 09/04/24 20:59 10 mg BID MAYTE Administration Sennosides 1 tab 07/29/24 08:25 Senna Tablet PO 08/28/24 08:24 QDAY PRN constipation Protocol Plan Bari Tse is 23 yr male with PMH of variceal bleeds status post banding (3 times), alcoholic liver cirrhosis, and choledocholithiasis s/p stent presenting to ED with cheif complaint of hematemesis since yesterday. Also endorses 1 episode of melena and nausea. GI Dr. Johnson was consulted. Will admit patient for management of upper GI bleed. #Grade 3 esophageal varices s/p banding #upper GI bleed #Caroli disease Presenting chief complaint of hematemesis about 5 episodes since yesterday. Also 1 episode of melena. Patient has been compliant with propranolol, ursodiol, pantoprazole since last admission. Hemoglobin 7, MCV 68 on admission. Per GI, he will work with the case management to get the patient to a tertiary center which is covered by his [facility] to evaluate for placement of a TIPS shunt to prevent this repeated hospitalizations and GI bleeds as well as the possibility of a liver transplant in the future. EGD on 07/30/24 Showed grade 3 esophageal varices 2 band well-placed . Evidence of scarring ulceration in previous band location.Mucosal oozing of blood in the setting of hypertensive portal gastropathy , no bioposies taken . Completed octreotide drip. -Dr. Johnson consulted, appreciate recs -Hold NSAIDs, antiplatelets -daily CBC #Acute blood loss anemia #Iron deficiency anemia Iron pannel: iron 7, ferritin 3.-completed IV iron transfusion #Mild hypotension Likely due to propranolol, blood loss, liver cirrhosis vasodilatory effects. -midodrine 5mg if SBP<100 -decreased propranolol to 10BID -monitor BP #Decompensated liver cirrhosis #synthetic liver dysfunction Patient has quit drinking. Labs improved since last admission. MELD-Na score of 10 points indicating 6% mortality in 90 days Child- Vanegas score of 5 points, Child A Maddrey score: 25.6--good prognosis -continue to monitor -follow up outpatinet -[facility] Dr. Sonia Narayan from [place] agreed to accept patient for TIPS pending bed. #Liver lesion MRI of his abdomen from 07/05/24 showed homogeneously enhancing right lobe lesion at 29 x 26 mm possibly suggestive of hemangioma versus adenoma. -Per last admission note, follow-up in 3 months outpatient with [facility] maintenance: Dispo:medtele, pending transfer for TIPS FEN: regular diet DVT prophylaxis: SCDs CODE STATUS: Full code Patient care was discussed with attending physician Dr. Canelo Troncoso MD PGY-2 I have carefully reviewed this document. Due to imperfections in the voice software, there could be grammatical errors including phonetic/typographic errors. This in no way compromises the medical care the patient is receiving Attending Provider Attestation/Addendum I have examined the patient, reviewed labs and imaging findings, discussed the case with the resident(s), and reviewed entered orders. I agree with the plan of care as outlined in this note, with these additional summaries/recommendations: Patient seen at bedside. No acute overnight events. Patient is anxious to be transferred and pending bed availability at [facility]. Patient is admitted for GI bleed status post EGD which revealed grade 3 esophageal varices and 2 band ligator's were placed. S/P octreotide gtt X 5 days. S/P IV Rocephin for total 7 days. Hemoglobin originally peaked at 8.7 after blood transfusion and hemoglobin now 8.1. Will continue to monitor for any further bleeding and transfuse for hemoglobin less than 7. Patient is pending transfer to [facility] for TIPS procedure and counseled patient to stay in the hospital until transfer. Mild hypotension present and continue as needed midodrine for hypotension. He will see senior medical technologist for his cirrhosis at [facility] and hopefully will be a candidate for liver transplant list. Patient updated on the plan and agreement. All questions answered to satisfaction. Please see residents note for additional details and management. Dr. Canelo MD
[2024-08-07 12:00] VITALS: BP 109/66; PULSE 53; RESP 18; TEMP 36.2; O2SAT 99
--- NOTE | 2024-08-07 13:57 | PC.CC ---
Addendum entered by Rhea Ordaz RN 08/07/24 19:21: 1915 transfer packet is complete with CD inside including all signatures. Notified bedside nurse of the transfer packet. Addendum entered by Rhea Ordaz RN 08/07/24 19:08: 1900 called and spoke to caryn bedside nurse and informed to call [facility] when the patient leaves the hospital. Number given which is [phone]. 1855 called and spoke to Lj at [facility], informed that [facility] wants a call 15min before the arrival to the hospital. Number given which is [phone]. Addendum entered by Rhea Ordaz RN 08/07/24 19:05: 1850 called [facility], spoke to Loi and informed the hand picker time is 2130. Loi asked to give [facility] a call when the patient leaves the hospital. He also wants me to inform ambulance crew to give TC a call when patient is 15 min away from [facility]. He stated the address which was given earlier [address] [place] [address] is the [address] for the ambulance bay. I informed him that I will be leaving at 1930 but I will inform bedside nurse to give a call when patient leaves the hospital. 1835 informed bedside nurse about the number to call report which is transfer center number [phone]. Addendum entered by Rhea Ordaz RN 08/07/24 18:38: [address] [facility] through [employer]. Called [facility], spoke to Kadie and setup the transport. operations supervisor time is 2130. Addendum entered by Rhea Ordaz RN 08/07/24 18:13: 1809 received call from [facility], spoke to Jim regarding bed information. Patient is accepted at [facility]. Address [address], [place] [address] Alas. Bed M5-24 A. Report can be called at [phone]. Addendum entered by Rhea Ordaz RN 08/07/24 17:14: 1708 I called [facility], spoke to Lj and asked to fax the blank TBA. Addendum entered by Rhea Ordaz RN 08/07/24 17:13: 1658 received call from [facility] requesting TBA. I informed that it was sent on 08/05/24 per handoff. TC stated they don't have it on file and I can't find it on transfer center desk either. Addendum entered by Rhea Ordaz RN 08/07/24 15:15: spoke to Lj at [facility], he confirmed he received discharge summary. Addendum entered by Rhea Ordaz RN 08/07/24 14:18: 1418 discharge summary is available and I faxed it to [facility]. Original Note: [address] Allison and informed need DC summary for today's date. 1357 received call from Tatiana DAVIS that she spoke to Kimberly DAVIS at [facility] ([phone]) that TC is requesting discharge summary from today date to be faxed over at [phone].
--- NOTE | 2024-08-07 14:07 | PD.RESDS ---
Planned Discharge Date 08/07/24 DS: Providers Provider Date of admission: 07/29/24 08:57 Primary care physician: Physician No Primary/Family Admitting Provider: Alexia Mckay MD Attending Provider on Admission: Oswaldo Lemos MD Consults: 07/29/24 08:29 Consult to Gastroenterology Routine Comment: Consulting Provider: Herber Johnson 08/02/24 09:54 Referral - Client Care Manager Stat Service Needed for Transfer: Hepatology Addl Comments:: For liver transplant and TIPS Attending Provider on DC: Judith Troncoso MD Discharging Provider: Judith Troncoso MD DS: Diagnosis Problem List Completed Was Problem List Reviewed/Reconciled?: Yes Hospital Course Hospital Course Hospital course: Bari Tse is 23 yr male with PMH of of variceal bleeds status post banding (3 times), alcoholic liver cirrhosis, Caroli's disease, and choledocholithiasis s/p stent who presented to [facility] ED on 07/29/24 with chief complaint of hematemasis. Also had episode of melena. States that he has quit drinking since last December. Patient has had multiple admissions in past due to hematemsis 2/2 esophageal varicies requiring banding. Hb on admission was 7, MCV 68, platelets 197, PT 15.4, INR 1.4. GI Dr. Johnson was consulted and admitted patient for management of upper GI bleed. He was started in IV pantoprazole, ceftriaxone, octreotide infusion, given 2 untis prbc. EGD done on 07/30/24 showed grade 3 esophageal varices and 2 bands were placed. Evidence of scarring ulceration in previous band location.Mucosal oozing of blood in the setting of hypertensive portal gastropathy. GI recommended transfer to tertiary center for possible TIPS/eval for liver transplant as he has repeated hospitalizations due to same problem. Our team discussed his case with electroencephalogram technologist Dr. Sonia Narayan from [facility] who agreed to accept patient for TIPS. During hospitalization, platelets fluctuated 80-110, hematemasis, and melena resolved. Iron pannel showed severe iron deficeincy anemia with iron 7 and ferritin 3. Started IV iron sucrose for total of 5 doses. Post EGD, Hb remained 7-8. Blood pressure was mildly hypotensive so titrated propranolol to 10mg BID and started midodrine 5mg PRN for SBP<100. The patient?s condition and treatment plan have been thoroughly discussed with the receiving provider. Discharge Recommendations: Continue propranolol 10mg BID if BP, HR permissible. Continue midodrine 5mg if SBP<100, DBP<70. Follow up with PCP. Repeat CBC in one week and again in one month. Continue alcohol abstinence. Hospital Diagnoses: #Grade 3 esophageal varices s/p banding #upper GI bleed #Acute blood loss anemia #Iron deficiency anemia #Caroli disease #Mild hypotension #Decompensated liver cirrhosis #synthetic liver dysfunction #Liver lesion Patient care was discussed with attending physician Dr. Canelo Troncoso MD PGY-2 I have carefully reviewed this document. Due to imperfections in the voice software, there could be grammatical errors including phonetic/typographic errors. This in no way compromises the medical care the patient is receiving Time Spent with Patient Time attestation: Total time spent providing and/or coordinating discharge services: Time spent: Greater than 30 minutes Exam Vital Signs Temp Pulse Resp BP Pulse Ox O2 Del Method 97.2 F 53 L 18 109/66 99 Room Air 08/07/24 12:08/07/24 12:08/07/24 12:08/07/24 12:08/07/24 12:08/07/24 12:00 Narrative Exam General: Young male, No acute distress, cooperative HEENT: NCAT, No JVD noted. Mucosa moist. Pupils are equal and reactive to light bilaterally Cardiovascular: Normal S1 and S2. Regular rate and rhythm. Respiratory: Lungs are clear to auscultation bilaterally. No wheezing or crackles heard. Abdomen: Soft, mild right abdomen tenderness, not distended, normal bowel sounds. Skin: Warm to touch, dry, no rashes noted Musculoskeletal: No gross injuries. Able to move all 4 extremities. No pitting edema Neuro: Alert and oriented x3. No focal neuro deficits. Psych: Normal affect and mood Discharge Plan Plan Patient Disposition: [facility] Pt Being Transferred to: [facility] Prescriptions/Referrals Prescriptions/Med Rec: No Action propranolol 10 mg tablet 10 mg PO BID Qty: 60 2RF pantoprazole 40 mg tablet,delayed release (DR/EC) 40 mg PO QDAY Qty: 30 0RF Referrals: No Primary/Family,Physician [Primary Care Provider] - Patient/Caregiver Discharge Instructions Other Discharge Activity Instructions:: Continue propranolol 10mg BID if BP, HR permissible. Continue midodrine 5mg if SBP<100, DBP<70. Follow up with PCP. Repeat CBC in one week and again in one month. Continue alcohol abstinence. Print Language: Serbian Quality Discharge Quality Measures VTE prophylaxis MD Attestestation MD Attestation I have examined the patient, reviewed labs and imaging findings, discussed the case with the resident(s), and reviewed entered orders. I agree with the plan of care as outlined in this note. Time Spent: [address] Canelo MD
--- NOTE | 2024-08-07 15:34 | PC.SS ---
SS follow up note; [facility] accepted, Pending transfer possibly today.
--- NOTE | 2024-08-07 15:39 | ESPR_ITS ---
Documentation for date of: 08/07/24 Subjective Subjective Interval history: 23 years old male evaluated Hemoglobin hematocrit 8.1 and 26.7 Exam Vital Signs Temp Pulse Resp BP Pulse Ox O2 Del Method 97.2 F 53 L 18 109/66 99 Room Air 08/07/24 12:00 08/07/24 12:00 08/07/24 12:00 08/07/24 12:00 08/07/24 12:00 08/07/24 12:00 Objective Labs 08/07/24 05:26 08/07/24 05:26 Labs: Laboratory Results - last 24 hr 08/07/24 05:26 WBC 4.4 RBC 3.45 L Hgb 8.1 L Hct 26.7 L MCV 77 L MCH 23.5 L MCHC 30.3 L RDW Std Deviation 59.1 H Plt Count 84 L Neut % (Auto) 60 Lymph % (Auto) 30 [place] % (Auto) 6 Eos % (Auto) 4 Baso % (Auto) 1 Neut # (Auto) 2.6 Lymph # (Auto) 1.3 [place] # (Auto) 0.3 Eos # (Auto) 0.2 Baso # (Auto) 0.0 Immature Gran # (Auto) 0.03 H Absolute Nucleated RBC 0.02 H Immature Gran % 1 H Nucleated RBC % 1 H Sodium 144 Potassium 3.5 Chloride 110 H Carbon Dioxide 25.9 Anion Gap 8 BUN 14 Creatinine 0.8 Estim Creat Clear Calc 105.3 eGFR > 60 BUN/Creatinine Ratio 18 Glucose 103 Calculated Osmolality 287 Calcium 8.4 Corrected Calcium 8.6 Total Bilirubin 0.4 AST 23 ALT 20 Alkaline Phosphatase 87 Total Protein 6.3 Albumin 3.8 Globulin 2.5 Albumin/Globulin Ratio 1.5 Impressions Impression: Upper GI bleed secondary esophageal varices requiring band ligation End-stage liver disease advanced portal hypertension and recurrent bouts of bleeding requiring TIPS shunt for which patient is waiting for a transfer to [place] Assessment & Plan A&P Narrative # Hematemesis in the setting of cirrhotic liver disease due to alcohol and other unspecified cause with a complete negative workup locally here Plan Octreotide infusion at 50 mcg/h IV Protonix agree with blood transfusion Serial CBC consent obtained for fiberoptic esophagogastroduodenoscopy with possible biopsy possible therapeutic intervention under intravenous moderate sedation I will work with the case management to get the patient to a tertiary center stand for another institution which is covered by his [facility] to evaluate for placement of a TIPS shunt to prevent this repeated hospitalizations and GI bleeds as well as the possibility of a liver transplant in the future provided 1 is sure that the patient will not drink again for which I am going to force him to join AA and have a record of clean alcohol and attending record of the AA for 6 months Thank you very much for the opportunity to participate in the care of this patient Time Spent With Patient Time: Total time spent is greater than 50% in coordination of care (as documented) at patient's floor/unit and/or counseling patient:
[2024-08-07 16:00] VITALS: BP 110/56; PULSE 52; RESP 18; TEMP 36.2; O2SAT 99
--- NOTE | 2024-08-07 19:43 | PC.NURSE ---
Pt was transferred to [facility], report given to Stephanie DAVIS.
== END 2024-08-07 19:44 | disposition short-term general hospital (02) | DRG 280 ==
LOC: SERX 07-29 08:22 → SERHOLD 07-29 09:21 → S2NX 07-29 14:18 → S3NX 08-01 14:40
PROVIDERS: Physician Assistant; Specialist; Student in an Organized Health Care Education/Training Program; Admitting Provider Internal Medicine; Emergency Provider Emergency Medicine; Visit Provider Student in an Organized Health Care Education/Training Program
PROC: (CPT 43239; principal; 2024-07-30 14:30)
DX: K70.30 Alcoholic cirrhosis of liver without ascites (principal); D62 Acute posthemorrhagic anemia; I85.11 Secondary esophageal varices with bleeding; K31.89 Other diseases of stomach and duodenum; K72.10 Chronic hepatic failure without coma; K76.6 Portal hypertension; D50.9 Iron deficiency anemia, unspecified; Z76.82 Awaiting organ transplant status; Z79.899 Other long term (current) drug therapy
CPT/HCPCS: 36415; 36430; 80053; 80320; 82140; 82728; 83540; 83550; 83690; 83735; 84100; 85014; 85018; 85025; 85610; 85730; 86850; 86900; 86901; 86923; 96365; 96374; 96375; 99285; A4217; A4649; J0696; J1200; J1756; J2250; J2270; J2354; J2405; J2470; J2543; J3010; J3490; J7050; P9016; A9270; G0480

== ENCOUNTER 2024-08-30 15:04 | Inpatient (IN) | payer MEDICAID, SELFPAY ==
[2024-08-30 15:07] VITALS: BMI 24.7
[2024-08-30 16:10] VITALS: BP 121/80; PULSE 92; RESP 18; TEMP 38.6; O2SAT 99
--- NOTE | 2024-08-30 16:16 | PD.EDABDPN ---
ED Abdominal Pain RME/HPI General Chief Complaint: Extremity Injury, Upper Stated complaint: RIGHT SHOULDER PAIN TODAY,PRODEDURE 08/26 Time seen by provider: 08/30/24 16:16 Arrival date/time: 08/30/24 15:04 RME / HPI RME / HPI narrative: Liver Bx [place] last week. Has ? liver failure. here with right shoulder pain Related Data Previous Rx's ?Medication ?Instructions ?Recorded propranolol 10 mg tablet 10 mg PO BID #60 tabs 06/11/24 pantoprazole 40 mg tablet,delayed 40 mg PO QDAY #30 tabs 07/06/24 release Allergies Allergy/AdvReac Type Severity Reaction Status Date / Time No Known Allergies Allergy Verified 08/30/24 15:09 Course Vital Signs Vital signs: Vital Signs Temperature 101.5 F H 08/30/24 16:10 Pulse Rate 92 08/30/24 16:10 Respiratory Rate 18 08/30/24 16:10 Blood Pressure 121/80 08/30/24 16:10 Pulse Oximetry (%) 99 08/30/24 16:10 Oxygen Delivery Method Room Air 08/30/24 16:10 Discharge Plan Prescriptions/Referrals Prescriptions/Med Rec: No Action propranolol 10 mg tablet 10 mg PO BID Qty: 60 2RF pantoprazole 40 mg tablet,delayed release (DR/EC) 40 mg PO QDAY Qty: 30 0RF Patient/Caregiver Discharge Instructions Print Language: Divehi
--- NOTE | 2024-08-30 16:18 | XR_ITS ---
Examination: CT chest with intravenous contrast CT abdomen with intravenous contrast CT pelvis with intravenous contrast 2-D coronal and sagittal reconstructions Time of exam: August 31, 2024, 0107 hours INDICATIONS: Right upper abdominal pain and fever today, liver biopsy last week CTDI: vol (mGy) : 5.29. DLP: (mGycm): 394. Technique: Multiple axial images of the chest, abdomen and pelvis with intravenous contrast, 3.0 mm slice thickness. Images obtained post intravenous injection Isovue 370 60 cc. 2-D sagittal and coronal reconstructions. Low dose protocols were performed. One or more of the following dose reduction techniques were used; automated exposure control, adjustment of the mA and/or KV according to patient size, use of iterative reconstruction technique. Findings: No thoracic aortic aneurysm dilatation. No pulmonary artery emboli No mediastinal pathologic lymphadenopathy. Minor atelectasis in lower lung zones. Liver irregular in contour, cirrhosis pattern with intrahepatic biliary tract dilatation Marked splenomegaly Distended gallbladder with gallbladder wall thickening Mild ascites Enlarged common bile duct 10 mm no definite stones No pancreatic mass Esophageal varices Embolic material perigastric and periesophageal Portosystemic collateral vessels medial to the spleen Bilateral renal cysts More diffuse low density in the right kidney which may represent edema Abdominal aorta is not enlarged No bowel obstruction Normal appendix Urinary bladder intact The osseous structures are intact IMPRESSION: Minor atelectasis in the lower lung zones Cirrhosis Marked splenomegaly Intra and extrahepatic biliary tract dilatation including distended gallbladder and gallbladder wall thickening, consider MRCP follow-up Suspicious for right pyelonephritis, clinical correlation advised Normal appendix
[2024-08-30 16:48] LABS: Collection Type, Urine Voided
[2024-08-30 16:55] LABS: Basophils # (Auto) 0.0 Thou/mm3 (0.0-0.2); Basophils % (Auto) 0 % (0-2.5); Eosinophils # (Auto) 0.1 Thou/mm3 (0.0-0.5); Eosinophils % (Auto) 2 % (0-10); Hematocrit 35.8 % (41.0-53.0); Hemoglobin 11.6 g/dL (13.5-16.0); Immature Granulocytes Auto 0.04 Thou/mm3 (0.00-0.00); Lymphocytes # (Auto) 0.5 Thou/mm3 (1.0-4.8); Lymphocytes % (Auto) 7 % (10-50); Mean Corpuscular HGB Conc 32.4 g/dl (31.0-37.0); Mean Corpuscular Hemoglobin 24.9 pg (25.0-35.0); Mean Corpuscular Volume 77 fL (80-100); Monocytes # (Auto) 0.6 Thou/mm3 (0.0-0.8); Monocytes % (Auto) 8 % (0-12); Neutrophils # (Auto) 6.4 Thou/mm3 (1.8-7.7); Neutrophils % (Auto) 83 % (37-80); Nucleated Red Blood Cell # 0.00 Thou/mm3 (0.00-0.00); Nucleated Red Blood Cell % 0 /100 WBC (0); Platelet Count 111 Thou/mm3 (140-440); RDW Standard Deviation 60.9 fL (35.1-43.9); Red Blood Count 4.66 Miln/mm3 (4.50-5.90); White Blood Count 7.7 Thou/mm3 (3.8-10.6)
[2024-08-30 17:13] LABS: Alanine Aminotransferase 18 U/L (10-49); Albumin, Serum 4.7 gm/dL (3.5-5.0); Albumin/Globulin Ratio 1.3 (1.2-2.2); Alkaline Phosphatase 136 U/L (46-116); Anion Gap 10 (7-16); Aspartate Amino Transferase 23 U/L (0-34); BUN/Creatinine Ratio 14 Ratio (12-20); Bilirubin,Total 1.3 mg/dL (0.3-1.2); Blood Urea Nitrogen 11 mg/dL (9-23); Calcium 9.1 mg/dL (8.3-10.6); Calcium (Corrected) 9.1 mg/dL (8.5-10.1); Carbon Dioxide 24.8 mMol/L (20.0-31.0); Chloride 102 mMol/L (98-107); Creatinine (Component) 0.8 mg/dL (0.6-1.3); Estimated Creatinine Clearance 110.0 mL/min (>60); Globulin 3.5 gm/dL (2.3-3.5); Glucose 104 mg/dL (74-106); Lipase 35 U/L (12-53); Osmolality,Calculated 273 (275-295); Potassium 4.4 mMol/L (3.4-5.1); Sodium 137 mMol/L (136-145); Total Protein 8.2 gm/dL (5.7-8.2); eGFR > 60 See Note
[2024-08-30 17:18] LABS: Bacteria,Urine Rare; Bilirubin,Urine Negative (Negative); Blood,Urine Negative (Negative); Clarity,Urine Clear (Clear/Hazy); Color,Urine Yellow (Lt Yel-Yel); Glucose, Urine Negative (Negative); Ketones,Urine Negative (Negative); Leukocyte Esterase,Urine Negative (Negative); Nitrite,Urine Negative (Negative); PH,Urine 6.5 (5.0-7.0); Protein,Urine Negative (Neg - Trace); RBC,Urine 3 /hpf (0-3); Specific Gravity,Urine 1.021 (1.001-1.035); Squamous Epithelial Cell,Urine 1 /hpf (0-5); Urobilinogen,Urine Negative mg/dL (0.0-1.0); WBC,Urine 3 /hpf (0-5)
[2024-08-30 21:56] VITALS: BP 130/88; PULSE 86; RESP 19; TEMP 38.3; O2SAT 100
--- NOTE | 2024-08-30 23:05 | PD.EDRME ---
Rapid Medical Screening Exam RME Arrival date/time: 23-year-old male is here today with abdominal pain and right shoulder pain. He is followed by [facility] for possible liver failure. He states he had a recent biopsy performed. When patient arrived to the ER he was noted to have a fever of 101.5 Fahrenheit. Vital signs were otherwise stable. Workup was initiated. Medical screen exam is complete. Chief Complaint: Extremity Injury, Upper Time Seen by Provider: 08/30/24 16:16 Vital signs: Vital Signs Temperature 101.5 F H 08/30/24 16:10 Pulse Rate 92 08/30/24 16:10 Respiratory Rate 18 08/30/24 16:10 Blood Pressure 121/80 08/30/24 16:10 Pulse Oximetry (%) 99 08/30/24 16:10 Oxygen Delivery Method Room Air 08/30/24 16:10 RME Narrative: Liver Bx [facility] last week. Has ? liver failure. here with right shoulder pain
--- NOTE | 2024-08-30 23:20 | PD.EDUPEX ---
Upper Extremity Injury RME/HPI General Chief Complaint: Extremity Injury, Upper Stated Complaint: RIGHT SHOULDER PAIN TODAY,PRODEDURE 08/26 Time Seen by Provider: 08/30/24 16:16 Arrival date/time: 08/30/24 15:04 RME / HPI RME / HPI narrative: Liver Bx [facility] last week. Has ? liver failure. here with right shoulder pain This section includes all my notes and documentations, including HPI, PE, and ED course. Mariano Hobson MD HPI: 23yo male here with about 12-hour history of right-sided abdominal/shoulder pain with severe nausea. 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 Last week, he had liver biopsy at [facility]. No fever. No other complaints. ROS: All negative except as documented in HPI. Physical Exam: General: Alert and oriented. In obvious pain. Eyes: Conjunctivae and lids clear. ENT: No nasal congestion. Neck: Supple. Heart: RRR. Lungs: No respiratory distress. Good air movement. No rhonchi, wheezing, rales. Abdomen: Soft with RUQ tenderness. Normal bowel sounds. No distension. No rebound or guarding. Back: No CVA tenderness. Skin: Warm and dry. Neuro: Alert and oriented X 3. I reviewed all diagnostic test results. My review of the gallbladder US report is cholecystitis with dilated common bile duct. My review of the CT chest abdomen pelvis report is cholecystitis. Blood and urine tests unremarkable. COVID/Influenza negative. At this point, diagnoses include cholecystitis. Treatment here included IV fluid, Toradol, morphine, Zofran, and Zosyn. When patient developed severe itching after IV contrast for CT, he was given Solu-Medrol and Benadryl. MRCP ordered. At 6 AM on 08/31/2024, the care of the patient was transferred to Dr. Odom. Mariano Hobson MD Related Data Previous Rx's ?Medication ?Instructions ?Recorded propranolol 10 mg tablet 10 mg PO BID #60 tabs 06/11/24 pantoprazole 40 mg tablet,delayed 40 mg PO QDAY #30 tabs 07/06/24 release Allergies Allergy/AdvReac Type Severity Reaction Status Date / Time No Known Allergies Allergy Verified 08/30/24 15:09 Review of Systems Review of Systems Systems Reviewed: All systems reviewed, normal except as documented Past Medical History Past Medical History NEUROLOGIC: Negative Neurological Disorders, Cerebrovascular Accident, Transient Ischemic Attacks (TIA), Dementia, Alzheimer's Disease, Parkinson's Disease, Brain Tumor, Meningitis, Seizures, Epilepsy, Multiple Sclerosis, Cerebral Palsy, Amyotrophic Lateral Sclerosis (ALS/Brittany Gehrig's), Guillain-Troy Syndrome, Spina Bifida, Paralysis, Peripheral Neuropathy, Choi's Palsy, Subdural Hematoma, Migraine, Head Trauma, Spinal Cord Injury or Traumatic Brain Injury CARDIAC: Negative Cardiac Disorders, Myocardial Infarction, Cardiac Arrhythmia, Atrial Fibrillation, Angina, Heart Murmur, Coronary Artery Disease, Atherosclerotic Heart Disease, Peripheral Vascular Disease, Hypercholesterolemia, Aneurysm, Congestive Heart Failure, Congenital Heart Disease, Valvular Heart Disease, Rheumatic Fever, Cardiomyopathy, Edema, Pericarditis, Cellulitis, Deep Vein Thrombosis, Hypertension, Hypotension or Varicose Veins RESPIRATORY: Negative Chronic Obstructive Pulmonary Disease (COPD), Asthma, Bronchitis, Emphysema, Pneumonia, Pulmonary Fibrosis, Cystic Fibrosis, Tuberculosis, Pulmonary Embolism, Pulmonary Edema or Sleep Apnea GASTROINTESTINAL: Positive Gastrointestinal Disorders, Cirrhosis, Gall Bladder Disease, Gastrointestinal Bleed and Esophageal Varices; Negative Hepatitis, Pancreatitis, Celiac Disease, Montgomery's Esophagus, Colitis, Ulcerative Colitis, Diverticulitis, Diverticulosis, Ulcer, Colorectal Cancer, Irritable Bowel, Crohn's Disease, Obstructive Bowel, Hiatal Hernia, Hemorrhoids, Gastroesophageal Reflux Disease or Obesity GENITOURINARY: Negative Genitourinary Disorders, Renal Disease, Kidney Stones, Polycystic Kidney Disease, Neurogenic Bladder, Inguinal Hernia, Dialysis, Prostate Cancer or Benign Prostatic Hyperplasia REPRODUCTIVE: Negative Breast Cancer, Fibroids, Genital Herpes, Gonorrhea, Syphilis or Testicular Cancer MUSCULOSKELETAL: Negative Musculoskeletal Disorders, Muscular Dystrophy, Myasthenia Gravis, Marfan's Syndrome, Bone Cancer, Arthritis, Rheumatoid Arthritis, Osteoporosis, Degenerative Disk Disease, Gout, Scoliosis, Carpal Tunnel Syndrome, Fibromyalgia, Fractures, Degenerative Joint Disease, Osteomyelitis or Poliovirus ENT: Negative Cataracts, Glaucoma, Blind, Retinal Detachment, Macular Degeneration, Ear Infection, Deafness, Head Trauma or Eye Prosthesis ENDOCRINE: Negative Endocrine Disorders, Diabetes Mellitus Type 1, Diabetes Mellitus Type 2, Hypoglycemia, Maged's Syndrome, Festus's Disease, Hyperthyroidism, Hypothyroidism, Parathyroid Disease, Pituitary Disease, Systemic Lupus Erythematosus, Syndrome of Inappropriate Antidiuretic Hormone (SIADH), Adrenal Disease or Graves' Disease HEMATOLOGIC: Positive Anemia; Negative Blood Disorders, Leukemia, Hemophilia, Thalassemia, Sickle Cell Disease or Clotting Problems PSYCHO/SOCIAL: Positive Recreational Drug Use; Negative Psychiatric Problems, Schizophrenia, Bipolar Disorder, Depression, Anxiety, Behavior Problems, Self-Mutilation, Attention Deficit Disorder, Attention Deficit Hyperactivity Disorder, Depression, Post Traumatic Stress Disorder or Eating Disorder OTHER HISTORY: Positive Hospitalization and Blood Transfusions; Negative Autoimmune Disease, Down Syndrome, Autism, Developmental Delay, Shingles, Falls, Blood Transfusion Reaction, Anesthesia Reactions, Organ Transplant, Chemotherapy, Radiation Therapy, Hyperbaric Therapy, MRSA, VRSA, Vancomycin-Resistant Enterococci, Human Immunodeficiency Virus (HIV), Chicken Pox, Measles, Mumps, Rubella (Frisian Measles), Pertussis, Clostridium Difficile, Cancer, Breast Cancer, Colorectal Cancer, Lung Cancer, Prostate Cancer or Testicular Cancer Family History FAMILY HISTORY: Negative Family Psychiatric Problems, Family Respiratory Disorders, Family Cardiac Disorders, Family Gastrointestinal Problems, Family Cancer, Family Surgery or Family Anesthesia Reaction Surgical History SURGICAL: Negative Cardiac Surgery, Open Heart Surgery, Coronary Artery Bypass Graft, Valve Replacement, Vascular Surgery, Coronary Stent, Cardiac Catheterization, Pacemaker, Angiogram, Auto Implanted Cardiovert Defib, Carotid Endarterectomy, Endocrine Surgery, Thyroidectomy, Ear Surgery, Tympanostomy Tube, Eye Surgery, Nose Surgery, Oral Surgery, Tonsillectomy, Adenoidectomy, Cochlear Implant, Corneal Transplant, Throat Surgery, Abdominal Surgery, Tracheostomy, Gastric Bypass Surgery, Gastrostomy, Bowel Surgery, Nephrectomy, Transurethral Resection, Joint Replacement, Amputation, Open Reduction Internal Fixation, Arthroscopy, Neurologic Surgery, Brain Shunt, Mastectomy, Vasectomy or Organ Transplant Social History SMOKING STATUS: Never smoker SUBSTANCE USE: does not use ED Exam Narrative Physical exam: As noted in HPI. Course Quality Measures none Orders Category Date Time Status Bedside COVID-19 Antigen Test NOW Care 08/30/24 23:22 Active Bedside Influenza A&B Antigen Test NOW Care 08/30/24 23:[address] Screening NOW Care 08/30/24 16:19 Active Saline [Insert IV] NOW Care 08/30/24 23:[address] chest abdomen pelvis w Stat Exams 08/30/24 16:18 Taken US abdomen limited Stat Exams 08/31/24 03:20 Taken Alcohol, Blood Medical Stat Lab 08/30/24 22:56 Completed Amylase Stat Lab 08/30/24 22:56 Completed Bilirubin,Direct Stat Lab 08/30/24 22:56 Completed Blood Culture (Lab) Stat Lab 08/30/24 16:29 Received CBC Stat Lab 08/30/24 16:29 Completed CMP [Comprehensive Metabolic Panel] Stat Lab 08/30/24 16:29 Completed CRP [C-Reactive Protein] Stat Lab 08/30/24 22:56 Completed Drug Screen,Urine Stat Lab 08/30/24 16:40 Completed ESR [Sed Rate (ESR)] Stat Lab 08/30/24 22:56 Completed Lactate (Lactic Acid) Stat Lab 08/30/24 22:56 Completed Lipase Stat Lab 08/30/24 16:29 Completed Lipase Stat Lab 08/30/24 22:56 Completed Magnesium Stat Lab 08/30/24 22:56 Completed PT [Prothrombin Time with INR] Stat Lab 08/30/24 22:56 Completed PTT [Partial Thromboplastin Time] Stat Lab 08/30/24 22:56 Completed Procalcitonin Stat Lab 08/30/24 22:56 Completed UA [Urinalysis] Stat Lab 08/30/24 16:40 Completed DiphenhydrAMINE INJ [Benadryl Inj] Med 08/31/24 03:13 Discontinued 50 mg IVP X1 STA Ibuprofen Tab [Motrin Tab] Med 08/30/24 16:19 Discontinued 600 mg PO X1 ONE Ketorolac Inj [Toradol Inj] Med 08/30/24 23:22 Discontinued 30 mg IVP X1 ONE MethylPREDNISolone.* [SoluMEDROL Inj] Med 08/31/24 03:13 Discontinued 125 mg IVP X1 ONE Morphine Inj Med 08/30/24 16:19 Discontinued 4 mg IVP X1 ONE Morphine Inj Med 08/30/24 23:22 Discontinued 4 mg IVP X1 ONE Morphine Inj Med 08/30/24 17:40 Discontinued 5 mg IM X1 ONE Ondansetron Inj [Zofran Inj] Med 08/30/24 23:22 Discontinued 4 mg IVP X1 ONE Piper/Tazo 3.375 gm Premix [Zosyn] Med 08/30/24 23:22 Discontinued 3.375 gm in 50 ml IV X1 Sodium Chloride 0.9% 1000 ml [Ns] 1,000 ml Med 08/30/24 23:22 Discontinued IV 999 mls/hr Vital Signs Vital signs: Vital Signs Temperature 101.5 F H 08/30/24 16:10 Pulse Rate 92 08/30/24 16:10 Respiratory Rate 18 08/30/24 16:10 Blood Pressure 121/80 08/30/24 16:10 Pulse Oximetry (%) 99 08/30/24 16:10 Oxygen Delivery Method Room Air 08/30/24 16:10 Extremity Injury MDM Narrative MDM Narrative:: 23yo male here with about 12-hour history of right-sided abdominal/shoulder pain with severe nausea. 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 Last week, he had liver biopsy at [facility]. No fever. No other complaints. Patient data External records reviewed:: [facility] previous records (Per chart review, patient was admitted here on 07/29/24 for bleeding esophageal varices in alcoholic cirrhosis.) Clinical information provided by:: patient Social determinants that could affect healthcare access:: alcohol use Patient has the following chronic illnesses:: cirrhosis, esophageal varices How is presenting disease/condition affected by chronic disease/condition?: uneffected by Evaluation data The following diagnostics were reviewed and interpreted by me:: lab results and radiology exam(s) Lab and/or radiology exams considered but not ordered:: none Interpretation Summary: I reviewed all diagnostic test results. My review of the gallbladder US report is cholecystitis with dilated common bile duct. My review of the CT chest abdomen pelvis report is cholecystitis. Blood and urine tests unremarkable. COVID/Influenza negative. Medications / Prescriptions Medications or Prescriptions considered but not ordered:: none Medication administrations:: Medication Administration History Discontinued Medications Diphenhydramine HCl (Diphenhydramine Inj 50 Mg/Ml Vial) 50 mg IVP X1 STA Stop: 08/31/24 03:14 Last Admin: 08/31/24 03:34 Dose: 50 mg Documented By: Sodium Chloride (Ns) 1,000 mls @ 999 mls/hr IV .Q1H1M ONE Stop: 08/31/24 00:22 Last Infusion: 08/31/24 01:00 Dose: Infused Documented By: Admin: 08/30/24 23:58 Dose: 999 mls/hr Documented By: CCT Piperacillin/Tazobactam/Dextrose (Zosyn) 3.375 gm in 50 mls @ 100 mls/hr IV X1 ONE Stop: 08/30/24 23:51 Last Infusion: 08/31/24 00:30 Dose: Infused Documented By: Admin: 08/30/24 23:58 Dose: 100 mls/hr Documented By: CCT Ibuprofen (Ibuprofen Tab 600 Mg Tablet) 600 mg PO X1 ONE Stop: 08/30/24 16:20 Last Admin: 08/30/24 23:59 Dose: Not Given Documented By: CCT Non-Admin Reason: Cancelled by Provider Ketorolac Tromethamine (Ketorolac Inj 30 Mg/Ml Vial) 30 mg IVP X1 ONE Stop: 08/30/24 23:23 Last Admin: 08/30/24 23:57 Dose: 30 mg Documented By: CCT Methylprednisolone Sodium Succinate (Methylprednisolone Sod Succ 62.5 Mg/Ml 2ml Vial) 125 mg IVP X1 ONE Stop: 08/31/24 03:14 Last Admin: 08/31/24 03:35 Dose: 125 mg Documented By: SE Morphine Sulfate (Morphine Sulf Inj 10 Mg/Ml Vial) 4 mg IVP X1 ONE Stop: 08/30/24 16:20 Last Admin: 08/30/24 23:59 Dose: Not Given Documented By: CCT Non-Admin Reason: Cancelled by Provider Morphine Sulfate (Morphine Sulf Inj 10 Mg/Ml Vial) 5 mg IM X1 ONE Stop: 08/30/24 17:41 Last Admin: 08/30/24 23:59 Dose: Not Given Documented By: CCT Non-Admin Reason: Cancelled by Provider Morphine Sulfate (Morphine Sulf Inj 10 Mg/Ml Vial) 4 mg IVP X1 ONE Stop: 08/30/24 23:23 Last Admin: 08/30/24 23:58 Dose: 4 mg Documented By: CCT Ondansetron HCl (Ondansetron Inj 2 Mg/Ml Inj 2 Ml) 4 mg IVP X1 ONE; Protocol Stop: 08/30/24 23:23 Last Admin: 08/30/24 23:57 Dose: 4 mg Documented By: CCT Treatment here included IV fluid, Toradol, morphine, Zofran, and Zosyn. When patient developed severe itching after IV contrast for CT, he was given Solu-Medrol and Benadryl. Consultations Consultation(s) initiated? (list below): No Diagnosis Upper Extremity Injury Differential Diagnosis: other (Biliary colic, GERD, PUD, gastritis) Most likely diagnosis given after review of the tests above:: Cholecystitis Admission Indicated Admission indicated?: not indicated Explain why admission is indicated or not indicated:: Complete diagnostic tests are pending. Admission Request Was there a request for admission?: No Disposition Plan Disposition Plan: other (specify) (Signed out to Dr. Odom at 6 AM.) Discharge Plan Prescriptions/Referrals Prescriptions/Med Rec: No Action propranolol 10 mg tablet 10 mg PO BID Qty: 60 2RF pantoprazole 40 mg tablet,delayed release (DR/EC) 40 mg PO QDAY Qty: 30 0RF Referrals: Jose Enrique Pena MD [Primary Care Provider] - In 1 week Problem List Clinical Impression: Cholecystitis Patient/Caregiver Discharge Instructions Print Language: Croatian
[2024-08-30] MEDS: KETOROLAC INJ 30 MG/ML VIAL IVP (23:57)
[2024-08-30] MEDS: ONDANSETRON INJ 2 MG/ML INJ 2 ML 4 MG IVP (23:57)
[2024-08-30] MEDS: MORPHINE SULF INJ 10 MG/ML VIAL 4 MG IVP (23:58)
[2024-08-30] MEDS: SODIUM CHLORIDE 0.9% 1000 ML 1,000 ML 999 ML IV (23:58)
[2024-08-30] MEDS: PIPER/TAZO 3.375 GM PREMIX 3.375 GM/50 ML BAG IV (23:58)
[2024-08-31] VITALS (20 sets, daily range): BP systolic 98–130; BP diastolic 55–75; PULSE 55–94; RESP 14–20; TEMP 36.1–38; O2SAT 96–100
--- NOTE | 2024-08-31 | XR_ITS ---
MRI abdomen, without contrast. MRCP Date and time of exam: August 31, 2024 1051 hours Comparison July 05, 2024 INDICATIONS: Abdominal pain this week, distended gallbladder, gallbladder sludge, thickened gallbladder wall and mildly enlarged common bile duct on ultrasound abdomen this a.m. Technique: Multiple axial and coronal images of the abdomen have been obtained with the Siemens 1.5T MRI scanner. Images obtained included T1 weighted transverse images, T2-weighted transverse images, T2-weighted transverse images fat-suppressed, T2 weighted haste fat suppressed transverse images, T1 weighted images, in and out of phase images, T2-weighted coronal images, breath hold, T2 weighted haze coronal images as well as T2 weighted coronal thick slab images, MRCP. Findings: Cirrhosis, liver irregular in contour Significantly distended gallbladder Intrahepatic biliary tract dilatation 19 x 20 mm anterior right lobe liver lesion Mild edema around the gallbladder Common hepatic duct 11 mm 4 mm stone in the common bile duct axial image 26 and abrupt termination of the distal common bile duct Marked splenomegaly No pancreatic mass No ascites Aorta normal size IMPRESSION: Acute acalculous cholecystitis Intrahepatic and extra hepatic biliary tract dilatation with 4 mm stone in the common bile duct and abrupt termination of the distal common bile duct, recommend ERCP follow-up to exclude stricture distal common bile duct versus impacted stone in the distal common bile duct Cirrhosis Prominent splenomegaly
[2024-08-31 00:04] LABS: Lactate (Lactic Acid) 0.8 mMol/L (0.4-2.0)
[2024-08-31 00:09] LABS: Sed Rate (ESR) 67 mm/hr (0-15)
[2024-08-31 00:19] LABS: INR 1.5 (0.9-1.3); Partial Thromboplastin Time 36.7 Seconds (22.0-36.0); Prothrombin Time 16.2 Seconds (9.0-12.2)
[2024-08-31 00:32] LABS: Alcohol, Blood Medical < 3.0 mg/dL (0-10.0); Amylase 48 U/L (30-118); Bilirubin,Direct 0.5 mg/dL (0.0-0.3); C-Reactive Protein 7.2 mg/dL (0.0-0.9); Lipase 31 U/L (12-53); Magnesium 1.7 mg/dL (1.6-2.6); Procalcitonin 0.75 ng/ml (0.0-0.49)
--- NOTE | 2024-08-31 03:16 | PRELIM_ITS ---
CT scan of the chest, abdomen and pelvis with intravenous contrast (axial sections with sagittal and coronal reformats) August 31, 2024 at 0107 hours Clinical History: Shoulder/ right upper quadrant pain. Liver biopsy last week. Fever Reference is made to the prior report dated November 19, 2023 Findings: Bibasilar streaky atelectasis is seen. There is no pleural effusion or pneumothorax. There is no mediastinal mass or lymphadenopathy. The thoracic aorta is unremarkable. There is no pericardial effusion. There is mild hepatomegaly. The liver demonstrates a nodular contour, which may represent cirrhosis. Multiple portosystemic collaterals are seen in the upper abdomen. There is evidence of embolization of periesophageal and perigastric varices. There is marked splenomegaly, 19 cm long. The gallbladder is distended demonstrating mild wall thickening with pericholecystic fluid and fat stranding. There is mild intra and extrahepatic biliary ductal dilatation; the common bile duct is dilated, measuring 9 mm in caliber at hawk hepatis. There are bilateral renal simple and complex cysts, largest measuring 2.5 cm on the right. The pancreas and adrenals are unremarkable. The bowel is unremarkable. The urinary bladder is unremarkable. There is no free fluid or free air. The abdominal aorta is unremarkable. The osseous structures are unremarkable. Impression: 1. Hepatic cirrhosis with marked splenomegaly and portal-systemic collaterals, indicating portal hypertension. 2. Distended gallbladder with mild wall thickening and pericholecystic fluid, which may represent acute cholecystitis. Recommend further evaluation with sonography, if clinically indicated. 3. Mild biliary ductal dilatation. Recommend further evaluation with MRCP as clinically indicated. 4. No acute intrathoracic pathology. 5. Other findings as described above. Report Electronically Signed By: Louise Burdick 08/31/2024 3:16:00 AM [EST]
--- NOTE | 2024-08-31 03:20 | XR_ITS ---
Examination: Abdomen sonogram, Limited Date and time of exam: August 31, 2024, 0347 hours INDICATIONS: Right upper abdominal pain today Technique: Real-time lr scale transabdominal sonographic images of the upper abdomen obtained. Findings: Distended gallbladder. Gallbladder sludge. Gallbladder wall is thickened 0.9 cm Common bile duct 0.6 cm Pancreatic head 2.9 cm Liver 18.2 cm fatty infiltration. Normal hepatopedal portal venous flow. Patent IVC. IMPRESSION: Abnormally thickened gallbladder wall with mildly enlarged common bile duct, consider MRCP follow-up to exclude cholecystitis
[2024-08-31] MEDS: MethylPREDNISolone SOD SUCC 62.5 MG/ML 2ML VIAL 125 MG IVP (03:35)
[2024-08-31 04:06] LABS: Amphetamine/Methamp Scrn,U Negative (Negative); Barbiturate Screen,Urine Negative (Negative); Benzodiazepines Screen,Urine Negative (Negative); Benzoylecgonine Screen, Ur Negative (Negative); Fentanyl Screen,Urine Negative (Negative); Opiate Screen,Urine Positive (Negative); THC Screen,Urine Negative (Negative)
--- NOTE | 2024-08-31 04:48 | PRELIM_ITS ---
Right upper quadrant abdominal ultrasound. August 31, 2024 at 0347 hours Clinical history: Right upper quadrant pain. Technique: Grayscale and color flow images of the right upper quadrant are provided. Hepatic and portal veins were also imaged with color flow images. Comparison: No prior study is available for comparison. Findings: The liver measures 18.3 cm in length with smooth contour and increased echogenicity, consistent with fatty infiltration. Mild hepatomegaly is noted. The gallbladder is distended (measuring 11.2 x 7.6 x 10.5 cm) with thickened wall (0.9 cm) and echogenic sludge; no definite gallstones are identified. No pericholecystic fluid is demonstrated. The common bile duct is mildly prominent, measuring 0.6 cm. The pancreas appears within normal limits. The main portal vein demonstrates hepatopetal flow. The IVC is patent. Impression: Distended gallbladder with wall thickening and sludge; findings may suggest early cholecystitis clinical correlation recommended. Mild hepatomegaly with fatty liver infiltration. Dilated common bile duct. Recommend clinical correlation and further evaluation with MRCP, if clinically indicated. Report Electronically Signed By: Louise Burdick 08/31/2024 4:47:43 AM [EST]
[2024-08-31] MEDS: SODIUM CHLORIDE 0.9% 1000 ML 1,000 ML 200 ML IV (05:21)
--- NOTE | 2024-08-31 08:08 | EDNOTE_ITS ---
Emergency Room Addendum Addendum Narrative: 0600: Care assumed from Dr. Hobson, the previous shift emergency physician. Past medical, surgical, social and family history reviewed. Vitals and home medications reviewed. I will assume the care of the patient at this time, pending MRCP. Please refer to the emergency department record for history and examination from initial visit.?The following addendum documentation note is intended to reflect any pending information, findings, or radiology results not included in the patient?s initial chart. Nursing notes reviewed by me. Vital signs reviewed by me. [place] medical records reviewed by me. Patient had extensive history including variceal bleeds status post banding, alcoholic liver cirrhosis, and choledocholithiasis s/p stent. Was admitted to the hospital on 07/01/2024 and 07/29/2024 for acute blood loss anemia in the setting of hematemesis likely secondary to esophageal varices bleed. EGD performed on 07/30/2024 showed grade 3 varices that were banded. During hospitalization GI recommended transfer to a tertiary center and was accepted at [facility] for TIPS/evaluation for liver transplant. 1158: I spoke with GI Dr. Beckwith. Discussed patients PMHx, HPI, ED course, exam findings, labs, and radiology results. He agrees to consult. 1208: I spoke with GI Dr. Johnson. Discussed patients PMHx, HPI, ED course, exam findings, labs, and radiology results. He agrees to consult. 1212: I spoke with hospitalist Dr. Esteves. Discussed patients PMHx, HPI, ED course, exam findings, labs, and radiology results. The hospitalist agree to accept the patient for admission. RADIOLOGY Ordering Physician: Duke Odom MD Date of Service: 08/31/24 Procedure(s): MR MRCP Accession Number(s): [id number] cc: Duke Odom MD; Jose Enrique Pena MD; Cooper Gould MD~ MRI abdomen, without contrast. MRCP Date and time of exam: August 31, 2024 1051 hours Comparison July 05, 2024 INDICATIONS: Abdominal pain this week, distended gallbladder, gallbladder sludge, thickened gallbladder wall and mildly enlarged common bile duct on ultrasound abdomen this a.m. Technique: Multiple axial and coronal images of the abdomen have been obtained with the Siemens 1.5T MRI scanner. Images obtained included T1 weighted transverse images, T2-weighted transverse images, T2-weighted transverse images fat-suppressed, T2 weighted haste fat suppressed transverse images, T1 weighted images, in and out of phase images, T2-weighted coronal images, breath hold, T2 weighted haze coronal images as well as T2 weighted coronal thick slab images, MRCP. Findings: Cirrhosis, liver irregular in contour Significantly distended gallbladder Intrahepatic biliary tract dilatation 19 x 20 mm anterior right lobe liver lesion Mild edema around the gallbladder Common hepatic duct 11 mm 4 mm stone in the common bile duct axial image 26 and abrupt termination of the distal common bile duct Marked splenomegaly No pancreatic mass No ascites Aorta normal size IMPRESSION: Acute acalculous cholecystitis Intrahepatic and extra hepatic biliary tract dilatation with 4 mm stone in the common bile duct and abrupt termination of the distal common bile duct, recommend ERCP follow-up to exclude stricture distal common bile duct versus impacted stone in the distal common bile duct Cirrhosis Prominent splenomegaly Dictated By: Cooper Gould MD Signed By: <Electronically signed by Cooper Gould MD in [place]>08/31/24 1125
[2024-08-31] MEDS: PIPER/TAZO 3.375 GM PREMIX 3.375 GM/50 ML BAG IV ×2 (14:16→21:24)
[2024-08-31] MEDS: RINGERS LACTATED 1000 ML 1,000 ML 75 ML IV (14:16)
--- NOTE | 2024-08-31 15:06 | ESCONSULT_ITS ---
HPI Data of Consult Requesting Physician: Magali Esteves MD Primary Care Provider: Jose Enrique Pena MD Consult Narrative History of present illness: 23-year-old male is here today with abdominal pain and right shoulder pain. He is followed by [facility] for possible liver failure. He states he had a recent biopsy performed. When patient arrived to the ER he was noted to have a fever of 101.5 Fahrenheit. Vital signs were otherwise stable.With GI was called to evaluate the patient for ERCP. Patient had an MRCP which showed common bile duct stent. No evidence of cholangitis we will schedule the patient for ERCP tomorrow. cc:: cc: Magali Esteves MD Review of Systems Review of Systems Narrative Review of Systems: 12 systems reviewed all negative except positive pertinent symptoms as stated in physical exam. Meds Home Medications and Allergies Allergies Allergy/AdvReac Type Severity Reaction Status Date / Time No Known Allergies Allergy Verified 08/30/24 15:09 Exam Vital Signs Temp Pulse Resp BP Pulse Ox O2 Del Method 97.6 F 64 18 112/55 L 100 Room Air 08/31/24 14:00 08/31/24 14:00 08/31/24 14:00 08/31/24 14:00 08/31/24 14:00 08/31/24 14:00 Routine Abdominal Exam Comments: Abdominal exam overall benign except mild tenderness in the right upper quadrant. No rebound tenderness no hernia. No hernia no other significant finding Results Labs 08/30/24 16:29 08/30/24 16:29 Labs: Short CBC 08/30/24 Range/Units 16:29 WBC 7.7 (3.8-10.6) Thou/mm3 Hgb 11.6 L (13.5-16.0) g/dL Hct 35.8 L (41.0-53.0) % Plt Count 111 L D (140-440) Thou/mm3 BMP 08/30/24 16:29 Sodium 137 Potassium 4.4 Chloride 102 Carbon Dioxide 24.8 BUN 11 Creatinine 0.8 Glucose 104 Calcium 9.1 Liver Function 08/30/24 08/30/24 Range/Units 16:29 22:56 Total Bilirubin 1.3 H (0.3-1.2) mg/dL Direct Bilirubin 0.5 H (0.0-0.3) mg/dL AST 23 (0-34) U/L ALT 18 (10-49) U/L Alkaline Phosphatase 136 H (46-116) U/L Albumin 4.7 (3.5-5.0) gm/dL Urine 08/30/24 Range/Units 16:40 Urine Color Yellow (Lt Yel-Yel) Urine Clarity Clear (Clear/Hazy) Urine pH 6.5 (5.0-7.0) Ur Specific [place] 1.021 (1.001-1.035) Urine Protein Negative (Neg - Trace) Urine Glucose (UA) Negative (Negative) Assessment and Plan Additional Assessment & Plan Additional Plan: Assessment: Choledocholithiasis Cirrhosis s/p biopsy in [facility] Plan of care: Clear liquid diet for now N.p.o. after midnight Agree with antibiotic Will proceed with ERCP tomorrow The entire procedure pain to the patient patient verbalized understanding willing to proceed the procedure. Will follow the patient with results.
--- NOTE | 2024-08-31 16:27 | PD.RESPRO ---
Documentation for date of: 08/31/24 Exam Vital Signs Temp Pulse Resp BP Pulse Ox O2 Del Method 97.6 F 64 18 112/55 L 100 Room Air 08/31/24 14:00 08/31/24 14:00 08/31/24 14:00 08/31/24 14:00 08/31/24 14:00 08/31/24 14:00 Objective Labs 08/30/24 16:29 08/30/24 16:29 Labs: Laboratory Results - last 24 hr 08/30/24 08/30/24 08/30/24 16:29 16:40 22:56 WBC 7.7 RBC 4.66 Hgb 11.6 L Hct 35.8 L MCV 77 L MCH 24.9 L MCHC 32.4 RDW Std Deviation 60.9 H Plt Count 111 L D Neut % (Auto) 83 H Lymph % (Auto) 7 L [place] % (Auto) 8 Eos % (Auto) 2 Baso % (Auto) 0 Neut # (Auto) 6.4 Lymph # (Auto) 0.5 L Winn # (Auto) 0.6 Eos # (Auto) 0.1 Baso # (Auto) 0.0 Immature Gran # (Auto) 0.04 H Absolute Nucleated RBC 0.00 Immature Gran % 1 H Nucleated RBC % 0 ESR 67 H PT 16.2 H INR 1.5 H APTT 36.7 H Sodium 137 Potassium 4.4 Chloride 102 Carbon Dioxide 24.8 Anion Gap 10 BUN 11 Creatinine 0.8 Estim Creat Clear Calc 110.0 eGFR > 60 BUN/Creatinine Ratio 14 Glucose 104 Calculated Osmolality 273 L Lactic Acid 0.8 Calcium 9.1 Corrected Calcium 9.1 Magnesium 1.7 Total Bilirubin 1.3 H Direct Bilirubin 0.5 H AST 23 ALT 18 Alkaline Phosphatase 136 H C-Reactive Prot, Quant 7.2 H Total Protein 8.2 Albumin 4.7 Globulin 3.5 Albumin/Globulin Ratio 1.3 Amylase 48 Lipase 35 31 Procalcitonin 0.75 H Ur Collection Type Voided Urine Color Yellow Urine Clarity Clear Urine pH 6.5 Ur Specific [place] 1.021 Urine Protein Negative Urine Glucose (UA) Negative Urine Ketones Negative Urine Blood Negative Urine Nitrite Negative Urine Bilirubin Negative Urine Urobilinogen (Auto) Negative Ur Leukocyte Esterase Negative Urine RBC 3 Urine WBC 3 Ur Squamous Epith Cells 1 Urine Bacteria Rare Urine Opiates Screen Positive A Urine Fentanyl Screen Negative Ur Barbiturates Screen Negative U Amphetamin/Meth Scrn Negative U Benzodiazepines Scrn Negative U Cocaine Metab Screen Negative U Marijuana (THC) Screen Negative Ethyl Alcohol < 3.0 Quality Measures Quality Measures none Assessment & Plan Assessment Current Active Medications: Generic Name Dose Route Start Last Admin Trade Name Freq PRN Reason Stop Dose Admin Acetaminophen 650 mg 08/31/24 12:53 Acetaminophen 325 Mg Tablet PO 09/30/24 12:52 Q6H PRN Fever >101.5 Acetaminophen 650 mg 08/31/24 12:53 Acetaminophen 325 Mg Tablet PO 09/30/24 12:52 Q6H PRN PAIN SCALE 1-3 (mild Hydrocodone Bitart/Acetaminophen 1 tab 08/31/24 12:53 Hydrocodone/Apap 10/325 Tab PO 09/05/24 12:52 Q4H PRN PAIN SCALE 4-6 (Moderate Lactated Ringer's 1,000 mls @ 75 mls/hr 08/31/24 13:00 08/31/24 14:16 Lactated Ringers IV 09/30/24 12:59 75 mls/hr .[id number] MAYTE Administration Piperacillin/Tazobactam/Dextrose 3.375 gm in 50 mls @ 12.5 mls/hr 08/31/24 13:15 08/31/24 14:24 Zosyn IV 09/07/24 13:14 Infused Q8HR MAYTE Infusion Morphine Sulfate 1 mg 08/31/24 12:53 Morphine Sulf Inj 10 Mg/Ml Vial IVP 09/05/24 12:52 Q6H PRN PAIN SCALE 7-10 (Severe Ondansetron HCl 4 mg 08/31/24 12:53 Ondansetron Inj 2 Mg/Ml Inj 2 Ml IVP 09/30/24 12:52 Q6H PRN NAUSEA OR VOMITING Protocol Pantoprazole Sodium 40 mg 08/31/24 13:00 08/31/24 14:15 Pantoprazole Inj 40 Mg Vial IVP 09/30/24 12:59 40 mg QDAY MAYTE Administration
--- NOTE | 2024-08-31 16:28 | PD.RESHP ---
Documentation for date of: 08/31/24 Exam Vital Signs Temp Pulse Resp BP Pulse Ox O2 Del Method 97.6 F 64 18 112/55 L 100 Room Air 08/31/24 14:00 08/31/24 14:00 08/31/24 14:00 08/31/24 14:00 08/31/24 14:00 08/31/24 14:00 Results: Labs 08/30/24 16:29 08/30/24 16:29 Labs: Short CBC 08/30/24 Range/Units 16:29 WBC 7.7 (3.8-10.6) Thou/mm3 Hgb 11.6 L (13.5-16.0) g/dL Hct 35.8 L (41.0-53.0) % Plt Count 111 L D (140-440) Thou/mm3 BMP 08/30/24 16:29 Sodium 137 Potassium 4.4 Chloride 102 Carbon Dioxide 24.8 BUN 11 Creatinine 0.8 Glucose 104 Calcium 9.1 Liver Function 08/30/24 08/30/24 Range/Units 16:29 22:56 Total Bilirubin 1.3 H (0.3-1.2) mg/dL Direct Bilirubin 0.5 H (0.0-0.3) mg/dL AST 23 (0-34) U/L ALT 18 (10-49) U/L Alkaline Phosphatase 136 H (46-116) U/L Albumin 4.7 (3.5-5.0) gm/dL Urine 08/30/24 Range/Units 16:40 Urine Color Yellow (Lt Yel-Yel) Urine Clarity Clear (Clear/Hazy) Urine pH 6.5 (5.0-7.0) Ur Specific [place] 1.021 (1.001-1.035) Urine Protein Negative (Neg - Trace) Urine Glucose (UA) Negative (Negative) Quality Measures Quality Measures none Medications Home Medications and Allergies Allergies Allergy/AdvReac Type Severity Reaction Status Date / Time No Known Allergies Allergy Verified 08/30/24 15:09 Visit Medications Acetaminophen (Acetaminophen 325 Mg Tablet) 650 mg PO Q6H PRN PRN Reason: Fever >101.5 Stop: 09/30/24 12:52 Acetaminophen (Acetaminophen 325 Mg Tablet) 650 mg PO Q6H PRN PRN Reason: PAIN SCALE 1-3 (mild Stop: 09/30/24 12:52 Hydrocodone Bitart/Acetaminophen (Hydrocodone/Apap 10/325 Tab) 1 tab PO Q4H PRN PRN Reason: PAIN SCALE 4-6 (Moderate Stop: 09/05/24 12:52 Lactated Ringer's (Lactated Ringers) 1,000 mls @ 75 mls/hr IV .[id number] MAYTE Stop: 09/30/24 12:59 Last Admin: 08/31/24 14:16 Dose: 75 mls/hr Piperacillin/Tazobactam/Dextrose (Zosyn) 3.375 gm in 50 mls @ 12.5 mls/hr IV Q8HR MAYTE Stop: 09/07/24 13:14 Last Infusion: 08/31/24 14:24 Dose: Infused Morphine Sulfate (Morphine Sulf Inj 10 Mg/Ml Vial) 1 mg IVP Q6H PRN PRN Reason: PAIN SCALE 7-10 (Severe Stop: 09/05/24 12:52 Ondansetron HCl (Ondansetron Inj 2 Mg/Ml Inj 2 Ml) 4 mg IVP Q6H PRN; Protocol PRN Reason: NAUSEA OR VOMITING Stop: 09/30/24 12:52 Pantoprazole Sodium (Pantoprazole Inj 40 Mg Vial) 40 mg IVP QDAY [facility] Stop: 09/30/24 12:59 Last Admin: 08/31/24 14:15 Dose: 40 mg Discontinued Medications Diphenhydramine HCl (Diphenhydramine Inj 50 Mg/Ml Vial) 50 mg IVP X1 STA Stop: 08/31/24 03:14 Last Admin: 08/31/24 03:34 Dose: 50 mg Sodium Chloride (Ns) 1,000 mls @ 999 mls/hr IV .Q1H1M ONE Stop: 08/31/24 00:22 Last Infusion: 08/31/24 01:00 Dose: Infused Piperacillin/Tazobactam/Dextrose (Zosyn) 3.375 gm in 50 mls @ 100 mls/hr IV X1 ONE Stop: 08/30/24 23:51 Last Infusion: 08/31/24 00:30 Dose: Infused Sodium Chloride (Ns) 1,000 mls @ 200 mls/hr IV .Q5H ONE Stop: 08/31/24 09:57 Last Infusion: 08/31/24 10:31 Dose: Infused Ibuprofen (Ibuprofen Tab 600 Mg Tablet) 600 mg PO X1 ONE Stop: 08/30/24 16:20 Last Admin: 08/30/24 23:59 Dose: Not Given Ketorolac Tromethamine (Ketorolac Inj 30 Mg/Ml Vial) 30 mg IVP X1 ONE Stop: 08/30/24 23:23 Last Admin: 08/30/24 23:57 Dose: 30 mg Methylprednisolone Sodium Succinate (Methylprednisolone Sod Succ 62.5 Mg/Ml 2ml Vial) 125 mg IVP X1 ONE Stop: 08/31/24 03:14 Last Admin: 08/31/24 03:35 Dose: 125 mg Morphine Sulfate (Morphine Sulf Inj 10 Mg/Ml Vial) 4 mg IVP X1 ONE Stop: 08/30/24 16:20 Last Admin: 08/30/24 23:59 Dose: Not Given Morphine Sulfate (Morphine Sulf Inj 10 Mg/Ml Vial) 5 mg IM X1 ONE Stop: 08/30/24 17:41 Last Admin: 08/30/24 23:59 Dose: Not Given Morphine Sulfate (Morphine Sulf Inj 10 Mg/Ml Vial) 4 mg IVP X1 ONE Stop: 08/30/24 23:23 Last Admin: 08/30/24 23:58 Dose: 4 mg Ondansetron HCl (Ondansetron Inj 2 Mg/Ml Inj 2 Ml) 4 mg IVP X1 ONE; Protocol Stop: 08/30/24 23:23 Last Admin: 08/30/24 23:57 Dose: 4 mg
--- NOTE | 2024-08-31 17:05 | ESHP_ITS ---
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 On admission he had a fever of 101.5. CBC showed Hgb 11.6 which is baseline, PLT 111 which is slightly higher than baseline, but no leukocytosis. 10 panel remarkable for total bili 1.3, direct bilirubin 0.5, ALP 136, AST 23, ALT 18, CRP 7.2, PRO-VERITO 0.75. Other pertinent negatives include: Amylase, lipase, lactic acid, UA, and alcohol screen. Abdominal ultrasound showed thickened gallbladder and mildly enlarged common bile duct. This was followed up with MRCP showing acute acalculous cholecystitis, intrahepatic biliary duct dilation, however could not exclude stricture of the common bile duct. There was also evidence of cirrhosis and prominent splenomegaly. He was evaluated by general surgery and GI who recommended ERCP. Continue with ANTIBIOTICS, fluids and pain control. Previously admitted for grade 3 esophageal varices and underwent banding. No signs of active bleed at this time. Hemoglobin near baseline. Case was discussed with attending physician. Parveen Arias DO PGY II This document was transcribed using voice recognition technology. Minor inaccuracies may be present. Documentation for date of: 08/31/24 HPI History of Present Illness History of present illness: Bari Tse is a 23-year-old male with past medical history of variceal bleeds status post banding, alcoholic liver cirrhosis, choledocholelithiasis who presented to the ED with 12-hour history of worsening abdominal pain which radiated to his shoulder. At the time of admission, patient admitted to nausea denied fevers. Patient was admitted to the hospital on 07/01 and again on 07/29 for acute blood loss anemia in the setting of hematemesis likely secondary to esophageal varices which had started to bleed this was confirmed. with EGD on 07/30/2024 showing grade 3 varices. Patient is being followed by [facility] for liver transplant. When seen in his room on hospital floors, patient denied any pain in the abdominal or any other region of the body. Patient denied nausea vomiting changes to bowel movements such as recent constipation or diarrhea. Denied any headaches, chest pain, palpitations, difficulty breathing. Allergies: Denies any PMH: Variceal bleeds status post banding PSH: Liver biopsies performed at [facility] twice FH: Does not know about his parents. Has 5 siblings all of whom are healthy SH: Denies any alcohol use for one. Denies smoking, tobacco product use, marijuana or other illicit drug use. Reason for admission: Imaging revealed choledocholithiasis, patient admitted for further workup and started on IV antibiotics as a standard of care. Patient's vital measures will be monitored on telemetry as patient is at risk for ascending cholangitis or even sepsis. GI on board and scheduled to perform ERCP tomorrow. Exam Vital Signs Temp Pulse Resp BP Pulse Ox O2 Del Method 97.6 F 64 18 112/55 L 100 Room Air 08/31/24 14:08/31/24 14:08/31/24 14:08/31/24 14:08/31/24 14:08/31/24 14:00 Narrative Exam General: Alert and oriented x3, No apparent distress. Skin: Intact, Warm, no rashes. HEENT: Normocephalic, Atraumatic. Normal neck range of motion, Supple. Trachea midline. Respiratory: Lungs are clear to auscultation, Breath sounds are equal bilaterally with equal chest expansion. Cardiovascular: RRR, normal S1, S2, No murmurs. Distal pulses 2+ Abdomen: Soft, nontender to palpation, nondistended. Bowel sounds present in all 4 quadrants and tympanic to percussion. No rebound or guarding present. Musculoskeletal: No swelling, moving all 4 extremities with FROM Neurologic: Alert, Oriented, No focal deficits. Moving all 4 extremities spontaneously Psych: Thoughts linear and responses appropriate. Results: Labs 09/03/24 05:00 09/03/24 05:00 Labs: BMP 08/30/24 16:29 Sodium 137 Potassium 4.4 Chloride 102 Carbon Dioxide 24.8 BUN 11 Creatinine 0.8 Glucose 104 Calcium 9.1 Liver Function 08/30/24 08/30/24 Range/Units 16:29 22:56 Total Bilirubin 1.3 H (0.3-1.2) mg/dL Direct Bilirubin 0.5 H (0.0-0.3) mg/dL AST 23 (0-34) U/L ALT 18 (10-49) U/L Alkaline Phosphatase 136 H (46-116) U/L Albumin 4.7 (3.5-5.0) gm/dL Urine 08/30/24 Range/Units 16:40 Urine Color Yellow (Lt Yel-Yel) Urine Clarity Clear (Clear/Hazy) Urine pH 6.5 (5.0-7.0) Ur Specific [place] 1.021 (1.001-1.035) Urine Protein Negative (Neg - Trace) Urine Glucose (UA) Negative (Negative) Quality Measures Quality Measures none Medications Home Medications and Allergies Home Medications ?Medication ?Instructions ?Recorded ?Confirmed ?Type ergocalciferol (vitamin D2) 1,250 1,250 mcg PO QWEEK 0 08/31/24 08/31/24 History mcg (50,000 unit) capsule gabapentin 100 mg capsule 300 mg PO TID 08/31/2408/31 History oxycodone 5 mg tablet 5 mg PO Q4H PRN pain 5 08/31/24 History pantoprazole 40 mg tablet,delayed 40 mg PO BID 5 08/31/24 History release sucralfate 100 mg/mL oral 1 g PO BID 08/31/24 08/31/24 History suspension ursodiol 300 mg capsule 300 mg PO DAILY 08/31/2410/18 History Allergies Allergy/AdvReac Type Severity Reaction Status Date / Time No Known Allergies Allergy Verified 08/30/24 15:09 Visit Medications Acetaminophen (Acetaminophen 325 Mg Tablet) 650 mg PO Q6H PRN PRN Reason: Fever >101.5 Stop: 09/30/24 12:52 Acetaminophen (Acetaminophen 325 Mg Tablet) 650 mg PO Q6H PRN PRN Reason: PAIN SCALE 1-3 (mild Stop: 09/30/24 12:52 Hydrocodone Bitart/Acetaminophen (Hydrocodone/Apap 10/325 Tab) 1 tab PO Q4H PRN PRN Reason: PAIN SCALE 4-6 (Moderate Stop: 09/05/24 12:52 Lactated Ringer's (Lactated Ringers) 1,000 mls @ 75 mls/hr IV .[id number] MAYTE Stop: 09/30/24 12:59 Last Admin: 08/31/24 14:16 Dose: 75 mls/hr Piperacillin/Tazobactam/Dextrose (Zosyn) 3.375 gm in 50 mls @ 12.5 mls/hr IV Q8HR MAYTE Stop: 09/07/24 13:14 Last Infusion: 08/31/24 14:24 Dose: Infused Morphine Sulfate (Morphine Sulf Inj 10 Mg/Ml Vial) 1 mg IVP Q6H PRN PRN Reason: PAIN SCALE 7-10 (Severe Stop: 09/05/24 12:52 Ondansetron HCl (Ondansetron Inj 2 Mg/Ml Inj 2 Ml) 4 mg IVP Q6H PRN; Protocol PRN Reason: NAUSEA OR VOMITING Stop: 09/30/24 12:52 Pantoprazole Sodium (Pantoprazole Inj 40 Mg Vial) 40 mg IVP QDAY MAYTE Stop: 09/30/24 12:59 Last Admin: 08/31/24 14:15 Dose: 40 mg Discontinued Medications Diphenhydramine HCl (Diphenhydramine Inj 50 Mg/Ml Vial) 50 mg IVP X1 STA Stop: 08/31/24 03:14 Last Admin: 08/31/24 03:34 Dose: 50 mg Sodium Chloride (Ns) 1,000 mls @ 999 mls/hr IV .Q1H1M ONE Stop: 08/31/24 00:22 Last Infusion: 08/31/24 01:00 Dose: Infused Piperacillin/Tazobactam/Dextrose (Zosyn) 3.375 gm in 50 mls @ 100 mls/hr IV X1 ONE Stop: 08/30/24 23:51 Last Infusion: 08/31/24 00:30 Dose: Infused Sodium Chloride (Ns) 1,000 mls @ 200 mls/hr IV .Q5H ONE Stop: 08/31/24 09:57 Last Infusion: 08/31/24 10:31 Dose: Infused Ibuprofen (Ibuprofen Tab 600 Mg Tablet) 600 mg PO X1 ONE Stop: 08/30/24 16:20 Last Admin: 08/30/24 23:59 Dose: Not Given Ketorolac Tromethamine (Ketorolac Inj 30 Mg/Ml Vial) 30 mg IVP X1 ONE Stop: 08/30/24 23:23 Last Admin: 08/30/24 23:57 Dose: 30 mg Methylprednisolone Sodium Succinate (Methylprednisolone Sod Succ 62.5 Mg/Ml 2ml Vial) 125 mg IVP X1 ONE Stop: 08/31/24 03:14 Last Admin: 08/31/24 03:35 Dose: 125 mg Morphine Sulfate (Morphine Sulf Inj 10 Mg/Ml Vial) 4 mg IVP X1 ONE Stop: 08/30/24 16:20 Last Admin: 08/30/24 23:59 Dose: Not Given Morphine Sulfate (Morphine Sulf Inj 10 Mg/Ml Vial) 5 mg IM X1 ONE Stop: 08/30/24 17:41 Last Admin: 08/30/24 23:59 Dose: Not Given Morphine Sulfate (Morphine Sulf Inj 10 Mg/Ml Vial) 4 mg IVP X1 ONE Stop: 08/30/24 23:23 Last Admin: 08/30/24 23:58 Dose: 4 mg Ondansetron HCl (Ondansetron Inj 2 Mg/Ml Inj 2 Ml) 4 mg IVP X1 ONE; Protocol Stop: 08/30/24 23:23 Last Admin: 08/30/24 23:57 Dose: 4 mg Assessment & Plan Plan In summary, Bari Tse is a 23-year-old male with PMH of variceal bleeds s/p banding, alcoholic liver cirrhosis, choledocholithiasis s/p stent, who presented to the hospital with 12-hour history of abdominal pain and was diagnosed and admitted for further workup and treatment of new occurrence of choledocholithiasis. #Choledocholithiasis # Acute acalculous cholecystitis DDx ascending cholangitis vs hepatitis - MRCP in the ED showed liver cirrhosis, markedly distended gallbladder, mild edema around the gallbladder, intra and extrahepatic biliary duct dilatation, CBD 11 mm, and a 4 mm stone on lodged in CBD. - On vitals, fever of 101.5. - Labs T. bili 1.3, alkaline phosphatase 136, AST 23, ALT 18. CRP 7.2, ESR 67, procalcitonin 0.75. ? WBC 7.7 no leukocytosis. -Surgery consulted who denied surgical management because of presence of cirrhosis - GI consulted who recommends ERCP in a.m tomorrow. The goal is to exclude stricture distal to CBD versus impacted the stone in the distal CBD. Plan: - IV Zosyn 3.375 mg - IV LR 75 mL/h (to avoid dehydration) - Patient on clear liquids until midnight and n.p.o. after in preparation for ERCP - Trend LFTs ? Coagulopathy panel PT, aPTT, INR - Zofran 4 mg every 6 hours as needed for nausea - Acetaminophen 650 mg p.o. every 6 hours as needed - [place] 10/325 as needed - IVP morphine injection 1 mg as needed #Alcoholic liver cirrhosis #Esophageal varices grade 3 - Need to follow-up with [facility] the patient is on a liver transplant list already - Esophageal varices are likely to be related to portal hypertension as a result of cirrhosis. - Patient underwent banding of several esophageal varices earlier and a different procedure which he describes as gluing #Chronic anemia Hemoglobin 11.6 today, however it has been in the range of 7.5-8.5 in the past MCV 77 and RDW 60.9 Suspect anemia of chronic disease Plan: ?Trend CBC - Iron studies, folate, cobalamin draw Health maintenance: Diet: Clear liquids DVT prophylaxis: Sequential compression device GI prophylaxis Protonix CODE STATUS: Full Case was discussed with attending physician, Dr. Esteves, and senior resident Dr Arias. Cindi Crandall, PGY I Attending Provider Attestation/Addendum I attest that I was physically present for the evaluation, physical examination, lab and imaging review of the patient with the residents. I discussed the case with the residents and agree with the findings and plans of care as documented above. After examination of the patient and review of the clinical data I feel that this patient needs admission to the hospital for further treatment/evaluation. Magali Esteves MD
--- NOTE | 2024-08-31 18:45 | PC.NURSE ---
Pt admission worklist not complete at time of transfer from Med-Surg to Tele. Worklist completed by self, medication reconciliation endorsed to Jennifer RN at shift change to complete.
--- NOTE | 2024-08-31 21:06 | ESCONSULT_ITS ---
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 requiring evaluation at [place] with placement of a CBD stent Patient also has a history of alcoholic liver disease and has been abstinent from alcohol at least for over 6 months and close to a year He has history of variceal esophageal bleeding requiring band ligation of the varices cc:: cc: Magali Esteves MD Past Medical History Surgical History OTHER SURGICAL HX: As in the history of present illness Meds Home Medications and Allergies Allergies Allergy/AdvReac Type Severity Reaction Status Date / Time No Known Allergies Allergy Verified 08/30/24 15:09 Exam Vital Signs Temp Pulse Resp BP Pulse Ox O2 Del Method 96.9 F 85 20 117/58 L 96 Room Air 08/31/24 20:00 08/31/24 20:00 08/31/24 20:00 08/31/24 20:00 08/31/24 20:00 08/31/24 17:05 Constitutional Comments: Chronically ill-appearing Routine Respiratory Exam Comments: Normal to auscultation Routine Abdominal Exam Comments: Midepigastric tenderness Results Labs 08/30/24 16:29 08/30/24 16:29 Labs: Liver Function 08/30/24 Range/Units 22:56 Direct Bilirubin 0.5 H (0.0-0.3) mg/dL Assessment and Plan Additional Assessment & Plan Additional Plan: Choledocholithiasis with fever with already existing stent Plan Advised the ER physician to consult Dr. Beckwith and he has been kind enough to see the patient ERCP scheduled for tomorrow Rodolfo Dias Other medical problems include Cirrhotic liver disease with splenomegaly portal hypertension and esophageal variceal bleeding Caroli's disease Will follow the patient Thank you very much for the opportunity to participate care of this patient
[2024-08-31] MEDS: PROPRANOLOL 10 MG TABLET PO (21:23)
[2024-09-01] VITALS (16 sets, daily range): BP systolic 104–126; BP diastolic 52–78; PULSE 44–76; RESP 12–99; TEMP 36.3–36.7; O2SAT 97–100
[2024-09-01] MEDS: PIPER/TAZO 3.375 GM PREMIX 3.375 GM/50 ML BAG IV ×5 (05:19→19:42)
[2024-09-01] MEDS: RINGERS LACTATED 1000 ML 1,000 ML 75 ML IV (05:20)
[2024-09-01 06:35] LABS: Basophils # (Auto) 0.0 Thou/mm3 (0.0-0.2); Basophils % (Auto) 0 % (0-2.5); Eosinophils # (Auto) 0.1 Thou/mm3 (0.0-0.5); Eosinophils % (Auto) 2 % (0-10); Hematocrit 30.9 % (41.0-53.0); Hemoglobin 9.7 g/dL (13.5-16.0); Immature Granulocytes Auto 0.01 Thou/mm3 (0.00-0.00); Lymphocytes # (Auto) 0.5 Thou/mm3 (1.0-4.8); Lymphocytes % (Auto) 15 % (10-50); Mean Corpuscular HGB Conc 31.4 g/dl (31.0-37.0); Mean Corpuscular Hemoglobin 25.3 pg (25.0-35.0); Mean Corpuscular Volume 81 fL (80-100); Monocytes # (Auto) 0.3 Thou/mm3 (0.0-0.8); Monocytes % (Auto) 9 % (0-12); Neutrophils # (Auto) 2.6 Thou/mm3 (1.8-7.7); Neutrophils % (Auto) 74 % (37-80); Nucleated Red Blood Cell # 0.00 Thou/mm3 (0.00-0.00); Nucleated Red Blood Cell % 0 /100 WBC (0); RDW Standard Deviation 61.4 fL (35.1-43.9); Red Blood Count 3.83 Miln/mm3 (4.50-5.90); White Blood Count 3.4 Thou/mm3 (3.8-10.6)
[2024-09-01 06:51] LABS: INR 1.5 (0.9-1.3); Partial Thromboplastin Time 34.4 Seconds (22.0-36.0); Prothrombin Time 16.3 Seconds (9.0-12.2)
[2024-09-01 06:52] LABS: Platelet Count 58 Thou/mm3 (140-440)
[2024-09-01 06:57] LABS: Slide Review Platelets confirmed
[2024-09-01 06:58] LABS: Alanine Aminotransferase 11 U/L (10-49); Albumin, Serum 3.5 gm/dL (3.5-5.0); Albumin/Globulin Ratio 1.2 (1.2-2.2); Alkaline Phosphatase 92 U/L (46-116); Anion Gap 9 (7-16); Aspartate Amino Transferase 12 U/L (0-34); BUN/Creatinine Ratio 15 Ratio (12-20); Bilirubin,Total 0.4 mg/dL (0.3-1.2); Blood Urea Nitrogen 9 mg/dL (9-23); Calcium 8.4 mg/dL (8.3-10.6); Calcium (Corrected) 8.8 mg/dL (8.5-10.1); Carbon Dioxide 26.1 mMol/L (20.0-31.0); Chloride 108 mMol/L (98-107); Creatinine (Component) 0.6 mg/dL (0.6-1.3); Estimated Creatinine Clearance 146.6 mL/min (>60); Globulin 2.9 gm/dL (2.3-3.5); Glucose 111 mg/dL (74-106); Magnesium 1.8 mg/dL (1.6-2.6); Osmolality,Calculated 284 (275-295); Phosphorous 2.6 mg/dL (2.4-5.1); Potassium 3.8 mMol/L (3.4-5.1); Sodium 143 mMol/L (136-145); Total Protein 6.4 gm/dL (5.7-8.2); eGFR > 60 See Note
--- NOTE | 2024-09-01 10:56 | PC.SS ---
Bari Tse is a 23-year-old male admitted to [facility] for Choledocholithias. SS conducted bedside contact with the patient to complete initial assessment and to discuss discharge planning. Role and reason explained. Patient confirmed demographic information. Patient identifies his mother Arielle Rascon [phone] as his surrogate decision maker. Pt states he lives at home with his parents, he is able to complete all ADL?s independent. Pt does not possesses any DME. Pts PCP is Dr. Pena [facility]. Pharmacy of choice is [facility]. Discharge options discussed and the pt wishes to return home. Pt fam will provide transport at the time of DC. No further intervention required at this time, web content & social media manager would be available to address any further concerns. DC Plan: Home Contact: Mother Arielle Address: Confirmed on face sheet PCP: Jean Quispe
--- NOTE | 2024-09-01 11:04 | PD.RESPRO ---
Documentation for date of: 09/01/24 Subjective Subjective Interval history: No overnight events. Feels well today. Continued n.p.o. for HIDA. Denies new or worsening symptoms. No abdominal pain. Denies fever, chills, headaches, chest pain, sob, cough, GI or urinary symptoms. Exam Vital Signs Temp Pulse Resp BP Pulse Ox O2 Del Method 97.3 F 52 L 14 109/60 99 Room Air 09/01/24 08:00 09/01/24 08:24 09/01/24 08:00 09/01/24 08:24 09/01/24 08:00 09/01/24 08:00 Narrative Exam General: Alert and oriented x3, No apparent distress. Skin: Intact, Warm, no rashes. HEENT: Normocephalic, Atraumatic. Normal neck range of motion, Supple. Trachea midline. Respiratory: Lungs are clear to auscultation, Breath sounds are equal bilaterally with equal chest expansion. Cardiovascular: RRR, normal S1, S2, No murmurs. Distal pulses 2+ Abdomen: Soft, nontender to palpation, nondistended. Bowel sounds present in all 4 quadrants and tympanic to percussion. No rebound or guarding present. Musculoskeletal: No swelling, moving all 4 extremities with FROM Neurologic: Alert, Oriented, No focal deficits. Moving all 4 extremities spontaneously Psych: Thoughts linear and responses appropriate. Objective Labs 09/02/24 05:05 09/02/24 05:05 Labs: Laboratory Results - last 24 hr 09/01/24 05:59 WBC 3.4 L D RBC 3.83 L Hgb 9.7 L Hct 30.9 L MCV 81 MCH 25.3 MCHC 31.4 RDW Std Deviation 61.4 H Plt Count 58 L D Neut % (Auto) 74 Lymph % (Auto) 15 [place] % (Auto) 9 Eos % (Auto) 2 Baso % (Auto) 0 Neut # (Auto) 2.6 Lymph # (Auto) 0.5 L [place] # (Auto) 0.3 Eos # (Auto) 0.1 Baso # (Auto) 0.0 Immature Gran # (Auto) 0.01 H Absolute Nucleated RBC 0.00 Immature Gran % 0 Nucleated RBC % 0 PT 16.3 H INR 1.5 H APTT 34.4 Sodium 143 Potassium 3.8 D Chloride 108 H Carbon Dioxide 26.1 Anion Gap 9 BUN 9 Creatinine 0.6 Estim Creat Clear Calc 146.6 eGFR > 60 BUN/Creatinine Ratio 15 Glucose 111 H Calculated Osmolality 284 Calcium 8.4 Corrected Calcium 8.8 Phosphorus 2.6 Magnesium 1.8 Total Bilirubin 0.4 D AST 12 ALT 11 Alkaline Phosphatase 92 D Total Protein 6.4 Albumin 3.5 D Globulin 2.9 Albumin/Globulin Ratio 1.2 Misc Test Result Platelets confirmed Quality Measures Quality Measures none Assessment & Plan Assessment Current Active Medications: Generic Name Dose Route Start Last Admin Trade Name Freq PRN Reason Stop Dose Admin Acetaminophen 650 mg 08/31/24 12:53 Acetaminophen 325 Mg Tablet PO 09/30/24 12:52 Q6H PRN Fever >101.5 Acetaminophen 650 mg 08/31/24 12:53 Acetaminophen 325 Mg Tablet PO 09/30/24 12:52 Q6H PRN PAIN SCALE 1-3 (mild Hydrocodone Bitart/Acetaminophen 1 tab 08/31/24 12:53 08/31/24 17:17 Hydrocodone/Apap 10/325 Tab PO 09/05/24 12:52 1 tab Q4H PRN Administration PAIN SCALE 4-6 (Moderate Lactated Ringer's 1,000 mls @ 75 mls/hr 08/31/24 13:00 09/01/24 05:20 Lactated Ringers IV 09/30/24 12:59 75 mls/hr .[id number] MAYTE Administration Piperacillin/Tazobactam/Dextrose 3.375 gm in 50 mls @ 100 mls/hr 09/01/24 08:15 09/01/24 08:31 Zosyn IV 09/08/24 08:14 100 mls/hr Q6HR MAYTE Administration Protocol Morphine Sulfate 1 mg 08/31/24 12:53 Morphine Sulf Inj 10 Mg/Ml Vial IVP 09/05/24 12:52 Q6H PRN PAIN SCALE 7-10 (Severe Ondansetron HCl 4 mg 08/31/24 12:53 Ondansetron Inj 2 Mg/Ml Inj 2 Ml IVP 09/30/24 12:52 Q6H PRN NAUSEA OR VOMITING Protocol Pantoprazole Sodium 40 mg 08/31/24 13:00 09/01/24 08:31 Pantoprazole Inj 40 Mg Vial IVP 09/30/24 12:59 40 mg QDAY MAYTE Administration Propranolol HCl 10 mg 08/31/24 21:00 09/01/24 08:24 Propranolol 10 Mg Tablet PO 09/30/24 20:59 Not Given BID MAYTE Plan In summary, Bari Tse is a 23-year-old male with PMH of Caroli disease, variceal bleeds s/p banding, alcoholic liver cirrhosis, choledocholithiasis s/p stent, who presented to the hospital with 12-hour history of abdominal pain and was diagnosed and admitted for further workup and treatment of new occurrence of choledocholithiasis. Choledocholithiasis Acute acalculous cholecystitis Caroli Disease s/p biliary stenting DDx ascending cholangitis vs hepatitis. Presented with abdominal pain and fever 101.5. He recently has intervention for Caroli disease (abnormal dilitation of CBD) at [place]. CT showed cirrhosis, splenomegaly, intra/extrahepatic biliary tract dilatation with distended gallbladder and wall thickening, suspicious for right pyelonephritis (although denies urinary symptoms.). This was followed up by MRCP which showed extrahepatic biliary dilatation with 4 mm stone in CBD. Abdominal ultrasound demonstrated above findings. No transaminitis, T. bili 1.3, CRP 7.2, ESR 67, PRO-VERITO 0.75, no leukocytosis. Afebrile. GI on board, he will undergo ERCP today. ? Continue n.p.o. ? Multimodal pain control, ANTIEMETICS on board ? IV fluids ? Continue ZOSYN prophylactically (08/31 to present) Alcoholic liver cirrhosis Esophageal varices grade 3 Follows up with [facility] for liver transplant, appears to have abstained from alcohol over the last year. No signs of decompensated liver cirrhosis. ? Continue monitoring ? Encouraged continued follow-up with [facility]. Chronic normocytic anemia. In setting cirrhosis. Hgb 9.7 which is baseline. ? Continue monitoring Health maintenance: Diet: Clear liquids DVT prophylaxis: Sequential compression device GI prophylaxis Protonix CODE STATUS: Full Case was discussed with attending physician. Parveen Arias DO PGY II This document was transcribed using voice recognition technology. Minor inaccuracies may be present. Attending Provider Attestation/Addendum I have examined the patient, reviewed labs and imaging findings, discussed the case with the resident(s), and reviewed entered orders. I agree with the plan of care as outlined in this note. Dr. Canelo MD
--- NOTE | 2024-09-01 16:00 | XR_ITS ---
Examination: ERCP Fluoroscopy 32 spot fluoroscopic films of the abdomen Date and time: September 01, 2024, 1825 hours INDICATIONS: Abdominal pain this week, distended gallbladder, gallbladder sludge, thickened gallbladder wall, 4 mm stone in the common bile duct and abrupt termination of the distal common bile duct, possible impacted stone on MRCP August 31, 2024 TECHNIQUE AND FINDINGS: 32 spot fluoroscopic films of the abdomen with opacification of enlarged common bile duct Balloon sweeping of the common bile duct Biliary stent in place on the final film satisfactory position Fluoroscopy 43 seconds radiation dose 2.3497 mCi IMPRESSION: ERCP as above
[2024-09-01] MEDS: RINGERS LACTATED 1000 ML 1,000 ML 125 ML IV (17:09)
[2024-09-01] MEDS: INDOMETHACIN 50 MG SUPP 100 MG PR (17:56)
--- NOTE | 2024-09-01 18:07 | SUR.PHASEI ---
848 Patient arrived to recovery resting comfortably in [facility], drowsy and able to arouse with verbal prompting, breathing unlabored, vital signs stable, denies pain and nausea, report received from Dr. Bright and Isabelle DAVIS
--- NOTE | 2024-09-01 18:09 | SUR.PHASEI ---
1809 Dr. Beckwith at bedside verbal order read-back received to administer LR bolus 1000ml via IV, will enter order in EMR and administer per MD order
[2024-09-01] MEDS: RINGERS LACTATED 1000 ML 1,000 ML 999 ML IV (18:10)
--- NOTE | 2024-09-01 19:05 | SUR.PHASEI ---
190 Patient meets discharge criteria from recovery, awake and talking with staff, breathing unlabored, vital signs stable, denies pain and nausea, drinking apple juice; tolerating well. 1904 Bedside report given to Jazlyn RN, requested to use the restroom when arrived to his room, patient able to ambulate from gurney to toilet with stand by assist from this ghost writer, patient sitting on the toilet, Jazlyn remained in room with patient
--- NOTE | 2024-09-01 21:55 | PD.IMPROG ---
Documentation for date of: 09/01/24 Subjective Subjective Interval history: Patient's status post ERS common bile duct stone removal swiping of the common bile duct with balloon and placement of a biliary stent and continuation of antibiotics as patient has pus drained during the sphincterotomy Should be on antibiotics for at least 14 days Exam Vital Signs Temp Pulse Resp BP Pulse Ox O2 Del Method 97.4 F 50 L 14 123/78 100 Room Air 09/01/24 20:00 09/01/24 20:00 09/01/24 20:00 09/01/24 20:00 09/01/24 20:00 09/01/24 20:00 Objective Labs 09/01/24 05:59 09/01/24 05:59 Labs: Laboratory Results - last 24 hr 09/01/24 05:59 WBC 3.4 L D RBC 3.83 L Hgb 9.7 L Hct 30.9 L MCV 81 MCH 25.3 MCHC 31.4 RDW Std Deviation 61.4 H Plt Count 58 L D Neut % (Auto) 74 Lymph % (Auto) 15 [place] % (Auto) 9 Eos % (Auto) 2 Baso % (Auto) 0 Neut # (Auto) 2.6 Lymph # (Auto) 0.5 L [place] # (Auto) 0.3 Eos # (Auto) 0.1 Baso # (Auto) 0.0 Immature Gran # (Auto) 0.01 H Absolute Nucleated RBC 0.00 Immature Gran % 0 Nucleated RBC % 0 PT 16.3 H INR 1.5 H APTT 34.4 Sodium 143 Potassium 3.8 D Chloride 108 H Carbon Dioxide 26.1 Anion Gap 9 BUN 9 Creatinine 0.6 Estim Creat Clear Calc 146.6 eGFR > 60 BUN/Creatinine Ratio 15 Glucose 111 H Calculated Osmolality 284 Calcium 8.4 Corrected Calcium 8.8 Phosphorus 2.6 Magnesium 1.8 Total Bilirubin 0.4 D AST 12 ALT 11 Alkaline Phosphatase 92 D Total Protein 6.4 Albumin 3.5 D Globulin 2.9 Albumin/Globulin Ratio 1.2 Misc Test Result Platelets confirmed Impressions Impression: 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 Beckwith and he has been kind enough to see the patient ERCP scheduled for tomorrow Continue Arun Other medical problems include Cirrhotic liver disease with splenomegaly portal hypertension and esophageal variceal bleeding Caroli's disease Will follow the patient Thank you very much for the opportunity to participate care of this patient Time Spent With Patient Time: Total time spent is greater than 50% in coordination of care (as documented) at patient's floor/unit and/or counseling patient:
[2024-09-02] VITALS (8 sets, daily range): BP systolic 105–129; BP diastolic 52–67; PULSE 47–71; RESP 13–99; TEMP 36.1–36.6; O2SAT 99–100
[2024-09-02] MEDS: MORPHINE SULF INJ 10 MG/ML VIAL IVP ×2 (00:50→17:24)
[2024-09-02] MEDS: PIPER/TAZO 3.375 GM PREMIX 3.375 GM/50 ML BAG IV ×4 (00:51→17:19)
[2024-09-02 06:40] LABS: Basophils # (Auto) 0.0 Thou/mm3 (0.0-0.2); Basophils % (Auto) 0 % (0-2.5); Eosinophils # (Auto) 0.0 Thou/mm3 (0.0-0.5); Eosinophils % (Auto) 0 % (0-10); Hematocrit 30.8 % (41.0-53.0); Hemoglobin 10.0 g/dL (13.5-16.0); Immature Granulocytes Auto 0.00 Thou/mm3 (0.00-0.00); Lymphocytes # (Auto) 0.3 Thou/mm3 (1.0-4.8); Lymphocytes % (Auto) 14 % (10-50); Mean Corpuscular HGB Conc 32.5 g/dl (31.0-37.0); Mean Corpuscular Hemoglobin 25.4 pg (25.0-35.0); Mean Corpuscular Volume 78 fL (80-100); Monocytes # (Auto) 0.1 Thou/mm3 (0.0-0.8); Monocytes % (Auto) 5 % (0-12); Neutrophils # (Auto) 1.8 Thou/mm3 (1.8-7.7); Neutrophils % (Auto) 81 % (37-80); Nucleated Red Blood Cell # 0.00 Thou/mm3 (0.00-0.00); Nucleated Red Blood Cell % 0 /100 WBC (0); RDW Standard Deviation 59.3 fL (35.1-43.9); Red Blood Count 3.93 Miln/mm3 (4.50-5.90)
[2024-09-02 06:42] LABS: Platelet Count 57 Thou/mm3 (140-440)
[2024-09-02 06:43] LABS: White Blood Count 2.2 Thou/mm3 (3.8-10.6)
[2024-09-02 06:44] LABS: Slide Review Platelets confirmed
[2024-09-02 07:13] LABS: Alanine Aminotransferase 12 U/L (10-49); Albumin, Serum 3.7 gm/dL (3.5-5.0); Albumin/Globulin Ratio 1.2 (1.2-2.2); Alkaline Phosphatase 98 U/L (46-116); Anion Gap 10 (7-16); Aspartate Amino Transferase 13 U/L (0-34); BUN/Creatinine Ratio 10 Ratio (12-20); Bilirubin,Total 0.4 mg/dL (0.3-1.2); Blood Urea Nitrogen 7 mg/dL (9-23); Calcium 8.8 mg/dL (8.3-10.6); Calcium (Corrected) 9.0 mg/dL (8.5-10.1); Carbon Dioxide 27.3 mMol/L (20.0-31.0); Chloride 106 mMol/L (98-107); Creatinine (Component) 0.7 mg/dL (0.6-1.3); Estimated Creatinine Clearance 125.7 mL/min (>60); Globulin 3.0 gm/dL (2.3-3.5); Glucose 102 mg/dL (74-106); Magnesium 1.5 mg/dL (1.6-2.6); Osmolality,Calculated 282 (275-295); Phosphorous 3.8 mg/dL (2.4-5.1); Potassium 4.0 mMol/L (3.4-5.1); Sodium 143 mMol/L (136-145); Total Protein 6.7 gm/dL (5.7-8.2); eGFR > 60 See Note
[2024-09-02] MEDS: Magnesium Sulfate 4 GM Ivpb 4 GM/50 ML BAG IV (09:14)
--- NOTE | 2024-09-02 09:47 | ESPR_ITS ---
Documentation for date of: 09/02/24 Subjective Subjective Interval history: Patient was seen and examined today, status post ERCP yesterday, tolerated the procedure very well. Exam Vital Signs Temp Pulse Resp BP Pulse Ox O2 Del Method 97.3 F 59 L 15 106/52 L 100 Room Air 09/02/24 08:00 09/02/24 08:00 09/02/24 08:00 09/02/24 08:00 09/02/24 08:00 09/02/24 04:00 Routine Abdominal Exam Comments: Benign abdominal exam no tenderness no rebound tenderness. Objective Labs 09/02/24 05:05 09/02/24 05:05 Labs: Laboratory Results - last 24 hr 09/02/24 05:05 WBC 2.2 L RBC 3.93 L Hgb 10.0 L Hct 30.8 L MCV 78 L MCH 25.4 MCHC 32.5 RDW Std Deviation 59.3 H Plt Count 57 L Neut % (Auto) 81 H Lymph % (Auto) 14 [place] % (Auto) 5 Eos % (Auto) 0 Baso % (Auto) 0 Neut # (Auto) 1.8 Lymph # (Auto) 0.3 L [place] # (Auto) 0.1 Eos # (Auto) 0.0 Baso # (Auto) 0.0 Immature Gran # (Auto) 0.00 Absolute Nucleated RBC 0.00 Immature Gran % 0 Nucleated RBC % 0 Sodium 143 Potassium 4.0 Chloride 106 Carbon Dioxide 27.3 Anion Gap 10 BUN 7 L Creatinine 0.7 Estim Creat Clear Calc 125.7 eGFR > 60 BUN/Creatinine Ratio 10 L Glucose 102 Calculated Osmolality 282 Calcium 8.8 Corrected Calcium 9.0 Phosphorus 3.8 Magnesium 1.5 L Total Bilirubin 0.4 AST 13 ALT 12 Alkaline Phosphatase 98 Total Protein 6.7 Albumin 3.7 Globulin 3.0 Albumin/Globulin Ratio 1.2 Misc Test Result Platelets confirmed Assessment & Plan A&P Narrative Assessment: Choledocholithiasis Cholangitis Plan of care: Patient needs IV antibiotic for the next 48 hours Obtain blood culture Patient needs antibiotic for 14 days Consult infectious disease for antibiotic coverage Expect discharge in next 24 to 48 hours Patient must inform his lieutenant ballistics regarding episode of cholangitis Patient must follow with Dr. Beckwith's office in 2 to 4 weeks to get her scheduled for ERCP to remove/exchange of the biliary stent Call GI with any questions Time Spent With Patient Time: Total time spent is greater than 50% in coordination of care (as documented) at patient's floor/unit and/or counseling patient:
--- NOTE | 2024-09-02 10:42 | PC.CM ---
Addendum entered by Tonia Salgado RN 09/02/24 12:16: 1030 I contacted [facility] and Initiated a transfer. I faxed over all information. I started packet and I made a CD. Original Note: 1007 I received a referral to transfer patient for hepatology/transplant surgery. Patient has a Hx of Caroli disease. He is followed by [facility]. He louise an ERCP and Dr. Beckwith wants transfer for cholecytitis but he want patient to go to [facility] given his hx of Caroli disease. .
--- NOTE | 2024-09-02 13:26 | ESPR_ITS ---
<Statement entered by Parveen Arias MD - 09/02/24 14:30> No acute overnight events. Uncomplicated ERCP done yesterday, 4 mm stone in the common bile duct was removed, stent was placed in the common bile duct. GI is recommending transfer to [place] for immediate cholecystectomy given his history of Caroli disease, liver cirrhosis on a transplant list. We initiated transfer process. Denies fever, chills, headaches, chest pain, sob, cough, GI or urinary symptoms. On clear liquid diet, tolerating well. Cholangitis Choledocholithiasis Acute acalculous cholecystitis Caroli Disease s/p biliary stenting DDx ascending cholangitis vs hepatitis. Presented with abdominal pain and fever 101.5. He recently has intervention for Caroli disease (abnormal dilitation of CBD) at [facility]. CT showed cirrhosis, splenomegaly, intra/extrahepatic biliary tract dilatation with distended gallbladder and wall thickening, suspicious for right pyelonephritis (although denies urinary symptoms.). This was followed up by MRCP which showed extrahepatic biliary dilatation with 4 mm stone in CBD. Abdominal ultrasound demonstrated above findings. No transaminitis, T. bili 1.3, CRP 7.2, ESR 67, PRO-VERITO 0.75, no leukocytosis. Afebrile. ERCP was done. 4 mm stone obstructing common bile duct was removed, stent was placed. He needs immediate cholecystectomy, however unable to perform procedure here secondary to his history of Caroli disease and liver cirrhosis on transplant list. Additionally, GI concern for cholangitis base on ERCP findings (puss). Labs are showing leukopenia, otherwise LFTs and TB are normal. We initiated transfer to [facility]. 02/25 blood culture grew Enterobacter coloace. ID was consulted but provider is on vacation for the next 2 weeks. Will continue empirically with ZOSYN. On clear liquid diet, tolerating oral intake without nausea or vomiting. ? Multimodal pain control, ANTIEMETICS on board ? IV fluids ? Continue ZOSYN (08/31 to present) ? Pending transfer to [facility] Alcoholic liver cirrhosis Esophageal varices grade 3 Follows up with [facility] for liver transplant, appears to have abstained from alcohol over the last year. No signs of decompensated liver cirrhosis. ? Continue monitoring ? Encouraged continued follow-up with [facility]. Chronic normocytic anemia. In setting cirrhosis. Hgb 9.7 which is baseline. ? Continue monitoring Documentation for date of: 09/02/24 Subjective Subjective Interval history: No overnight events. Feels well post ERCP without any abdominal pain, nausea, vomiting. Admits to bowel movements in the AM and Denies new or worsening symptoms. No abdominal pain. Denies fever, chills, headaches, chest pain, sob, cough, GI or urinary symptoms. Exam Vital Signs Temp Pulse Resp BP Pulse Ox O2 Del Method 97.8 F 55 L 13 106/66 100 Room Air 09/02/24 12:00 09/02/24 12:09/02/24 12:09/02/24 12:09/02/24 12:09/02/24 12:00 Narrative Exam General: Alert and oriented x3, No apparent distress. Skin: Intact, Warm, no rashes. HEENT: Normocephalic, Atraumatic. Normal neck range of motion, Supple. Trachea midline. Respiratory: Lungs are clear to auscultation, Breath sounds are equal bilaterally with equal chest expansion. Cardiovascular: RRR, normal S1, S2, No murmurs. Distal pulses 2+ Abdomen: Soft, nontender to palpation, nondistended. Bowel sounds present in all 4 quadrants and tympanic to percussion. No rebound or guarding present. Musculoskeletal: No swelling, moving all 4 extremities with FROM Neurologic: Alert, Oriented, No focal deficits. Moving all 4 extremities spontaneously Psych: Thoughts linear and responses appropriate. Objective Labs 09/03/24 05:00 09/03/24 05:00 Labs: Laboratory Results - last 24 hr 09/02/24 05:05 WBC 2.2 L RBC 3.93 L Hgb 10.0 L Hct 30.8 L MCV 78 L MCH 25.4 MCHC 32.5 RDW Std Deviation 59.3 H Plt Count 57 L Neut % (Auto) 81 H Lymph % (Auto) 14 [place] % (Auto) 5 Eos % (Auto) 0 Baso % (Auto) 0 Neut # (Auto) 1.8 Lymph # (Auto) 0.3 L [place] # (Auto) 0.1 Eos # (Auto) 0.0 Baso # (Auto) 0.0 Immature Gran # (Auto) 0.00 Absolute Nucleated RBC 0.00 Immature Gran % 0 Nucleated RBC % 0 Sodium 143 Potassium 4.0 Chloride 106 Carbon Dioxide 27.3 Anion Gap 10 BUN 7 L Creatinine 0.7 Estim Creat Clear Calc 125.7 eGFR > 60 BUN/Creatinine Ratio 10 L Glucose 102 Calculated Osmolality 282 Calcium 8.8 Corrected Calcium 9.0 Phosphorus 3.8 Magnesium 1.5 L Total Bilirubin 0.4 AST 13 ALT 12 Alkaline Phosphatase 98 Total Protein 6.7 Albumin 3.7 Globulin 3.0 Albumin/Globulin Ratio 1.2 Misc Test Result Platelets confirmed Quality Measures Quality Measures none Assessment & Plan Assessment Current Active Medications: Generic Name Dose Route Start Last Admin Trade Name Freq PRN Reason Stop Dose Admin Acetaminophen 650 mg 08/31/24 12:53 Acetaminophen 325 Mg Tablet PO 09/30/24 12:52 Q6H PRN Fever >101.5 Acetaminophen 650 mg 08/31/24 12:53 Acetaminophen 325 Mg Tablet PO 09/30/24 12:52 Q6H PRN PAIN SCALE 1-3 (mild Hydrocodone Bitart/Acetaminophen 1 tab 08/31/24 12:53 08/31/24 17:17 Hydrocodone/Apap 10/325 Tab PO 09/05/24 12:52 1 tab Q4H PRN Administration PAIN SCALE 4-6 (Moderate Piperacillin/Tazobactam/Dextrose 3.375 gm in 50 mls @ 100 mls/hr 09/01/24 08:15 09/02/24 12:12 Zosyn IV 09/08/24 08:14 100 mls/hr Q6HR MAYTE Administration Protocol Morphine Sulfate 1 mg 08/31/24 12:53 09/02/24 00:50 Morphine Sulf Inj 10 Mg/Ml Vial IVP 09/05/24 12:52 1 mg Q6H PRN Administration PAIN SCALE 7-10 (Severe Ondansetron HCl 4 mg 08/31/24 12:53 Ondansetron Inj 2 Mg/Ml Inj 2 Ml IVP 09/30/24 12:52 Q6H PRN NAUSEA OR VOMITING Protocol Pantoprazole Sodium 40 mg 08/31/24 13:00 09/02/24 08:06 Pantoprazole Inj 40 Mg Vial IVP 09/30/24 12:59 40 mg QDAY MAYTE Administration Propranolol HCl 10 mg 08/31/24 21:00 09/01/24 08:24 Propranolol 10 Mg Tablet PO 09/30/24 20:59 Not Given BID MAYTE Plan In summary, Bari Tse is a 23-year-old male with PMH of Caroli disease, variceal bleeds s/p banding, alcoholic liver cirrhosis, choledocholithiasis s/p stent, who presented to the hospital with 12-hour history of abdominal pain and was diagnosed and admitted for further workup and treatment of new occurrence of choledocholithiasis. Choledocholithiasis Acute acalculous cholecystitis Caroli Disease s/p biliary stenting DDx ascending cholangitis vs hepatitis. Presented with abdominal pain and fever 101.5. He recently has intervention for Caroli disease (abnormal dilitation of CBD) at [facility]. CT showed cirrhosis, splenomegaly, intra/extrahepatic biliary tract dilatation with distended gallbladder and wall thickening, suspicious for right pyelonephritis (although denies urinary symptoms.). This was followed up by MRCP which showed extrahepatic biliary dilatation with 4 mm stone in CBD. Abdominal ultrasound demonstrated above findings. No transaminitis, T. bili 1.3, CRP 7.2, ESR 67, PRO-VERITO 0.75, no leukocytosis. Afebrile. 09/01 ERCP performed with complete removal via sphincterotomy & balloon extraction (swept sludge: stone +pus); plastic stent placed. Pus was seen within the biliary tree concerning for cholangitis. Labs show leukopenia. Half of blood cultures grew Enterobacter colace. ? clear liquid diet ? Multimodal pain control, ANTIEMETICS on board ? IV fluids ? Continue ZOSYN prophylactically (08/31 to present) - ABx to be continued for 48h post procedure as IV, folowed by PO for 12 days (total of 14 days) - inform insurance premium auditor regarding episode of cholangitis - See Dr Beckwith in 2-4wk to schedule an appt for biliary stent removal - Transfer care to [facility] Alcoholic liver cirrhosis Esophageal varices grade 3 Follows up with [facility] for liver transplant, appears to have abstained from alcohol over the last year. No signs of decompensated liver cirrhosis. ? Continue monitoring ? Encouraged continued follow-up with [facility]. Chronic normocytic anemia. In setting cirrhosis. Hgb 9.7 which is baseline. 09/02 MCV 79 and Hgb 10 ? Continue monitoring - iron panel Health maintenance: Diet: Clear liquids DVT prophylaxis: Sequential compression device GI prophylaxis Protonix CODE STATUS: Full Case was discussed with attending physician. Parveen Arias DO PGY II This document was transcribed using voice recognition technology. Minor inaccuracies may be present. Attending Provider Attestation/Addendum I have examined the patient, reviewed labs and imaging findings, discussed the case with the resident(s), and reviewed entered orders. I agree with the plan of care as outlined in this note, with these additional summaries/recommendations: Patient seen at bedside. No acute overnight events. Patient underwent ERCP yesterday and choledocholithiasis was found with complete removal by biliary sphincterotomy and balloon extraction with plastic stent placement in common bile duct. The biliary tree was swept and pus was noted by gastroenterology. Gastroenterology reports patient likely has cholangitis and insurance premium auditor will need to be informed. Gastroenterology also recommends transfer to [facility] for cholecystectomy given his underlying Caroli disease. Continue IV Zosyn. In- house infectious disease not available at this time. Leukopenia developing on hematology panel with WBC 2.2 and will monitor for now. Chemistry panel stable with mild hypomagnesia and replacement given. Patient tolerating regular diet without difficulty. Continue pain management as needed. His cirrhosis which is relatively well compensated at this time. Patient updated on the plan and in agreement. All questions answered to satisfaction. Please see residents note for additional details and management. Dr. Canelo MD
--- NOTE | 2024-09-02 16:15 | PC.SS ---
Rounding: Pending OC
--- NOTE | 2024-09-02 19:11 | PD.RESDS ---
Planned Discharge Date 09/02/24 DS: Providers Provider Date of admission: 08/31/24 12:51 Primary care physician: Jose Enrique Pena MD Admitting Provider: Magali Esteves MD Attending Provider on Admission: Magali Esteves MD Consults: 08/31/24 12:07 Consult to Gastroenterology Stat Comment: Consulting Provider: Gerardo Acevedo 08/31/24 12:11 Consult to Gastroenterology Stat Comment: Consulting Provider: Herber Johnson 09/02/24 10:03 Consult to Infectious Diseases Routine Comment: cholengitis, s/p ERCP, on ZOSYN, Caroli disease Consulting Provider: Oleg Mosley 09/02/24 10:07 Referral - [employer]n Furniture [employer] Routine Service Needed for Transfer: Hepatology/Transpplant Surgery Addl Comments:: Hx Caroli disease, 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 Had ERCP, Dr. Beckwith wants transfer for cholecytitis but needs to be done by transplant surgery given his hx of Caroli. DS: Diagnosis Problem List Completed Was Problem List Reviewed/Reconciled?: Yes Hospital Course Hospital Course Hospital course: The patient was admitted with abdominal pain and fever (Tmax 101.5?F) in the setting of known Caroli disease, cirrhosis, and history of prior biliary intervention. Imaging (CT, MRCP, and ultrasound) revealed intrahepatic and extrahepatic biliary duct dilatation with a 4 mm obstructing stone in the common bile duct, gallbladder wall thickening, and cirrhotic liver changes. There was clinical concern for cholangitis or acute acalculous cholecystitis. Labs were notable for leukopenia without transaminitis, elevated inflammatory markers (CRP, ESR, procalcitonin), and no leukocytosis. One out of two blood cultures grew Enterobacter cloacae; Infectious Disease was consulted but unavailable, so empiric antibiotics with Zosyn were continued. GI recommended urgent cholecystectomy, but due to the patient?s complex hepatobiliary history and transplant candidacy, we initiated transfer to [facility] for definitive surgical management. During hospitalization, the patient underwent uncomplicated ERCP with successful removal of the obstructing 4 mm CBD stone and placement of a biliary stent. He remained afebrile after the procedure, denied any systemic or gastrointestinal symptoms, and tolerated a clear liquid diet well. Pain was managed with multimodal therapy, and he continued IV fluids and antibiotics without complications. The patient has a history of alcoholic cirrhosis, grade 3 esophageal varices, and chronic normocytic anemia, all of which remained stable. He has reportedly abstained from alcohol for the past year and continues to follow up with [facility] for liver transplant evaluation. He is pending transfer for further surgical management. Admission Diagnoses: Choledocholithiasis Acute cholengitis Acute acalculous cholecystitis Neutropenia Caroli Disease s/p biliary stenting Alcoholic liver cirrhosis Esophageal varices grade 3 Chronic normocytic anemia Time Spent with Patient Time attestation: Total time spent providing and/or coordinating discharge services: Time spent: Greater than 30 minutes Exam Vital Signs Temp Pulse Resp BP Pulse Ox O2 Del Method 97.4 F 54 L 16 129/67 100 Room Air 09/02/24 16:09/02/24 16:09/02/24 16:09/02/24 16:09/02/24 16:09/02/24 16:00 Narrative Exam General: Alert and oriented x3, No apparent distress. Skin: Intact, Warm, no rashes. HEENT: Normocephalic, Atraumatic. Normal neck range of motion, Supple. Trachea midline. Respiratory: Lungs are clear to auscultation, Breath sounds are equal bilaterally with equal chest expansion. Cardiovascular: RRR, normal S1, S2, No murmurs. Distal pulses 2+ Abdomen: Soft, nontender to palpation, nondistended. Bowel sounds present in all 4 quadrants and tympanic to percussion. No rebound or guarding present. Musculoskeletal: No swelling, moving all 4 extremities with FROM Neurologic: Alert, Oriented, No focal deficits. Moving all 4 extremities spontaneously Psych: Thoughts linear and responses appropriate. Discharge Plan Plan Patient Disposition: er Other Facility Pt Being Transferred to: [facility] Service Needed for Transfer: General Surgery Patient condition on transfer: Stable Care Plan Goals: Follow-up with PCP within 1-2 weeks of discharge. Follow-up with hepatology within 1-2 weeks of discharge. Will need 10 days of antibiotics for acute cholengitis. Patient must follow with Dr. Beckwith's office in 2 to 4 weeks to get her scheduled for ERCP to remove/exchange of the biliary stent. Continue taking medications as prescribed below. Return to Emergency Room if symptoms persist, worsen, or new symptoms develop. Prescriptions/Referrals Prescriptions/Med Rec: Continued propranolol 10 mg tablet 10 mg PO BID Qty: 60 2RF oxycodone 5 mg tablet 5 mg PO Q4H PRN (Reason: pain) ergocalciferol (vitamin D2) 1,250 mcg (50,000 unit) capsule 1,250 mcg PO QWEEK Patient Comments: TAKE 1 CAPSULE (50,000 UNITS TOTAL) BY MOUTH EVERY 7 DAYS FOR 7 DOSES gabapentin 100 mg capsule 300 mg PO TID Patient Comments: TAKE 3 TABLETS (300 MG TOTAL) BY MOUTH 3 TIMES A DAY sucralfate 100 mg/mL suspension 1 g PO BID Patient Comments: TAKE 10 ML (1 G TOTAL) BY MOUTH 2 TIMES A DAY ursodiol 300 mg capsule 300 mg PO DAILY Patient Comments: TAKE 1 CAPSULE BY MOUTH EVERY DAY pantoprazole 40 mg tablet,delayed release (DR/EC) 40 mg PO BID Referrals: Jose Enrique Pena MD [Primary Care Provider] - Patient/Caregiver Discharge Instructions Print Language: Austrian Stand Alone Forms: Анна Award Info., Patient Portal Info Letter Discharge Order Discharge Orders: Discharge (Routine); Ordered 09/02/24 Ordered By: Parveen Arias
--- NOTE | 2024-09-02 19:22 | ESPR_ITS ---
Documentation for date of: 09/02/24 Subjective Subjective Interval history: Patient evaluated Hemoglobin hematocrit 10.0 and 30.2 Exam Vital Signs Temp Pulse Resp BP Pulse Ox O2 Del Method 97.4 F 54 L 16 129/67 100 Room Air 09/02/24 16:00 09/02/24 16:00 09/02/24 16:00 09/02/24 16:00 09/02/24 16:00 09/02/24 16:00 Objective Labs 09/02/24 05:05 09/02/24 05:05 Labs: Laboratory Results - last 24 hr 09/02/24 05:05 WBC 2.2 L RBC 3.93 L Hgb 10.0 L Hct 30.8 L MCV 78 L MCH 25.4 MCHC 32.5 RDW Std Deviation 59.3 H Plt Count 57 L Neut % (Auto) 81 H Lymph % (Auto) 14 [place] % (Auto) 5 Eos % (Auto) 0 Baso % (Auto) 0 Neut # (Auto) 1.8 Lymph # (Auto) 0.3 L [place] # (Auto) 0.1 Eos # (Auto) 0.0 Baso # (Auto) 0.0 Immature Gran # (Auto) 0.00 Absolute Nucleated RBC 0.00 Immature Gran % 0 Nucleated RBC % 0 Sodium 143 Potassium 4.0 Chloride 106 Carbon Dioxide 27.3 Anion Gap 10 BUN 7 L Creatinine 0.7 Estim Creat Clear Calc 125.7 eGFR > 60 BUN/Creatinine Ratio 10 L Glucose 102 Calculated Osmolality 282 Calcium 8.8 Corrected Calcium 9.0 Phosphorus 3.8 Magnesium 1.5 L Total Bilirubin 0.4 AST 13 ALT 12 Alkaline Phosphatase 98 Total Protein 6.7 Albumin 3.7 Globulin 3.0 Albumin/Globulin Ratio 1.2 Misc Test Result Platelets confirmed Impressions Impression: 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 Beckwith's office in 2 to 4 weeks to get her scheduled for ERCP to remove/exchange of the biliary stent Call GI with any questions Time Spent With Patient Time: Total time spent is greater than 50% in coordination of care (as documented) at patient's floor/unit and/or counseling patient:
[2024-09-03] VITALS (10 sets, daily range): BP systolic 103–114; BP diastolic 57–69; PULSE 43–87; RESP 12–100; TEMP 36.3–36.7; O2SAT 98–100; BMI 23.7
[2024-09-03] MEDS: MORPHINE SULF INJ 10 MG/ML VIAL IVP (00:24)
[2024-09-03] MEDS: PIPER/TAZO 3.375 GM PREMIX 3.375 GM/50 ML BAG IV ×5 (00:25→23:40)
--- NOTE | 2024-09-03 04:40 | PC.NURSE ---
patient refused to be repositioned and be cleaned for q 2hour turn at 0430. patient states I do not want to be touched! It's my decision. educated patient regarding importance of offloading pressure and proper hygiene.
[2024-09-03 06:21] LABS: Basophils # (Auto) 0.0 Thou/mm3 (0.0-0.2); Basophils % (Auto) 1 % (0-2.5); Eosinophils # (Auto) 0.1 Thou/mm3 (0.0-0.5); Eosinophils % (Auto) 2 % (0-10); Hematocrit 31.8 % (41.0-53.0); Hemoglobin 9.9 g/dL (13.5-16.0); Immature Granulocytes Auto 0.01 Thou/mm3 (0.00-0.00); Lymphocytes # (Auto) 0.7 Thou/mm3 (1.0-4.8); Lymphocytes % (Auto) 26 % (10-50); Mean Corpuscular HGB Conc 31.1 g/dl (31.0-37.0); Mean Corpuscular Hemoglobin 25.0 pg (25.0-35.0); Mean Corpuscular Volume 80 fL (80-100); Monocytes # (Auto) 0.2 Thou/mm3 (0.0-0.8); Monocytes % (Auto) 8 % (0-12); Neutrophils # (Auto) 1.5 Thou/mm3 (1.8-7.7); Neutrophils % (Auto) 62 % (37-80); Nucleated Red Blood Cell # 0.00 Thou/mm3 (0.00-0.00); Nucleated Red Blood Cell % 0 /100 WBC (0); RDW Standard Deviation 62.0 fL (35.1-43.9); Red Blood Count 3.96 Miln/mm3 (4.50-5.90)
[2024-09-03 06:28] LABS: Platelet Count 66 Thou/mm3 (140-440); White Blood Count 2.5 Thou/mm3 (3.8-10.6)
[2024-09-03 06:50] LABS: Alanine Aminotransferase 11 U/L (10-49); Albumin, Serum 3.6 gm/dL (3.5-5.0); Albumin/Globulin Ratio 1.2 (1.2-2.2); Alkaline Phosphatase 102 U/L (46-116); Anion Gap 10 (7-16); Aspartate Amino Transferase 13 U/L (0-34); BUN/Creatinine Ratio 13 Ratio (12-20); Bilirubin,Total 0.3 mg/dL (0.3-1.2); Blood Urea Nitrogen 9 mg/dL (9-23); Calcium 8.5 mg/dL (8.3-10.6); Calcium (Corrected) 8.8 mg/dL (8.5-10.1); Carbon Dioxide 26.8 mMol/L (20.0-31.0); Chloride 108 mMol/L (98-107); Creatinine (Component) 0.7 mg/dL (0.6-1.3); Estimated Creatinine Clearance 125.7 mL/min (>60); Globulin 2.9 gm/dL (2.3-3.5); Glucose 102 mg/dL (74-106); Magnesium 1.6 mg/dL (1.6-2.6); Osmolality,Calculated 287 (275-295); Phosphorous 3.9 mg/dL (2.4-5.1); Potassium 3.4 mMol/L (3.4-5.1); Sodium 145 mMol/L (136-145); Total Protein 6.5 gm/dL (5.7-8.2); eGFR > 60 See Note
--- NOTE | 2024-09-03 07:25 | PC.CC ---
Addendum entered by Nasir Crane RN 09/03/24 11:51: 1145- Call to [facility], provided Auth #[id number], on their confidential recorded line, awaiting response from [facility] at this time. Original Note: 0725- Spoke with SUSAN Wang at [facility], update on patient this am, they are pending financial clearance at this time, will follow up with patient's insurance for financial clearance.
[2024-09-03] MEDS: Magnesium Sulfate 2 GM Ivpb 2 GM/50 ML BAG IV (08:28)
[2024-09-03 11:44] LABS: Slide Review Platelets confirmed
--- NOTE | 2024-09-03 15:01 | PC.SS ---
rounding note: Transfer nurse working on higher level of care to [place]
--- NOTE | 2024-09-03 15:40 | ESPR_ITS ---
<Statement entered by Parveen Arias MD - 09/03/24 16:17> No acute overnight events. Uncomplicated ERCP completed, 4 mm stone in the common bile duct was removed, stent was placed in the common bile duct. GI is recommending transfer to [place] for immediate cholecystectomy given his history of Caroli disease, liver cirrhosis on a transplant list, and suspected acute cholangitis. Although he is afebrile, relatively asymptomatic, leukopenia improving, TB and LFTs WNL. Denies fever, chills, headaches, chest pain, sob, cough, GI or urinary symptoms. Tolerating oral intake without abdominal pain, nausea or vomiting. GI recommended 10 days of ANTIBIOTICS, on ZOSYN day 3, and ID consult in place. Still working on transfer to [place]. Documentation for date of: 09/03/24 Subjective Subjective Interval history: No overnight events. Feels well post-ERCP without any abdominal pain, nausea, vomiting. Diet has advanced and patient tolerated [employer] and chicken well at dinner yesterday. Admits to bowel movements at previous and Denies new or worsening symptoms. No abdominal pain. Denies fever, chills, headaches, chest pain, sob, cough, GI or urinary symptoms. Exam Vital Signs Temp Pulse Resp BP Pulse Ox O2 Del Method 98.0 F 87 14 114/59 L 100 Room Air 09/03/24 12:00 09/03/24 12:00 09/03/24 12:00 09/03/24 12:00 09/03/24 12:00 09/03/24 12:00 Narrative Exam General: Alert and oriented x3, No apparent distress. Skin: Intact, Warm, no rashes. HEENT: Normocephalic, Atraumatic. Normal neck range of motion, Supple. Trachea midline. Respiratory: Lungs are clear to auscultation, Breath sounds are equal bilaterally with equal chest expansion. Cardiovascular: RRR, normal S1, S2, No murmurs. Distal pulses 2+ Abdomen: Soft, nontender to palpation, nondistended. Bowel sounds present in all 4 quadrants and tympanic to percussion. No rebound or guarding present. Musculoskeletal: No swelling, moving all 4 extremities with FROM Neurologic: Alert, Oriented, No focal deficits. Moving all 4 extremities spontaneously Psych: Thoughts linear and responses appropriate. Objective Labs 09/04/24 05:07 09/04/24 05:07 Labs: Laboratory Results - last 24 hr 09/03/24 05:00 WBC 2.5 L RBC 3.96 L Hgb 9.9 L Hct 31.8 L MCV 80 MCH 25.0 MCHC 31.1 RDW Std Deviation 62.0 H Plt Count 66 L Neut % (Auto) 62 Lymph % (Auto) 26 [place] % (Auto) 8 Eos % (Auto) 2 Baso % (Auto) 1 Neut # (Auto) 1.5 L Lymph # (Auto) 0.7 L [place] # (Auto) 0.2 Eos # (Auto) 0.1 Baso # (Auto) 0.0 Immature Gran # (Auto) 0.01 H Absolute Nucleated RBC 0.00 Immature Gran % 0 Nucleated RBC % 0 Sodium 145 Potassium 3.4 D Chloride 108 H Carbon Dioxide 26.8 Anion Gap 10 BUN 9 Creatinine 0.7 Estim Creat Clear Calc 125.7 eGFR > 60 BUN/Creatinine Ratio 13 Glucose 102 Calculated Osmolality 287 Calcium 8.5 Corrected Calcium 8.8 Phosphorus 3.9 Magnesium 1.6 Total Bilirubin 0.3 AST 13 ALT 11 Alkaline Phosphatase 102 Total Protein 6.5 Albumin 3.6 Globulin 2.9 Albumin/Globulin Ratio 1.2 Misc Test Result Platelets confirmed Quality Measures Quality Measures none Assessment & Plan Assessment Current Active Medications: Generic Name Dose Route Start Last Admin Trade Name Tim PRN Reason Stop Dose Admin Acetaminophen 650 mg 08/31/24 12:53 Acetaminophen 325 Mg Tablet PO 09/30/24 12:52 Q6H PRN Fever >101.5 Acetaminophen 650 mg 08/31/24 12:53 Acetaminophen 325 Mg Tablet PO 09/30/24 12:52 Q6H PRN PAIN SCALE 1-3 (mild Hydrocodone Bitart/Acetaminophen 1 tab 08/31/24 12:53 09/03/24 13:18 Hydrocodone/Apap 10/325 Tab PO 09/05/24 12:52 1 tab Q4H PRN Administration PAIN SCALE 4-6 (Moderate Piperacillin/Tazobactam/Dextrose 3.375 gm in 50 mls @ 100 mls/hr 09/01/24 08:15 09/03/24 12:26 Zosyn IV 09/08/24 08:14 100 mls/hr Q6HR MAYTE Administration Protocol Ondansetron HCl 4 mg 08/31/24 12:53 Ondansetron Inj 2 Mg/Ml Inj 2 Ml IVP 09/30/24 12:52 Q6H PRN NAUSEA OR VOMITING Protocol Pantoprazole Sodium 40 mg 08/31/24 13:00 09/03/24 08:28 Pantoprazole Inj 40 Mg Vial IVP 09/30/24 12:59 40 mg QDAY MAYTE Administration Propranolol HCl 10 mg 08/31/24 21:00 09/01/24 08:24 Propranolol 10 Mg Tablet PO 09/30/24 20:59 Not Given BID MAYTE Plan In summary, Bari Tse is a 23-year-old male with PMH of Caroli disease, variceal bleeds s/p banding, alcoholic liver cirrhosis, choledocholithiasis s/p stent, who presented to the hospital with 12-hour history of abdominal pain and was diagnosed and admitted for further workup and treatment of new occurrence of choledocholithiasis. Choledocholithiasis Acute acalculous cholecystitis Caroli Disease s/p biliary stenting Acute cholangitis DDx ascending cholangitis vs hepatitis. Presented with abdominal pain and fever 101.5. He recently has intervention for Caroli disease (abnormal dilitation of CBD) at [place]. CT showed cirrhosis, splenomegaly, intra/extrahepatic biliary tract dilatation with distended gallbladder and wall thickening, suspicious for right pyelonephritis (although denies urinary symptoms.). This was followed up by MRCP which showed extrahepatic biliary dilatation with 4 mm stone in CBD. Abdominal ultrasound demonstrated above findings. No transaminitis, T. bili 1.3, CRP 7.2, ESR 67, PRO-VERITO 0.75, no leukocytosis. Afebrile. 09/01 ERCP performed with complete removal via sphincterotomy & balloon extraction (swept sludge: stone +pus); plastic stent placed. Pus was seen within the biliary tree concerning for cholangitis. Labs show leukopenia. Half of blood cultures grew Enterobacter colace. 09/02 Diet advanced to routine. ? Multimodal pain control, ANTIEMETICS on board ? IV fluids ? IV ZOSYN 13.5g Qday (day 3 of ) - inform pss delivery professional regarding episode of cholangitis - See Dr Beckwith in 2-4wk to schedule an appt for biliary stent removal - Awaiting transfer of care to [facility] Alcoholic liver cirrhosis Esophageal varices grade 3 Follows up with [facility] for liver transplant, appears to have abstained from alcohol over the last year. No signs of decompensated liver cirrhosis. ? Continue monitoring ? Encouraged continued follow-up with [facility]. Chronic normocytic anemia. In setting cirrhosis. Hgb 9.7 which is baseline. 09/02 MCV 79 and Hgb 10 ? Continue monitoring - iron panel Health maintenance: Diet: Routine DVT prophylaxis: Sequential compression device GI prophylaxis Protonix CODE STATUS: Full Case was discussed with attending physician. Parveen Arias DO PGY II This document was transcribed using voice recognition technology. Minor inaccuracies may be present. Attending Provider Attestation/Addendum I have examined the patient, reviewed labs and imaging findings, discussed the case with the resident(s), and reviewed entered orders. I agree with the plan of care as outlined in this note, with these additional summaries/recommendations: Patient seen at bedside. No acute overnight events. Patient repots he is tolerating diet. He denies constipation and abdominal pain resolving. Patient is s/p ERCP on 09/01/24 and choledocholithiasis was found with complete removal by biliary sphincterotomy and balloon extraction with plastic stent placement in common bile duct. The biliary tree was swept and pus was noted by gastroenterology. Gastroenterology reports patient likely has cholangitis and pss delivery professional will need to be informed. Cholangitis is mild. Gastroenterology also recommends transfer to [place] for cholecystectomy given his underlying Caroli disease. Continue IV Zosyn. In-house infectious disease not available at this time. Leukopenia improving on hematology panel with WBC 2.5 and will monitor for now. Chemistry panel stable. Patient tolerating regular diet without difficulty. Continue pain management as needed. Cirrhosis is relatively well compensated at this time. Low salt diet and patient has appointment with pss delivery professional on September 06. Patient updated on the plan and in agreement. All questions answered to satisfaction. Please see residents note for additional details and management. Dr. Canelo MD
--- NOTE | 2024-09-03 17:51 | ESPR_ITS ---
Documentation for date of: 09/03/24 Subjective Subjective Interval history: Doing well post ERCP Hemoglobin hematocrit 9.9 and 31.8 LFTs are normal Exam Vital Signs Temp Pulse Resp BP Pulse Ox O2 Del Method 97.3 F 50 L 16 103/61 100 Room Air 09/03/24 16:00 09/03/24 16:00 09/03/24 16:00 09/03/24 16:00 09/03/24 16:00 09/03/24 16:00 Objective Labs 09/03/24 05:00 09/03/24 05:00 Labs: Laboratory Results - last 24 hr 09/03/24 05:00 WBC 2.5 L RBC 3.96 L Hgb 9.9 L Hct 31.8 L MCV 80 MCH 25.0 MCHC 31.1 RDW Std Deviation 62.0 H Plt Count 66 L Neut % (Auto) 62 Lymph % (Auto) 26 [place] % (Auto) 8 Eos % (Auto) 2 Baso % (Auto) 1 Neut # (Auto) 1.5 L Lymph # (Auto) 0.7 L [place] # (Auto) 0.2 Eos # (Auto) 0.1 Baso # (Auto) 0.0 Immature Gran # (Auto) 0.01 H Absolute Nucleated RBC 0.00 Immature Gran % 0 Nucleated RBC % 0 Sodium 145 Potassium 3.4 D Chloride 108 H Carbon Dioxide 26.8 Anion Gap 10 BUN 9 Creatinine 0.7 Estim Creat Clear Calc 125.7 eGFR > 60 BUN/Creatinine Ratio 13 Glucose 102 Calculated Osmolality 287 Calcium 8.5 Corrected Calcium 8.8 Phosphorus 3.9 Magnesium 1.6 Total Bilirubin 0.3 AST 13 ALT 11 Alkaline Phosphatase 102 Total Protein 6.5 Albumin 3.6 Globulin 2.9 Albumin/Globulin Ratio 1.2 Misc Test Result Platelets confirmed Impressions Impression: Chronic liver disease secondary to alcohol with portal hypertension Esophageal variceal bleed requiring band ligation in the past Status post ERS with placement of CBD stent and removal of the CBD stone Continue to monitor LFTs and CBC Assessment & Plan A&P Narrative Assessment: Choledocholithiasis Cholangitis Plan of care: Patient needs IV antibiotic for the next 48 hours Obtain blood culture Patient needs antibiotic for 14 days Consult infectious disease for antibiotic coverage Expect discharge in next 24 to 48 hours Patient must inform his organic preparation technician regarding episode of cholangitis Patient must follow with Dr. Beckwith's office in 2 to 4 weeks to get her scheduled for ERCP to remove/exchange of the biliary stent Call GI with any questions Time Spent With Patient Time: Total time spent is greater than 50% in coordination of care (as documented) at patient's floor/unit and/or counseling patient:
[2024-09-04] VITALS (7 sets, daily range): BP systolic 99–130; BP diastolic 58–82; PULSE 48–62; RESP 12–99; TEMP 36.1–36.9; O2SAT 99–100
[2024-09-04] MEDS: PIPER/TAZO 3.375 GM PREMIX 3.375 GM/50 ML BAG IV ×3 (05:41→17:21)
[2024-09-04 06:08] LABS: Basophils # (Auto) 0.0 Thou/mm3 (0.0-0.2); Basophils % (Auto) 1 % (0-2.5); Eosinophils # (Auto) 0.1 Thou/mm3 (0.0-0.5); Eosinophils % (Auto) 4 % (0-10); Hematocrit 33.0 % (41.0-53.0); Hemoglobin 10.1 g/dL (13.5-16.0); Immature Granulocytes Auto 0.02 Thou/mm3 (0.00-0.00); Lymphocytes # (Auto) 0.7 Thou/mm3 (1.0-4.8); Lymphocytes % (Auto) 20 % (10-50); Mean Corpuscular HGB Conc 30.6 g/dl (31.0-37.0); Mean Corpuscular Hemoglobin 24.8 pg (25.0-35.0); Mean Corpuscular Volume 81 fL (80-100); Monocytes # (Auto) 0.2 Thou/mm3 (0.0-0.8); Monocytes % (Auto) 7 % (0-12); Neutrophils # (Auto) 2.2 Thou/mm3 (1.8-7.7); Neutrophils % (Auto) 68 % (37-80); Nucleated Red Blood Cell # 0.00 Thou/mm3 (0.00-0.00); Nucleated Red Blood Cell % 0 /100 WBC (0); RDW Standard Deviation 62.5 fL (35.1-43.9); Red Blood Count 4.08 Miln/mm3 (4.50-5.90); White Blood Count 3.3 Thou/mm3 (3.8-10.6)
[2024-09-04 06:12] LABS: Platelet Count 63 Thou/mm3 (140-440)
[2024-09-04 06:30] LABS: Alanine Aminotransferase 11 U/L (10-49); Albumin, Serum 3.8 gm/dL (3.5-5.0); Albumin/Globulin Ratio 1.3 (1.2-2.2); Alkaline Phosphatase 94 U/L (46-116); Anion Gap 10 (7-16); Aspartate Amino Transferase 16 U/L (0-34); BUN/Creatinine Ratio 9 Ratio (12-20); Bilirubin,Total 0.4 mg/dL (0.3-1.2); Blood Urea Nitrogen 7 mg/dL (9-23); Calcium 8.8 mg/dL (8.3-10.6); Calcium (Corrected) 9.0 mg/dL (8.5-10.1); Carbon Dioxide 28.1 mMol/L (20.0-31.0); Chloride 106 mMol/L (98-107); Creatinine (Component) 0.8 mg/dL (0.6-1.3); Estimated Creatinine Clearance 105.3 mL/min (>60); Globulin 3.0 gm/dL (2.3-3.5); Glucose 87 mg/dL (74-106); Magnesium 2.0 mg/dL (1.6-2.6); Osmolality,Calculated 283 (275-295); Phosphorous 3.9 mg/dL (2.4-5.1); Potassium 4.0 mMol/L (3.4-5.1); Sodium 144 mMol/L (136-145); Total Protein 6.8 gm/dL (5.7-8.2); eGFR > 60 See Note
[2024-09-04 06:45] LABS: Slide Review Platelets confirmed
--- NOTE | 2024-09-04 12:33 | PC.CC ---
Addendum entered by Brittny Quiros RN 09/04/24 18:01: 1756: received call from Niki w/ [facility], pt does not need to transfer. Spoke to Dr. Blanco, he confirmed. Pt will dc home today. Transfer canceled Addendum entered by Brittny Quiros RN 09/04/24 17:02: 1700: Spoke to Dr. Blanco, informed him that abd u/s completed and resulted. Informed him that images have been uploaded to [facility]. He stated he will f/u with the surgeon at [facility]. Addendum entered by Brittny Quiros RN 09/04/24 16:00: 2 more discs added to the transfer packet for a total of 3 discs. Addendum entered by Brittny Quiros RN 09/04/24 15:52: 1549: received call from Niki w/ [facility] requesting abd u/s results. Faxed results, created disc. Will upload via [facility] [address] link when disc is completed. Addendum entered by Brittny Quiros RN 09/04/24 13:26: 1325: Kathleen verified receipt of image. Per Niki, they are still reviewing. Original Note: 1230: ERCP CD created, received [facility] [address] link, uploaded imaging. 1205: called [facility], spoke to Kathleen, she verifed imaging was received. transferred to nurse Niki to clarify the specialty request, she stated she spoke to dr. Blanco to inform him to change the request for specilized general surgeon. In informed her an ERCP was completed, she stated to send the imaging. I requested the [facility] [address] link to be sent to me. 1201: received call from Dr. Blanco stating he received a call from [facility] requesting imaging. He also clarified the patient needs specialized general surgeon for the cholecystectomy. Pt does not need hepatology/transplant as originally requested.
--- NOTE | 2024-09-04 12:58 | PC.NURSE ---
Patient arrived to unit at 1258. Vital signs stable. Patient is alert and oriented. He denies pain. Will continue to monitor.
--- NOTE | 2024-09-04 13:24 | XR_ITS ---
Examination: Abdomen sonogram, complete Date and time of exam: September 04, 2024 1412 hrs. Indications: Biliary disease 8 years Technique: Multiple real-time grayscale transabdominal sonographic images of the abdomen have been obtained. Findings: Distended gallbladder Gallbladder wall is thickened 0.7 cm with edema Common bile duct enlarged 1.1 cm Pancreatic head 3.2 cm Aorta not enlarged. Liver 17.2 cm fatty infiltration Normal hepatopedal portal venous flow Patent IVC Right kidney 10.4 cm renal cortex 1.3 cm Multiple calculi, the largest in the lower pole 8 mm Left kidney 13.1 cm renal cortex 1.8 cm Multiple calculi, the largest lower pole and millimeters midpole 11 mm Marked splenomegaly 20.6 cm Impression: Hepatosplenomegaly Findings consistent with acute cholecystitis Abnormally enlarged common bile duct 1.1 cm Please see the MRI report August 31, 2024
--- NOTE | 2024-09-04 17:37 | ESDS_ITS ---
Planned Discharge Date 09/04/24 DS: Providers Provider Date of admission: 08/31/24 12:51 Primary care physician: Jose Enrique Pena MD Admitting Provider: Magali Esteves MD Attending Provider on Admission: Oswaldo Lemos MD Consults: 08/31/24 12:07 Consult to Gastroenterology Stat Comment: Consulting Provider: Gerardo Acevedo 08/31/24 12:11 Consult to Gastroenterology Stat Comment: Consulting Provider: Herber Johnson 09/02/24 10:03 Consult to Infectious Diseases Routine Comment: cholengitis, s/p ERCP, on ZOSYN, Caroli disease Consulting Provider: Oleg Mosley 09/02/24 10:07 Referral - Errand Runner Routine Service Needed for Transfer: Hepatology/Transpplant Surgery Addl Comments:: Hx Caroli disease, 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 Had ERCP, Dr. Beckwith wants transfer for cho lecytitis but needs to be done by transplant surgery given his hx of Caroli. Attending Provider on DC: Oswaldo Lemos Discharging Provider: Cindi Crandall DO, PGY1 DS: Diagnosis Problem List Completed Was Problem List Reviewed/Reconciled?: Yes Hospital Course Hospital Course Hospital course: The patient was admitted with abdominal pain and fever (Tmax 101.5?F) in the setting of known Caroli disease, cirrhosis, and history of prior biliary intervention. Imaging (CT, MRCP, and ultrasound) revealed intrahepatic and extrahepatic biliary duct dilatation with a 4 mm obstructing stone in the common bile duct, gallbladder wall thickening, and cirrhotic liver changes. There was clinical concern for cholangitis or acute acalculous cholecystitis. Labs were notable for leukopenia without transaminitis, elevated inflammatory markers (CRP, ESR, procalcitonin), and no leukocytosis. One out of two blood cultures grew Enterobacter cloacae; Infectious Disease was consulted but unavailable, so empiric antibiotics with Zosyn were continued. GI recommended urgent cholecystectomy, but due to the patient?s complex hepatobiliary history and transplant candidacy, we initiated transfer to [place] for definitive surgical management. During hospitalization, the patient underwent uncomplicated ERCP with successful removal of the obstructing 4 mm CBD stone and placement of a biliary stent. He remained afebrile after the procedure, denied any systemic or gastrointestinal symptoms, and tolerated a clear liquid diet well. Pain was managed with multimodal therapy, and he continued IV fluids and antibiotics without complications. The patient has a history of alcoholic cirrhosis, grade 3 e sophageal varices, and chronic normocytic anemia, all of which remained stable. He has reportedly abstained from alcohol for the past year and continues to follow up with [place] for liver transplant evaluation. Pt has appointment to be evaluated for cholecystectomy scheduled for next week at [place]. At the time of discharge, patient is medically stable and safe to return to previous conditions of life. Imaging: CTAP: Minor atelectasis in the lower lung zones. Cirrhosis. Marked splenomegaly. Intra and extrahepatic biliary tract dilatation including distended gallbladder and gallbladder wall thickening, Suspicious for right pyelonephritis, clinical correlation advised. Normal appendix. MRCP: Acute acalculous cholecystitis Intrahepatic and extra hepatic biliary tract dilatation with 4 mm stone in the common bile duct and abrupt termination of the distal common bile duct, recommend ERCP follow-up to exclude stricture distal common bile duct versus impacted stone in the distal common bile duct Cirrhosis, Prominent splenomegaly. Abdominal US: Distended gallbladder. Gallbladder sludge. Gallbladder wall is thickened 0.9 cm. Common bile duct 0.6 cm. Pancreatic head 2.9 cm. Liver 18.2 cm fatty infiltration. Normal hepatopedal portal venous flow. Patent IVC. Admission Diagnoses: Choledocholithiasis Acute cholengitis Acute acalculous cholecystitis Neutropenia Caroli Disease s/p biliary stenting Alcoholic liver cirrhosis Esophageal varices grade 3 Chronic normocytic anemia Discharge Instructions: * Follow-up with PCP within 1-2 weeks of discharge. * Follow-up with hepatology within 1-2 weeks of discharge. * Will need 8 days of antibiotics for acute cholengitis. Take ciprofloxacin as prescribed * Patient must follow with Dr. Beckwith's office in 2 to 4 weeks to get her scheduled for ERCP to remove/exchange of the biliary stent. * Continue taking medications as prescribed below. * Return to Emergency Room if symptoms persist, worsen, or new symptoms develop. * RETURN TO ER IF YOU SPIKE A FEVER/TEMPERATURE ABOVE 100.0 F Case was discussed with attending physician, Dr. Lemos, and senior resident Dr Blanco. Cindi Crandall, PGY I Time Spent with Patient Time attestation: Total time spent providing and/or coordinating discharge services: Time spent: Greater than 30 minutes Exam Vital Signs Temp Pulse Resp BP Pulse Ox O2 Del Method 97.3 F 62 17 104/60 100 Room Air 09/04/24 16:00 09/04/24 16:00 09/04/24 16:00 09/04/24 16:00 09/04/24 16:00 09/04/24 16:00 Narrative Exam General: Alert and oriented x3, No apparent distress. Skin: Intact, Warm, no rashes. HEENT: Normocephalic, Atraumatic. Normal neck range of motion, Supple. Trachea midline. Respiratory: Lungs are clear to auscultation, Breath sounds are equal bilaterally with equal chest expansion. Cardiovascular: RRR, normal S1, S2, No murmurs. Distal pulses 2+ Abdomen: Soft, nontender to palpation, nondistended. Bowel sounds present in all 4 quadrants and tympanic to percussion. No rebound or guarding present. Musculoskeletal: No swelling, moving all 4 extremities with FROM Neurologic: Alert, Oriented, No focal deficits. Moving all 4 extremities spontaneously Psych: Thoughts linear and responses appropriate. Discharge Plan Plan Patient Disposition: HOME (Self Care) Patient condition on transfer: Stable Care Plan Goals: * Follow-up with PCP within 1-2 weeks of discharge. * Follow-up with hepatology within 1-2 weeks of discharge. * Will need 8 days of antibiotics for acute cholengitis. Take ciprofloxacin as prescribed * Patient must follow with Dr. Beckwith's office in 2 to 4 weeks to get her scheduled for ERCP to remove/exchange of the biliary stent. * Continue taking medications as prescribed below. * Return to Emergency Room if symptoms persist, worsen, or new symptoms develop. * RETURN TO ER IF YOU SPIKE A FEVER/TEMPERATURE ABOVE 100.0 F Prescriptions/Referrals Prescriptions/Med Rec: New ciprofloxacin HCl [Cipro] 500 mg tablet 500 mg PO BID 8 Days Qty: 16 0RF Rx Instructions: Take one tablet by mouth twice a day Continued propranolol 10 mg tablet 10 mg PO BID Qty: 60 2RF oxycodone 5 mg tablet 5 mg PO Q4H PRN (Reason: pain) ergocalciferol (vitamin D2) 1,250 mcg (50,000 unit) capsule 1,250 mcg PO QWEEK Patient Comments: TAKE 1 CAPSULE (50,000 UNITS TOTAL) BY MOUTH EVERY 7 DAYS FOR 7 DOSES gabapentin 100 mg capsule 300 mg PO TID Patient Comments: TAKE 3 TABLETS (300 MG TOTAL) BY MOUTH 3 TIMES A DAY sucralfate 100 mg/mL suspension 1 g PO BID Patient Comments: TAKE 10 ML (1 G TOTAL) BY MOUTH 2 TIMES A DAY ursodiol 300 mg capsule 300 mg PO DAILY Patient Comments: TAKE 1 CAPSULE BY MOUTH EVERY DAY pantoprazole 40 mg tablet,delayed release (DR/EC) 40 mg PO BID Referrals: Jose Enrique Pena MD [Primary Care Provider] - Patient/Caregiver Discharge Instructions Discharge Activity: activity as tolerated Education Materials: What Are Gallstones, Understanding Cirrhosis, Anatomy of the Digestive System, ERCP Dc Print Language: Surinamese Stand Alone Forms: Анна Award Info., Patient Portal Info Letter Discharge Order Discharge Orders: Discharge (Routine); Ordered 09/02/24 Ordered By: Parveen Arias Quality Discharge Quality Measures VTE prophylaxis MD Attestestation MD Attestation I have examined the patient, reviewed labs and imaging findings, discussed the case with the resident(s), and reviewed entered orders. I agree with the plan of care as outlined in this note. Time Spent: [address] Canelo MD
--- NOTE | 2024-09-04 18:41 | ESPR_ITS ---
Documentation for date of: 09/04/24 Subjective Subjective Interval history: Patient evaluated hemoglobin hematocrit 10.1 and 33.0 Platelet count is 63,000 Exam Vital Signs Temp Pulse Resp BP Pulse Ox O2 Del Method 97.3 F 62 17 104/60 100 Room Air 09/04/24 16:00 09/04/24 16:00 09/04/24 16:00 09/04/24 16:00 09/04/24 16:00 09/04/24 16:00 Objective Labs 09/04/24 05:07 09/04/24 05:07 Labs: Laboratory Results - last 24 hr 09/04/24 05:07 WBC 3.3 L RBC 4.08 L Hgb 10.1 L Hct 33.0 L MCV 81 MCH 24.8 L MCHC 30.6 L RDW Std Deviation 62.5 H Plt Count 63 L Neut % (Auto) 68 Lymph % (Auto) 20 Norman % (Auto) 7 Eos % (Auto) 4 Baso % (Auto) 1 Neut # (Auto) 2.2 Lymph # (Auto) 0.7 L Norman # (Auto) 0.2 Eos # (Auto) 0.1 Baso # (Auto) 0.0 Immature Gran # (Auto) 0.02 H Absolute Nucleated RBC 0.00 Immature Gran % 1 H Nucleated RBC % 0 Sodium 144 Potassium 4.0 D Chloride 106 Carbon Dioxide 28.1 Anion Gap 10 BUN 7 L Creatinine 0.8 Estim Creat Clear Calc 105.3 eGFR > 60 BUN/Creatinine Ratio 9 L Glucose 87 Calculated Osmolality 283 Calcium 8.8 Corrected Calcium 9.0 Phosphorus 3.9 Magnesium 2.0 Total Bilirubin 0.4 AST 16 ALT 11 Alkaline Phosphatase 94 Total Protein 6.8 Albumin 3.8 Globulin 3.0 Albumin/Globulin Ratio 1.3 Misc Test Result Platelets confirmed Impressions Impression: 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 Beckwith's office in 2 to 4 weeks to get her scheduled for ERCP to remove/exchange of the biliary stent Call GI with any questions Time Spent With Patient Time: Total time spent is greater than 50% in coordination of care (as documented) at patient's floor/unit and/or counseling patient:
== END 2024-09-04 18:34 | disposition home or self-care (01) ==
LOC: SERX 08-31 06:34 → SERHOLD 08-31 13:20 → S3NX 08-31 15:01 → S2NX 08-31 16:55 → S3NX 09-04 12:59
PROVIDERS: Emergency Medicine; Internal Medicine Gastroenterology; Physician Assistant Medical; Admitting Provider Student in an Organized Health Care Education/Training Program; Emergency Provider Family Medicine; PCP Family Medicine; Visit Provider Student in an Organized Health Care Education/Training Program
PROC: 0F798DZ Dilation of Common Bile Duct with Intraluminal Device, Via Natural or Artificial Opening Endoscopic (ICD-10-PCS; CPT 43260; principal; 2024-09-01 16:00)
DX: K80.42 Calculus of bile duct with acute cholecystitis without obstruction (principal); E83.42 Hypomagnesemia; I85.11 Secondary esophageal varices with bleeding; K70.30 Alcoholic cirrhosis of liver without ascites; K70.40 Alcoholic hepatic failure without coma; K76.6 Portal hypertension; K82.8 Other specified diseases of gallbladder; D70.9 Neutropenia, unspecified; Z76.82 Awaiting organ transplant status; Z79.899 Other long term (current) drug therapy; M25.511 Pain in right shoulder; D62 Acute posthemorrhagic anemia
CPT/HCPCS: 36415; 71260; 74177; 74181; 74330; 76700; 76705; 80053; 80307; 80320; 81001; 82150; 82248; 83605; 83690; 83735; 84100; 84145; 85025; 85610; 85652; 85730; 86140; 87040; 87077; 87081; 87186; 87400; 87502; 87811; 96361; 96365; 96367; 96375; 99285; A4649; C1889; C2625; J1100; J1200; J1885; J2270; J2405; J2470; J2543; J2704; J2919; J3010; J3475; J3490; J7030; J7120; Q9967; A9270; G0480

== ENCOUNTER 2024-10-11 12:05 | Inpatient (IN) | payer MEDICAID, SELFPAY ==
[2024-10-11] VITALS (12 sets, daily range): BP systolic 90–117; BP diastolic 48–73; PULSE 81–116; RESP 15–18; TEMP 36.8–39.4; O2SAT 97–100; BMI 23.8
--- NOTE | 2024-10-11 | XR_ITS ---
MRI abdomen, without contrast. MRCP Date and time of exam: October 11, 2024 2153 hours Comparison August 31, 2024 INDICATIONS: Cirrhosis history, abdominal pain beginning 2 days ago Technique: Multiple axial and coronal images of the abdomen have been obtained with the Siemens 1.5T MRI scanner. Images obtained included T1 weighted transverse images, T2-weighted transverse images, T2-weighted transverse images fat-suppressed, T2 weighted haste fat suppressed transverse images, T1 weighted images, in and out of phase images, T2-weighted coronal images, breath hold, T2 weighted haze coronal images as well as T2 weighted coronal thick slab images, MRCP. Findings: Liver is irregular in contour with intrahepatic biliary tract dilatation, hepatomegaly 18 cm Massive splenomegaly Distended gallbladder Common hepatic duct 7 mm, axial image 26 demonstrates 2 mm and 3 mm common bile duct stones with abrupt termination of the distal common bile duct Negative for pancreatitis Abrupt termination of the distal common bile duct No ascites No hydronephrosis IMPRESSION: Cirrhosis Massive splenomegaly Distended gallbladder Enlarged common bile common hepatic duct with 2 mm and 3 mm common bile duct stones and abrupt termination of the distal common bile duct, recommend ERCP follow-up to exclude impacted stone versus stricture in the distal common bile duct
--- NOTE | 2024-10-11 12:14 | PD.EDABDPN ---
ED Abdominal Pain RME/HPI General Chief Complaint: Abdominal Pain Stated complaint: LIVER ISSUES Time seen by provider: 10/11/24 12:10 Arrival date/time: 10/11/24 12:05 RME / HPI RME / HPI narrative: 23 year old male with history of liver cirrhosis, esophageal varices s/p banding, choledocolithiasis s/p stent placement, and previous admission for blood loss anemia [facility] for evaluation of abdominal pain beginning 2 days ago. Described as sharp in sensation that is located most to the right upper and right mid abdomen, rating as moderate. Accompanied by watery nonbloody diarrhea and abdominal bloating. Additionally reports decreased urinary output and urine color to be dark orange. Denies any history of paracentesis. Denies fevers, chills, chest pain, cough or shortness of breath. Denies nausea or vomiting. Related Data Home Medications ?Medication ?Instructions ?Recorded ?Confirmed ergocalciferol (vitamin D2) 1,250 1,250 mcg PO QWEEK 08/31/24 08/31/24 mcg (50,000 unit) capsule gabapentin 100 mg capsule 300 mg PO TID 08/31/24 08/31/24 oxycodone 5 mg tablet 5 mg PO Q4H PRN pain 08/31/24 08/31/24 pantoprazole 40 mg tablet,delayed 40 mg PO BID 08/31/24 08/31/24 release sucralfate 100 mg/mL oral 1 g PO BID 08/31/24 08/31/24 suspension ursodiol 300 mg capsule 300 mg PO DAILY 08/31/24 08/31/24 Previous Rx's ?Medication ?Instructions ?Recorded propranolol 10 mg tablet 10 mg PO BID #60 tabs 06/11/24 Allergies Allergy/AdvReac Type Severity Reaction Status Date / Time No Known Allergies Allergy Verified 08/30/24 15:09 Review of Systems Review of Systems Systems Reviewed: All systems reviewed, normal except as documented Past Medical History Past Medical History GASTROINTESTINAL: Positive Gastrointestinal Disorders (Liver disease), Cirrhosis, Gastrointestinal Bleed and Esophageal Varices HEMATOLOGIC: Positive Anemia PSYCHO/SOCIAL: Positive Recreational Drug Use (marijuana) OTHER HISTORY: Positive Hospitalization and Blood Transfusions Social History SMOKING STATUS: Never smoker SUBSTANCE USE: does not use ED Exam Narrative Physical exam: GENERAL APPEARANCE: alert and oriented x 4, well-developed, well-nourished, no acute distress HEENT: Normocephalic, atraumatic; pupils equal, round, reactive to light; EOMI; mucous membranes pink, moist; oropharynx clear NECK: Supple LUNGS: CTABL; no wheezes, no rales, no rhonchi HEART: Regular rate, regular rhythm; normal S1, S2; no murmurs ABDOMEN: non distended; normal BS; soft, epigastric tenderness, no guarding, no rebound; no masses, no organomegaly, no hernia BACK: no CVA tenderness EXTREMITIES: atraumatic; no edema NEUROLOGIC: awake; alert and oriented x4; cranial nerves II-XII grossly intact; no focal sensory or motor deficits PSYCHIATRIC: appropriate mood and affect SKIN: warm, dry, normal color; no rashes Course Course Course Narrative: 1800: Care signed out to Dr. Hobson. Results and treatment plan discussed. They will assume the care of the patient at this time, pending MRCP. Quality Measures none Orders Category Date Time Status Admit to Inpatient Status Routine Admission 10/11/24 22:02 Active Patient Condition Routine Admission 10/11/24 22:02 Ordered Bedside COVID-19 Antigen Test NOW Care 10/11/24 18:50 Active Bedside Influenza A&B Antigen Test NOW Care 10/11/24 18:50 Completed COVID-19 Screening Questionnaire NOW Care 10/11/24 21:[address] Screening NOW Care 10/11/24 12:18 Active Decision to Admit X1 Care 10/11/24 21:28 Completed EKG (ED ONLY) *Do not use* NOW Care 10/11/24 14:06 Completed MRI Screening NOW Care 10/11/24 14:10 Active NPO NOW Care 10/11/24 22:03 Active NPO after Midnight ONCE Care 10/11/24 21:24 Active Notify provider NEEDED Care 10/11/24 22:02 Active Saline [Insert IV] NOW Care 10/11/24 18:50 Completed Sequential Compression Device QSHIFT Care 10/11/24 22:02 Active Straight [In and Out Catheter] X1 Care 10/11/24 18:50 Active Consult to Gastroenterology Stat Cons 10/11/24 21:23 Ordered Diet NPO (NOW) Diet 10/11/24 22:[address] abdomen pelvis w con Stat Exams 10/11/24 12:18 Completed EKG (ED Only) Stat Exams 10/11/24 14:06 Draft MR MRCP Stat Exams 10/11/24 Completed US abdomen limited Stat Exams 10/11/24 12:18 Completed XR chest 1V portable Stat Exams 10/11/24 18:51 Completed Alcohol, Blood Medical Stat Lab 10/11/24 13:07 Completed B-Type Natriuretic Peptide Stat Lab 10/11/24 13:07 Completed Blood Culture (Lab) Stat Lab 10/11/24 00:15 Received CBC AM DRAW Lab 10/12/24 05:00 Ordered CBC AM DRAW Lab 10/13/24 05:00 Ordered CBC AM DRAW Lab 10/14/24 05:00 Ordered CBC Stat Lab 10/11/24 13:07 Completed CRP [C-Reactive Protein] Stat Lab 10/11/24 19:00 Completed Comprehensive Metabolic Panel AM DRAW Lab 10/12/24 05:00 Ordered Comprehensive Metabolic Panel AM DRAW Lab 10/13/24 05:00 Ordered Comprehensive Metabolic Panel AM DRAW Lab 10/14/24 05:00 Ordered Comprehensive Metabolic Panel Stat Lab 10/11/24 13:07 Completed Drug Screen,Urine Stat Lab 10/11/24 14:43 Completed ESR [Sed Rate (ESR)] Stat Lab 10/11/24 19:00 Completed Lactate (Lactic Acid) Stat Lab 10/11/24 19:00 Completed Lipase Stat Lab 10/11/24 13:07 Completed Magnesium AM DRAW Lab 10/12/24 05:00 Ordered Magnesium AM DRAW Lab 10/13/24 05:00 Ordered Magnesium AM DRAW Lab 10/14/24 05:00 Ordered Magnesium Stat Lab 10/11/24 13:07 Completed Partial Thromboplastin Time AM DRAW Lab 10/12/24 05:00 Ordered Partial Thromboplastin Time Stat Lab 10/11/24 13:07 Completed Phosphorous AM DRAW Lab 10/12/24 05:00 Ordered Phosphorous AM DRAW Lab 10/13/24 05:00 Ordered Phosphorous AM DRAW Lab 10/14/24 05:00 Ordered Procalcitonin Stat Lab 10/11/24 19:00 Completed Prothrombin Time with INR AM DRAW Lab 10/12/24 05:00 Ordered Prothrombin Time with INR Stat Lab 10/11/24 13:07 Completed Troponin I Stat Lab 10/11/24 13:07 Completed UA, C/S IF [Urinalysis, C/S if Indicated] Stat Lab 10/11/24 14:43 Completed Urine Culture Stat Lab 10/11/24 14:43 Received Acetaminophen Supp [Tylenol Supp] Med 10/11/24 22:02 Active 650 mg CO Q6HR PRN Acetaminophen Tab [Tylenol Tab] Med 10/11/24 19:17 Discontinued 650 mg PO X1 ONE CIPROFLOXACIN/D5w 400 MG IVPB [Cipro Ivpb] Med 10/11/24 22:14 Pending 400 mg in 200 ml IV Q12HR Calcium Gluconate 10% Inj Med 10/11/24 14:06 Discontinued 1 gm IV X1 ONE Cefepime Inj [Maxipime Inj] 2 gm Med 10/11/24 22:04 Discontinued SODIUM CHLORIDE 0.9% (Popper) [Ns 0.9% (P)] 50 ml IV Q8HR Ketorolac Inj [Toradol Inj] Med 10/11/24 19:17 Discontinued 30 mg IVP X1 ONE Magnesium Sulfate 2 GM Ivpb [Magnesium Sulfate Ivpb] Med 10/11/24 14:07 Discontinued 2 gm in 50 ml IV X1 Morphine Inj Med 10/11/24 22:02 Active 2 mg IVP Q4H PRN Morphine Inj Med 10/11/24 12:18 Discontinued 5 mg IVP X1 ONE Ondansetron Inj [Zofran Inj] Med 10/11/24 22:02 Active 4 mg IVP Q6H PRN Ondansetron Inj [Zofran Inj] Med 10/11/24 12:18 Discontinued 4 mg IVP X1 ONE Piper/Tazo 3.375 gm Premix [Zosyn] Med 10/11/24 18:43 Discontinued 3.375 gm in 50 ml IV X1 Piper/Tazo Inj [Zosyn Inj] 4.5 gm Med 10/11/24 22:14 Pending Sodium Chloride 0.9% (Pop) [NS 0.9% mini bag] 100 ml IV Q6HR Ringers Lactated 1000 ml [Lactated Ringers] 1,000 ml Med 10/11/24 22:04 Active IV 125 mls/hr Sodium Chloride 0.9% 1000 ml [Ns] 1,000 ml Med 10/11/24 14:07 Discontinued IV 999 mls/hr Sodium Chloride 0.9% 1000 ml [Ns] 1,000 ml Med 10/11/24 18:51 Discontinued IV 999 mls/hr Sodium Chloride 0.9% 1000 ml [Ns] 1,000 ml Med 10/11/24 22:04 Discontinued IV 999 mls/hr cefTRIAXone/D5w 1gm IV premix [Rocephin/D5w 1gm IV Med 10/11/24 18:42 Discontinued premix] 50 ml IV X1 metroNIDAZOLE/NS 500 MG IVPB [Flagyl 500 mg IV] Med 10/11/24 22:04 Discontinued 500 mg in 100 ml IV Q8HR Code Status Routine Oth 10/11/24 22:02 Ordered Vital Signs Vital signs: Vital Signs Temperature 98.3 F 10/11/24 12:12 Pulse Rate 98 10/11/24 12:12 Respiratory Rate 18 10/11/24 12:12 Blood Pressure 107/73 10/11/24 12:12 Pulse Oximetry (%) 100 10/11/24 12:12 Oxygen Delivery Method Room Air 10/11/24 12:12 Pulse ox is 100% on room air which is adequate. Abdominal Pain MDM MDM Narrative MDM Narrative:: Aylin Mckeon am scribing for and in the presence of Dr. Oshea. Patient data External records reviewed:: [facility] previous records (I reviewed admission from 08/31/2024 through 09/06/2024 ) Clinical information provided by:: patient and law enforcement Social determinants that could affect healthcare access:: housing (Patient is currently incarcerated ) Patient has the following chronic illnesses:: liver cirrhosis, esophageal varices s/p banding, choledocolithiasis s/p stent placement, and previous admission for blood loss anemia How is presenting disease/condition affected by chronic disease/condition?: exacerbated by Evaluation data The following diagnostics were reviewed and interpreted by me:: lab results, radiology exam(s) and EKG tracing(s) (10/11/2024 @ 14:56h. NSR, rate 93, Q-wave in II and III. ) Lab and/or radiology exams considered but not ordered:: None Interpretation Summary: Ordering Physician: Vanita Oshea MD Date of Service: 10/11/24 Procedure(s): US abdomen limited Accession Number(s): [id number] cc: Cooper Gould MD; NO PRIMARY/FAMILY,PHYSICIAN; Vanita Oshea MD~ Examination: Abdomen sonogram, Limited Date and time of exam: October 11, 2024 1225 hours INDICATIONS: Sharp right upper abdominal pain beginning 2 days ago, status post procedure to remove common bile duct stone September 11, 2024 Technique: Real-time lr scale transabdominal sonographic images of the upper abdomen obtained. Findings: Distended gallbladder with gallbladder sludge Gallbladder wall 0.7 cm with edema Common bile duct 0.8 cm with internal echogenicity which may represent a stent although stone cannot be excluded Pancreatic head 2.3 cm Liver 17.2 cm fatty infiltration lobular contour Normal hepatopedal portal venous flow Patent IVC IMPRESSION: Acute acalculous cholecystitis Recommend repeat MRCP follow-up to assess the gallbladder wall and exclude stone in the common bile duct Dictated By: Cooper Gould MD Signed By: <Electronically signed by Cooper Gould MD in OV> 10/11/24 1317 Ordering Physician: Vanita Oshea MD Date of Service: 10/11/24 Procedure(s): CT abdomen pelvis w con Accession Number(s): [id number] cc: Cooper Gould MD; NO PRIMARY/FAMILY,PHYSICIAN; Vanita Oshea MD~ Examination: CT abdomen with intravenous contrast CT pelvis with intravenous contrast 2-D coronal reconstructions 2-D sagittal reconstructions Date and time of exam:October 11, 2024 1436 hours, August 31, 2024 INDICATIONS: Generalized abdominal pain with nausea today. CTDI: vol (mGy) 5.57 DLP: (mGycm) 340 Technique: Multiple axial sections of the abdomen and pelvis have been obtained. 64 slice high-resolution scanner used. 3 mm axial sections have been obtained, post intravenous injection 60 cc [id number] 2-D sagittal, coronal reconstructions obtained. Low dose protocols were performed. One or more of the following dose reduction techniques were used; automated exposure control, adjustment of the mA and/or KV according to patient size, use of iterative reconstruction technique. Findings: Pneumobilia 3.4 cm anterior right lobe liver lesion image 37 Liver is irregular in contour Intrahepatic biliary tract dilatation Right biliary stent satisfactory position Liver irregular in contour Abnormal distended gallbladder with edema adjacent to the wall Prominent splenomegaly The entire colon shows wall thickening and hyperemia No bowel obstruction Urinary bladder intact Osseous structures intact IMPRESSION: 3.4 cm anterior right lobe liver lesion, consider liver abscess Cirrhosis Intrahepatic biliary tract dilatation Distended gallbladder with adjacent edema, consider nonfunctioning biliary stent Prominent splenomegaly Diffuse nonspecific colitis pattern Dictated By: Cooper Gould MD Signed By: <Electronically signed by Cooper Gould MD in OV> 10/11/24 1504 Medications / Prescriptions Medications or Prescriptions considered but not ordered:: None Medication administrations:: Medication Administration History Acetaminophen (Acetaminophen Supp 650 Mg Supp) 650 mg CO Q6HR PRN PRN Reason: Fever > 100.4 or pain Stop: 11/10/24 22:01 Lactated Ringer's (Lactated Ringers) 1,000 mls @ 125 mls/hr IV .Q8H MAYTE Stop: 10/12/24 14:03 Last Admin: 10/12/24 00:03 Dose: 125 mls/hr Documented By: EF Piperacillin Sod/Tazobactam (Sod 4.5 gm/ Sodium Chloride) 100 mls @ 200 mls/hr IV Q6HR MAYTE Stop: 10/18/24 22:13 Ciprofloxacin/Dextrose (Cipro Ivpb) 400 mg in 200 mls @ 200 mls/hr IV Q12HR MAYTE Stop: 10/18/24 22:13 Norepinephrine/Dextrose (Levophed In D5w 8mg/250ml) 8 mg in 250 mls @ 5.528 mls/hr IV .Q24H PRN; Protocol PRN Reason: PER PROTOCOL Stop: 11/10/24 23:35 Last Titration: 10/12/24 01:00 Dose: 0.05 mcg/kg/min, 5.528 mls/hr Documented By: Admin: 10/11/24 23:55 Dose: 0.05 mcg/kg/min, 5.528 mls/hr Documented By: EF Morphine Sulfate (Morphine Sulf Inj 10 Mg/Ml Vial) 2 mg IVP Q4H PRN PRN Reason: PAIN SCALE 7-10 (Severe Stop: 10/16/24 22:01 Ondansetron HCl (Ondansetron Inj 2 Mg/Ml Inj 2 Ml) 4 mg IVP Q6H PRN; Protocol PRN Reason: NAUSEA OR VOMITING Stop: 11/10/24 22:01 Discontinued Medications Acetaminophen (Acetaminophen 325 Mg Tablet) 650 mg PO X1 ONE Stop: 10/11/24 19:18 Last Admin: 10/11/24 19:27 Dose: 650 mg Documented By: EF Calcium Gluconate (Calcium Gluconate 10% Inj 1 Gm/10 Ml Vial) 1 gm IV X1 ONE Stop: 10/11/24 14:07 Last Admin: 10/11/24 15:02 Dose: 1 gm Documented By: EF Sodium Chloride (Ns) 1,000 mls @ 999 mls/hr IV .Q1H1M ONE Stop: 10/11/24 15:07 Last Infusion: 10/11/24 16:03 Dose: Infused Documented By: Admin: 10/11/24 15:02 Dose: 999 mls/hr Documented By: EF Magnesium Sulfate (Magnesium Sulfate Ivpb) 2 gm in 50 mls @ 25 mls/hr IV X1 ONE Stop: 10/11/24 16:06 Last Infusion: 10/11/24 17:02 Dose: Infused Documented By: Admin: 10/11/24 15:02 Dose: 25 mls/hr Documented By: EF Ceftriaxone Sodium/Dextrose (Rocephin/D5w 1gm Iv Premix) 50 mls @ 100 mls/hr IV X1 ONE Stop: 10/11/24 19:11 Piperacillin/Tazobactam/Dextrose (Zosyn) 3.375 gm in 50 mls @ 100 mls/hr IV X1 ONE Stop: 10/11/24 19:12 Last Infusion: 10/11/24 19:28 Dose: Infused Documented By: Admin: 10/11/24 18:58 Dose: 100 mls/hr Documented By: EF Sodium Chloride (Ns) 1,000 mls @ 999 mls/hr IV .Q1H1M ONE Stop: 10/11/24 19:51 Last Infusion: 10/11/24 19:59 Dose: Infused Documented By: Admin: 10/11/24 18:58 Dose: 999 mls/hr Documented By: EF Sodium Chloride (Ns) 1,000 mls @ 999 mls/hr IV .Q1H1M ONE Stop: 10/11/24 23:04 Last Infusion: 10/11/24 23:31 Dose: Infused Documented By: Admin: 10/11/24 22:30 Dose: 999 mls/hr Documented By: EF Cefepime HCl 2 gm/ Sodium (Chloride) 50 mls @ 100 mls/hr IV Q8HR MAYTE Stop: 10/18/24 22:03 Last Admin: 10/11/24 22:24 Dose: Not Given Documented By: EF Non-Admin Reason: Cancelled by Provider Metronidazole (Flagyl 500 Mg Iv) 500 mg in 100 mls @ 200 mls/hr IV Q8HR MAYTE Stop: 10/18/24 22:03 Last Admin: 10/11/24 22:24 Dose: Not Given Documented By: EF Non-Admin Reason: Cancelled by Provider Ciprofloxacin/Dextrose (Cipro Ivpb) 400 mg in 200 mls @ 200 mls/hr IV X1 ONE Stop: 10/11/24 09:59 Last Admin: 10/11/24 23:55 Dose: Not Given Documented By: EF Non-Admin Reason: Cancelled by Provider Sodium Chloride (Ns) 1,000 mls @ 999 mls/hr IV .Q1H1M ONE Stop: 10/11/24 23:32 Last Infusion: 10/11/24 23:46 Dose: Infused Documented By: Admin: 10/11/24 22:45 Dose: 999 mls/hr Documented By: EF Norepinephrine Bitartrate (Levophed In Ns 16mg/250ml) 16 mg in 250 mls @ 2.764 mls/hr IV .Q24H PRN; Protocol PRN Reason: PER protocol Stop: 11/10/24 22:43 Ketorolac Tromethamine (Ketorolac Inj 30 Mg/Ml Vial) 30 mg IVP X1 ONE Stop: 10/11/24 19:18 Last Admin: 10/11/24 19:27 Dose: 30 mg Documented By: EF Morphine Sulfate (Morphine Sulf Inj 10 Mg/Ml Vial) 5 mg IVP X1 ONE Stop: 10/11/24 12:19 Last Admin: 10/11/24 13:17 Dose: 5 mg Documented By: VG Ondansetron HCl (Ondansetron Inj 2 Mg/Ml Inj 2 Ml) 4 mg IVP X1 ONE Stop: 10/11/24 12:19 Last Admin: 10/11/24 13:17 Dose: 4 mg Documented By: VG See above Consultations Consultation(s) initiated? (list below): No Diagnosis Differential diagnosis abdominal pain: abdominal pain, pancreatitis and other (cholelithiasis, cholecystitis) Most likely diagnosis given after review of the tests above:: Abdominal pain Admission Indicated Admission indicated?: not indicated Explain why admission is indicated or not indicated:: Signed out pending final disposition Admission Request Was there a request for admission?: No Disposition Plan Disposition Plan: other (specify) (Signed out to Dr. Hobson ) Discharge Plan Plan Patient Disposition: Admit Acute Care w/in Hospital Problem List Clinical Impression: Cholangitis Attestation Attestation I took over the care from previous shift physician, Dr. Oshea, at 6 PM on 10/11/24. See previous notes for complete H & P and ED course. I reviewed all diagnostic test results. My interpretation of the chest x-ray is NAD. My review of the MRCP report is distended gallbladder and enlarged common bile common hepatic duct with 2 mm and 3 mm common bile duct stones and abrupt termination of the distal common bile duct. Diagnoses include: Treatment here from me included IV fluid, Zosyn, Toradol, and Tylenol. I discussed the case with Dr. Beckwith, GI, and our hospitalist. About the presentation and exam and diagnostics and treatments here. And need of further care in the hospital. Will accept the patient. Mariano Hobson MD
--- NOTE | 2024-10-11 12:18 | XR_ITS ---
Examination: CT abdomen with intravenous contrast CT pelvis with intravenous contrast 2-D coronal reconstructions 2-D sagittal reconstructions Date and time of exam:October 11, 2024 1436 hours, August 31, 2024 INDICATIONS: Generalized abdominal pain with nausea today. CTDI: vol (mGy) 5.57 DLP: (mGycm) 340 Technique: Multiple axial sections of the abdomen and pelvis have been obtained. 64 slice high-resolution scanner used. 3 mm axial sections have been obtained, post intravenous injection 60 cc Isovue-370 2-D sagittal, coronal reconstructions obtained. Low dose protocols were performed. One or more of the following dose reduction techniques were used; automated exposure control, adjustment of the mA and/or KV according to patient size, use of iterative reconstruction technique. Findings: Pneumobilia 3.4 cm anterior right lobe liver lesion image 37 Liver is irregular in contour Intrahepatic biliary tract dilatation Right biliary stent satisfactory position Liver irregular in contour Abnormal distended gallbladder with edema adjacent to the wall Prominent splenomegaly The entire colon shows wall thickening and hyperemia No bowel obstruction Urinary bladder intact Osseous structures intact IMPRESSION: 3.4 cm anterior right lobe liver lesion, consider liver abscess Cirrhosis Intrahepatic biliary tract dilatation Distended gallbladder with adjacent edema, consider nonfunctioning biliary stent Prominent splenomegaly Diffuse nonspecific colitis pattern
--- NOTE | 2024-10-11 12:18 | XR_ITS ---
Examination: Abdomen sonogram, Limited Date and time of exam: October 11, 2024 1225 hours INDICATIONS: Sharp right upper abdominal pain beginning 2 days ago, status post procedure to remove common bile duct stone September 11, 2024 Technique: Real-time lr scale transabdominal sonographic images of the upper abdomen obtained. Findings: Distended gallbladder with gallbladder sludge Gallbladder wall 0.7 cm with edema Common bile duct 0.8 cm with internal echogenicity which may represent a stent although stone cannot be excluded Pancreatic head 2.3 cm Liver 17.2 cm fatty infiltration lobular contour Normal hepatopedal portal venous flow Patent IVC IMPRESSION: Acute acalculous cholecystitis Recommend repeat MRCP follow-up to assess the gallbladder wall and exclude stone in the common bile duct
[2024-10-11] MEDS: ONDANSETRON INJ 2 MG/ML INJ 2 ML 4 MG IVP (13:17)
[2024-10-11] MEDS: MORPHINE SULF INJ 10 MG/ML VIAL 5 MG IVP (13:17)
[2024-10-11 13:29] LABS: Basophils # (Auto) 0.0 Thou/mm3 (0.0-0.2); Basophils % (Auto) 0 % (0-2.5); Eosinophils # (Auto) 0.0 Thou/mm3 (0.0-0.5); Eosinophils % (Auto) 0 % (0-10); Hematocrit 40.9 % (41.0-53.0); Hemoglobin 13.1 g/dL (13.5-16.0); Immature Granulocytes Auto 0.02 Thou/mm3 (0.00-0.00); Lymphocytes # (Auto) 0.5 Thou/mm3 (1.0-4.8); Lymphocytes % (Auto) 10 % (10-50); Mean Corpuscular HGB Conc 32.0 g/dl (31.0-37.0); Mean Corpuscular Hemoglobin 24.7 pg (25.0-35.0); Mean Corpuscular Volume 77 fL (80-100); Monocytes # (Auto) 0.4 Thou/mm3 (0.0-0.8); Monocytes % (Auto) 7 % (0-12); Neutrophils # (Auto) 4.6 Thou/mm3 (1.8-7.7); Neutrophils % (Auto) 83 % (37-80); Nucleated Red Blood Cell # 0.00 Thou/mm3 (0.00-0.00); Nucleated Red Blood Cell % 0 /100 WBC (0); RDW Standard Deviation 48.6 fL (35.1-43.9); Red Blood Count 5.31 Miln/mm3 (4.50-5.90); White Blood Count 5.5 Thou/mm3 (3.8-10.6)
[2024-10-11 13:35] LABS: INR 1.9 (0.9-1.3); Partial Thromboplastin Time 36.5 Seconds (22.0-36.0); Prothrombin Time 20.1 Seconds (9.0-12.2)
[2024-10-11 13:46] LABS: Platelet Count 54 Thou/mm3 (140-440)
[2024-10-11 13:48] LABS: Slide Review Platelets confirmed
[2024-10-11 13:55] LABS: Alanine Aminotransferase 26 U/L (10-49); Albumin, Serum 4.4 gm/dL (3.5-5.0); Albumin/Globulin Ratio 1.3 (1.2-2.2); Alcohol, Blood Medical < 3.0 mg/dL (0-10.0); Alkaline Phosphatase 109 U/L (46-116); Anion Gap 12 (7-16); Aspartate Amino Transferase 45 U/L (0-34); BUN/Creatinine Ratio 22 Ratio (12-20); Bilirubin,Total 1.7 mg/dL (0.3-1.2); Blood Urea Nitrogen 24 mg/dL (9-23); Calcium 9.0 mg/dL (8.3-10.6); Calcium (Corrected) 9.0 mg/dL (8.5-10.1); Carbon Dioxide 23.0 mMol/L (20.0-31.0); Chloride 97 mMol/L (98-107); Creatinine (Component) 1.1 mg/dL (0.6-1.3); Estimated Creatinine Clearance 80.0 mL/min (>60); Globulin 3.4 gm/dL (2.3-3.5); Glucose 110 mg/dL (74-106); Lipase 17 U/L (12-53); Magnesium 1.4 mg/dL (1.6-2.6); Osmolality,Calculated 269 (275-295); Potassium 5.8 mMol/L (3.4-5.1); Sodium 132 mMol/L (136-145); Total Protein 7.8 gm/dL (5.7-8.2); Troponin I < 0.002 ng/mL (0.0-0.045); eGFR > 60 See Note
--- NOTE | 2024-10-11 14:06 | EKG_ITS ---
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
[2024-10-11 14:13] LABS: B-Type Natriuretic Peptide < 20 pg/mL (0-100)
[2024-10-11 14:53] LABS: Collection Type, Urine Clean Catch
[2024-10-11 15:00] LABS: Bacteria,Urine 1+; Bilirubin,Urine Negative (Negative); Blood,Urine Negative (Negative); Clarity,Urine Turbid (Clear/Hazy); Color,Urine Drk-Yellow (Lt Yel-Yel); Culture Indicated,Urine Yes; Glucose, Urine Negative (Negative); Ketones,Urine Negative (Negative); Leukocyte Esterase,Urine Negative (Negative); Nitrite,Urine Negative (Negative); PH,Urine 6.0 (5.0-7.0); Protein,Urine 2+ (Neg - Trace); RBC,Urine 7 /hpf (0-3); Specific Gravity,Urine 1.027 (1.001-1.035); Squamous Epithelial Cell,Urine 1 /hpf (0-5); Urobilinogen,Urine Negative mg/dL (0.0-1.0); WBC,Urine 6 /hpf (0-5)
[2024-10-11] MEDS: SODIUM CHLORIDE 0.9% 1000 ML 1,000 ML 999 ML IV ×4 (15:02→22:45)
[2024-10-11] MEDS: Magnesium Sulfate 2 GM Ivpb 2 GM/50 ML BAG IV (15:02)
[2024-10-11] MEDS: CALCIUM GLUCONATE 10% INJ 1 GM/10 ML VIAL IV (15:02)
[2024-10-11 15:10] LABS: Amphetamine/Methamp Scrn,U Negative (Negative); Barbiturate Screen,Urine Negative (Negative); Benzodiazepines Screen,Urine Negative (Negative); Benzoylecgonine Screen, Ur Negative (Negative); Fentanyl Screen,Urine Negative (Negative); Opiate Screen,Urine Negative (Negative); THC Screen,Urine Positive (Negative)
--- NOTE | 2024-10-11 18:08 | EDNOTE_ITS ---
Emergency Room Addendum <Mary Pena - Last Filed: 10/11/24 21:25> Addendum Narrative: I took over the care from previous shift physician, Dr. Oshea, at 6 PM on 10/11/24. See previous notes for complete H & P and ED course. I reviewed all diagnostic test results. My interpretation of the chest x-ray is NAD. My review of the MRCP report is distended gallbladder and enlarged common bile common hepatic duct with 2 mm and 3 mm common bile duct stones and abrupt termination of the distal common bile duct. Diagnoses include: Treatment here from me included IV fluid, Zosyn, Toradol, and Tylenol. I discussed the case with Dr. Beckwith, GI, and our hospitalist. About the presentation and exam and diagnostics and treatments here. And need of further care in the hospital. Will accept the patient. Mariano Hobson MD <Mariano Hobson MD - Last Filed: 10/12/24 02:01> Addendum Narrative: I took over the care from previous shift physician, Dr. Oshea, at 6 PM on 10/11/24. See previous notes for complete H & P and ED course. I reviewed all diagnostic test results. Diagnoses include: Cholangitis I discussed the case with Dr. Beckwith (patient's tab cutting machine operator) and our hospitalist. About the presentation and exam and diagnostics and treatments here. And need of further care in the hospital. Will accept the patient. Mariano Hobson MD
--- NOTE | 2024-10-11 18:51 | XR_ITS ---
Examination: AP chest single view TECHNIQUE: AP portable upright chest single view Date and time: October 11, 2024 1911 hours INDICATIONS: Shortness of breath today. FINDINGS: Normal heart size. Lungs are clear. Osseous structures are intact. Impression: No active disease.
[2024-10-11] MEDS: PIPER/TAZO 3.375 GM PREMIX 3.375 GM/50 ML BAG IV (18:58)
[2024-10-11 19:17] LABS: Lactate (Lactic Acid) 1.8 mMol/L (0.4-2.0)
[2024-10-11] MEDS: KETOROLAC INJ 30 MG/ML VIAL IVP (19:27)
[2024-10-11] MEDS: ACETAMINOPHEN 325 MG TABLET 650 MG PO (19:27)
[2024-10-11 19:34] LABS: Sed Rate (ESR) 55 mm/hr (0-15)
[2024-10-11 20:23] LABS: Procalcitonin 23.97 ng/ml (0.0-0.49)
[2024-10-11 20:51] LABS: C-Reactive Protein 20.3 mg/dL (0.0-0.9)
--- NOTE | 2024-10-11 23:50 | ESHP_ITS ---
Documentation for date of: 10/11/24 [facility] History of Present Illness History of present illness: The patient is a 23-year-old male with significant past medical history of liver cirrhosis, esophageal varices s/p banding, choledocholithiasis s/p stent placement about [address] Beckwith at [facility], previous admission for blood loss anemia presented to ED brought in by [facility] from [facility] for evaluation of abdominal pain that has been going on for past 2 days. The patient reported sharp right upper quadrant abdominal pain, moderate to severe in intensity. He admitted watery nonbloody diarrhea and bloating, including decreased urine output and dark orange color urine. He denied fever, chills, headache, chest pain, SOB, palpitations, nausea or vomiting. In the ED his initial vitals were stable, later his blood pressure started getting soft, and MAP was less than 65, and was started on pressor support. Labs revealed hemoglobin 13.1, platelet 54, ESR 55, PT 20.1, INR 1.9, APTT 36.5, sodium 132, potassium 5.8, BUN 24, creatinine 1.1, magnesium 1.4, total bilirubin 1.7, AST/ALT/ALP 45/26/109, CRP 20.3, UA revealed dark yellow urine, WBC 14, RBC 7, urine bacteria 1+ and U tox was positive for marijuana. MRCP revealed megaly, distended gallbladder, enlarged common bile hepatic duct with 2 mm in 3 mm common bile duct stones and abrupt termination of the distal common bile duct, CT abdomen/pelvis revealed 2.4 cm anterior right lobe liver lesion, distended gallbladder with adjacent edema, colitis pattern, EKG revealed sinus rhythm, CXR revealed no active disease. GI Dr. Beckwith was consulted again, who recommended admitting the patient, and he would perform ERCP. PMH: As mentioned above Surgical history: Liver biopsy performed at [facility] twice, Family history: Unable to recall about parents, other 5 siblings are healthy Social history: Denies any alcohol use, smoking, tobacco use or marijuana or any other illicit drug use, but was positive for marijuana in U tox. Medications: To be reconciled Allergies: No known allergies The patient was Given morphine IV, 3L of bolus fluid, Zosyn, magnesium sulfate in the ED and was admitted to ICU for further management of possible septic shock. Review of Systems Review of Systems Systems Reviewed: All systems reviewed, normal except as documented (As above) Exam Vital Signs Temp Pulse Resp BP Pulse Ox O2 Del Method 98.2 F 84 18 91/51 L 99 Room Air 10/11/24 22:14 10/11/24 22:46 10/11/24 22:14 10/11/24 22:14 10/11/24 22:14 10/11/24 22:14 Narrative Exam General: No acute distress, Alert and Oriented x 3 HEENT: Moist mucous membranes, oropharynx clear Neck: Supple, No masses, No JVD CVS: S1S2 Regular rate and rhythm, No murmurs, rubs or gallops Lungs: Clear to auscultation with no accessory use, no wheeze no rhonchi Abd: Soft, abdominal tenderness over right upper quadrant/ND, +BS, no organomegaly Ext: No edema, warm and well perfused Skin: No rash Psych: Appropriate mood and affect Results: Labs 10/12/24 05:03 10/12/24 05:03 Labs: Short CBC 10/11/24 Range/Units 13:07 WBC 5.5 (3.8-10.6) Thou/mm3 Hgb 13.1 L (13.5-16.0) g/dL Hct 40.9 L (41.0-53.0) % Plt Count 54 L (140-440) Thou/mm3 BMP 10/11/24 13:07 Sodium 132 L Potassium 5.8 H Chloride 97 L Carbon Dioxide 23.0 BUN 24 H Creatinine 1.1 Glucose 110 H Calcium 9.0 Cardiac Enzymes 10/11/24 Range/Units 13:07 Troponin I < 0.002 (0.0-0.045) ng/mL Liver Function 10/11/24 Range/Units 13:07 Total Bilirubin 1.7 H (0.3-1.2) mg/dL AST 45 H (0-34) U/L ALT 26 (10-49) U/L Alkaline Phosphatase 109 (46-116) U/L Albumin 4.4 (3.5-5.0) gm/dL Urine 10/11/24 Range/Units 14:43 Urine Color Drk-Yellow A (Lt Yel-Yel) Urine Clarity Turbid A (Clear/Hazy) Urine pH 6.0 (5.0-7.0) Ur Specific [place] 1.027 (1.001-1.035) Urine Protein 2+ A (Neg - Trace) Urine Glucose (UA) Negative (Negative) Quality Measures Quality Measures none Medications Home Medications and Allergies Home Medications ?Medication ?Instructions ?Recorded ?Confirmed ?Type ergocalciferol (vitamin D2) 1,250 1,250 mcg PO QWEEK 0 08/31/24 08/31/24 History mcg (50,000 unit) capsule gabapentin 100 mg capsule 300 mg PO TID 08/31/2408/31 History oxycodone 5 mg tablet 5 mg PO Q4H PRN pain 5 08/31/24 History pantoprazole 40 mg tablet,delayed 40 mg PO BID 5 08/31/24 History release sucralfate 100 mg/mL oral 1 g PO BID 08/31/24 08/31/24 History suspension ursodiol 300 mg capsule 300 mg PO DAILY 08/31/2410/18 History Allergies Allergy/AdvReac Type Severity Reaction Status Date / Time No Known Allergies Allergy Verified 08/30/24 15:09 Visit Medications Acetaminophen (Acetaminophen Supp 650 Mg Supp) 650 mg [place] Q6HR PRN PRN Reason: Fever > 100.4 or pain Stop: 11/10/24 22:01 Lactated Ringer's (Lactated Ringers) 1,000 mls @ 125 mls/hr IV .Q8H MAYTE Stop: 10/12/24 14:03 Piperacillin Sod/Tazobactam (Sod 4.5 gm/ Sodium Chloride) 100 mls @ 200 mls/hr IV Q6HR MAYTE Stop: 10/18/24 22:13 Ciprofloxacin/Dextrose (Cipro Ivpb) 400 mg in 200 mls @ 200 mls/hr IV Q12HR MAYTE Stop: 10/18/24 22:13 Norepinephrine/Dextrose (Levophed In D5w 8mg/250ml) 8 mg in 250 mls @ 5.528 mls/hr IV .Q24H PRN; Protocol PRN Reason: PER PROTOCOL Stop: 11/10/24 23:35 Morphine Sulfate (Morphine Sulf Inj 10 Mg/Ml Vial) 2 mg IVP Q4H PRN PRN Reason: PAIN SCALE 7-10 (Severe Stop: 10/16/24 22:01 Ondansetron HCl (Ondansetron Inj 2 Mg/Ml Inj 2 Ml) 4 mg IVP Q6H PRN; Protocol PRN Reason: NAUSEA OR VOMITING Stop: 11/10/24 22:01 Discontinued Medications Acetaminophen (Acetaminophen 325 Mg Tablet) 650 mg PO X1 ONE Stop: 10/11/24 19:18 Last Admin: 10/11/24 19:27 Dose: 650 mg Calcium Gluconate (Calcium Gluconate 10% Inj 1 Gm/10 Ml Vial) 1 gm IV X1 ONE Stop: 10/11/24 14:07 Last Admin: 10/11/24 15:02 Dose: 1 gm Sodium Chloride (Ns) 1,000 mls @ 999 mls/hr IV .Q1H1M ONE Stop: 10/11/24 15:07 Last Infusion: 10/11/24 16:03 Dose: Infused Magnesium Sulfate (Magnesium Sulfate Ivpb) 2 gm in 50 mls @ 25 mls/hr IV X1 ONE Stop: 10/11/24 16:06 Last Infusion: 10/11/24 17:02 Dose: Infused Ceftriaxone Sodium/Dextrose (Rocephin/D5w 1gm Iv Premix) 50 mls @ 100 mls/hr IV X1 ONE Stop: 10/11/24 19:11 Piperacillin/Tazobactam/Dextrose (Zosyn) 3.375 gm in 50 mls @ 100 mls/hr IV X1 ONE Stop: 10/11/24 19:12 Last Infusion: 10/11/24 19:28 Dose: Infused Sodium Chloride (Ns) 1,000 mls @ 999 mls/hr IV .Q1H1M ONE Stop: 10/11/24 19:51 Last Infusion: 10/11/24 19:59 Dose: Infused Sodium Chloride (Ns) 1,000 mls @ 999 mls/hr IV .Q1H1M ONE Stop: 10/11/24 23:04 Last Admin: 10/11/24 22:30 Dose: 999 mls/hr Cefepime HCl 2 gm/ Sodium (Chloride) 50 mls @ 100 mls/hr IV Q8HR [facility] Stop: 10/18/24 22:03 Last Admin: 10/11/24 22:24 Dose: Not Given Metronidazole (Flagyl 500 Mg Iv) 500 mg in 100 mls @ 200 mls/hr IV Q8HR [facility] Stop: 10/18/24 22:03 Last Admin: 10/11/24 22:24 Dose: Not Given Ciprofloxacin/Dextrose (Cipro Ivpb) 400 mg in 200 mls @ 200 mls/hr IV X1 ONE Stop: 10/11/24 09:59 Sodium Chloride (Ns) 1,000 mls @ 999 mls/hr IV .Q1H1M ONE Stop: 10/11/24 23:32 Last Admin: 10/11/24 22:45 Dose: 999 mls/hr Norepinephrine Bitartrate (Levophed In Ns 16mg/250ml) 16 mg in 250 mls @ 2.764 mls/hr IV .Q24H PRN; Protocol PRN Reason: PER protocol Stop: 11/10/24 22:43 Ketorolac Tromethamine (Ketorolac Inj 30 Mg/Ml Vial) 30 mg IVP X1 ONE Stop: 10/11/24 19:18 Last Admin: 10/11/24 19:27 Dose: 30 mg Morphine Sulfate (Morphine Sulf Inj 10 Mg/Ml Vial) 5 mg IVP X1 ONE Stop: 10/11/24 12:19 Last Admin: 10/11/24 13:17 Dose: 5 mg Ondansetron HCl (Ondansetron Inj 2 Mg/Ml Inj 2 Ml) 4 mg IVP X1 ONE Stop: 10/11/24 12:19 Last Admin: 10/11/24 13:17 Dose: 4 mg Assessment & Plan Plan The patient is a 23-year-old male with significant past medical history of liver cirrhosis, esophageal varices s/p banding, choledocholithiasis s/p stent placement about [address] Beckwith at [facility], previous admission for blood loss anemia presented to ED brought in by [facility] from [facility] for evaluation of abdominal pain that has been going on for past 2 days. MRCP revealed, distended gallbladder, enlarged common bile hepatic duct with 2 mm in 3 mm common bile duct stones and abrupt termination of the distal common bile duct, CT abdomen/pelvis revealed 2.4 cm anterior right lobe liver lesion. GI Dr. Beckwith was consulted again, who recommended admitting the patient, and he would perform ERCP. The patient was Given morphine IV, 3L of bolus fluid, Zosyn, magnesium sulfate in the ED and was admitted to ICU for further management of possible septic shock. Neuro: - No acute issues CVS: #Septic Shock Likely septic shock in the setting of Acute cholecystitis along with choledecolithiasis, elevated Pro-Js and CRP DDx: Hypovolemic, obstructive, cardiogenic Received 4 L of bolus fluid in the ED MAP continued to be less than 65 - Started on Levophed drip - Continue to treat underlying sepsis GI: #Acute cholecystitis with choledecolithiasis #Possible anterior right lower liver abscess Presented with abdominal pain for past 2 days Has recent history of ERCP and stent placement about a month ago by Dr. Beckwith MRCP revealed distended gallbladder, enlarged common bile hepatic duct with 2 mm in 3 mm common bile duct stones and abrupt termination of the distal common bile duct, CT abdomen/pelvis revealed 2.4 cm anterior right lobe liver lesion, distended gallbladder with adjacent edema, colitis pattern -Started on Zosyn 10/11/2024- - GI Dr. Beckwith consulted, appreciate recommendations - N.p.o. for now - ERCP likely to be done tomorrow #Cirrhosis #Mild hyperbilirubinemia #Mild transaminitis - Continue to monitor for now Renal: #Hyperkalemia EKG did not reveal any T wave changes - Given insulin regular 5 units IV x 1, albuterol 10 mg INH, and D50W - Telemetry monitoring - Monitor potassium closely #Mild hypomagnesemia #Mild hyponatremia Magnesium repleted with 2 g magnesium sulfate x 1 - Continue to monitor electrolytes daily Endocrinology - No active issues Hematology: #Mild microcytic anemia - Follow-up as outpatient #Splenomegaly #Thrombocytopenia Likely secondary to cirrhosis further complicated by sepsis Presented with platelet of 54 - Continue to monitor closely ID: #Septic shock secondary to acute cholecystitis - On Zosyn as above - Pending blood, urine culture #UTI Patient reported mild urinary symptoms, UA was positive for UTI Pending urine culture - On Zosyn MSK: - No active disease Psych: #Marijuana abuse disorder - May consider consulting social service Health maintenance: Dispo: Patient admitted to ICU for further management of possible septic shock secondary to acute cholecystitis, requiring pressor support DVT prophylaxis: Subcu heparin every 8 hourly Diet: N.p.o. for now Lines: Peripheral lines Antibiotics: Zosyn 10/11- CODE STATUS: Full code The patient's management plan was discussed with my attending physician MD Carlos Alberto Briceno MD, PGY3 Attending Provider Attestation/Addendum After examination of the patient and review of the clinical data I feel that this patient needs admission to the hospital for further treatment/evaluation. TOTAL CC TIME: 45 MIN TOTAL TIME: 45 Minutes of direct medical management and planning of care. I Sina Kelly MD, attest that I was physically present for mena portions of evaluation, and examined patient, labs and imagings and plan of care were discussed with IM residents team, and I agree with the findings and plans documented above.
[2024-10-11] MEDS: Norepinephrine/D5W 8mg/250ml 8 MG/250 ML BAG 5.528 MG IV (23:55)
[2024-10-12] VITALS (102 sets, daily range): BP systolic 77–126; BP diastolic 48–94; PULSE 74–107; RESP 8–23; TEMP 36.1–37.1; O2SAT 96–100; BMI 24.8
[2024-10-12] MEDS: RINGERS LACTATED 1000 ML 1,000 ML 125 ML IV ×2 (00:03→07:39)
[2024-10-12] MEDS: INSULIN HUM REGULAR 1 UNIT/0.01 ML (PER UNIT) 5 UNIT SC (02:29)
[2024-10-12] MEDS: DEXTROSE 50%-WATER INJ 50 ML SYRINGE IVP (02:30)
[2024-10-12] MEDS: ALBUTEROL RT 2.5 MG/3 ML NEBU 10 MG INH (02:43)
--- NOTE | 2024-10-12 04:02 | PD.RESHP ---
Documentation for date of: 10/12/24 HPI History of Present Illness Chief complaint: Abdominal pain, fever Exam Vital Signs Temp Pulse Resp BP Pulse Ox O2 Del Method 97.3 F 83 9 L 95/55 L 100 Room Air 10/12/24 00:40 10/12/24 03:40 10/12/24 03:40 10/12/24 03:40 10/12/24 03:40 10/12/24 03:05 Results: Labs 10/11/24 13:07 10/11/24 13:07 Labs: Short CBC 10/11/24 Range/Units 13:07 WBC 5.5 (3.8-10.6) Thou/mm3 Hgb 13.1 L (13.5-16.0) g/dL Hct 40.9 L (41.0-53.0) % Plt Count 54 L (140-440) Thou/mm3 BMP 10/11/24 13:07 Sodium 132 L Potassium 5.8 H Chloride 97 L Carbon Dioxide 23.0 BUN 24 H Creatinine 1.1 Glucose 110 H Calcium 9.0 Cardiac Enzymes 10/11/24 Range/Units 13:07 Troponin I < 0.002 (0.0-0.045) ng/mL Liver Function 10/11/24 Range/Units 13:07 Total Bilirubin 1.7 H (0.3-1.2) mg/dL AST 45 H (0-34) U/L ALT 26 (10-49) U/L Alkaline Phosphatase 109 (46-116) U/L Albumin 4.4 (3.5-5.0) gm/dL Urine 10/11/24 Range/Units 14:43 Urine Color Drk-Yellow A (Lt Yel-Yel) Urine Clarity Turbid A (Clear/Hazy) Urine pH 6.0 (5.0-7.0) Ur Specific [place] 1.027 (1.001-1.035) Urine Protein 2+ A (Neg - Trace) Urine Glucose (UA) Negative (Negative) Quality Measures Quality Measures none Medications Home Medications and Allergies Home Medications ?Medication ?Instructions ?Recorded ?Confirmed ?Type ergocalciferol (vitamin D2) 1,250 1,250 mcg PO QWEEK 08/31/24 08/31/24 History mcg (50,000 unit) capsule gabapentin 100 mg capsule 300 mg PO TID 08/31/24 08/31/24 History oxycodone 5 mg tablet 5 mg PO Q4H PRN pain 08/31/24 08/31/24 History pantoprazole 40 mg tablet,delayed 40 mg PO BID 08/31/24 08/31/24 History release sucralfate 100 mg/mL oral 1 g PO BID 08/31/24 08/31/24 History suspension ursodiol 300 mg capsule 300 mg PO DAILY 08/31/24 08/31/24 History Allergies Allergy/AdvReac Type Severity Reaction Status Date / Time No Known Allergies Allergy Verified 08/30/24 15:09 Visit Medications Acetaminophen (Acetaminophen Supp 650 Mg Supp) 650 mg [place] Q6HR PRN PRN Reason: Fever > 100.4 or pain Stop: 11/10/24 22:01 Lactated Ringer's (Lactated Ringers) 1,000 mls @ 125 mls/hr IV .Q8H MAYTE Stop: 10/12/24 14:03 Last Admin: 10/12/24 00:03 Dose: 125 mls/hr Piperacillin Sod/Tazobactam (Sod 4.5 gm/ Sodium Chloride) 100 mls @ 200 mls/hr IV Q6HR MAYTE Stop: 10/18/24 22:13 Ciprofloxacin/Dextrose (Cipro Ivpb) 400 mg in 200 mls @ 200 mls/hr IV Q12HR MAYTE Stop: 10/18/24 22:13 Norepinephrine/Dextrose (Levophed In D5w 8mg/250ml) 8 mg in 250 mls @ 5.528 mls/hr IV .Q24H PRN; Protocol PRN Reason: PER PROTOCOL Stop: 11/10/24 23:35 Last Titration: 10/12/24 03:30 Dose: 0.05 mcg/kg/min, 5.528 mls/hr Morphine Sulfate (Morphine Sulf Inj 10 Mg/Ml Vial) 2 mg IVP Q4H PRN PRN Reason: PAIN SCALE 7-10 (Severe Stop: 10/16/24 22:01 Ondansetron HCl (Ondansetron Inj 2 Mg/Ml Inj 2 Ml) 4 mg IVP Q6H PRN; Protocol PRN Reason: NAUSEA OR VOMITING Stop: 11/10/24 22:01 Discontinued Medications Acetaminophen (Acetaminophen 325 Mg Tablet) 650 mg PO X1 ONE Stop: 10/11/24 19:18 Last Admin: 10/11/24 19:27 Dose: 650 mg Albuterol (Albuterol Rt 2.5 Mg/3 Ml Nebu) 10 mg INH X1 ONE Stop: 10/12/24 02:01 Last Admin: 10/12/24 02:43 Dose: 10 mg Calcium Gluconate (Calcium Gluconate 10% Inj 1 Gm/10 Ml Vial) 1 gm IV X1 ONE Stop: 10/11/24 14:07 Last Admin: 10/11/24 15:02 Dose: 1 gm Dextrose (Dextrose 50%-Water Inj 50 Ml Syringe) 50 ml IVP X1 ONE Stop: 10/12/24 02:01 Last Admin: 10/12/24 02:30 Dose: 50 ml Sodium Chloride (Ns) 1,000 mls @ 999 mls/hr IV .Q1H1M ONE Stop: 10/11/24 15:07 Last Infusion: 10/11/24 16:03 Dose: Infused Magnesium Sulfate (Magnesium Sulfate Ivpb) 2 gm in 50 mls @ 25 mls/hr IV X1 ONE Stop: 10/11/24 16:06 Last Infusion: 10/11/24 17:02 Dose: Infused Ceftriaxone Sodium/Dextrose (Rocephin/D5w 1gm Iv Premix) 50 mls @ 100 mls/hr IV X1 ONE Stop: 10/11/24 19:11 Piperacillin/Tazobactam/Dextrose (Zosyn) 3.375 gm in 50 mls @ 100 mls/hr IV X1 ONE Stop: 10/11/24 19:12 Last Infusion: 10/11/24 19:28 Dose: Infused Sodium Chloride (Ns) 1,000 mls @ 999 mls/hr IV .Q1H1M ONE Stop: 10/11/24 19:51 Last Infusion: 10/11/24 19:59 Dose: Infused Sodium Chloride (Ns) 1,000 mls @ 999 mls/hr IV .Q1H1M ONE Stop: 10/11/24 23:04 Last Infusion: 10/11/24 23:31 Dose: Infused Cefepime HCl 2 gm/ Sodium (Chloride) 50 mls @ 100 mls/hr IV Q8HR MAYTE Stop: 10/18/24 22:03 Last Admin: 10/11/24 22:24 Dose: Not Given Metronidazole (Flagyl 500 Mg Iv) 500 mg in 100 mls @ 200 mls/hr IV Q8HR MAYTE Stop: 10/18/24 22:03 Last Admin: 10/11/24 22:24 Dose: Not Given Ciprofloxacin/Dextrose (Cipro Ivpb) 400 mg in 200 mls @ 200 mls/hr IV X1 ONE Stop: 10/11/24 09:59 Last Admin: 10/11/24 23:55 Dose: Not Given Sodium Chloride (Ns) 1,000 mls @ 999 mls/hr IV .Q1H1M ONE Stop: 10/11/24 23:32 Last Infusion: 10/11/24 23:46 Dose: Infused Norepinephrine Bitartrate (Levophed In Ns 16mg/250ml) 16 mg in 250 mls @ 2.764 mls/hr IV .Q24H PRN; Protocol PRN Reason: PER protocol Stop: 11/10/24 22:43 Insulin Human Regular (Insulin Hum Regular 1 Unit/0.01 Ml (Per Unit)) 5 unit SC X1 ONE Stop: 10/12/24 02:01 Last Admin: 10/12/24 02:29 Dose: 5 unit Ketorolac Tromethamine (Ketorolac Inj 30 Mg/Ml Vial) 30 mg IVP X1 ONE Stop: 10/11/24 19:18 Last Admin: 10/11/24 19:27 Dose: 30 mg Morphine Sulfate (Morphine Sulf Inj 10 Mg/Ml Vial) 5 mg IVP X1 ONE Stop: 10/11/24 12:19 Last Admin: 10/11/24 13:17 Dose: 5 mg Ondansetron HCl (Ondansetron Inj 2 Mg/Ml Inj 2 Ml) 4 mg IVP X1 ONE Stop: 10/11/24 12:19 Last Admin: 10/11/24 13:17 Dose: 4 mg
[2024-10-12 05:27] LABS: Basophils # (Auto) 0.0 Thou/mm3 (0.0-0.2); Basophils % (Auto) 1 % (0-2.5); Eosinophils # (Auto) 0.0 Thou/mm3 (0.0-0.5); Eosinophils % (Auto) 0 % (0-10); Hematocrit 36.0 % (41.0-53.0); Hemoglobin 11.4 g/dL (13.5-16.0); Immature Granulocytes Auto 0.06 Thou/mm3 (0.00-0.00); Lymphocytes # (Auto) 0.2 Thou/mm3 (1.0-4.8); Lymphocytes % (Auto) 4 % (10-50); Mean Corpuscular HGB Conc 31.7 g/dl (31.0-37.0); Mean Corpuscular Hemoglobin 24.8 pg (25.0-35.0); Mean Corpuscular Volume 78 fL (80-100); Monocytes # (Auto) 0.3 Thou/mm3 (0.0-0.8); Monocytes % (Auto) 5 % (0-12); Neutrophils # (Auto) 4.4 Thou/mm3 (1.8-7.7); Neutrophils % (Auto) 89 % (37-80); Nucleated Red Blood Cell # 0.00 Thou/mm3 (0.00-0.00); Nucleated Red Blood Cell % 0 /100 WBC (0); RDW Standard Deviation 49.3 fL (35.1-43.9); Red Blood Count 4.60 Miln/mm3 (4.50-5.90); White Blood Count 5.0 Thou/mm3 (3.8-10.6)
[2024-10-12 05:33] LABS: Platelet Count 40 Thou/mm3 (140-440)
[2024-10-12 05:40] LABS: INR 2.2 (0.9-1.3); Partial Thromboplastin Time 43.9 Seconds (22.0-36.0); Prothrombin Time 22.9 Seconds (9.0-12.2)
[2024-10-12 06:02] LABS: Alanine Aminotransferase 19 U/L (10-49); Albumin, Serum 3.4 gm/dL (3.5-5.0); Albumin/Globulin Ratio 1.3 (1.2-2.2); Alkaline Phosphatase 82 U/L (46-116); Anion Gap 13 (7-16); Aspartate Amino Transferase 25 U/L (0-34); BUN/Creatinine Ratio 21 Ratio (12-20); Bilirubin,Total 1.2 mg/dL (0.3-1.2); Blood Urea Nitrogen 19 mg/dL (9-23); Calcium 8.0 mg/dL (8.3-10.6); Calcium (Corrected) 8.5 mg/dL (8.5-10.1); Carbon Dioxide 19.1 mMol/L (20.0-31.0); Chloride 109 mMol/L (98-107); Creatinine (Component) 0.9 mg/dL (0.6-1.3); Estimated Creatinine Clearance 97.7 mL/min (>60); Globulin 2.7 gm/dL (2.3-3.5); Glucose 109 mg/dL (74-106); Magnesium 1.8 mg/dL (1.6-2.6); Osmolality,Calculated 284 (275-295); Phosphorous 2.6 mg/dL (2.4-5.1); Potassium 3.3 mMol/L (3.4-5.1); Sodium 141 mMol/L (136-145); Total Protein 6.1 gm/dL (5.7-8.2); eGFR > 60 See Note
[2024-10-12 06:04] LABS: Slide Review Platelets confirmed
[2024-10-12] MEDS: POTASSIUM CHL 10 mEq IVPB 10 MEQ/100 ML BAG 100 MEQ IV (07:40)
[2024-10-12] MEDS: MORPHINE SULF INJ 10 MG/ML VIAL 2 MG IVP (07:53)
[2024-10-12] MEDS: PIPER/TAZO INJ 4.5 GM in SODIUM CHLORIDE 0.9% (POP) 100 ML IV ×3 (09:22→19:09)
[2024-10-12] MEDS: POTASSIUM CHL 10 mEq IVPB 10 MEQ/100 ML BAG 60 MEQ IV ×3 (09:24→13:04)
[2024-10-12] MEDS: CIPROFLOXACIN/D5w 400 MG IVPB 400 MG/200 ML BAG 200 MG IV (10:18)
--- NOTE | 2024-10-12 10:50 | PC.SS ---
PRACTICE REPRESENTATIVE conducted bedside contact with the patient conduct initial assessment and to discuss discharge planning.? Patient confirmed demographic information.? Patient confirmed brought in from [facility] for evaluation of abdominal pain.? Per patient detained due to driving on a suspended license.? No custody officials present with the patient.? Patient resides at home with father, Kingsley Tse .? 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 Patient does not utilize any form of DME to assist with ambulation.? Patient does not utilize home oxygen.? Patient describes the ability to complete ADL?s independently.? Patient identified father, Kingsley Tse; as medical surrogate decision maker.? Patient utilizes [facility] for PCP services.? Patient reports possessing specialty provider at [place] to address abdominal issues.? Patient utilizes [facility] for medication services.? Plan is for the patient to return home at the time of discharge.? Family will provide transportation on behalf of the patient. ?No further discharge needs identified by the patient.? No further intervention required at this time, social worker assistant will be available to address any further concerns.? Next of Kin: Kingsley Tse D/C Plan: Home
--- NOTE | 2024-10-12 12:27 | PD.IMCONS ---
HPI Data of Consult Requesting Physician: Sina Kelly MD Primary Care Provider: Physician No Primary/Family Consult Narrative History of present illness: Chief complaint: Abdominal pain and fever History of presenting illness: Patient is a 23-year-old male is here today with abdominal pain and right shoulder pain and fever with history of cholangitis had a ERCP with stent placement on 09/01/2024. He had a 10 Thai x 7 cm plastic biliary stent in the common bile duct chain with the same symptoms of cholangitis. Supervisor [employer] and ER physician contacted me last night. Patient was seen and examined in no acute distress on pressors in ICU. Planning to do ERCP.. He is followed by [facility] for possible liver failure. He states he had a recent biopsy performed. When patient arrived to the ER he was noted to have a fever of 101.5 Fahrenheit. Vital signs were otherwise stable.With GI was called to evaluate the patient for ERCP. Patient had an MRCP which showed common bile duct stent. cc:: cc: Sina Kelly MD Review of Systems Review of Systems Narrative Review of Systems: 12 systems reviewed all negative except positive pertinent symptoms mentioned in history of presenting illness Meds Home Medications and Allergies Home Medications ?Medication ?Instructions ?Recorded ?Confirmed ?Type sucralfate 100 mg/mL oral 1 g PO BID 08/31/24 08/31/24 History suspension ursodiol 300 mg capsule 300 mg PO DAILY 08/31/24 08/31/24 History gabapentin 300 mg capsule 300 mg PO TID 10/12/24 10/12/24 History pantoprazole 40 mg tablet,delayed 40 mg PO BID 10/12/24 10/12/24 History release (Protonix) Allergies Allergy/AdvReac Type Severity Reaction Status Date / Time No Known Allergies Allergy Verified 08/30/24 15:09 Exam Vital Signs Temp Pulse Resp BP Pulse Ox O2 Del Method 98.6 F 96 18 95/69 100 Room Air 10/12/24 06:18 10/12/24 07:07 10/12/24 07:07 10/12/24 07:07 10/12/24 07:07 10/12/24 04:50 Routine Abdominal Exam Comments: Abdominal exam tenderness in right upper quadrant rest of the exam benign. Results Labs 10/12/24 05:03 10/12/24 05:03 Labs: Short CBC 10/11/24 10/12/24 Range/Units 13:07 05:03 WBC 5.5 5.0 (3.8-10.6) Thou/mm3 Hgb 13.1 L 11.4 L (13.5-16.0) g/dL Hct 40.9 L 36.0 L (41.0-53.0) % Plt Count 54 L 40 L D (140-440) Thou/mm3 BMP 10/11/24 10/12/24 13:07 05:03 Sodium 132 L 141 Potassium 5.8 H 3.3 L D Chloride 97 L 109 H Carbon Dioxide 23.0 19.1 L BUN 24 H 19 Creatinine 1.1 0.9 Glucose 110 H 109 H Calcium 9.0 8.0 L Cardiac Enzymes 10/11/24 Range/Units 13:07 Troponin I < 0.002 (0.0-0.045) ng/mL Liver Function 10/11/24 10/12/24 Range/Units 13:07 05:03 Total Bilirubin 1.7 H 1.2 D (0.3-1.2) mg/dL AST 45 H 25 (0-34) U/L ALT 26 19 (10-49) U/L Alkaline Phosphatase 109 82 D (46-116) U/L Albumin 4.4 3.4 L D (3.5-5.0) gm/dL Urine 10/11/24 Range/Units 14:43 Urine Color Drk-Yellow A (Lt Yel-Yel) Urine Clarity Turbid A (Clear/Hazy) Urine pH 6.0 (5.0-7.0) Ur Specific [place] 1.027 (1.001-1.035) Urine Protein 2+ A (Neg - Trace) Urine Glucose (UA) Negative (Negative) Assessment and Plan Additional Assessment & Plan Additional Plan: Assessment: Choledocholithiasis Cholangitis Cirrhosis s/p biopsy in [facility] Plan of care: Correct INR and platelet. Goal INR less than 1.5 Platelet greater than 40-60. Agree with IV fluid Agree with antibiotic Will proceed with ERCP today The entire procedure pain to the patient patient verbalized understanding willing to proceed the procedure. Will follow the patient with results.
--- NOTE | 2024-10-12 13:53 | PD.RESPRO ---
Documentation for date of: 10/12/24 Subjective Subjective Interval history: The patient is a 23-year-old male with significant past medical history of liver cirrhosis, esophageal varices s/p banding, choledocholithiasis s/p stent placement about [address] Beckwith at [facility], previous admission for blood loss anemia presented to ED brought in by [facility] from [facility] for evaluation of abdominal pain that has been going on for past 2 days. The patient reported sharp right upper quadrant abdominal pain, moderate to severe in intensity. He admitted watery nonbloody diarrhea and bloating, including decreased urine output and dark orange color urine. He denied fever, chills, headache, chest pain, SOB, palpitations, nausea or vomiting. In the ED his initial vitals were stable, later his blood pressure started getting soft, and MAP was less than 65, and was started on pressor support. Labs revealed hemoglobin 13.1, platelet 54, ESR 55, PT 20.1, INR 1.9, APTT 36.5, sodium 132, potassium 5.8, BUN 24, creatinine 1.1, magnesium 1.4, total bilirubin 1.7, AST/ALT/ALP 45/26/109, CRP 20.3, UA revealed dark yellow urine, WBC 14, RBC 7, urine bacteria 1+ and U tox was positive for marijuana. MRCP revealed megaly, distended gallbladder, enlarged common bile hepatic duct with 2 mm in 3 mm common bile duct stones and abrupt termination of the distal common bile duct, CT abdomen/pelvis revealed 2.4 cm anterior right lobe liver lesion, distended gallbladder with adjacent edema, colitis pattern, EKG revealed sinus rhythm, CXR revealed no active disease. GI Dr. Beckwith was consulted again, who recommended admitting the patient, and he would perform ERCP. 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 Beckwith presented to the hospital again with similar complaints of right upper quadrant abdominal pain and fever, admitted for suspected possible septic shock secondary to ascending cholangitis. Patient is seen and examined at bedside in the ICU. Still complaining of severe right upper quadrant abdominal pain and also reported that he had 4 episodes of diarrhea after coming to the hospital without any blood and mucus. Endorsed that he is compliant with all the medications. Labs done this morning significant for platelets 40,000, INR 2.2. Dr. Beckwith, retail training manager is consulted and he recommended that patient needs stenting of biliary tract again. 1 unit of platelet and 2 units FFP ordered. Patient underwent CBD stent placement with removal of old stent and noted to have pus coming from that site. Blood cultures showed gram-negative rods and will continue Zosyn for now. Pending final cultures. General surgeon, Dr. Eller was consulted in view of suspected acute acalculous cholecystitis and he recommended no surgical intervention as of now. Patient is off vasopressors since this morning 9:30 AM, also underwent successful procedure and no further postop complications, will downgrade to floors for further management as patient does not require further ICU care. Exam Vital Signs Temp Pulse Resp BP Pulse Ox O2 Del Method 98.6 F 96 18 95/69 100 Room Air 10/12/24 06:18 10/12/24 07:07 10/12/24 07:07 10/12/24 07:07 10/12/24 07:07 10/12/24 04:50 Narrative Exam General: Awake. HEENT: Normocephalic, atraumatic, mucous membranes moist. Heart: Regular rate and rhythm, no murmurs. Lungs: Clear to auscultation with no wheezing or crackles. Abdomen: Soft, mildly distended, noted tenderness in the right upper quadrant, positive bowel sounds. ?No guarding or rebound tenderness. Neurologic: Alert and oriented x3, no gross neurological deficit, and patient able to move all 4 extremities. Extremities: No edema. Skin: No rash or ecchymoses. Objective Labs 10/13/24 05:52 10/13/24 05:52 Labs: Laboratory Results - last 24 hr 10/11/24 10/11/24 10/11/24 13:07 14:43 19:00 WBC RBC Hgb Hct MCV MCH MCHC RDW Std Deviation Plt Count Neut % (Auto) Lymph % (Auto) Gordon % (Auto) Eos % (Auto) Baso % (Auto) Neut # (Auto) Lymph # (Auto) Gordon # (Auto) Eos # (Auto) Baso # (Auto) Immature Gran # (Auto) Absolute Nucleated RBC Immature Gran % Nucleated RBC % ESR 55 H PT 20.1 H D INR 1.9 H APTT 36.5 H Sodium 132 L Potassium 5.8 H Chloride 97 L Carbon Dioxide 23.0 Anion Gap 12 BUN 24 H Creatinine 1.1 Estim Creat Clear Calc 80.0 eGFR > 60 BUN/Creatinine Ratio 22 H Glucose 110 H Calculated Osmolality 269 L Lactic Acid 1.8 Calcium 9.0 Corrected Calcium 9.0 Phosphorus Magnesium 1.4 L Total Bilirubin 1.7 H AST 45 H ALT 26 Alkaline Phosphatase 109 Troponin I < 0.002 C-Reactive Prot, Quant 20.3 H B-Natriuretic Peptide < 20 Total Protein 7.8 Albumin 4.4 Globulin 3.4 Albumin/Globulin Ratio 1.3 Lipase 17 Procalcitonin 23.97 H Ur Collection Type Clean Catch Urine Color Drk-Yellow A Urine Clarity Turbid A Urine pH 6.0 Ur Specific [place] 1.027 Urine Protein 2+ A Urine Glucose (UA) Negative Urine Ketones Negative Urine Blood Negative Urine Nitrite Negative Urine Bilirubin Negative Urine Urobilinogen (Auto) Negative Ur Leukocyte Esterase Negative Urine RBC 7 H Urine WBC 6 H Ur Squamous Epith Cells 1 Urine Bacteria 1+ A Ur Culture Indicated? Yes Urine Opiates Screen Negative Urine Fentanyl Screen Negative Ur Barbiturates Screen Negative U Amphetamin/Meth Scrn Negative U Benzodiazepines Scrn Negative U Cocaine Metab Screen Negative U Marijuana (THC) Screen Positive A Ethyl Alcohol < 3.0 Misc Test Result 10/12/24 05:03 WBC 5.0 RBC 4.60 Hgb 11.4 L Hct 36.0 L MCV 78 L MCH 24.8 L MCHC 31.7 RDW Std Deviation 49.3 H Plt Count 40 L D Neut % (Auto) 89 H Lymph % (Auto) 4 L Gordon % (Auto) 5 Eos % (Auto) 0 Baso % (Auto) 1 Neut # (Auto) 4.4 Lymph # (Auto) 0.2 L Gordon # (Auto) 0.3 Eos # (Auto) 0.0 Baso # (Auto) 0.0 Immature Gran # (Auto) 0.06 H Absolute Nucleated RBC 0.00 Immature Gran % 1 H Nucleated RBC % 0 ESR PT 22.9 H INR 2.2 H APTT 43.9 H Sodium 141 Potassium 3.3 L D Chloride 109 H Carbon Dioxide 19.1 L Anion Gap 13 BUN 19 Creatinine 0.9 Estim Creat Clear Calc 97.7 eGFR > 60 BUN/Creatinine Ratio 21 H Glucose 109 H Calculated Osmolality 284 Lactic Acid Calcium 8.0 L Corrected Calcium 8.5 Phosphorus 2.6 Magnesium 1.8 Total Bilirubin 1.2 D AST 25 ALT 19 Alkaline Phosphatase 82 D Troponin I C-Reactive Prot, Quant B-Natriuretic Peptide Total Protein 6.1 Albumin 3.4 L D Globulin 2.7 Albumin/Globulin Ratio 1.3 Lipase Procalcitonin Ur Collection Type Urine Color Urine Clarity Urine pH Ur Specific [place] Urine Protein Urine Glucose (UA) Urine Ketones Urine Blood Urine Nitrite Urine Bilirubin Urine Urobilinogen (Auto) Ur Leukocyte Esterase Urine RBC Urine WBC Ur Squamous Epith Cells Urine Bacteria Ur Culture Indicated? Urine Opiates Screen Urine Fentanyl Screen Ur Barbiturates Screen U Amphetamin/Meth Scrn U Benzodiazepines Scrn U Cocaine Metab Screen U Marijuana (THC) Screen Ethyl Alcohol Misc Test Result Platelets confirmed Quality Measures Quality Measures none Assessment & Plan Assessment Current Active Medications: Generic Name Dose Route Start Last Admin Trade Name Freq PRN Reason Stop Dose Admin Acetaminophen 650 mg 10/12/24 08:20 Acetaminophen Supp 650 Mg Supp PA 11/10/24 22:01 Q6HR PRN Fever > 100.4 or pain 1-3 Piperacillin Sod/Tazobactam 100 mls @ 200 mls/hr 10/11/24 06:45 10/12/24 11:31 Sod 4.5 gm/ Sodium Chloride IV 10/18/24 06:44 Not Given Q6HR MAYTE Ciprofloxacin/Dextrose 400 mg in 200 mls @ 200 mls/hr 10/11/24 10:00 10/12/24 10:18 Cipro Ivpb IV 10/18/24 09:59 200 mls/hr Q12HR MAYTE Administration Norepinephrine/Dextrose 8 mg in 250 mls @ 5.528 mls/hr 10/11/24 23:36 10/12/24 09:30 Levophed In D5w 8mg/250ml IV 11/10/24 23:35 0 mcg/kg/min .Q24H PRN 0 mls/hr PER PROTOCOL Titration Protocol 0.05 MCG/KG/MIN Morphine Sulfate 2 mg 10/11/24 22:02 10/12/24 07:53 Morphine Sulf Inj 10 Mg/Ml Vial IVP 10/16/24 22:01 2 mg Q4H PRN Administration PAIN SCALE 7-10 (Severe Ondansetron HCl 4 mg 10/11/24 22:02 Ondansetron Inj 2 Mg/Ml Inj 2 Ml IVP 11/10/24 22:01 Q6H PRN NAUSEA OR VOMITING Protocol Plan The patient is a 23-year-old male with significant past medical history of 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 Beckwith at [facility], previous admission for blood loss anemia presented to ED brought in by [facility] from [facility] for evaluation of abdominal pain that has been going on for past 2 days. MRCP revealed, distended gallbladder, enlarged common bile hepatic duct with 2 mm in 3 mm common bile duct stones and abrupt termination of the distal common bile duct, CT abdomen/pelvis revealed 2.4 cm anterior right lobe liver lesion. GI Dr. Beckwith was consulted again, who recommended admitting the patient, and he would perform ERCP. The patient was Given morphine IV, 3L of bolus fluid, Zosyn, magnesium sulfate in the ED and was admitted to ICU for further management of possible septic shock. 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 - Endorsed that he had a loose watery stool only since this morning, 4-5 episodes not associated with any mucus or blood. - At the time of admission, patient noted to have febrile episode of 102.9 ?F - On examination, noted to have severe tenderness in the right upper quadrant - Blood cultures showed GNR bacteremia in both bottles - Likely septic shock in the setting of GNR bacteremia secondary to ascending cholangitis. Final culture pending Plan - Received 4 L of bolus fluid in the ED, as MAP continued to be less than 65, patient was started overnight on Levophed drip - Patient was started on IV maintenance fluids, LR at 125 mL/h - Patient was later tapered off Levophed and completely stopped around 9:30 AM. vitals are stable - Will continue to treat underlying sepsis with antibiotics [Zosyn 10/11- GI: #Acute cholecystitis with choledecolithiasis - Presented with abdominal pain for past 2 days - Has recent history of ERCP and stent placement about a month ago by Dr. Beckwith - MRCP revealed distended gallbladder, enlarged common bile hepatic duct with 2 mm in 3 mm common bile duct stones and abrupt termination of the distal common bile duct. - CT abdomen/pelvis revealed 2.4 cm anterior right lobe liver lesion, distended gallbladder with adjacent edema, colitis pattern Plan - Started on Zosyn 10/11/2024- - GI Dr. Beckwith consulted, underwent removal of old CBD stent and placement of new stent - Started on clear liquid diet - General surgeon, Dr. 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 portal hypertension - Underwent biopsy of liver in [place], requested all records -Will follow-up with the records - Patient is already following with [place] to be on transplant list, will recommend patient to follow-up with [place] for further liver transplant process Renal: # Hypokalemia - Potassium as of 10/13/2024 is 3.3 - Patient had potassium of 5.8 at the time of admission and was given hyperkalemic treatment which could be causing mobilization of potassium from extracellular to intracellular - Will hold repletion of potassium for now and patient is started on clear liquid diet, will follow-up with the potassium values on the lab Endocrinology - No active issues Hematology: # Microcytic normochromic anemia - Patient was found to have iron deficiency anemia in July 2024 - Discharge patient on iron supplements on outpatient basis - Follow-up as outpatient #Splenomegaly #Thrombocytopenia - Noted to have splenomegaly likely from cirrhosis and portal hypertension - Patient noted to have thrombocytopenia since 2022, 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 Beckwith consulted, underwent removal of old CBD stent and placement of new stent - Started on clear liquid diet MSK: - No active disease Psych: #Marijuana abuse disorder - May consider consulting social service Health maintenance: Dispo: septic shock secondary to acute cholecystitis, requiring pressor support DVT prophylaxis: Subcu heparin every 8 hourly Diet: Clear liquid diet Lines: Peripheral lines Antibiotics: Zosyn 10/11- CODE STATUS: Full code Patient plan of care was discussed with the Senior Software Engineer Analytics, Dr. Tay Perez, PGY2 Attending Provider Attestation/Addendum Patient seen and examined with resident. Agree with above. In brief is a 23-year-old gentleman admitted to the ICU for septic shock. He has a history of cirrhosis with primary biliary disorder requiring stent. He is currently admitted with what appears to be cholangitis and possible cholecystitis. Surgical consult was requested. GI consult was requested. The patient is to undergo an ERCP today. Will also place a request for IR percutaneous cholecystostomy tube per surgical recommendations. He is on broad-spectrum antibiotics. His vasopressor requirement is rapidly decreasing. He is awake alert and oriented. On physical exam he appears to have significant right upper quadrant abdominal pain. Case discussed with ICU team and surgery Labs, imaging and records reviewed Approximately 40 critical care minutes required for evaluation, exam, review, intervention, discussion formulation plan of care for his critically ill patient with septic shock at high risk for further ongoing decompensation.
--- NOTE | 2024-10-12 14:18 | XR_ITS ---
Examination: ERCP 23 spot fluoroscopic abdomen films Fluoroscopy Date and time: October 12, 2024 1613 hours INDICATIONS: Enlarged common bile duct with common hepatic common bile duct stones and abrupt termination of the distal common bile duct on MRCP study yesterday TECHNIQUE AND FINDINGS: 23 spot fluoroscopic films of the abdomen obtained Contrast opacification of the common hepatic common bile duct Biliary stent in satisfactory position on the final films Fluoroscopy 0.50 minute radiation dose 3.66 milligray IMPRESSION: ERCP as above
[2024-10-12] MEDS: INDOMETHACIN 50 MG SUPP 100 MG PR (15:47)
--- NOTE | 2024-10-12 15:48 | SUR.PHASEI ---
1548: Pt. AAOx4, vitals stable, breathing unlabored, no complaint of pain or nausea, no dressing in place, no active bleed noted, report received from MD Major and Denae DAVIS.
--- NOTE | 2024-10-12 16:29 | SUR.PHASEI ---
1629: Pt. AAOx4, vitals stable, breathing unlabored, no complaint of pain or nausea, no dressing in place, no active bleed noted, pt. tolerated sips of water well, pt. ambulated to restroom with steady gait and no assist, no complications. Gave report to floor nurse prior to transfer to room 250. Pt. stated not to update family that his procedure is done and going back to his room.
--- NOTE | 2024-10-12 17:30 | ESPR_ITS ---
<Statement entered by Kaitlyn Castro MD - 10/12/24 20:56> Patient was seen and examined at bedside. I agree on the assessment and plan on this note as documented by resident Karely Nieves DO PGY1. 23-year-old male with past medical history of Caroli's disease, underlying liver cirrhosis, portal hypertension with splenomegaly and history of GI bleed admitted to intensive care unit for acute cholangitis requiring IV Levophed for septic shock. Patient underwent ERCP today with removal of biliary stone, biliary sphincterectomy and replacement of stent with cleaning of pus. Post ERCP patient stable, MAP greater than 65, no active complaints stable to be downgraded to telemetry for further observation. Seen in ICU denies any abdominal pain, will continue IV Zosyn, blood cultures positive for GNR pending speciation. Patient started on clear liquid diet per GI recommendations, will continue to monitor patient. Resumed home dose ursodiol, started on pantoprazole IV daily for GI prophylaxis, will monitor patient for signs of pancreatitis, follow INR in a.m., monitor platelet count, disposition telemetry. Pending medical records from [facility]. Case discussed with attending Dr. Fabienne Mendoza MD PGY-2 Documentation for date of: 10/12/24 Subjective Subjective Interval history: Patient downgraded to floors today, and seen in the ICU. Patient reports that 2 days prior to admission he felt feverish, nauseous with right upper quadrant pain. Patient was seen post ERCP, reports feeling well with no current abdominal pain. Denies fever/chills, palpitations, abdominal distention, hematemasis or melena. Reports has appt with [facility] mid October. Status post ERCP with removal of choledocholithiasis, biliary sphincterotomy and replacement of stent with pus cleaning. Continue Zosyn and cefepime. Blood cultures preliminary GNR in 2 out of 2 tubes. Restarted home ursodiol 300 mg QD Exam Vital Signs Temp Pulse Resp BP Pulse Ox O2 Del Method O2 Flow Rate 97.7 F 95 18 98/76 99 Room Air 2 10/12/24 16:18 10/12/24 16:18 10/12/24 16:18 10/12/24 16:18 10/12/24 16:18 10/12/24 12:00 10/12/24 15:53 Narrative Exam GENERAL: AOx3, no acute distress HEENT: NC/AT, mucous membranes moist, bilateral sclera anicteric CARDIOVASCULAR: regular rate and rhythm, S1/S2 present, no murmurs appreciated PULMONARY: clear to auscultation bilaterally, no rales/rhonchi/wheezes ABDOMINAL: soft, non-distended, no rebound/guarding, bowel sounds present, +mild RUQ tenderness EXTREMITIES: no peripheral edema SKIN: warm and dry, intact, no rashes NEURO: CN II-XII grossly intact, no focal deficits, alert, following commands Objective Labs 10/13/24 05:52 10/13/24 05:52 Labs: Laboratory Results - last 24 hr 10/11/24 10/12/24 10/12/24 19:00 05:03 13:42 WBC 5.0 RBC 4.60 Hgb 11.4 L Hct 36.0 L MCV 78 L MCH 24.8 L MCHC 31.7 RDW Std Deviation 49.3 H Plt Count 40 L D Neut % (Auto) 89 H Lymph % (Auto) 4 L [place] % (Auto) 5 Eos % (Auto) 0 Baso % (Auto) 1 Neut # (Auto) 4.4 Lymph # (Auto) 0.2 L [place] # (Auto) 0.3 Eos # (Auto) 0.0 Baso # (Auto) 0.0 Immature Gran # (Auto) 0.06 H Absolute Nucleated RBC 0.00 Immature Gran % 1 H Nucleated RBC % 0 ESR 55 H PT 22.9 H INR 2.2 H APTT 43.9 H Sodium 141 Potassium 3.3 L D Chloride 109 H Carbon Dioxide 19.1 L Anion Gap 13 BUN 19 Creatinine 0.9 Estim Creat Clear Calc 97.7 eGFR > 60 BUN/Creatinine Ratio 21 H Glucose 109 H Calculated Osmolality 284 Lactic Acid 1.8 Calcium 8.0 L Corrected Calcium 8.5 Phosphorus 2.6 Magnesium 1.8 Total Bilirubin 1.2 D AST 25 ALT 19 Alkaline Phosphatase 82 D C-Reactive Prot, Quant 20.3 H Total Protein 6.1 Albumin 3.4 L D Globulin 2.7 Albumin/Globulin Ratio 1.3 Procalcitonin 23.97 H Misc Test Result Platelets confirmed Blood Type O Positive Antibody Screen NEGATIVE Blood Bank Wristband ID Yes Blood Bank Comment FFP Ready Quality Measures Quality Measures none Assessment & Plan Assessment Current Active Medications: Generic Name Dose Route Start Last Admin Trade Name Freq PRN Reason Stop Dose Admin Acetaminophen 650 mg 10/12/24 08:20 Acetaminophen Supp 650 Mg Supp NC 11/10/24 22:01 Q6HR PRN Fever > 100.4 or pain 1-3 Piperacillin Sod/Tazobactam 100 mls @ 200 mls/hr 10/11/24 06:45 10/12/24 11:31 Sod 4.5 gm/ Sodium Chloride IV 10/18/24 06:44 Not Given Q6HR MAYTE Ciprofloxacin/Dextrose 400 mg in 200 mls @ 200 mls/hr 10/11/24 10:00 10/12/24 10:18 Cipro Ivpb IV 10/18/24 09:59 200 mls/hr Q12HR MAYTE Administration Norepinephrine/Dextrose 8 mg in 250 mls @ 5.528 mls/hr 10/11/24 23:36 10/12/24 09:30 Levophed In D5w 8mg/250ml IV 11/10/24 23:35 0 mcg/kg/min .Q24H PRN 0 mls/hr PER PROTOCOL Titration Protocol 0.05 MCG/KG/MIN Morphine Sulfate 2 mg 10/11/24 22:02 10/12/24 07:53 Morphine Sulf Inj 10 Mg/Ml Vial IVP 10/16/24 22:01 2 mg Q4H PRN Administration PAIN SCALE 7-10 (Severe Ondansetron HCl 4 mg 10/11/24 22:02 Ondansetron Inj 2 Mg/Ml Inj 2 Ml IVP 11/10/24 22:01 Q6H PRN NAUSEA OR VOMITING Protocol Plan Bari Tse is a 23M pmhx significant for cirrhosis likely 2/2 to Caroli's disease with hx of cholangitis and choledocolithiasis s/p stent 09/01/24 and with hx of esophageal bleeds s/p banding presented to [facility] ED on 10/11 for RUQ pain, nausea and fever initially admitted to ICU for septic shock for short pressor requirement and urgent ERCP with choledocolithiasis stone removal and biliary stent replacement, downgraded to the floors 10/12 for further antibiotic and post surgical management. #Septic shock, resolved 2/2 #GNR Bacteremia #Acute cholangitis 2/2 biliary stent infection #Choledocholithiasis s/p stone removal 10/12/24 #Cirrhosis 2/2 Caroli disease #Splenomegaly Patient was admitted with severe right upper quadrant pain starting 2 days prior to admission associated with fevers. Initially vitals were stable however became febrile 102F MAP began to decrease <65 requiring pressor support from 10/11 2355 to 10/12 0930. Admission hemoglobin 13.1, platelets 54, ESR 55, PT/PTT/INR prolonged, K 5.8, BUN 24, Tbili 1.7, AST 45, CRP 20.3, and Procal 23.97. Has a history of Caroli disease and and has been following up with [facility] with an appointment every few months. Was previously on the transplant list, was improving and was taken off. MRCP shows cirrhosis, massive splenomegaly, distended gallbladder, and large common bile common hepatic duct with 2 mm and 3 mm common bile duct stones and abrupt termination of the distal common bile duct CTAP showed 3.4 cm anterior right lobe liver lesion, cirrhosis, intrahepatic biliary tract dilation, distended gallbladder with adjacent edema, prominent splenomegaly and diffuse nonspecific colitis pattern s/p ERCP 10/12/24: Entire main bile duct moderately dilated, removal of choledocholithiasis, biliary sphincterotomy and replacement of stent with pus cleaning. Prelim BCx: GNR in 2/2 tubes likely 2/2 to stent infection Plan: - Per GI: CLD, caution for pancreatitis, bleeding, perforation cholangitis, repeat ERCP in 2 months for retreatment, recommend patient to get a cholecystectomy by transplant surgeon - [facility] (10/11 -) - Pain: Tylenol, morphine 2mg IVP q4h prn - F/u UCx - CTM vitals, WBC, Hgb, and for abdominal pain - Restart Ursodiol 300 mg QD #Electrolyte abnormalities #Hypomagnesemia, resolved #Hyponatremia, resolved #Hyperkalemia, resolved On admission, Mg 1.4, Na 132, K 5.8. Likely 2/2 to poor PO intake and sepsis. Repleted by ED and ICU team. Plan: - Recheck and replete as necessary Hospital management: Lines: PIV Diet: CLD Bowel: Not indicated GI prophylaxis: Not indicated DVT prophylaxis: SCDs Disposition: telemetry for post surgical management CODE STATUS: Full code Plan of care discussed with attending Dr. Alston, and PGY-2 Dr. Castro. Karely Nieves, DO PGY-1 Internal Medicine Attending Provider Attestation/Addendum I, Fabienne Alston DO, attest that I was physically present for the mena portions of the service and evaluated the patient with the resident and I reviewed and discussed the case with the resident and agree with the resident's findings and plans of care as documented above Patient is a 23-year-old male with past medical history of alcohol liver cirrhosis, esophageal varices status post banding, Caroli's disease, choledocholithiasis status post stent who was admitted to the hospital for septic shock due to ascending cholangitis. Patient was admitted to the ICU and started vasopressors due to shock and IV Zosyn. Patient underwent ERCP this afternoon during which biliary stent was exchanged and purulent drainage had been noted from the biliary tree. Patient otherwise tolerated procedure well. He has been weaned off of vasopressors. He has been started on clear liquid diet. Will monitor for any signs of perforation, pancreatitis or cholangitis. Will continue with IV antibiotics at this time. Follow-up with blood and urine cultures. Blood cultures currently pending. Hospitalist service to take over management of patient as he is to be transferred out of ICU. Patient currently denies any pain, bloating, chest pain, shortness of breath, fevers or chills. He reports feeling improved at this time.
--- NOTE | 2024-10-12 18:24 | PC.NURSE ---
Handoff report given to [facility] from [facility] aware of transfer. All belongings gathered and sent with patient and spouse. No s/s of distress noted. Pt transferred via W/C and monitor to [facility].
[2024-10-13] VITALS (11 sets, daily range): BP systolic 91–108; BP diastolic 58–80; PULSE 48–557; RESP 14–22; TEMP 36.1–36.5; O2SAT 99–100
[2024-10-13] MEDS: PIPER/TAZO INJ 4.5 GM in SODIUM CHLORIDE 0.9% (POP) 100 ML IV ×4 (00:01→21:31)
[2024-10-13 06:09] LABS: Basophils # (Auto) 0.0 Thou/mm3 (0.0-0.2); Basophils % (Auto) 0 % (0-2.5); Eosinophils # (Auto) 0.0 Thou/mm3 (0.0-0.5); Eosinophils % (Auto) 0 % (0-10); Hematocrit 33.5 % (41.0-53.0); Hemoglobin 10.5 g/dL (13.5-16.0); Immature Granulocytes Auto 0.04 Thou/mm3 (0.00-0.00); Lymphocytes # (Auto) 0.2 Thou/mm3 (1.0-4.8); Lymphocytes % (Auto) 7 % (10-50); Mean Corpuscular HGB Conc 31.3 g/dl (31.0-37.0); Mean Corpuscular Hemoglobin 24.6 pg (25.0-35.0); Mean Corpuscular Volume 79 fL (80-100); Monocytes # (Auto) 0.2 Thou/mm3 (0.0-0.8); Monocytes % (Auto) 5 % (0-12); Neutrophils # (Auto) 3.0 Thou/mm3 (1.8-7.7); Neutrophils % (Auto) 87 % (37-80); Nucleated Red Blood Cell # 0.00 Thou/mm3 (0.00-0.00); Nucleated Red Blood Cell % 0 /100 WBC (0); RDW Standard Deviation 50.1 fL (35.1-43.9); Red Blood Count 4.27 Miln/mm3 (4.50-5.90); White Blood Count 3.5 Thou/mm3 (3.8-10.6)
[2024-10-13 06:24] LABS: INR 1.8 (0.9-1.3); Prothrombin Time 19.1 Seconds (9.0-12.2)
[2024-10-13 06:34] LABS: Platelet Count 17 Thou/mm3 (140-440)
[2024-10-13 06:36] LABS: Alanine Aminotransferase 21 U/L (10-49); Albumin, Serum 3.3 gm/dL (3.5-5.0); Albumin/Globulin Ratio 1.3 (1.2-2.2); Alkaline Phosphatase 70 U/L (46-116); Anion Gap 7 (7-16); Aspartate Amino Transferase 24 U/L (0-34); BUN/Creatinine Ratio 24 Ratio (12-20); Bilirubin,Total 0.7 mg/dL (0.3-1.2); Blood Urea Nitrogen 17 mg/dL (9-23); Calcium 8.3 mg/dL (8.3-10.6); Calcium (Corrected) 8.9 mg/dL (8.5-10.1); Carbon Dioxide 23.2 mMol/L (20.0-31.0); Chloride 110 mMol/L (98-107); Creatinine (Component) 0.7 mg/dL (0.6-1.3); Estimated Creatinine Clearance 143.6 mL/min (>60); Globulin 2.6 gm/dL (2.3-3.5); Glucose 124 mg/dL (74-106); Magnesium 2.5 mg/dL (1.6-2.6); Osmolality,Calculated 281 (275-295); Phosphorous 1.1 mg/dL (2.4-5.1); Potassium 4.7 mMol/L (3.4-5.1); Sodium 140 mMol/L (136-145); Total Protein 5.9 gm/dL (5.7-8.2); eGFR > 60 See Note
[2024-10-13] MEDS: NAPH,KPH MBDB 1 PACKET (1.5 GM) PO ×2 (08:57)
[2024-10-13 09:04] LABS: Slide Review Platelets confirmed
[2024-10-13 09:11] LABS: Path Review Blood Smear Sent to Pathologist
--- NOTE | 2024-10-13 09:16 | PC.SS ---
Follow up note: IV antibiotic. Blood cultures are pending.
--- NOTE | 2024-10-13 10:38 | ESPR_ITS ---
<Statement entered by Kaitlyn Castro MD - 10/13/24 18:47> Patient was seen and examined at bedside. I agree on the assessment and plan on this note as documented by resident Karely Nieves DO PGY1. 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 INR downtrending will hold FFP for now. Case was discussed with patient's transplant maintenance machine repairer Floresita Ortiz who recommended discharging patient on antibiotics per culture sensitivity, he reported that he will follow- up with ERCP in 2 to 3 months per GI recommendations. Also advised to discharge patient on ciprofloxacin 500 mg twice daily for 5 days and to educate patient on pill in pocket strategy for cholangitis as he is high risk. Patient's nurse coordinator for [facility] is Judie Good PH# [phone]. Disposition Tele, pending cultures. Case discussed with attending Dr. Magali Castro MD PGY-2 Documentation for date of: 10/13/24 Subjective Subjective Interval history: No acute overnight events. Patient seen and examined at bedside. Patient reports feeling well today, no right upper quadrant pain, only minimal on palpation. Denies palpitations, nausea or vomiting, urinary symptoms hematemesis or melena. Last bowel movement day before yesterday. Requests to be advanced to regular diet as he is tolerating clear liquid diet well. Platelets 17, transfuse 1 unit of platelets. Hold FFP for now as INR downtrending. Phosphate 1.1, Neutra-Phos x 3. Continue Zosyn, follow-up urine cultures. Plan to consult GI Dr. Beckwith if regular diet can be restarted as patient is tolerating CLD. Will call [facility] medical records for [facility] record that was obtained previous admission tomorrow. Exam Vital Signs Temp Pulse Resp BP Pulse Ox O2 Del Method O2 Flow Rate 97.0 F 65 18 96/60 100 Room Air 2 10/13/24 08:00 10/13/24 08:00 10/13/24 08:00 10/13/24 08:00 10/13/24 08:00 10/13/24 08:00 10/12/24 15:53 Narrative Exam GENERAL: AOx3, no acute distress HEENT: NC/AT, mucous membranes moist, bilateral sclera anicteric CARDIOVASCULAR: regular rate and rhythm, S1/S2 present, no murmurs appreciated PULMONARY: clear to auscultation bilaterally, no rales/rhonchi/wheezes ABDOMINAL: soft, non-distended, no rebound/guarding, bowel sounds present, + minimal RUQ tenderness EXTREMITIES: no peripheral edema SKIN: warm and dry, intact, no rashes NEURO: CN II-XII grossly intact, no focal deficits, alert, following commands Objective Labs 10/13/24 05:52 10/13/24 05:52 Labs: Laboratory Results - last 24 hr 10/12/24 10/13/24 13:42 05:52 WBC 3.5 L RBC 4.27 L Hgb 10.5 L Hct 33.5 L MCV 79 L MCH 24.6 L MCHC 31.3 RDW Std Deviation 50.1 H Plt Count 17 L* D Neut % (Auto) 87 H Lymph % (Auto) 7 L [place] % (Auto) 5 Eos % (Auto) 0 Baso % (Auto) 0 Neut # (Auto) 3.0 Lymph # (Auto) 0.2 L [place] # (Auto) 0.2 Eos # (Auto) 0.0 Baso # (Auto) 0.0 Immature Gran # (Auto) 0.04 H Absolute Nucleated RBC 0.00 Immature Gran % 1 H Nucleated RBC % 0 Smear Path Review Sent to Pathologist PT 19.1 H D INR 1.8 H Sodium 140 Potassium 4.7 D Chloride 110 H Carbon Dioxide 23.2 Anion Gap 7 BUN 17 Creatinine 0.7 Estim Creat Clear Calc 143.6 eGFR > 60 BUN/Creatinine Ratio 24 H Glucose 124 H Calculated Osmolality 281 Calcium 8.3 Corrected Calcium 8.9 Phosphorus 1.1 L Magnesium 2.5 Total Bilirubin 0.7 D AST 24 ALT 21 Alkaline Phosphatase 70 Total Protein 5.9 Albumin 3.3 L Globulin 2.6 Albumin/Globulin Ratio 1.3 Misc Test Result Platelets confirmed Blood Type O Positive Antibody Screen NEGATIVE Blood Bank Wristband ID Yes Blood Bank Comment FFP Ready Quality Measures Quality Measures none Assessment & Plan Assessment Current Active Medications: Generic Name Dose Route Start Last Admin Trade Name Freq PRN Reason Stop Dose Admin Acetaminophen 325 mg 10/12/24 18:54 Acetaminophen 325 Mg Tablet PO 11/11/24 18:53 Q6HR PRN Pain (1-3) & Fever >100.4 Piperacillin Sod/Tazobactam 100 mls @ 25 mls/hr 10/13/24 14:00 Sod 4.5 gm/ Sodium Chloride IV 10/20/24 13:59 Q8HR MAYTE Protocol Morphine Sulfate 2 mg 10/11/24 22:02 10/12/24 07:53 Morphine Sulf Inj 10 Mg/Ml Vial IVP 10/16/24 22:01 2 mg Q4H PRN Administration PAIN SCALE 7-10 (Severe Ondansetron HCl 4 mg 10/11/24 22:02 Ondansetron Inj 2 Mg/Ml Inj 2 Ml IVP 11/10/24 22:01 Q6H PRN NAUSEA OR VOMITING Protocol Pantoprazole Sodium 40 mg 10/13/24 09:00 10/13/24 08:57 Pantoprazole Inj 40 Mg Vial IVP 11/12/24 08:59 40 mg QDAY MAYTE Administration Ursodiol 300 mg 10/13/24 09:00 10/13/24 08:58 Ursodiol 300 Mg Capsule PO 11/12/24 08:59 300 mg DAILY MAYTE Administration Plan Bari Tse is a 23M pmhx significant for cirrhosis, Caroli's disease with hx of cholangitis and choledocolithiasis s/p stent 09/01/24 and with hx of esophageal bleeds s/p banding presented to [facility] ED on 10/11 for RUQ pain, nausea and fever initially admitted to ICU for septic shock for short pressor requirement and urgent ERCP with choledocolithiasis stone removal and biliary stent replacement, downgraded to the floors 10/12 for further antibiotic and post surgical management. #Septic shock, resolved 2/2 #Acute cholangitis 2/2 biliary stent infection #GNR Bacteremia #Choledocholithiasis s/p stone removal 10/12/24 #Cirrhosis 2/2 Caroli disease #Splenomegaly 2/2 portal hypertension Patient was admitted with severe right upper quadrant pain starting 2 days prior to admission associated with fevers. Initially vitals were stable however became febrile 102F MAP began to decrease <65 requiring pressor support from 10/11 2355 to 10/12 0930. Admission hemoglobin 13.1, platelets 54, ESR 55, PT/PTT/INR prolonged, K 5.8, BUN 24, Tbili 1.7, AST 45, CRP 20.3, and Procal 23.97. Has a history of Caroli disease and and has been following up with [facility] with an appointment every few months. Was previously on the transplant list, was improving and was taken off. MRCP shows cirrhosis, massive splenomegaly, distended gallbladder, and large common bile common hepatic duct with 2 mm and 3 mm common bile duct stones and abrupt termination of the distal common bile duct CTAP showed 3.4 cm anterior right lobe liver lesion, cirrhosis, intrahepatic biliary tract dilation, distended gallbladder with adjacent edema, prominent splenomegaly and diffuse nonspecific colitis pattern s/p ERCP 10/12/24: Entire main bile duct moderately dilated, removal of choledocholithiasis, biliary sphincterotomy and replacement of stent with pus cleaning. Prelim BCx: GNR in 2/2 tubes likely 2/2 to stent infection Plan: - Per GI: caution for pancreatitis, bleeding, perforation cholangitis, repeat ERCP in 2 months for retreatment, recommend patient to get a cholecystectomy by transplant surgeon - [facility] (10/11 -) - Pain: Tylenol, morphine 2mg IVP q4h prn - F/u UCx - CTM vitals, WBC, Hgb, and for abdominal pain - Restart Ursodiol 300 mg QD #Thrombocytopenia #Elevated INR, resolving Likely secondary to cirrhosis. Patient has a history of low platelets ranging from 60s to 100. On admission platelets 54 however 10/13 decreased to 17. Plan: - s/p 1 unit platelets - Hold FFP for now - CTM platelets and INR #Electrolyte abnormalities #Hypophosphatemia #Hypomagnesemia, resolved #Hyponatremia, resolved #Hyperkalemia, resolved On admission, Mg 1.4, Na 132, K 5.8. Likely 2/2 to poor PO intake and sepsis. Repleted by ED and ICU team. Phos 1.1 Plan: - Recheck and replete as necessary - Repleted neutraphos x3 Hospital management: Lines: PIV Diet: CLD Bowel: Not indicated GI prophylaxis: Not indicated DVT prophylaxis: SCDs Disposition: telemetry for post surgical management CODE STATUS: Full code Plan of care discussed with attending Dr. Esteves, and PGY-2 Dr. Castro. Karely Nieves, DO PGY-1 Internal Medicine Attending Provider Attestation/Addendum I attest that I was physically present for the evaluation, physical examination, lab and imaging review of the patient with the residents. I discussed the case with the residents and agree with the findings and plans of care as documented above. At bedside today, patient states she is feeling better and denies new complaints. Has only minimal right upper quadrant tenderness. Was able to tolerate clear liquid diet in the morning. Had a bowel movement yesterday. Platelets noted to be 17 this morning, transfused 1 unit of platelets. INR has been improving. We will continue with IV Zosyn and follow-up with culture results. Discussed with gastroenterology, recommended to reach out to us [facility] and discussed the need for cholecystectomy. We will advance his diet, continue with IV antibiotics, wait for culture results and reach out to [facility]. Magali Esteves MD
--- NOTE | 2024-10-13 12:40 | ESPR_ITS ---
Documentation for date of: 10/13/24 Subjective Subjective Interval history: Patient was seen and examined today, no acute distress no abdominal pain blood pressure is stable. Tolerating p.o. diet no complication postprocedure. Exam Vital Signs Temp Pulse Resp BP Pulse Ox O2 Del Method O2 Flow Rate 97.4 F 61 16 106/80 99 Room Air 2 10/13/24 12:00 10/13/24 12:00 10/13/24 12:00 10/13/24 12:00 10/13/24 12:00 10/13/24 12:00 10/12/24 15:53 Routine Abdominal Exam Comments: Abdominal exam benign no tenderness no rebound tenderness no sign of peritonitis. Objective Labs 10/13/24 05:52 10/13/24 05:52 Labs: Laboratory Results - last 24 hr 10/12/24 10/13/24 13:42 05:52 WBC 3.5 L RBC 4.27 L Hgb 10.5 L Hct 33.5 L MCV 79 L MCH 24.6 L MCHC 31.3 RDW Std Deviation 50.1 H Plt Count 17 L* D Neut % (Auto) 87 H Lymph % (Auto) 7 L [place] % (Auto) 5 Eos % (Auto) 0 Baso % (Auto) 0 Neut # (Auto) 3.0 Lymph # (Auto) 0.2 L [place] # (Auto) 0.2 Eos # (Auto) 0.0 Baso # (Auto) 0.0 Immature Gran # (Auto) 0.04 H Absolute Nucleated RBC 0.00 Immature Gran % 1 H Nucleated RBC % 0 Smear Path Review Sent to Pathologist PT 19.1 H D INR 1.8 H Sodium 140 Potassium 4.7 D Chloride 110 H Carbon Dioxide 23.2 Anion Gap 7 BUN 17 Creatinine 0.7 Estim Creat Clear Calc 143.6 eGFR > 60 BUN/Creatinine Ratio 24 H Glucose 124 H Calculated Osmolality 281 Calcium 8.3 Corrected Calcium 8.9 Phosphorus 1.1 L Magnesium 2.5 Total Bilirubin 0.7 D AST 24 ALT 21 Alkaline Phosphatase 70 Total Protein 5.9 Albumin 3.3 L Globulin 2.6 Albumin/Globulin Ratio 1.3 Misc Test Result Platelets confirmed Blood Type O Positive Antibody Screen NEGATIVE Blood Bank Wristband ID Yes Blood Bank Comment FFP Ready Assessment & Plan A&P Narrative Assessment: Choledocholithiasis Cholangitis Cirrhosis s/p biopsy in [facility] Plan of care: Status post ERCP with stent exchange Continue antibiotic at least for 10 days Follow-up blood culture Replete electrolytes especially phosphate I would highly recommend to contact the [facility] and discuss the necessity of cholecystectomy and if that is necessary to transfer the patient to [facility]. Continue rest of the medications Follow-up with Dr. Beckwith's office in 2 to 4 weeks. Call with any questions Time Spent With Patient Time: Total time spent is greater than 50% in coordination of care (as documented) at patient's floor/unit and/or counseling patient:
[2024-10-14] VITALS: BP 93/55; PULSE 53; PULSE 70; RESP 19; TEMP 36.3; O2SAT 99
[2024-10-14] MEDS: MORPHINE SULF INJ 10 MG/ML VIAL 2 MG IVP (00:26)
[2024-10-14 04:00] VITALS: BP 99/59; PULSE 46; PULSE 60; RESP 18; TEMP 36.1; O2SAT 100
[2024-10-14] MEDS: PIPER/TAZO INJ 4.5 GM in SODIUM CHLORIDE 0.9% (POP) 100 ML IV (05:14)
[2024-10-14 05:57] LABS: Basophils # (Auto) 0.0 Thou/mm3 (0.0-0.2); Basophils % (Auto) 0 % (0-2.5); Eosinophils # (Auto) 0.0 Thou/mm3 (0.0-0.5); Eosinophils % (Auto) 0 % (0-10); Hematocrit 34.3 % (41.0-53.0); Hemoglobin 10.8 g/dL (13.5-16.0); Immature Granulocytes Auto 0.02 Thou/mm3 (0.00-0.00); Lymphocytes # (Auto) 0.4 Thou/mm3 (1.0-4.8); Lymphocytes % (Auto) 13 % (10-50); Mean Corpuscular HGB Conc 31.5 g/dl (31.0-37.0); Mean Corpuscular Hemoglobin 24.5 pg (25.0-35.0); Mean Corpuscular Volume 78 fL (80-100); Monocytes # (Auto) 0.3 Thou/mm3 (0.0-0.8); Monocytes % (Auto) 10 % (0-12); Neutrophils # (Auto) 2.3 Thou/mm3 (1.8-7.7); Neutrophils % (Auto) 76 % (37-80); Nucleated Red Blood Cell # 0.00 Thou/mm3 (0.00-0.00); Nucleated Red Blood Cell % 0 /100 WBC (0); RDW Standard Deviation 49.8 fL (35.1-43.9); Red Blood Count 4.40 Miln/mm3 (4.50-5.90); White Blood Count 3.0 Thou/mm3 (3.8-10.6)
[2024-10-14 06:05] LABS: INR 1.3 (0.9-1.3); Partial Thromboplastin Time 30.8 Seconds (22.0-36.0); Prothrombin Time 14.3 Seconds (9.0-12.2)
[2024-10-14 06:11] LABS: Platelet Count 40 Thou/mm3 (140-440); Slide Review Platelets confirmed
[2024-10-14 06:25] LABS: Alanine Aminotransferase 14 U/L (10-49); Albumin, Serum 3.3 gm/dL (3.5-5.0); Albumin/Globulin Ratio 1.2 (1.2-2.2); Alkaline Phosphatase 75 U/L (46-116); Anion Gap 9 (7-16); Aspartate Amino Transferase 12 U/L (0-34); BUN/Creatinine Ratio 23 Ratio (12-20); Bilirubin,Total 0.4 mg/dL (0.3-1.2); Blood Urea Nitrogen 16 mg/dL (9-23); Calcium 8.6 mg/dL (8.3-10.6); Calcium (Corrected) 9.2 mg/dL (8.5-10.1); Carbon Dioxide 23.1 mMol/L (20.0-31.0); Chloride 109 mMol/L (98-107); Creatinine (Component) 0.7 mg/dL (0.6-1.3); Estimated Creatinine Clearance 125.7 mL/min (>60); Globulin 2.8 gm/dL (2.3-3.5); Glucose 163 mg/dL (74-106); Magnesium 1.7 mg/dL (1.6-2.6); Osmolality,Calculated 286 (275-295); Phosphorous 1.5 mg/dL (2.4-5.1); Potassium 4.2 mMol/L (3.4-5.1); Sodium 141 mMol/L (136-145); Total Protein 6.1 gm/dL (5.7-8.2); eGFR > 60 See Note
[2024-10-14 08:00] VITALS: BP 92/54; PULSE 51; PULSE 87; RESP 13; TEMP 36.3; O2SAT 98
[2024-10-14] MEDS: NAPH,KPH MBDB 1 PACKET (1.5 GM) PO (08:11)
[2024-10-14 09:01] LABS: C-Reactive Protein 7.9 mg/dL (0.0-0.9)
--- NOTE | 2024-10-14 09:40 | XR_ITS ---
Examination: Retroperitoneal ultrasound, complete Technique: Multiple high resolution grayscale images of the retroperitoneum obtained, including kidneys and bladder. Exam date and time:October 14, 2024 1111 hours INDICATIONS: Diagnosis Caroli's disease FINDINGS: Right kidney 12.5 cm renal cortex 2.2 cm Numerous subcentimeter renal calculi 14 mm lower pole cyst Left kidney 13.2 cm cortex 1.6 cm Multiple calcifications, the largest 18 mm in the lower pole No hydronephrosis Contracted urinary bladder Prostate volume 15 cc no prostate nodules IMPRESSION: Numerous bilateral renal calculi, no hydronephrosis
--- NOTE | 2024-10-14 10:15 | ESDS_ITS ---
<Statement entered by Kaitlyn Castro MD - 10/15/24 10:23> Patient was seen and examined by me personally. I have reviewed the below documentation by the team resident and agree with its findings. Discharge plan was discussed with the attending, Dr. 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 Patient initially started on clear liquid diet was eventually advanced to regular diet, tolerated well. Noted to have Enterobacter cloacae bacteremia sensitive to ciprofloxacin, will be discharged on Cipro to complete treatment. Otherwise downtrending platelets were noted was transfused 1 unit psoralen treated platelets, considering patient is a liver transplant recipient pote ntially in the future. Case was discussed with patient's well service pump equipment operator Dr. Floresita Ortiz, discharged per his recommendations, see below for more details. Patient responded well to hospital treatment, will follow-up in [facility] on Friday. Kaitlyn Castro MD Internal Medicine, PGY-2 Planned Discharge Date 10/14/24 DS: Providers Provider Date of admission: 10/11/24 22:16 Primary care physician: Physician No Primary/Family Admitting Provider: Sina Kelly MD Attending Provider on Admission: Magali Esteves MD Consults: 10/11/24 21:23 Consult to Gastroenterology Stat Comment: Cholangitis Consulting Provider: Gerardo Acevedo 10/12/24 10:40 Consult to General Surgery Routine Comment: Acute acalculous cholecystitis Consulting Provider: Aydee Eller Attending Provider on DC: Magali Esteves MD Discharging Provider: Magali Esteves MD DS: Diagnosis Problem List Completed Was Problem List Reviewed/Reconciled?: Yes Hospital Course Hospital Course Hospital course: Summary: Bari Tse is a 23M pmhx significant for cirrhosis, Caroli's disease with hx of cholangitis and choledocolithiasis s/p stent 09/01/24 and with hx of esophageal bleeds s/p banding presented to [facility] ED on 10/11 for RUQ pain, nausea and fever initially admitted to ICU for septic shock for short pressor requirement and urgent ERCP with choledocolithiasis stone removal and biliary stent replacement, downgraded to the floors 10/12 for further antibiotic and post surgical management. On admission, patient was febrile with decreasing blood pressure, requiring pressor support and was admitted to the ICU. Emergent ERCP was done which showed entire main bile duct moderately dilated, removal of choledocholithiasis, biliary sphincterotomy and replacement of stent with pus cleaning. Likely secondary to the stent infection, patient was diagnosed with gram-negative epifanio bacteremia was treated with antibiotics. Course complicated by low platelets he was transfused 1 units of platelets. Patient was kept overnight for observation and deemed to be stable for discharge. On discharge, patient is hemodynamically stable, labs and vitals reviewed to be stable, patient is feeling ready to go home. Imaging: MRCP shows cirrhosis, massive splenomegaly, distended gallbladder, and large common bile common hepatic duct with 2 mm and 3 mm common bile duct stones and abrupt termination of the distal common bile duct CTAP showed 3.4 cm anterior right lobe liver lesion, cirrhosis, intrahepatic biliary tract dilation, distended gallbladder with adjacent edema, prominent splenomegaly and diffuse nonspecific colitis pattern Discharge Recommendations: - Please take all medications as prescribed - Take Ciprofloxacin for 7 days to complete treatment course for your bacteremia - Per Dr Floresita Corralthy Special Delivery Messenger, if you are feeling symptomatic with similar symptoms, start Cirpofloxacin 500 mg twice daily for 5 days and go to ED as soon as possible - Call your transplant co-ordinator nurse Judie Good # [phone] ([place]) follow up for repeat ERCP and follow up for Liver transplant - Follow up Anemia workup outpatient - Follow up with Dr Beckwith outpatient in 3-4 weeks - Please follow up with your PCP within one week of discharge - Continue all home medications - If your symptoms worsen, please seek immediate medical attention and return to your nearest emergency room. - If you do not have a PCP, you may follow up at the [facility] [address], [facility] [address], Hospital Diagnoses: #Septic shock, resolved 2/2 #Acute cholangitis 2/2 biliary stent infection #GNR Bacteremia #Choledocholithiasis s/p stone removal 10/12/24 #Cirrhosis 2/2 Caroli disease #Splenomegaly 2/2 portal hypertension #Thrombocytopenia #Elevated INR, resolving #Electrolyte abnormalities #Hypophosphatemia #Hypomagnesemia, resolved #Hyponatremia, resolved #Hyperkalemia, resolved Karely Nieves, Internal Medicine, PGY-1 Status at Discharge Cognitive/behavioral status at discharge: Stable Functional status at discharge: independent ambulation Overall status at discharge: patient is back to baseline Time Spent with Patient Time attestation: Total time spent providing and/or coordinating discharge services: 37 min Time spent: Greater than 30 minutes Exam Vital Signs Temp Pulse Resp BP Pulse Ox O2 Del Method O2 Flow Rate 97.3 F 51 L 13 92/54 L 98 Room Air 2 10/14/24 08:00 10/14/24 08:00 10/14/24 08:00 10/14/24 08:00 10/14/24 08:00 10/14/24 08:00 10/12/24 15:53 Narrative Exam GENERAL: AOx3, no acute distress HEENT: NC/AT, mucous membranes moist, bilateral sclera anicteric CARDIOVASCULAR: regular rate and rhythm, S1/S2 present, no murmurs appreciated PULMONARY: clear to auscultation bilaterally, no rales/rhonchi/wheezes ABDOMINAL: soft, non-tender, non-distended, no rebound/guarding, bowel sounds present EXTREMITIES: no peripheral edema SKIN: warm and dry, intact, no rashes NEURO: CN II-XII grossly intact, no focal deficits, alert, following commands Discharge Plan Plan Patient Disposition: HOME (Self Care) Patient condition on transfer: Stable Care Plan Goals: -Take Ciprofloxacin for 7 days to complete treatment course for your bacteremia -Pill in Pocket Startegy (per Dr Floresita Ortiz Special Delivery Messenger): Keep 10 pills of Ciprofloxacin on you, when you feel symptoms start Ciprofloxacin 500mg twice a day and go to ED as soon as possible for Evaluation -Call your transplant co-ordinator nurse Judie Good # [phone] ([place]) follow up for repeat ERCP and follow up for Liver transplant -Follow up Anemia workup outpatient -Follow up with Dr Beckwith outpatient in 3-4 weeks -Follow up in [facility] on Friday follow up renal ultrasound and obatin nephrology referral. Call [phone] to make an appointment Address: [facility], [address], [address], [place], [address] -Return to ED if symptoms return or worsen. Prescriptions/Referrals Prescriptions/Med Rec: New ciprofloxacin HCl 500 mg tablet 500 mg PO BID 12 Days Qty: 24 0RF Continued gabapentin 300 mg capsule 300 mg PO TID sucralfate 100 mg/mL suspension 1 g PO BID Patient Comments: TAKE 10 ML (1 G TOTAL) BY MOUTH 2 TIMES A DAY Changed pantoprazole [Protonix] 40 mg tablet,delayed release (DR/EC) 40 mg PO QDAY Qty: 30 0RF ursodiol 300 mg capsule 300 mg PO TID 30 Days Qty: 90 0RF Held propranolol 10 mg tablet 10 mg PO BID Qty: 60 2RF Hold Instructions: Resume on 10/21/24. Follow up in [facility] before resuming Referrals: Rome Springer MD [Resident] - No Primary/Family,Physician [Primary Care Provider] - Patient/Caregiver Discharge Instructions Discharge Activity: activity as tolerated Education Materials: Understanding Liver Transplants, ERCP Dc Print Language: Romansh Stand Alone Forms: Анна Award Info., Patient Portal Info Letter Discharge Order Discharge Orders: Discharge (Routine); Ordered 10/14/24 Ordered By: Kaitlyn Castro Quality Discharge Quality Measures VTE prophylaxis Attestestation Attestation I attest that I was physically present for the evaluation, physical examination, lab and imaging review of the patient with the residents. I discussed the case with the residents and agree with the findings and plans of care as documented above. Magali Esteves MD
--- NOTE | 2024-10-14 10:45 | PC.NURSE ---
discharge pending renal unltrasound
[2024-10-14 11:01] LABS: Ferritin 57 ng/mL (10.5-307.3); Iron 116 mcg/dL (65-175); Percent Iron Saturation 45 % (20-55); Total Iron Binding Capacity 254 mcg/dL (250-425); Unsaturated Iron Binding 138 (225-295)
[2024-10-14 12:00] VITALS: BP 98/61; PULSE 102; PULSE 45; RESP 15; TEMP 36.2; O2SAT 99
== END 2024-10-14 12:41 | disposition home or self-care (01) | DRG 710 ==
LOC: SERX 21:29 → SERHOLD 22:18 → S2SX 10-12 06:17 → SERHOLD 10-12 06:35 → S2SX 10-12 08:47 → S2NX 10-12 18:01
PROVIDERS: Emergency Medicine; Internal Medicine Gastroenterology; Admitting Provider Student in an Organized Health Care Education/Training Program; Emergency Provider Emergency Medicine; Visit Provider Student in an Organized Health Care Education/Training Program
PROC: 0FP44DZ Removal of Intraluminal Device from Gallbladder, Percutaneous Endoscopic Approach (ICD-10-PCS; CPT 43260; principal; 2024-10-12 13:45)
DX: A41.50 Gram-negative sepsis, unspecified (principal); K80.42 Calculus of bile duct with acute cholecystitis without obstruction; K74.60 Unspecified cirrhosis of liver; E87.5 Hyperkalemia; E83.42 Hypomagnesemia; E87.1 Hypo-osmolality and hyponatremia; D50.9 Iron deficiency anemia, unspecified; R16.1 Splenomegaly, not elsewhere classified; D69.6 Thrombocytopenia, unspecified; R65.21 Severe sepsis with septic shock; N39.0 Urinary tract infection, site not specified; F12.19 Cannabis abuse with unspecified cannabis-induced disorder; E83.39 Other disorders of phosphorus metabolism; E87.6 Hypokalemia; K52.9 Noninfective gastroenteritis and colitis, unspecified; K82.8 Other specified diseases of gallbladder; K76.6 Portal hypertension; R79.1 Abnormal coagulation profile; Z76.82 Awaiting organ transplant status
CPT/HCPCS: 36415; 71045; 74177; 74181; 74330; 76705; 76770; 80053; 80307; 80320; 81001; 82728; 83540; 83550; 83605; 83690; 83735; 83880; 84100; 84145; 84484; 85025; 85610; 85652; 85730; 86140; 86850; 86900; 86901; 86927; 86965; 87040; 87077; 87081; 87086; 87186; 87400; 87811; 93005; 94640; 96361; 96365; 96366; 96375; 96376; 99284; A4217; A4649; C1889; C2625; J0612; J0744; J1815; J1885; J2250; J2270; J2405; J2470; J2543; J2704; J3010; J3475; J3480; J3490; J7030; J7050; J7120; P9035; Q9967; A9270; G0480

== ENCOUNTER 2024-11-27 13:47 | Emergency (ER) | payer MEDICAID, SELFPAY ==
[2024-11-27 13:48] VITALS: BMI 24.1
[2024-11-27 15:12] VITALS: BP 123/83; PULSE 95; RESP 18; TEMP 36.8; O2SAT 97
--- NOTE | 2024-11-27 15:25 | EKG_ITS ---
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
--- NOTE | 2024-11-27 15:25 | XR_ITS ---
Examination: PA chest single view Technique: Upright PA chest single view Date and time: November 27, 2024, 1534 hrs. Indications: Chest pain beginning 3 days ago. Findings: Normal heart size. The lungs are clear. The osseous structures are intact Impression: No active disease.
--- NOTE | 2024-11-27 15:30 | PD.EDABDPN ---
ED Abdominal Pain RME/HPI General Chief Complaint: Abdominal Pain Stated complaint: R UPPER ABD PAIN; HX LIVER FAILURE Time seen by provider: 11/27/24 14:17 Arrival date/time: 11/27/24 13:47 RME / HPI RME / HPI narrative: 24-year-old male patient came in for evaluation regarding right upper quadrant pain. Patient has been having worsening right upper quadrant pain, associated with nausea, vomiting cannot take anything down due to vomiting. Patient symptoms been ongoing for the last few days. Patient denies any fever. Patient is currently followed by [facility] team for Caroli disease of the liver. Patient told me that he missed an appointment with them last week. Related Data Home Medications ?Medication ?Instructions ?Recorded ?Confirmed sucralfate 100 mg/mL oral 1 g PO BID 08/31/24 10/12/24 suspension gabapentin 300 mg capsule 300 mg PO TID 10/12/24 10/12/24 Previous Rx's ?Medication ?Instructions ?Recorded propranolol 10 mg tablet 10 mg PO BID #60 tabs 06/11/24 Held on 10/14/24. Instructions: Resume on 10/21/24. Follow up in [facility] before resuming pantoprazole 40 mg tablet,delayed 40 mg PO QDAY #30 tabs 10/14/24 release (Protonix) ursodiol 300 mg capsule 300 mg PO TID 30 days #90 caps 10/14/24 Allergies Allergy/AdvReac Type Severity Reaction Status Date / Time No Known Allergies Allergy Verified 11/27/24 13:50 Review of Systems Review of Systems Narrative Review of Systems: Review of system reviewed and within normal limits except mentioned in HPI ED Exam Narrative Physical exam: VITAL SIGNS: Reviewed. GENERAL APPEARANCE: Alert and interactive, follows commands, no acute distress, HEAD AND FACE: Non-traumatic. ENT: PERRL, pink conjunctivitis, eyelid no trauma, Mucous membrane moist. NECK: Supple, nontender, no nuchal rigidity. CHEST: No tenderness, no crepitus, no paradoxical movement, no retractions. LUNGS: Clear, well ventilated, symmetric, no rales, no wheezing, no ronchi, no stridor, good breath sounds bilaterally. HEART: Regular rate, regular rhythm, no murmur, no gallops. ABDOMEN: Soft, positive bowel sounds, nondistended, no guarding, right upper quadrant abdominal tenderness, no rebound, no masses, RECTAL: Deferred. GENITAL: Deferred. NEUROLOGICAL: Gross motor function intact sensory function intact, Appropriate for age. MUSCULOSKELETAL: low back nontender, full range of motion. EXTREMITIES: Nontender, full range of motion. SKIN: Color pink, dry, no rash, no lacerations, no abrasions, no contusions. LYMPHATICS: Deferred. Course Quality Measures none Orders Category Date Time Status CT Screening NOW Care 11/27/24 18:54 Active EKG (ED ONLY) *Do not use* NOW Care 11/27/24 15:[address] abdomen pelvis w con Stat Exams 11/27/24 18:54 Completed EKG (ED Only) Stat Exams 11/27/24 15:25 Draft XR chest 1V Stat Exams 11/27/24 15:25 Completed B-Type Natriuretic Peptide Stat Lab 11/27/24 15:46 Completed C-Reactive Protein Stat Lab 11/27/24 15:46 Completed CBC Stat Lab 11/27/24 15:46 Completed Comprehensive Metabolic Panel Stat Lab 11/27/24 15:46 Completed Lactate (Lactic Acid) Stat Lab 11/27/24 15:46 Completed Partial Thromboplastin Time Stat Lab 11/27/24 15:46 Completed Procalcitonin Stat Lab 11/27/24 15:46 Completed Prothrombin Time with INR Stat Lab 11/27/24 15:46 Completed UA, C/S IF [Urinalysis, C/S if Indicated] Stat Lab 11/27/24 15:41 Completed Famotidine Inj [Pepcid Inj] Med 11/27/24 15:32 Discontinued 20 mg IVP X1 ONE Morphine* Inj Med 11/27/24 15:32 Discontinued 4 mg IM X1 ONE Ondansetron Inj [Zofran Inj] Med 11/27/24 15:32 Discontinued 4 mg IVP X1 ONE Ringers Lactated 1000 ml [Lactated Ringers] 1,000 ml Med 11/27/24 15:33 Discontinued IV 999 mls/hr Vital Signs Vital signs: Vital Signs Temperature 98.3 F 11/27/24 15:12 Pulse Rate 95 11/27/24 15:12 Respiratory Rate 18 11/27/24 15:12 Blood Pressure 123/83 11/27/24 15:12 Pulse Oximetry (%) 97 11/27/24 15:12 Oxygen Delivery Method Room Air 11/27/24 15:12 Abdominal Pain [facility] Narrative [facility] Narrative:: 24-year-old male patient came in for evaluation regarding right upper quadrant pain. Patient has been having worsening right upper quadrant pain, associated with nausea, vomiting cannot take anything down due to vomiting. Patient symptoms been ongoing for the last few days. Patient denies any fever. Patient is currently followed by [facility] team for Caroli disease of the liver. Patient told me that he missed an appointment with them last week. Patient received IV fluids, Pepcid, morphine, and Zofran. CBC did not show any leukocytosis. Lactic acid is normal Pro-Js slightly elevated CRP is slightly elevated. CT scan of the abdomen pelvis showed Again noted 3.4 cm anterior right lobe liver lesion Primary hepatocellular disease Prominent splenomegaly Intrahepatic biliary tract dilatation Massively distended gallbladder, gallbladder wall appears thickened consistent with cholecystitis, biliary stent noted but likely not functioning, recommend gastroenterology consult Normal appendix Mild colitis, likely hepatic colopathy On reevaluation patient was noted to be drinking water and eating chips without any recurrence of nausea or vomiting. Patient told me that his right upper quadrant pain is totally gone after medication was given. I talked to him about plan of care regarding possible nonfunctioning biliary stents, gallbladder infection and gallbladder dilatation and told him regarding close follow-up with his GI specialist from [place]. Patient told me that tomorrow morning he is going to drive to [place] emergency room to see them. I told him to come back anytime if he is getting worse so we can transfer him. He told me that he is okay to go home at this time. Stable for discharge home. Patient data External records reviewed:: None Clinical information provided by:: patient Social determinants that could affect healthcare access:: none Patient has the following chronic illnesses:: Caroli syndrome, right upper quadrant pain, nonfunctioning biliary stents, gallbladder dilatation How is presenting disease/condition affected by chronic disease/condition?: exacerbated by Evaluation data The following diagnostics were reviewed and interpreted by me:: lab results and radiology exam(s) Lab and/or radiology exams considered but not ordered:: None Interpretation Summary: See results MDM Medications / Prescriptions Medications or Prescriptions considered but not ordered:: None Medication administrations:: Medication Administration History Discontinued Medications Famotidine (Famotidine Inj 10 Mg/Ml Vial 2 Ml) 20 mg IVP X1 ONE Stop: 11/27/24 15:33 Last Admin: 11/27/24 17:57 Dose: 20 mg Documented By: TIMO Lactated Ringer's (Lactated Ringers) 1,000 mls @ 999 mls/hr IV .Q1H1M ONE Stop: 11/27/24 16:33 Last Admin: 11/27/24 17:55 Dose: 999 mls/hr Documented By: TIMO Morphine Sulfate (Morphine Sulf Inj 4 Mg/Ml Vial) 4 mg IM X1 ONE Stop: 11/27/24 15:33 Last Admin: 11/27/24 17:56 Dose: 4 mg Documented By: TIMO Ondansetron HCl (Ondansetron Inj 2 Mg/Ml Inj 2 Ml) 4 mg IVP X1 ONE; Protocol Stop: 11/27/24 15:33 Last Admin: 11/27/24 17:56 Dose: 4 mg Documented By: TIMO See [facility] Consultations Consultation(s) initiated? (list below): No Diagnosis Differential diagnosis abdominal pain: abdominal pain, diverticulitis and endometriosis Most likely diagnosis given after review of the tests above:: Caroli syndrome, right upper quadrant pain, nonfunctioning biliary stents Gallbladder dilatation Admission Indicated Admission indicated?: not indicated Explain why admission is indicated or not indicated:: Stable for discharge home Admission Request Was there a request for admission?: No Disposition Plan Disposition Plan: Discharge Discharge Attestation Discharge Attestation: The patient was given an opportunity to ask questions and understood the discharge instructions. Discharge instructions specifically effects, indications for sooner follow up or return to the emergency department, and the expected course of current diagnosis. Patient condition: Stable Discharge Plan Plan Patient Disposition: HOME (Self Care) Discharge Disposition comment: Stable Prescriptions/Referrals Prescriptions/Med Rec: No Action propranolol 10 mg tablet 10 mg PO BID Qty: 60 2RF gabapentin 300 mg capsule 300 mg PO TID pantoprazole [Protonix] 40 mg tablet,delayed release (DR/EC) 40 mg PO QDAY Qty: 30 0RF ursodiol 300 mg capsule 300 mg PO TID 30 Days Qty: 90 0RF sucralfate 100 mg/mL suspension 1 g PO BID Patient Comments: TAKE 10 ML (1 G TOTAL) BY MOUTH 2 TIMES A DAY Referrals: Jose Enrique Pena MD [Primary Care Provider, Family Practice] - In 1 week Problem List Clinical Impression: Abdominal pain, chronic, right upper quadrant, Dilated gallbladder, Caroli disease Patient/Caregiver Discharge Instructions Discharge Activity: activity as tolerated Education Materials: Abdominal Pain Additional Instructions: Thank you for the opportunity for serving you today. You are stable for discharged . You are advised to: Follow-up with your GI specialist in [place] tomorrow morning Return to ED for worsening of symptoms, worsening pain fever vomiting Increase oral fluids Take medication as prescribed prescribed your [place] MDs Print Language: Romansh Stand Alone Forms: Анна Award Info., Patient Portal Info Letter PA/LITO Supervising Physician PA/LITO Supervising Physician: MD Jazlyn
[2024-11-27 15:52] LABS: Lactate (Lactic Acid) 1.9 mMol/L (0.4-2.0)
[2024-11-27 15:55] LABS: Collection Type, Urine Clean Catch
[2024-11-27 15:59] LABS: Basophils # (Auto) 0.0 Thou/mm3 (0.0-0.2); Basophils % (Auto) 0 % (0-2.5); Eosinophils # (Auto) 0.2 Thou/mm3 (0.0-0.5); Eosinophils % (Auto) 2 % (0-10); Hematocrit 39.2 % (41.0-53.0); Hemoglobin 12.3 g/dL (13.5-16.0); Immature Granulocytes Auto 0.05 Thou/mm3 (0.00-0.00); Lymphocytes # (Auto) 1.0 Thou/mm3 (1.0-4.8); Lymphocytes % (Auto) 12 % (10-50); Mean Corpuscular HGB Conc 31.4 g/dl (31.0-37.0); Mean Corpuscular Hemoglobin 24.7 pg (25.0-35.0); Mean Corpuscular Volume 79 fL (80-100); Monocytes # (Auto) 0.5 Thou/mm3 (0.0-0.8); Monocytes % (Auto) 6 % (0-12); Neutrophils # (Auto) 6.4 Thou/mm3 (1.8-7.7); Neutrophils % (Auto) 79 % (37-80); Nucleated Red Blood Cell # 0.00 Thou/mm3 (0.00-0.00); Nucleated Red Blood Cell % 0 /100 WBC (0); RDW Standard Deviation 51.5 fL (35.1-43.9); Red Blood Count 4.98 Miln/mm3 (4.50-5.90); White Blood Count 8.1 Thou/mm3 (3.8-10.6)
[2024-11-27 16:13] LABS: Platelet Count 44 Thou/mm3 (140-440)
[2024-11-27 16:21] LABS: Bilirubin,Urine Negative (Negative); Blood,Urine Negative (Negative); Clarity,Urine Clear (Clear/Hazy); Color,Urine Yellow (Lt Yel-Yel); Culture Indicated,Urine Not Indicated; Glucose, Urine Negative (Negative); Hyaline Casts,Urine < 1 /hpf (0-1); Ketones,Urine Trace (Negative); Leukocyte Esterase,Urine Negative (Negative); Nitrite,Urine Negative (Negative); PH,Urine 6.0 (5.0-7.0); Protein,Urine 2+ (Neg - Trace); RBC,Urine 1 /hpf (0-3); Specific Gravity,Urine 1.030 (1.001-1.035); Squamous Epithelial Cell,Urine < 1 /hpf (0-5); Urobilinogen,Urine Negative mg/dL (0.0-1.0); WBC,Urine 4 /hpf (0-5)
[2024-11-27 16:25] LABS: INR 1.7 (0.9-1.3); Partial Thromboplastin Time 40.3 Seconds (22.0-36.0); Prothrombin Time 17.7 Seconds (9.0-12.2)
[2024-11-27 16:59] LABS: Alanine Aminotransferase 24 U/L (10-49); Albumin, Serum 4.3 gm/dL (3.5-5.0); Albumin/Globulin Ratio 1.2 (1.2-2.2); Alkaline Phosphatase 126 U/L (46-116); Anion Gap 11 (7-16); Aspartate Amino Transferase 35 U/L (0-34); BUN/Creatinine Ratio 21 Ratio (12-20); Bilirubin,Total 1.1 mg/dL (0.3-1.2); Blood Urea Nitrogen 19 mg/dL (9-23); C-Reactive Protein > 10.0 mg/dL (0.0-0.9); Calcium 8.8 mg/dL (8.3-10.6); Calcium (Corrected) 8.8 mg/dL (8.5-10.1); Carbon Dioxide 26.1 mMol/L (20.0-31.0); Chloride 99 mMol/L (98-107); Creatinine (Component) 0.9 mg/dL (0.6-1.3); Estimated Creatinine Clearance 92.8 mL/min (>60); Globulin 3.6 gm/dL (2.3-3.5); Glucose 97 mg/dL (74-106); Osmolality,Calculated 274 (275-295); Potassium 4.6 mMol/L (3.4-5.1); Procalcitonin 4.46 ng/ml (0.0-0.49); Sodium 136 mMol/L (136-145); Total Protein 7.9 gm/dL (5.7-8.2); eGFR > 60 See Note
[2024-11-27 17:01] LABS: Slide Review Platelets confirmed
[2024-11-27 17:29] LABS: B-Type Natriuretic Peptide < 20 pg/mL (0-100)
[2024-11-27] MEDS: RINGERS LACTATED 1000 ML 1,000 ML 999 ML IV (17:55)
[2024-11-27] MEDS: MORPHINE SULF INJ 4 MG/ML VIAL IM (17:56)
[2024-11-27] MEDS: ONDANSETRON INJ 2 MG/ML INJ 2 ML 4 MG IVP (17:56)
[2024-11-27] MEDS: FAMOTIDINE INJ 10 MG/ML VIAL 2 ML 20 MG IVP (17:57)
--- NOTE | 2024-11-27 18:54 | XR_ITS ---
Examination: CT abdomen with intravenous contrast CT pelvis with intravenous contrast 2-D coronal reconstructions 2-D sagittal reconstructions Date and time of exam:November 27, 2024, 1924 hrs., Comparison October 11, 2024 Indications: Right upper abdominal pain beginning 3 days ago, CT study October 11, 2024 anterior right lobe liver lesion, biliary stent, cirrhosis, distended gallbladder. CTDI: vol (mGy) 10.26 DLP: (mGycm) 163 Technique: Multiple axial sections of the abdomen and pelvis have been obtained. 64 slice high-resolution scanner used. 3 mm axial sections have been obtained, post intravenous injection 60 cc [id number] 2-D sagittal, coronal reconstructions obtained. Low dose protocols were performed. One or more of the following dose reduction techniques were used; automated exposure control, adjustment of the mA and/or KV according to patient size, use of iterative reconstruction technique. Findings: Again noted 3.4 cm anterior right lobe liver lesion, axial image 33 Intrahepatic biliary tract dilatation Liver is irregular in contour Prominent splenomegaly Distended gallbladder, gallbladder wall appears thickened Biliary stent appears in satisfactory position Opacities in distribution of the esophagus and stomach which may represent embolization material No hydronephrosis No bowel obstruction Mild inflammation surrounding the colon Normal appendix No diverticulitis Intact urinary bladder No prostatomegaly Impression: Again noted 3.4 cm anterior right lobe liver lesion Primary hepatocellular disease Prominent splenomegaly Intrahepatic biliary tract dilatation Massively distended gallbladder, gallbladder wall appears thickened consistent with cholecystitis, biliary stent noted but likely not functioning, recommend gastroenterology consult Normal appendix Mild colitis, likely hepatic colopathy
== END 2024-11-27 20:50 | disposition home or self-care (01) ==
PROVIDERS: Nurse Practitioner Family; Emergency Provider Emergency Medicine; PCP Family Medicine
DX: R10.11 Right upper quadrant pain (principal); G89.29 Other chronic pain; K82.8 Other specified diseases of gallbladder; Q44.6 Cystic disease of liver; R16.1 Splenomegaly, not elsewhere classified
CPT/HCPCS: 36415; 71045; 74177; 80053; 81001; 83605; 83880; 84145; 85025; 85610; 85730; 86140; 93005; 96361; 96372; 96374; 96375; 99284; A4649; J2270; J2405; J3490; J7120; Q9967